=== PATIENT | male | born 1980 | race Caucasian/White ===

== ENCOUNTER 2020-09-18 21:33 | Inpatient (IN) | payer OTHER, SELFPAY ==
[2020-09-18 21:34] VITALS: BP 124/84; PULSE 117; RESP 22; TEMP 37.2; O2SAT 88; BMI 39.2
[2020-09-18 21:41] VITALS: BP 141/86; PULSE 112; RESP 18; O2SAT 86
[2020-09-18 21:44] VITALS: O2SAT 93; O2SAT 95
--- NOTE | 2020-09-18 22:40 | EKG12_ITS ---
Test Reason : DYSRHYTHMIA Blood Pressure : / mmHG Vent. Rate : 109 BPM Atrial Rate : 109 BPM P-R Int : 132 ms QRS Dur : 086 ms QT Int : 318 ms P-R-T Axes : 052 030 031 degrees QTc Int : 428 ms Sinus tachycardia Otherwise normal ECG Confirmed by DONELL SHANKAR, SEVEN ([id number]), index editor BRENDA HUIZAR ([id number]) on 09/22/2020 10:05:57 AM Referred By: Confirmed By:SEVEN MARLEY MD
--- NOTE | 2020-09-18 22:40 | CT_ITS ---
STUDY: CTA CHEST REASON FOR EXAM: Male, 40 years old. dyspnea covid + RADIATION DOSAGE (If Supplied By Facility): CTDIvol = ( 13.85 ) mGy, DLP = ( 568.35 ) mGycm TECHNIQUE: The examination was performed with the intravenous administration of IV 100mL Isovue-370. Post-processing of the angiographic images was performed, with multiplanar reformation and 3D reconstruction. Individualized dose optimization techniques were used for this CT. COMPARISON: None. FINDINGS: Normal enhancement of the main pulmonary artery and right and left pulmonary arteries. Normal enhancement of the bilateral peripheral pulmonary arteries. There is no demonstrated pulmonary embolism. Normal thoracic aorta and visualized great vessels. There is no demonstrated aortic dissection. Normal heart and pericardium. Normal mediastinum. Normal hilar regions. Normal visualized trachea and bronchi. The lungs are well expanded. Diffuse patchy groundglass airspace disease compatible with COVID. No consolidation or effusion. Normal pleura. Normal chest wall structures. Normal osseous structures. Normal visualized upper abdomen. CT/CTA Chest W/WO Contrast IMPRESSION: Normal CTA chest examination, without a demonstrated pulmonary embolism or arterial dissection. Diffuse patchy airspace disease bilaterally compatible with COVID. Electronically Signed: Rene Downs DO at 0:58 EDT Tel , Service support ,
--- NOTE | 2020-09-18 22:42 | EX.ED.DYSGE1 ---
HPI History of Present Illness Chief Complaint: Shortness of Breath Informant: patient Narrative Narrative: 40-year-old male presents the emergency department with a chief complaint of Covid and hypoxia. Patient states that about 3 weeks ago he was diagnosed with a sinus infection and started on Amoxil. He had a negative Covid test at that time. He states that he then started feeling that he was getting pneumonia and went back and they did a chest x-ray that showed pneumonia and he was started on prednisone and azithromycin. He states that he felt a little bit better but returned last week and tested positive for Covid. Today he checked his pulse ox at home and it was 82%. He is having increased dyspnea so he came to the emergency room. Patient is currently on a second round of prednisone taking 30 mg a day as well as albuterol. [facility] Medical History Asthma Diabetes Hypertension Non-smoker Sleep apnea Home Medications albuterol sulfate [ProAir HFA] 2 puff INHALATION Q6H PRN 09/18/20 [History Last Taken Unknown] benzonatate [Tessalon Perles] 100 mg PO TID 09/18/20 [History Last Taken Unknown] doxycycline hyclate [Vibra-Tabs] 100 mg PO BID 09/18/20 [History Last Taken Unknown] prednisone 30 mg PO DAILY 09/18/20 [History Last Taken Unknown] Allergy/AdvReac Type Severity Reaction Status Date / Time No Known Allergies Allergy Verified 09/18/20 21:34 Social History (Updated 09/18/20 @ 22:[address] Rajan Merrill DO) Smoking Status: Never smoker substance use type: does not use ROS ROS ED Constitutional Constitutional ED: Reports chills and fever(s); Denies weight loss Eyes Eyes: Denies change in vision or diplopia ENT ENT ED: Reports rhinorrhea and sore throat; Denies ear pain Cardiovascular Cardiovascular: Denies chest pain, orthopnea, palpitations or racing heartbeat Respiratory/Chest Respiratory/Chest: Reports cough, dyspnea and dyspnea on exertion; Denies orthopnea Gastrointestinal Gastrointestinal: Reports diarrhea; Denies abdominal pain, nausea or vomiting Genitourinary Genitourinary ED: Denies dysuria, hematuria or urinary frequency Musculoskeletal Musculoskeletal: Reports myalgias; Denies arthralgias Integumentary Denies abscess or rash Neurologic Neurologic: Reports headache(s); Denies weakness Psychiatric Psychiatric: Denies anxiety, depression, suicidal ideation or suicidal thoughts Endocrine Endocrinology: Denies polydipsia, polyphagia or polyuria Allergic/Immunologic Allergic/Immunologic ED: Denies mouth swelling, tongue swelling or urticaria EXAM Physical Exam Narrative Exam Narrative: Patient wearing 4 L nasal cannula with sats at 91%. Const Vital Signs: 09/18/20 21:34 09/18/20 21:41 09/18/20 21:44 Temperature 98.9 F Temperature Source Temporal Pulse Rate 117 H 112 H Respiratory Rate 22 H 18 Respiratory Effort Normal Respiratory Depth Normal Respiratory Pattern Normal Blood Pressure 124/84 H 141/86 H Blood Pressure Mean 97 104 Pulse Ox 88 86 93 Oxygen Delivery Method Room Air Room Air Nasal Cannula Oxygen Flow Rate (L/min) 4 09/19/20 00:59 Temperature Temperature Source Pulse Rate 107 H Respiratory Rate 38 H Respiratory Effort Respiratory Depth Respiratory Pattern Blood Pressure 143/70 H Blood Pressure Mean 94 Pulse Ox 91 Oxygen Delivery Method Nasal Cannula Oxygen Flow Rate (L/min) 4 Positive well nourished and well developed General Appearance ED: well developed HEENT Reports normocephalic, head/scalp atraumatic and moist mucous membranes Eyes PERRL and EOMs intact bilaterally Neck no lymphadenopathy, supple and no JVD Resp normal respiratory effort and clear to auscultation bilaterally Cardio regular rate, regular rhythm and no murmurs GI normal to inspection, nondistended, normoactive bowel sounds and non-tender Palpation: soft Back/Spine no CVA tenderness and normal ROM Extremity normal to inspection General Extremety ED: Negative for edema General Extremity: Negative for edema Neuro oriented x3 and CN's II-XII intact bilaterally Sensorium / Orientation: alert Motor Exam: strength 5/5 throughout Psych mental status grossly normal Mood & Affect: Negative for depressed or tearful Skin no rashes or lesions noted and no wounds MDM MDM MDM Narrative Medical decision making narrative: Patient's white count is 8.4. Lactic acid 1.7. Electrolytes are normal except sodium at 132. Glucose 173 most likely due to steroid use. Procalcitonin is elevated 0.45. CTA does not demonstrate a pulmonary embolism but does demonstrate diffuse patchy airspace disease consistent with his Covid. He is currently requiring 4 L nasal cannula to keep saturations at 91 and therefore does not qualify for home oxygen at this point. He received a dose of Decadron and some IV fluids prior to the CTA. Plan is admission Lab Data Attestation: I reviewed the patient's lab results. Labs: Laboratory Results - last 24 hr 09/18/20 09/18/20 09/18/20 23:02 23:02 23:02 WBC 8.4 RBC 5.72 Hgb 16.2 Hct 49.8 MCV 87.1 MCH 28.3 MCHC 32.5 RDW Std Deviation 44.7 H RDW Coeff of Cinthya 14.0 Plt Count 104 L MPV 12.2 H Immature Gran % (Auto) 0.500 Neut % (Auto) 87.9 H Lymph % (Auto) 8.4 L [place] % (Auto) 3.1 Eos % (Auto) 0.0 Baso % (Auto) 0.1 Absolute Neuts (auto) 7.4 Absolute Lymphs (auto) 0.70 L Nucleated RBC % 0 Sodium 132 L Potassium 4.1 Chloride 96 L Carbon Dioxide 27.0 Anion Gap 9 BUN 17 Creatinine 0.95 Estim Creat Clear Calc 122.58 Est GFR (MDRD) Af Amer 114 Est GFR (MDRD) Non-Af 94 BUN/Creatinine Ratio 17.8 Glucose 173 H Lactic Acid 1.7 Calcium 8.4 L Total Bilirubin 0.60 AST 53 H ALT 37 Alkaline Phosphatase 34 L Troponin I High Sens 17.5 Total Protein 8.2 Albumin 3.1 L Globulin 5.1 H Albumin/Globulin Ratio 0.6 L Procalcitonin 09/18/20 23:02 WBC RBC Hgb Hct MCV MCH MCHC RDW Std Deviation RDW Coeff of Cinthya Plt Count MPV Immature Gran % (Auto) Neut % (Auto) Lymph % (Auto) [place] % (Auto) Eos % (Auto) Baso % (Auto) Absolute Neuts (auto) Absolute Lymphs (auto) Nucleated RBC % Sodium Potassium Chloride Carbon Dioxide Anion Gap BUN Creatinine Estim Creat Clear Calc Est GFR (MDRD) Af Amer Est GFR (MDRD) Non-Af BUN/Creatinine Ratio Glucose Lactic Acid Calcium Total Bilirubin AST ALT Alkaline Phosphatase Troponin I High Sens Total Protein Albumin Globulin Albumin/Globulin Ratio Procalcitonin 0.45 H Radiography Diagnostic Testing: Radiology Impression Chest CTA 09/18/20 22:40 IMPRESSION: Normal CTA chest examination, without a demonstrated pulmonary embolism or arterial dissection. Diffuse patchy airspace disease bilaterally compatible with COVID. Electronically Signed: Rene Downs DO at 0:58 EDT Tel , Service support , EKG Initial EKG: Attestation: I personally reviewed and interpreted this EKG as follows: Comments: EKG demonstrates sinus tachycardia at a rate of 109. No concerning features of ACS or ectopy noted Discharge Plan Dx/Rx/DC Orders Clinical Impression: COVID-19, Hypoxia, Hyponatremia, Hyperglycemia, drug-induced Disposition Disposition: Acute Care Hospital [facility]
[2020-09-18] MEDS: 0.9% Normal Saline 1,000 ML 125 ML IV (22:58)
[2020-09-18] MEDS: dexAMETHasone 4 MG Tablet 6 MG PO (22:59)
[2020-09-18 23:23] LABS: Absolute Neutrophil Count 7.4 X10^3/uL (2.0-7.7); Basophil# 0.01 X10^3/uL; Basophil% 0.1 % (0-1); Hematocrit 49.8 % (40-54); Hemoglobin 16.2 g/dL (13.0-16.5); Lymphocyte % 8.4 % (19-41); Mean Corp Hgb Conc 32.5 g/dL (32-36); Mean Corpuscular Hgb 28.3 pg (27.0-32.0); Mean Corpuscular Volume 87.1 fL (80-94); Mean Platelet Vol. 12.2 fl (6.2-12.0); Monocyte# 0.26 X10^3/uL; Monocyte% 3.1 % (0-10); NRBC Flagged by Analyzer 0 % (0-5); Neutrophil # 7.36 X10^3/uL (2.7-7.7); Neutrophil % 87.9 % (47-70); Platelet Count 104 K/mm3 (150-450); RBC Distribution Width SD 44.7 fl (35.1-43.9); Red Blood Count 5.72 M/mm3 (4.6-6.2); White Blood Count 8.4 K/mm3 (4.4-11.0)
[2020-09-18 23:41] LABS: ALB/GLOB Ratio 0.6 RATIO (0.9-2.4); AST(SGOT) 53 U/L (15-37); Alanine Aminotransfer ALT/SGPT 37 U/L (16-61); Albumin, Serum 3.1 g/dL (3.2-5.0); Alkaline Phosphatase 34 U/L (45-117); Anion Gap 9 (5-15); BUN 17 mg/dL (7-18); BUN/Creat Ratio 17.8 RATIO (10-20); Calcium,Total 8.4 mg/dL (8.5-10.1); Chloride 96 mmol/L (98-107); Creatinine, Serum 0.95 mg/dL (0.70-1.30); EST Glomerular Filtration Rate 94 mL/min (>60); Est Glom Filt Rate - Afr Amer 114 mL/min (>60); Estimated Creatinine Clearance 122.58 ml/min; Globulin 5.1 g/dL (2.2-4.2); Glucose 173 mg/dL (74-106); Potassium 4.1 mmol/L (3.5-5.1); Protein, Total 8.2 g/dL (6.4-8.2); Sodium Level 132 mmol/L (136-145); Troponin-I HS 17.5 pg/mL (3.0-78.5)
[2020-09-18 23:45] LABS: Lactic Acid 1.7 mmol/L (0.4-1.9)
[2020-09-19] VITALS (13 sets, daily range): BP systolic 114–152; BP diastolic 68–79; PULSE 85–107; RESP 18–38; TEMP 37.1–38.3; O2SAT 91–103; BMI 39.2
[2020-09-19 00:01] LABS: Procalcitonin 0.45 ng/mL (0.00-0.09)
--- NOTE | 2020-09-19 01:24 | HP.PCM.HOS_ITS ---
HPI - General General Date of Admission: 09/19/20 Date of Service: 09/19/20 Chief Complaint: SOB, cough, fever - 3 weeks HPI Narrative ROSE OLMEDO, is a 40 M who presents persistent cough, shortness of breath and fever ongoing for 3 weeks. 3 weeks ago, he had a sore throat and cough and was seen at urgent care. His Covid test was negative. Patient is unvaccinated. About a week later, he came back to the urgent care and was diagnosed with pneumonia and started on azithromycin and prednisone. He felt improved for short while and returned on and was tested for Covid. His Covid came back positive a week ago. He has been monitoring himself. His pulse ox was 82% on the day of admission and he decided to come in. His vitals in the ED were fairly stable. He was febrile with temperature of 101F. CT of the chest showed no PE but patchy airspace disease bilaterally. [facility] Medical History Asthma Diabetes Hypertension Non-smoker Sleep apnea Home Medications albuterol sulfate [ProAir HFA] 2 puff INHALATION Q6H PRN 09/18/20 [History Last Taken Unknown] benzonatate [Tessalon Perles] 100 mg PO TID 09/18/20 [History Last Taken Unknown] doxycycline hyclate [Vibra-Tabs] 100 mg PO BID 09/18/20 [History Last Taken Unknown] prednisone 30 mg PO DAILY 09/18/20 [History Last Taken Unknown] Allergy/AdvReac Type Severity Reaction Status Date / Time No Known Allergies Allergy Verified 09/18/20 21:34 Social History Smoking Status: Never smoker substance use type: does not use ROS ROS Narrative Constitutional: Reports: Malaise, Weakness, Fatigue, Anorexia, Chills, Fever, Denies:Night Sweats, Weight Change Eyes: Denies: Blurred vision, Cataracts, Conjunctivae Inflammation, Pain, Redness, Vision Change HEENT: Denies: Difficulty Hearing, Difficulty Swallowing, Head Aches, Hearing Changes, Sinus Congestion, Sinus Drainage Cardiovascular: Denies: Chest Pain, Orthopnea, Palpitations Respiratory: Denies: Cough, Shortness of breath at rest, Sputum production Gastrointestinal: Denies: Abdominal Pain, Nausea, Vomiting Genitourinary: Denies: Dysuria Musculoskeletal: Denies: Joint Pain, Joint stiffness, Joint swelling, Joint Tenderness Skin: Denies: Rash, Wounds Neurological: Denies: Numbness, Tingling, Focal weakness Vital Signs Vital Signs Vital Signs: 09/18/20 21:34 09/18/20 21:41 09/18/20 21:44 Temperature 98.9 F Temperature Source Temporal Pulse Rate 117 H 112 H Respiratory Rate 22 H 18 Respiratory Effort Normal Respiratory Depth Normal Respiratory Pattern Normal Blood Pressure 124/84 H 141/86 H Blood Pressure Mean 97 104 Pulse Ox 88 86 93 Oxygen Delivery Method Room Air Room Air Nasal Cannula Oxygen Flow Rate (L/min) 4 09/19/20 00:59 Temperature Temperature Source Pulse Rate 107 H Respiratory Rate 38 H Respiratory Effort Respiratory Depth Respiratory Pattern Blood Pressure Blood Pressure Mean Pulse Ox 91 Oxygen Delivery Method Nasal Cannula Oxygen Flow Rate (L/min) 4 Weight Weight: 138.8 kg Body Mass Index (BMI) 39.2 Physical Exam Narrative Physical exam: General: Alert, Oriented x3, Cooperative, No apparent distress, Well developed, on 4 L of oxygen HEENT: Atraumatic Oral: Moist Mucosa Neck: Supple Lungs: Diminished Cardiovascular: HS I+II, regular, no murmurs Abdomen: Bowel Sounds Present, Soft, Non Tender Extremities: No edema Skin: No rashes, No breakdown Neurological: Grossly intact Psych/Mental Status: Appropriate Results Lab / Micro Data Result Diagrams: 09/19/20 06:01 09/18/20 23:02 Labs: Laboratory Results - last 24 hr 09/18/20 23:02: WBC 8.4, RBC 5.72, Hgb 16.2, Hct 49.8, MCV 87.1, MCH 28.3, MCHC 32.5, RDW Std Deviation 44.7 H, RDW Coeff of Cinthya 14.0, Plt Count 104 L, MPV 12.2 H, Immature Gran % (Auto) 0.500, Neut % (Auto) 87.9 H, Lymph % (Auto) 8.4 L, [place] % (Auto) 3.1, Eos % (Auto) 0.0, Baso % (Auto) 0.1, Absolute Neuts (auto) 7.4, Absolute Lymphs (auto) 0.70 L, Nucleated RBC % 0 08/05/21 23:02: Sodium 132 L, Potassium 4.1, Chloride 96 L, Carbon Dioxide 27.0, Anion Gap 9, BUN 17, Creatinine 0.95, Estim Creat Clear Calc 122.58, Est GFR (MDRD) Af Amer 114, Est GFR (MDRD) Non-Af 94, BUN/Creatinine Ratio 17.8, Glucose 173 H, Calcium 8.4 L, Total Bilirubin 0.60, AST 53 H, ALT 37, Alkaline Phosph atase 34 L, Troponin I High Sens 17.5, Total Protein 8.2, Albumin 3.1 L, Globulin 5.1 H, Albumin/Globulin Ratio 0.6 L 09/18/20 23:02: Lactic Acid 1.7 09/18/20 23:02: Procalcitonin 0.45 H Radiology Impression Chest CTA 09/18/20 22:40 IMPRESSION: Normal CTA chest examination, without a demonstrated pulmonary embolism or arterial dissection. Diffuse patchy airspace disease bilaterally compatible with COVID. Electronically Signed: Rene Downs DO at 0:58 EDT Tel , Service support , Assessment & Plan Assessment/Plan (1) COVID-19: (2) Hypoxia: (3) Hyponatremia: PLAN: 1. Acute COVID-19 pneumonia with hypoxemia CTA of the chest was negative for acute PE; confirms acute COVID-19 Patient is on 4 L of oxygen, continue with breathing treatments, po steroids, Encourage use of incentive spirometer. Wean off oxygen for SPO2 more than 94% 2. Hyponatremia, likely secondary to dehydration #1 We will repeat blood work in a.m. 3. Rest of his chronic medical conditions including type II DM, morbid obesity -increases his risk, complicates his care We will check HbA1c, cover for now with insulin sliding scale Charges/Coding Visit Charges Inpatient E&M: 31741 Init Hosp L3
--- NOTE | 2020-09-19 04:23 | NURSING ---
Pt's , Radha Tolentino ([phone]) called in to check on pt's progress. Direct line to pt's room also given for future reference.
[2020-09-19] MEDS: Acetaminophen 325 MG Tablet 650 MG PO ×2 (04:43→17:57)
[2020-09-19] MEDS: Benzonatate 100 MG Capsule PO ×3 (04:44→17:47)
[2020-09-19 06:11] LABS: Absolute Lymphocyte Count 0.66 X10^3/uL (0.83-4.51); Absolute Neutrophil Count 5.6 X10^3/uL (2.0-7.7); Basophil# 0.01 X10^3/uL; Basophil% 0.2 % (0-1); Lymphocyte # 0.66 X10^3/ul (0.83-4.51); Lymphocyte % 10.2 % (19-41); Mean Corp Hgb Conc 31.9 g/dL (32-36); Mean Corpuscular Hgb 27.6 pg (27.0-32.0); Mean Corpuscular Volume 86.6 fL (80-94); Monocyte% 3.1 % (0-10); NRBC Flagged by Analyzer 0 % (0-5); Neutrophil # 5.56 X10^3/uL (2.7-7.7); Platelet Count 105 K/mm3 (150-450); Red Blood Count 5.43 M/mm3 (4.6-6.2); White Blood Count 6.5 K/mm3 (4.4-11.0)
[2020-09-19 06:50] LABS: ALB/GLOB Ratio 0.6 RATIO (0.9-2.4); AST(SGOT) 53 U/L (15-37); Alanine Aminotransfer ALT/SGPT 34 U/L (16-61); Albumin, Serum 2.8 g/dL (3.2-5.0); Alkaline Phosphatase 33 U/L (45-117); Anion Gap 8 (5-15); BUN 14 mg/dL (7-18); BUN/Creat Ratio 18.8 RATIO (10-20); Calcium,Total 8.2 mg/dL (8.5-10.1); Chloride 99 mmol/L (98-107); Creatinine, Serum 0.75 mg/dL (0.70-1.30); EST Glomerular Filtration Rate 125 mL/min (>60); Est Glom Filt Rate - Afr Amer 151 mL/min (>60); Estimated Creatinine Clearance 155.27 ml/min; Globulin 4.9 g/dL (2.2-4.2); Glucose 184 mg/dL (74-106); Potassium 4.2 mmol/L (3.5-5.1); Protein, Total 7.7 g/dL (6.4-8.2); Sodium Level 132 mmol/L (136-145)
[2020-09-19] MEDS: Insulin Lispro 100 UNIT/ML INSULN.PEN SC ×4 (06:50→20:41)
[2020-09-19] MEDS: dexAMETHasone 2 MG TABLET 6 MG PO (06:51)
[2020-09-19 07:00] LABS: Bedside Glucose 185 mg/dL (70-110)
[2020-09-19 07:38] LABS: BNP,B-Type NATRIURETIC PEPTIDE 2.9 pg/mL (0-100)
[2020-09-19 08:06] LABS: Hemoglobin A1c 6.7 % (3.8-5.6)
[2020-09-19] MEDS: Enoxaparin 40 MG/0.4 ML Syringe SC ×2 (08:56→20:42)
--- NOTE | 2020-09-19 10:40 | CASEMGMT ---
HENRIK VALLE Assessment: Face to Face with pt for initial transition planning/care coordination assessment, isolation precautions maintained. RN LEONARD introduced self and role at [facility], pt voices understanding and consents to assessment. Pt sitting up in bed with O2 on and hospitalist at bedside. Pt is A/O x4 and answers all questions appropriately at this time. Care providers, pharmacy, and demographics verified/updated. Admitting Dx: COVID PCP:Pt denies having a PCP. Provided pt with pamphlet of local PCP's. Specialists: Pt denies having any specialists. Preferred Pharmacy: Insurance: MMO Prescription Benefit: yes LW/HPOA: Pt denies having a LW/DPOA LNOK: Mariana Tolentino, Living Arrangements: Pt lives with in a bilevel home with two steps to enter. Pt states he is I in ADL's and denies concerns at home. Transportation: Pt drives self and denies concerns with transportation. DME/HHC: Pt denies having any DME, previous HHC. Provided pt with list of local in network DME companies in case he needs O2 at dc. Pt preferred choice is [employer]. Green sheet on chart in case pt dc's over the weekend. Pt states no concerns with going home at time of dc. Pt is aware of quarantining guidelines. He is able to be quarantined from his with separate bedrooms and bathrooms. His does not have covid. He states he has family who can obtain groceries and supplies for him. Pt states he was tested initially at [facility] in [place] with a negative result. Then pt went to [facility] urgent care and had a positive result. Pt states no further concerns/needs. CM to follow. Advised pt to ask CM if any further question/concerns/needs arise, voices understanding. Pt Goal: Home Plan: Home
[2020-09-19 11:16] LABS: Bedside Glucose 286 mg/dL (70-110)
--- NOTE | 2020-09-19 13:57 | PN.HOSP_ITS ---
Subjective Subjective Still short of breath and having paroxysms of cough. Objective Data Objective Data Vital Signs: Vital Signs Temp Pulse Resp BP Pulse Ox 37.2 C 85 18 144/79 H 93 09/19/20 12:20 09/19/20 12:20 09/19/20 12:20 09/19/20 12:20 09/19/20 13:50 Oxygen Flow Rate (L/min) 4 Oxygen Delivery Method Nasal Cannula Weight: 138.8 kg Body Mass Index (BMI) 39.2 Intake & Output: Intake and Output for Last 24 Hours 09/17/20 09/18/20 09/19/20 23:59 23:59 23:59 Intake Total 1408.33 / 1408.33 Balance 1408.33 / 1408.33 Medical Nutrition Assessment Dietitian: Nutrition Therapy Diagnosis Start: 09/19/20 12:02 Freq: Status: Active Protocol: Document 09/19/20 12:18 [facility] (Rec: 09/19/20 12:18 [facility] [id number]) Nutrition Malnutrition Evidence of Malnutrition Exists Yes Malnutrition (severe): Acute Illness/Injury Evidenced By Suboptimal Energy Intake ( Severe),Weight Loss (Severe) Clinical Problem Acute Disease or Injury Related Malnutrition Etiology related to acute illness ( COVID) Signs/Symptoms as evidenced by <50% po intake >5 days and 6.1% wt loss x 1 wk. Status Active Problem Recommendation Dietitian Recommendations/Changes Will change diet to Consistent CHO diet d/t hx DM and steroid use Will give vanilla glucerna shake w/ meals for increased nutrition if confused Lab / Micro Data Attestation: I reviewed the patient's lab results. Result Diagrams: 09/19/20 06:01 09/19/20 06:01 Labs: Laboratory Results - last 24 hr 09/18/20 23:02: WBC 8.4, RBC 5.72, Hgb 16.2, Hct 49.8, MCV 87.1, MCH 28.3, MCHC 32.5, RDW Std Deviation 44.7 H, RDW Coeff of Cinthya 14.0, Plt Count 104 L, MPV 12.2 H, Immature Gran % (Auto) 0.500, Neut % (Auto) 87.9 H, Lymph % (Auto) 8.4 L, [place] % (Auto) 3.1, Eos % (Auto) 0.0, Baso % (Auto) 0.1, Absolute Neuts (auto) 7.4, Absolute Lymphs (auto) 0.70 L, Nucleated RBC % 0 09/18/20 23:02: Sodium 132 L, Potassium 4.1, Chloride 96 L, Carbon Dioxide 27.0, Anion Gap 9, BUN 17, Creatinine 0.95, Estim Creat Clear Calc 122.58, Est GFR (MDRD) Af Amer 114, Est GFR (MDRD) Non-Af 94, BUN/Creatinine Ratio 17.8, Glucose 173 H, Calcium 8.4 L, Total Bilirubin 0.60, AST 53 H, ALT 37, Alkaline Phosphatase 34 L, Troponin I High Sens 17.5, Total Protein 8.2, Albumin 3.1 L, Globulin 5.1 H, Albumin/Globulin Ratio 0.6 L 09/18/20 23:02: Lactic Acid 1.7 09/18/20 23:02: Procalcitonin 0.45 H 09/19/20 06:01: B-Natriuretic Peptide 2.9 09/19/20 06:01: WBC 6.5, RBC 5.43, Hgb 15.0, Hct 47.0, MCV 86.6, MCH 27.6, MCHC 31.9 L, RDW Std Deviation 45.0 H, RDW Coeff of Cinthya 14.0, Plt Count 105 L, MPV 12.0, Immature Gran % (Auto) 0.500, Neut % (Auto) 86.0 H, Lymph % (Auto) 10.2 L, [place] % (Auto) 3.1, Eos % (Auto) 0.0, Baso % (Auto) 0.2, Absolute Neuts (auto) 5.6, Absolute Lymphs (auto) 0.66 L, Nucleated RBC % 0 09/19/20 06:01: Sodium 132 L, Potassium 4.2, Chloride 99, Carbon Dioxide 25.0, Anion Gap 8, BUN 14, Creatinine 0.75, Estim Creat Clear Calc 155.27, Est GFR (MDRD) Af Amer 151, Est GFR (MDRD) Non-Af 125, BUN/Creatinine Ratio 18.8, Glucose 184 H, Calcium 8.2 L, Total Bilirubin 0.60, AST 53 H, ALT 34, Alkaline Phosphatase 33 L, Total Protein 7.7, Albumin 2.8 L, Globulin 4.9 H, Albumin/Globulin Ratio 0.6 L 09/19/20 06:01: Hemoglobin A1c 6.7 H 09/19/20 06:49: POC Glucose 185 H 09/19/20 10:58: POC Glucose 286 H Radiography Diagnostic Testing: Radiology Impression Chest CTA 09/18/20 22:40 IMPRESSION: Normal CTA chest examination, without a demonstrated pulmonary embolism or arterial dissection. Diffuse patchy airspace disease bilaterally compatible with COVID. Electronically Signed: Rene Downs DO at 0:58 EDT Tel , Service support , Physical Exam Const alert HEENT Head and Scalp: normocephalic Resp normal respiratory effort and clear to auscultation bilaterally Resp Narrative: Coarse breath sounds bilaterally Cardio regular rate, regular rhythm and S1 normal heart sound GI normal to inspection, nondistended, normoactive bowel sounds, soft to palpation, non-tender and non-distended Extremity normal to inspection and full ROM Skin no rashes or lesions noted Assessment & Plan Assessment/Plan (1) COVID-19: (2) Acute and chronic respiratory failure with hypoxia: PLAN: 1. COVID-19 pneumonia Date of onset was September 11. Patient said that prior to that he was feeling sick and was treated for pneumonia and actually got better until he started getting sick again. Patient's father, who is vaccinated, also has COVID-19 but is feeling well. The patient himself is unvaccinated. Patient stated concerned about the vaccination as it was not yet FDA approved at the time and was concerned about lack of records and legal litigation if he got the vaccine without the FDA approval. Patient on dexamethasone Add remdesivir 2. Acute hypoxic respiratory failure Reviewed images with the patient showing diffuse infiltrates on his CAT scan Currently on 4L wean oxygen as tolerated 3. Hyperglycemia Exacerbated by steroids Sliding scale insulin 4. VTE prophylaxis: High risk. Enoxaparin. Granted 5 minutes of which greater than 50% of time was discussed with patient about the COVID-19, reviewing his CAT scan images with him. Did advise him also to contact anyone that he may have been exposed potential exposure to COVID-19 but also encouraged him to speak to this or unvaccinated providing his story so that may they may reconsider their stance on not being vaccinated.
[2020-09-19 18:05] LABS: Bedside Glucose 221 mg/dL (70-110)
[2020-09-19] MEDS: 0.9% Saline Lock 10 ML Syringe IV (20:42)
[2020-09-19 20:45] LABS: Alkaline Phosphatase 32 U/L (45-117)
[2020-09-19 21:35] LABS: Bedside Glucose 165 mg/dL (70-110)
[2020-09-20] VITALS (23 sets, daily range): BP systolic 122–158; BP diastolic 67–99; PULSE 81–112; RESP 14–32; TEMP 36.2–38.2; O2SAT 88–97
[2020-09-20] MEDS: 0.9% Saline Lock 10 ML Syringe IV ×2 (00:29→22:54)
[2020-09-20] MEDS: INHALER, ASSIST DEVICES 1 EACH SPACER INHALATION (00:32)
--- NOTE | 2020-09-20 01:01 | NURSING ---
Pt's pulse ox was down in the mid 80's. I went into the room and he said he must have taken his nasal cannula out while he was sleeping. I gave the patient two puffs of his inhaler and educated him on the benefits on using the incentive spirometer. I also contacted respiratory therapy and talked to Demarcus. He suggested moving up the pt's O2 to 12 or 13 L high flow for a couple of hours to help the pt catch back up on his 02 level. He said to keep him posted on the pt's status
[2020-09-20] MEDS: Acetaminophen 325 MG Tablet 650 MG PO (05:19)
[2020-09-20] MEDS: Benzonatate 100 MG Capsule PO ×3 (06:13→18:02)
[2020-09-20] MEDS: dexAMETHasone 2 MG TABLET 6 MG PO (06:13)
[2020-09-20 06:51] LABS: Bedside Glucose 141 mg/dL (70-110)
[2020-09-20 07:32] LABS: Hematocrit 46.5 % (40-54); Hemoglobin 15.4 g/dL (13.0-16.5); Mean Corp Hgb Conc 33.1 g/dL (32-36); Mean Corpuscular Hgb 28.3 pg (27.0-32.0); Mean Corpuscular Volume 85.3 fL (80-94); Mean Platelet Vol. 11.8 fl (6.2-12.0); Platelet Count 118 K/mm3 (150-450); RBC Distribution Width CV 13.9 % (11.6-14.6); Red Blood Count 5.45 M/mm3 (4.6-6.2); White Blood Count 9.2 K/mm3 (4.4-11.0)
[2020-09-20 07:56] LABS: ALB/GLOB Ratio 0.6 RATIO (0.9-2.4); AST(SGOT) 48 U/L (15-37); Alanine Aminotransfer ALT/SGPT 37 U/L (16-61); Albumin, Serum 2.8 g/dL (3.2-5.0); Alkaline Phosphatase 32 U/L (45-117); Anion Gap 8 (5-15); BUN 12 mg/dL (7-18); BUN/Creat Ratio 17.2 RATIO (10-20); Calcium,Total 8.5 mg/dL (8.5-10.1); Chloride 100 mmol/L (98-107); EST Glomerular Filtration Rate 134 mL/min (>60); Est Glom Filt Rate - Afr Amer 163 mL/min (>60); Estimated Creatinine Clearance 166.36 ml/min; Globulin 4.7 g/dL (2.2-4.2); Glucose 150 mg/dL (74-106); Potassium 3.8 mmol/L (3.5-5.1); Protein, Total 7.5 g/dL (6.4-8.2); Sodium Level 134 mmol/L (136-145)
--- NOTE | 2020-09-20 10:12 | EX.PCM.CONCC ---
Assessment & Plan Assessment/Plan (1) Acute respiratory failure with hypoxia: (2) COVID-19: (3) Hyperglycemia, drug-induced: (4) Obesity due to excess calories: (5) Sleep apnea: PLAN: RECOMMENDATIONS: 1. Continue remdesivir and Decadron therapy 2. Schedule bronchodilators 3. Wean oxygen as tolerated. Consider BiPAP 19/15 centimeters of water with sleep 4. Continue DVT prophylaxis IMPRESSIONS: 1. Acute hypoxic respiratory failure secondary to COVID-19 pneumonia in the setting of mild intermittent asthma Patient is not immunized against COVID-19. Patient with classic findings on CT scan and positive testing. Patient has had significant progression over the last 24 hours. Cannot exclude progression. Patient is open to intubation if necessary. Warned the patient against taking his oxygen off to ambulate to the bathroom as this could exacerbate underlying right heart failure. Patient would be appropriate for remdesivir and Decadron per FDA criteria. 2. Untreated VIJAY Patient is to be on BiPAP at baseline. This will likely be pronounced given hypoxia while awake. If patient becomes hypoxic overnight, initiation of BiPAP therapy with sleep would be the first indication. Patient does not have signs or symptoms of respiratory muscle fatigue to require BiPAP during the day at this time. Patient has had some weight loss and may benefit from a repeat titration as an outpatient to see if pressures could be decreased. 3. Morbid obesity/potential diabetes mellitus Complicates care, management, recovery and prognosis. Patient did have some hyperglycemia on steroids, but hemoglobin A1c is suggestive the patient is diabetic. Patient would likely benefit from a carb controlled diet. Cannot exclude the need for basal insulin pending response to Decadron therapy. Patient would benefit from weight loss. HPI Consult Data Date of Consult: 09/20/20 HPI Narrative HPI Narrative: ROSE OLMEDO is a 40 M, with past medical history listed below, who presents to [facility] on 09/18/2020 secondary to hypoxia in the setting of positive Covid. Patient reportedly had a sinus infection 3 weeks ago and was treated with Amoxil. Patient had a negative Covid test at that time and started to improve. Patient stated that he subsequently had some shortness of breath and a chest x-ray was read as pneumonia so he was placed on prednisone and azithromycin. On of last week, patient started to have increased fevers and went to be retested. Covid test was positive at that time. Patient was sent home for monitoring, but stated that his pulse ox had dropped to 82% so he came to the ER for evaluation. Patient reportedly has been on prednisone for the majority of this course. In the ER, patient was afebrile, but tachycardic at 117 bpm. Patient was saturating 86% on room air and had to be placed on nasal cannula. Blood pressures were appropriate. Laboratory work-up was relatively unremarkable except for an elevated hemoglobin of 16.2 and a pro calcitonin of 0.45. CTA of the chest showed diffuse bilateral groundglass opacities. The patient was admitted to the floor for further optimization without a pulmonary consult. Overnight, patient has had significant worsening in his hypoxia. Patient has been elevated from 4 L nasal cannula to 75% Airvo to maintain saturations. Patient overall feels subjectively unchanged from his presentation. Patient continues to have a nonproductive cough. Patient is not reporting any diarrhea, nausea or vomiting. Patient does report that he uses albuterol as needed secondary to a diagnosis of asthma. Patient has not had a pulmonary function test previously, but states he tends to use his albuterol only when he is acutely ill. Patient has been on prednisone in the past with improvements. Patient also reports that he is to be on BiPAP 19/15 centimeters of water, but he was unable to tolerate the pressure so this was discontinued. Patient does report he has lost approximately 25 pounds since his diagnosis was made. Review of systems otherwise negative from a constitutional, HEENT, respiratory, cardiovascular, GI, genitourinary, musculoskeletal, skin, neurologic, psychiatric and hematologic system unless stated above. [facility] Medical History (Updated 09/20/20 @ 10:[address] Eric Mixon MD) Asthma Diabetes Hypertension Non-smoker Sleep apnea Home Medications albuterol sulfate [ProAir HFA] 2 puff INHALATION Q6H PRN 09/18/20 [History Last Taken Unknown] benzonatate [Tessalon Perles] 100 mg PO TID 09/18/20 [History Last Taken Unknown] doxycycline hyclate [Vibra-Tabs] 100 mg PO BID 09/18/20 [History Last Taken Unknown] prednisone 30 mg PO DAILY 09/18/20 [History Last Taken Unknown] Allergy/AdvReac Type Severity Reaction Status Date / Time No Known Allergies Allergy Verified 08/05/21 21:34 Social History Smoking Status: Never smoker substance use type: does not use ROS ROS Narrative See HPI Physical Exam Const alert and oriented x3 Constitutional Narrative: On Airvo General Appearance: cooperative, well developed and anxious Orientation / Consciousness: Negative for confused, disoriented or lethargic Nutritional Appearance: obese centrally obese HEENT normocephalic, head/scalp atraumatic and moist oral mucous membranes Eyes PERRL and EOMs intact bilaterally Neck full ROM and no lymphadenopathy Chest inspection of chest normal Resp no retractions, no use of accessory muscles and percussion normal Resp Narrative: Coarse breath sounds with wheezing following coughing Effort and Inspection: able to speak in complete sentences and actively coughing non-productive and hacking Auscultation: diminished lung sounds; Negative for rales, rhonchi or wheezes Percussion: Negative for dullness Cardio regular rhythm, S1 normal heart sound, S2 normal heart sound, no murmurs, no rub and no gallops Rate: tachycardic Peripheral Pulses: pulses 2+ throughout GI normal to inspection, nondistended, normoactive bowel sounds no CVA tenderness Extremity no clubbing, cyanosis or edema Skin no rashes or lesions noted Neuro oriented x3, CN's II-XII intact bilaterally, moves all extremities and no focal motor deficits Psych cooperative and affect normal Medical Records Data Medical Nutrition Assessment Dietitian: Nutrition Therapy Diagnosis Start: 09/19/20 12:02 Freq: Status: Active Protocol: Document 09/19/20 12:18 [facility] (Rec: 09/19/20 12:18 [facility] [id number]) Nutrition Malnutrition Evidence of Malnutrition Exists Yes Malnutrition (severe): Acute Illness/Injury Evidenced By Suboptimal Energy Intake ( Severe),Weight Loss (Severe) Clinical Problem Acute Disease or Injury Related Malnutrition Etiology related to acute illness ( COVID) Signs/Symptoms as evidenced by <50% po intake >5 days and 6.1% wt loss x 1 wk. Status Active Problem Recommendation Dietitian Recommendations/Changes Will change diet to Consistent CHO diet d/t hx DM and steroid use Will give vanilla glucerna shake w/ meals for increased nutrition if confused Lab / Micro Data Result Diagrams: 09/20/20 07:16 09/20/20 07:16 Labs: Laboratory Results - last 24 hr 09/19/20 10:58: POC Glucose 286 H 09/19/20 17:46: POC Glucose 221 H 09/19/20 19:25: Alkaline Phosphatase 32 L 09/19/20 20:35: POC Glucose 165 H 09/20/20 06:11: POC Glucose 141 H 09/20/20 07:16: WBC 9.2, RBC 5.45, Hgb 15.4, Hct 46.5, MCV 85.3, MCH 28.3, MCHC 33.1, RDW Std Deviation 43.0, RDW Coeff of Cinthya 13.9, Plt Count 118 L, MPV 11.8 09/20/20 07:16: Sodium 134 L, Potassium 3.8, Chloride 100, Carbon Dioxide 26.0, Anion Gap 8, BUN 12, Creatinine 0.70, Estim Creat Clear Calc 166.36, Est GFR (MDRD) Af Amer 163, Est GFR (MDRD) Non-Af 134, BUN/Creatinine Ratio 17.2, Glucose 150 H, Calcium 8.5, Total Bilirubin 0.60, AST 48 H, ALT 37, Alkaline Phosphatase 32 L, Total Protein 7.5, Albumin 2.8 L, Globulin 4.7 H, Albumin/Globulin Ratio 0.6 L Charges/Coding Visit Charges Inpatient E&M: 17094 Init Hosp L3
[2020-09-20] MEDS: Insulin Lispro 100 UNIT/ML INSULN.PEN SC ×3 (11:09→22:54)
[2020-09-20] MEDS: Enoxaparin 40 MG/0.4 ML Syringe SC ×2 (11:09→22:54)
[2020-09-20 11:21] LABS: Bedside Glucose 186 mg/dL (70-110)
--- NOTE | 2020-09-20 11:50 | PCM.PN.HOSP ---
Subjective Subjective Increased oxygen requirements. Patient has been placed on air Vo. Objective Data Objective Data Vital Signs: Vital Signs Temp Pulse Resp BP Pulse Ox 37.1 C 98 24 H 158/88 H 88 09/20/20 08:00 09/20/20 11:36 09/20/20 11:36 09/20/20 08:00 09/20/20 11:36 Oxygen Flow Rate (L/min) 13 Oxygen Delivery Method Nasal Cannula Weight: 138.8 kg Body Mass Index (BMI) 39.2 Intake & Output: Intake and Output for Last 24 Hours 09/18/20 09/19/20 09/20/20 23:59 23:59 23:59 Intake Total 2129 Balance 2129 Medical Nutrition Assessment Dietitian: Nutrition Therapy Diagnosis Start: 09/19/20 12:02 Freq: Status: Active Protocol: Document 09/19/20 12:18 [facility] (Rec: 09/19/20 12:18 [facility] [id number]) Nutrition Malnutrition Evidence of Malnutrition Exists Yes Malnutrition (severe): Acute Illness/Injury Evidenced By Suboptimal Energy Intake ( Severe),Weight Loss (Severe) Clinical Problem Acute Disease or Injury Related Malnutrition Etiology related to acute illness ( COVID) Signs/Symptoms as evidenced by <50% po intake >5 days and 6.1% wt loss x 1 wk. Status Active Problem Recommendation Dietitian Recommendations/Changes Will change diet to Consistent CHO diet d/t hx DM and steroid use Will give vanilla glucerna shake w/ meals for increased nutrition if confused Lab / Micro Data Result Diagrams: 09/20/20 07:16 09/20/20 07:16 Labs: Laboratory Results - last 24 hr 09/19/20 17:46: POC Glucose 221 H 09/19/20 19:25: Alkaline Phosphatase 32 L 09/19/20 20:35: POC Glucose 165 H 09/20/20 06:11: POC Glucose 141 H 09/20/20 07:16: WBC 9.2, RBC 5.45, Hgb 15.4, Hct 46.5, MCV 85.3, MCH 28.3, MCHC 33.1, RDW Std Deviation 43.0, RDW Coeff of Cinthya 13.9, Plt Count 118 L, MPV 11.8 09/20/20 07:16: Sodium 134 L, Potassium 3.8, Chloride 100, Carbon Dioxide 26.0, Anion Gap 8, BUN 12, Creatinine 0.70, Estim Creat Clear Calc 166.36, Est GFR (MDRD) Af Amer 163, Est GFR (MDRD) Non-Af 134, BUN/Creatinine Ratio 17.2, Glucose 150 H, Calcium 8.5, Total Bilirubin 0.60, AST 48 H, ALT 37, Alkaline Phosphatase 32 L, Total Protein 7.5, Albumin 2.8 L, Globulin 4.7 H, Albumin/Globulin Ratio 0.6 L 09/20/20 11:08: POC Glucose 186 H Physical Exam Narrative On Arava though. No respiratory distress. No conversational dyspnea. HEENT Head and Scalp: normocephalic Resp normal respiratory effort, no use of accessory muscles and clear to auscultation bilaterally Cardio regular rate, regular rhythm, S1 normal heart sound and S2 normal heart sound GI normal to inspection, nondistended, normoactive bowel sounds, soft to palpation, non-tender and non-distended Extremity normal to inspection Assessment & Plan Assessment/Plan (1) COVID-19: (2) Acute and chronic respiratory failure with hypoxia: PLAN: 1. COVID-19 pneumonia Date of onset was September 11. Patient said that prior to that he was feeling sick and was treated for pneumonia and actually got better until he started getting sick again. Patient's father, who is vaccinated, also has COVID-19 but is feeling well. The patient himself is unvaccinated. Patient stated concerned about the vaccination as it was not yet FDA approved at the time and was concerned about lack of records and legal litigation if he got the vaccine without the FDA approval. Patient on dexamethasone Add remdesivir 2. Acute hypoxic respiratory failure Reviewed images with the patient showing diffuse infiltrates on his CAT scan Worse Complicated by patient's underlying sleep apnea Pulmonary consult appreciated. Recommending BiPAP 19/15 centimeters at night 3. Hyperglycemia Exacerbated by steroids Sliding scale insulin 4. VTE prophylaxis: High risk. Enoxaparin. Charges/Coding Visit Charges Inpatient E&M: 49526 Subs Hosp L2
[2020-09-20] MEDS: Ipratropium/Albuterol Sulfate 3 ML AMPUL.NEB INHALATION ×2 (13:39→19:55)
[2020-09-20 15:31] LABS: Allen Test Positive; Base Excess 1 mmol/L (-2 to +2); Bicarbonate 25.6 mmol/L (22-26); Blood Gas Specimen Type ART; FI02 100; O2 Delivery Device BiPAP; PEEP 6; PO2 62 mmHG (75-100); SITE R Radial; SO2 92 % (95-99); Total Carbon Dioxide 27 mmol/L; pCO2 37.8 mmHg (35-45); pH 7.44 (7.35-7.45)
[2020-09-20] MEDS: MELATONIN 3 MG TABLET PO (22:54)
[2020-09-20 23:31] LABS: Bedside Glucose 198 mg/dL (70-110)
[2020-09-21] VITALS (34 sets, daily range): BP systolic 85–154; BP diastolic 57–87; PULSE 72–96; RESP 12–30; TEMP 36–36.7; O2SAT 86–98
[2020-09-21 04:26] LABS: Bedside Glucose 157 mg/dL (70-110)
[2020-09-21 04:53] LABS: Absolute Lymphocyte Count 0.83 X10^3/uL (0.83-4.51); Basophil# 0.01 X10^3/uL; Basophil% 0.2 % (0-1); Hematocrit 44.9 % (40-54); Hemoglobin 14.4 g/dL (13.0-16.5); Lymphocyte # 0.83 X10^3/ul (0.83-4.51); Lymphocyte % 16.2 % (19-41); Mean Corp Hgb Conc 32.1 g/dL (32-36); Mean Corpuscular Hgb 27.8 pg (27.0-32.0); Mean Corpuscular Volume 86.7 fL (80-94); Mean Platelet Vol. 12.4 fl (6.2-12.0); Monocyte# 0.29 X10^3/uL; Monocyte% 5.7 % (0-10); NRBC Flagged by Analyzer 0 % (0-5); Neutrophil # 3.95 X10^3/uL (2.7-7.7); Neutrophil % 77.1 % (47-70); Platelet Count 112 K/mm3 (150-450); RBC Distribution Width CV 13.8 % (11.6-14.6); RBC Distribution Width SD 43.7 fl (35.1-43.9); Red Blood Count 5.18 M/mm3 (4.6-6.2); White Blood Count 5.1 K/mm3 (4.4-11.0)
[2020-09-21 05:09] LABS: Anion Gap 7 (5-15); BUN 16 mg/dL (7-18); BUN/Creat Ratio 24.9 RATIO (10-20); Calcium,Total 8.3 mg/dL (8.5-10.1); Chloride 101 mmol/L (98-107); Creatinine, Serum 0.64 mg/dL (0.70-1.30); EST Glomerular Filtration Rate 148 mL/min (>60); Est Glom Filt Rate - Afr Amer 179 mL/min (>60); Estimated Creatinine Clearance 181.95 ml/min; Glucose 167 mg/dL (74-106); Potassium 3.8 mmol/L (3.5-5.1); Sodium Level 137 mmol/L (136-145)
[2020-09-21] MEDS: Insulin Lispro 100 UNIT/ML INSULN.PEN SC ×3 (06:46→21:36)
[2020-09-21] MEDS: Ipratropium/Albuterol Sulfate 3 ML AMPUL.NEB INHALATION ×3 (06:54→19:50)
[2020-09-21 07:00] LABS: Bedside Glucose 156 mg/dL (70-110)
[2020-09-21] MEDS: dexAMETHasone 2 MG TABLET 6 MG PO (08:05)
[2020-09-21] MEDS: Benzonatate 100 MG Capsule PO ×2 (08:06→15:15)
[2020-09-21] MEDS: Enoxaparin 40 MG/0.4 ML Syringe SC ×2 (08:06→21:35)
--- NOTE | 2020-09-21 08:45 | PN.CC_ITS ---
Assessment & Plan Assessment/Plan (1) Acute respiratory failure with hypoxia: (2) COVID-19: (3) Hyperglycemia, drug-induced: (4) Obesity due to excess calories: (5) Sleep apnea: PLAN: RECOMMENDATIONS: 1. Continue remdesivir and Decadron therapy 2. Increase BiPAP settings as tolerated and slow intervals with attempt to achieve 19/15 centimeters of water 3. Wean oxygen as tolerated. 4. Continue DVT prophylaxis 5. Attempt p.o. intake as tolerated with BiPAP breaks IMPRESSIONS: 1. Acute hypoxic respiratory failure secondary to COVID-19 pneumonia in the setting of mild intermittent asthma Patient is not immunized against COVID-19. Patient with classic findings on CT scan and positive testing. Patient has had significant progression over the last 24 hours. Cannot exclude progression. Patient is open to intubation if necessary. Patient is currently on remdesivir and Decadron therapy. Patient's respiratory rate is below twenty on BiPAP. Cannot exclude the need for intubation, but patient is tolerating BiPAP at this time. 2. Untreated VIJAY Patient is supposed to be on BiPAP with sleep at baseline. This will likely be pronounced given hypoxia while awake. Patient does not have signs or symptoms of respiratory muscle fatigue to require BiPAP during the day at this time. Patient has had some weight loss and may benefit from a repeat titration as an outpatient to see if pressures could be decreased. Patient appears to be tolerating BiPAP at this time at lower settings. Would attempt to increase regular intervals to see if patient could be placed on 19/15 centimeters of water as this would help if he falls asleep. 3. Morbid obesity/potential diabetes mellitus Complicates care, management, recovery and prognosis. Patient did have so me hyperglycemia on steroids, but hemoglobin A1c is suggestive the patient is diabetic. Patient would likely benefit from a carb controlled diet. Cannot exclude the need for basal insulin pending response to Decadron therapy. Patient would benefit from weight loss. TIME: 35 minutes critical care time spent addressing patient's acute hypoxic respiratory failure, COVID-19, VIJAY, diabetes mellitus, review of all data and collaboration with care team (6:30 AM to 8:30 AM) Subjective Subjective Patient with significant decompensation yesterday afternoon requiring transfer to the intensive care unit. Preparations were made for intubation, but patient ended up stabilizing on BiPAP therapy. Patient overall feels subjectively unchanged compared to yesterday. Patient is still requiring a significant amount of FiO2. Patient is having some dry mouth. Objective Data Objective Data Vital Signs: Vital Signs Temp Pulse Resp BP Pulse Ox 36.0 C L 89 25 H 146/82 H 94 09/21/20 08:10 09/21/20 08:10 09/21/20 08:10 09/21/20 08:10 09/21/20 08:10 Oxygen Flow Rate (L/min) 55 Oxygen Delivery Method Bi-pap Weight: 136.5 kg Body Mass Index (BMI) 39.2 Intake & Output: Intake and Output for Last 24 Hours 09/19/20 09/20/20 09/21/20 23:59 23:59 23:59 Intake Total 1608. 2380 / 2380 250 / 250 Output Total 150 / 150 300 / 300 Balance 160 2230 / 2230 -50 / -50 Medical Nutrition Assessment Dietitian: Nutrition Therapy Diagnosis Start: 09/19/20 12:02 Freq: Status: Active Protocol: Document 09/19/20 12:18 [facility] (Rec: 09/19/20 12:18 [facility] [id number]) Nutrition Malnutrition Evidence of Malnutrition Exists Yes Malnutrition (severe): Acute Illness/Injury Evidenced By Suboptimal Energy Intake ( Severe),Weight Loss (Severe) Clinical Problem Acute Disease or Injury Related Malnutrition Etiology related to acute illness ( COVID) Signs/Symptoms as evidenced by <50% po intake >5 days and 6.1% wt loss x 1 wk. Status Active Problem Recommendation Dietitian Recommendations/Changes Will change diet to Consistent CHO diet d/t hx DM and steroid use Will give vanilla glucerna shake w/ meals for increased nutrition if confused Lab / Micro Data Result Diagrams: 09/21/20 04:35 09/21/20 04:35 Labs: Laboratory Results - last 24 hr 09/20/20 11:08: POC Glucose 186 H 09/20/20 18:00: POC Glucose 198 H 09/20/20 22:53: POC Glucose 157 H 09/21/20 04:35: WBC 5.1, RBC 5.18, Hgb 14.4, Hct 44.9, MCV 86.7, MCH 27.8, MCHC 32.1, RDW Std Deviation 43.7, RDW Coeff of Cinthya 13.8, Plt Count 112 L, MPV 12.4 H , Immature Gran % (Auto) 0.800, Neut % (Auto) 77.1 H, Lymph % (Auto) 16.2 L, [place] % (Auto) 5.7, Eos % (Auto) 0.0, Baso % (Auto) 0.2, Absolute Neuts (auto) 4.0, Absolute Lymphs (auto) 0.83, Nucleated RBC % 0 09/21/20 04:35: Sodium 137, Potassium 3.8, Chloride 101, Carbon Dioxide 29.0, Anion Gap 7, BUN 16, Creatinine 0.64 L, Estim Creat Clear Calc 181.95, Est GFR (MDRD) Af Amer 179, Est GFR (MDRD) Non-Af 148, BUN/Creatinine Ratio 24.9 H, Glucose 167 H, Calcium 8.3 L 09/21/20 06:45: POC Glucose 156 H Micro: Microbiology 09/18/20 23:12 Blood Culture (Wb) - Left Forearm Blood Culture - Preliminary No growth in 48 hours. 09/18/20 23:02 Blood Culture (Wb) - Anticubital Left Blood Culture - Preliminary No growth in 48 hours. ABG Data ABG results: ABG 09/20/20 15:22 Specimen Type ART Sample Site R Radial pH 7.44 Bicarbonate Actual 25.6 Total CO2 27 Base Excess 1 O2 Saturation 92 L O2 % 100 ABG pCO2 37.8 ABG pO2 62 L Colt Test Positive O2 Delivery Device BiPAP POC PEEP 6 Physical Exam Const alert and oriented x3 General Appearance: cooperative, well developed, anxious and on BiPAP Orientation / Consciousness: Negative for confused, disoriented or lethargic Nutritional Appearance: obese centrally obese HEENT normocephalic, head/scalp atraumatic and moist oral mucous membranes Eyes PERRL and EOMs intact bilaterally Neck full ROM and no lymphadenopathy Chest inspection of chest normal Resp no retractions, no use of accessory muscles and percussion normal Resp Narrative: Coarse breath sounds with wheezing following coughing Effort and Inspection: able to speak in complete sentences and actively coughing non-productive and hacking Auscultation: diminished lung sounds; Negative for rales, rhonchi or wheezes Percussion: Negative for dullness Cardio regular rhythm, S1 normal heart sound, S2 normal heart sound, no murmurs, no rub and no gallops Rate: tachycardic Peripheral Pulses: pulses 2+ throughout GI normal to inspection, nondistended, normoactive bowel sounds no CVA tenderness Extremity no clubbing, cyanosis or edema Skin no rashes or lesions noted Neuro oriented x3, CN's II-XII intact bilaterally, moves all extremities and no focal motor deficits Psych cooperative and affect normal Charges/Coding Procedures Hospitalists Procedures: 88034 Critial Care 1st Hr
--- NOTE | 2020-09-21 12:45 | PCM.PN.HOSP ---
Subjective Subjective So far tolerating BiPAP. Objective Data Objective Data Vital Signs: Vital Signs Temp Pulse Resp BP Pulse Ox 36.0 C L 76 18 130/69 H 95 09/21/20 08:10 09/21/20 12:00 09/21/20 12:00 09/21/20 12:00 09/21/20 12:00 Oxygen Flow Rate (L/min) 55 Oxygen Delivery Method Bi-pap Weight: 136.5 kg Body Mass Index (BMI) 39.2 Intake & Output: Intake and Output for Last 24 Hours 09/19/20 09/20/20 09/21/20 23:59 23:59 23:59 Intake Total 2380 / 2380 250 / 250 Output Total 150 / 150 300 / 300 Balance 2230 / 223 -50 / -50 Medical Nutrition Assessment Dietitian: Nutrition Therapy Diagnosis Start: 09/19/20 12:02 Freq: Status: Active Protocol: Document 09/21/20 10:21 [facility] (Rec: 09/21/20 10:21 [facility] [id number]) Nutrition Malnutrition Evidence of Malnutrition Exists Yes Malnutrition (severe): Acute Illness/Injury Evidenced By Suboptimal Energy Intake ( Severe),Weight Loss (Severe) Intake Problem Inadequate Oral Intake Etiology related to increased O2 requirements and BIPAP Signs/Symptoms as evidenced by NPO status Status Active Problem Clinical Problem Acute Disease or Injury Related Malnutrition Etiology related to acute illness ( COVID) Signs/Symptoms as evidenced by <50% po intake >5 days and 6.1% wt loss x 1 wk 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 Status Active Problem Recommendation Dietitian Recommendations/Changes When medically able, rec diet as tolerated to Consistent CHO diet with 120 ml glucerna shake for increased nutrition if consumed d/t hx DM and steroid use Lab / Micro Data Result Diagrams: 09/21/20 04:35 09/21/20 04:35 Labs: Laboratory Results - last 24 hr 09/20/20 18:00: POC Glucose 198 H 09/20/20 22:53: POC Glucose 157 H 09/21/20 04:35: WBC 5.1, RBC 5.18, Hgb 14.4, Hct 44.9, MCV 86.7, MCH 27.8, MCHC 32.1, RDW Std Deviation 43.7, RDW Coeff of Cinthya 13.8, Plt Count 112 L, MPV 12.4 H, Immature Gran % (Auto) 0.800, Neut % (Auto) 77.1 H, Lymph % (Auto) 16.2 L, [place] % (Auto) 5.7, Eos % (Auto) 0.0, Baso % (Auto) 0.2, Absolute Neuts (auto) 4.0, Absolute Lymphs (auto) 0.83, Nucleated RBC % 0 09/21/20 04:35: Sodium 137, Potassium 3.8, Chloride 101, Carbon Dioxide 29.0, Anion Gap 7, BUN 16, Creatinine 0.64 L, Estim Creat Clear Calc 181.95, Est GFR (MDRD) Af Amer 179, Est GFR (MDRD) Non-Af 148, BUN/Creatinine Ratio 24.9 H, Glucose 167 H, Calcium 8.3 L 09/21/20 06:45: POC Glucose 156 H Micro: Microbiology 09/18/20 23:12 Blood Culture (Wb) - Left Forearm Blood Culture - Preliminary No growth in 48 hours. 09/18/20 23:02 Blood Culture (Wb) - Anticubital Left Blood Culture - Preliminary No growth in 48 hours. ABG Data ABG results: ABG 09/20/20 15:22 Specimen Type ART Sample Site R Radial pH 7.44 Bicarbonate Actual 25.6 Total CO2 27 Base Excess 1 O2 Saturation 92 L O2 % 100 ABG pCO2 37.8 ABG pO2 62 L Colt Test Positive O2 Delivery Device BiPAP POC PEEP 6 Physical Exam Const alert HEENT Head and Scalp: normocephalic Resp Resp Narrative: diminished coarse breath sounds bilaterally. Cardio regular rate, regular rhythm, S1 normal heart sound and S2 normal heart sound GI normal to inspection, nondistended, normoactive bowel sounds and non-tender Assessment & Plan Assessment/Plan (1) COVID-19: (2) Acute and chronic respiratory failure with hypoxia: PLAN: 1. COVID-19 pneumonia Date of onset was September 11. Patient said that prior to that he was feeling sick and was treated for pneumonia and actually got better until he started getting sick again. Patient's father, who is vaccinated, also has COVID-19 but is feeling well. The patient himself is unvaccinated. Patient stated concerned about the vaccination as it was not yet FDA approved at the time and was concerned about lack of records and legal litigation if he got the vaccine without the FDA approval. Patient on dexamethasone and remdesivir Pulm and ID consult 2. Acute hypoxic respiratory failure Reviewed images with the patient showing diffuse infiltrates on his CAT scan Complicated by patient's underlying sleep apnea Pulmonary consult appreciated. Recommending BiPAP 19/15 centimeters at night Continue BiPAP for now, he did not tolerate AVAPS FiO2 down to 85%. Still tenuous situation and could require intubation 3. Hyperglycemia Exacerbated by steroids Sliding scale insulin 4. VTE prophylaxis: High risk. Enoxaparin. Charges/Coding Visit Charges Inpatient E&M: 39778 Subs Hosp L2
[2020-09-21 18:41] LABS: Bedside Glucose 178 mg/dL (70-110)
[2020-09-21] MEDS: MELATONIN 3 MG TABLET PO (21:35)
[2020-09-21] MEDS: 0.9% Saline Lock 10 ML Syringe IV (21:36)
[2020-09-22] VITALS (35 sets, daily range): BP systolic 121–173; BP diastolic 63–109; PULSE 70–105; RESP 12–30; TEMP 36.2–36.8; O2SAT 85–100
[2020-09-22 00:26] LABS: Bedside Glucose 174 mg/dL (70-110)
--- NOTE | 2020-09-22 05:27 | PN.CC_ITS ---
Assessment & Plan Assessment/Plan (1) Acute respiratory failure with hypoxia: (2) COVID-19: PLAN: RECOMMENDATIONS: 1. Continue BiPAP and wean FiO2 to maintain oxygen saturations at or above 90%. 2. Continue remdesivir to complete treatment course. Continue to monitor liver and renal function. 3. Continue Decadron to complete 10-day treatment course. 4. Infectious diseases consultation is pending. 5. Continue Lovenox as ordered. 6. Continue scheduled bronchodilator therapy. IMPRESSIONS: 1. Acute hypoxemic respiratory failure secondary to COVID-19 pneumonia In addition to COVID-19, the patient does have a history of mild intermittent asthma. The patient is currently being maintained on remdesivir and Decadron. The patient will be continued on noninvasive positive pressure ventilatory support, with a plan to wean FiO2 to maintain oxygen saturations at or above 90%. Infectious diseases consultation is pending. The patient will also be continued on scheduled bronchodilator therapy along with prophylactic Lovenox. 2. Untreated obstructive sleep apnea Continue noninvasive positive pressure ventilatory support, at a minimum, with naps and nightly. 3. Morbid obesity/diabetes mellitus Complicates care, management, recovery and prognosis. Continue current sup portive measures as noted above. TIME: 35 minutes of critical care time, independent of procedures, was spent addressing the patient's acute hypoxemic respiratory failure, COVID-19 pneumonia, untreated obstructive sleep apnea, review of all data and collaboration with the care team. ([id number]) Subjective Subjective The patient was seen and examined at the bedside this morning. Events from the last 24 hours have been reviewed. The patient is currently afebrile, hemodynamically stable and maintaining appropriate oxygen saturations on BiPAP with an FiO2 requirement of 80%. The patient is a bit hypertensive this morning. The patient is currently documented to be overall net +3.8 L for the hospital admission. Objective Data Objective Data The patient's most recent lab work, culture data and imaging studies have all been personally reviewed. Vital Signs: Vital Signs Temp Pulse Resp BP Pulse Ox 97.2 F L 72 18 134/80 H 93 09/22/20 00:00 09/22/20 03:45 09/22/20 03:45 09/22/20 00:00 09/22/20 04:00 Oxygen Flow Rate (L/min) 60 Oxygen Delivery Method Bi-pap Weight: 136.5 kg Body Mass Index (BMI) 39.2 Intake & Output: Intake and Output for Last 24 Hours 09/20/20 09/21/20 09/22/20 23:59 23:59 23:59 Intake Total 2380 / 2380 980 / 980 Output Total 150 / 150 500 / 700 200 / 200 Balance 2230 / 2230 480 / 280 -200 / -200 Medical Nutrition Assessment Dietitian: Nutrition Therapy Diagnosis Start: 09/19/20 12:02 Freq: Status: Active Protocol: Document 09/21/20 10:21 [facility] (Rec: 09/21/20 10:21 [facility] [id number]) Nutrition Malnutrition Evidence of Malnutrition Exists Yes Malnutrition (severe): Acute Illness/Injury Evidenced By Suboptimal Energy Intake ( Severe),Weight Loss (Severe) Intake Problem Inadequate Oral Intake Etiology related to increased O2 requirements and BIPAP Signs/Symptoms as evidenced by NPO status Status Active Problem Clinical Problem Acute Disease or Injury Related Malnutrition Etiology related to acute illness ( COVID) Signs/Symptoms as evidenced by <50% po intake >5 days and 6.1% wt loss x 1 wk 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 Status Active Problem Recommendation Dietitian Recommendations/Changes When medically able, rec diet as tolerated to Consistent CHO diet with 120 ml glucerna shake for increased nutrition if consumed d/t hx DM and steroid use Lab / Micro Data Attestation: I reviewed the patient's lab results. Result Diagrams: 09/21/20 04:35 09/22/20 04:25 Labs: Laboratory Results - last 24 hr 09/21/20 06:45: POC Glucose 156 H 09/21/20 15:13: POC Glucose 178 H 09/21/20 21:33: POC Glucose 174 H Micro: Microbiology 09/18/20 23:12 Blood Culture (Wb) - Left Forearm Blood Culture - Preliminary No growth in 48 hours. 09/18/20 23:02 Blood Culture (Wb) - Anticubital Left Blood Culture - Preliminary No growth in 48 hours. Physical Exam Const alert and oriented x3 General Appearance: cooperative and on BiPAP Nutritional Appearance: obese HEENT normocephalic and head/scalp atraumatic Eyes PERRL, EOMs intact bilaterally and conjunctivae normal Neck supple General: trachea midline Resp Auscultation: diminished lung sounds; Negative for rales, rhonchi or wheezes Cardio regular rate and regular rhythm GI normal to inspection, nondistended, normoactive bowel sounds Extremity no clubbing, cyanosis or edema Skin no rashes or lesions noted Neuro CN's II-XII intact bilaterally and no focal motor deficits Psych cooperative and affect normal Charges/Coding Procedures Hospitalists Procedures: 77036 Critial Care 1st Hr
[2020-09-22] MEDS: Labetalol (Prefilled) 20 MG/4 ML IV (06:49)
[2020-09-22] MEDS: 0.9% Saline Lock 10 ML Syringe IV (06:49)
[2020-09-22 07:21] LABS: ALB/GLOB Ratio 0.6 RATIO (0.9-2.4); AST(SGOT) 31 U/L (15-37); Alanine Aminotransfer ALT/SGPT 35 U/L (16-61); Albumin, Serum 2.8 g/dL (3.2-5.0); Alkaline Phosphatase 36 U/L (45-117); Anion Gap 7 (5-15); BUN 18 mg/dL (7-18); BUN/Creat Ratio 25.4 RATIO (10-20); Calcium,Total 8.7 mg/dL (8.5-10.1); Chloride 100 mmol/L (98-107); Creatinine, Serum 0.71 mg/dL (0.70-1.30); EST Glomerular Filtration Rate 132 mL/min (>60); Est Glom Filt Rate - Afr Amer 160 mL/min (>60); Estimated Creatinine Clearance 164.01 ml/min; Glucose 163 mg/dL (74-106); Protein, Total 7.8 g/dL (6.4-8.2); Sodium Level 137 mmol/L (136-145)
--- NOTE | 2020-09-22 07:31 | PCM.PN.HOSP ---
Subjective Subjective Patient started fever, chills, cough shortness of breath diarrhea on 09/10, tested positive on 09/12.. Shortness of breath is better. On high flow oxygen and BiPAP alternating. Objective Data Objective Data General: Alert, Oriented x3, Cooperative HEENT: Atraumatic, PERRLA, EOMI, Normocephalic Oral: No Gingival or Mucosal Lesions/ Ulcerations Neck: Supple, No JVD, Negative Carotid Bruits Lungs: Air entry diminished in bilateral lung bases. Bilateral expiratory rhonchi. Hypoxia and dyspnea. Cardiovascular: Regular rate, Regular Rhythm, Normal S1, Normal S2, No murmurs Abdomen: Bowel Sounds Present, Soft, Non Tender, Non-Distended : No renal angle tenderness. No suprapubic tenderness. Extremities: No edema, Capillary Refill Less than 3 Seconds Skin: No rashes, No breakdown Musculoskeletal: No Tenderness to Palpation of Joints or Extremities Neurological: Cranial nerves II-XII grossly intact, DTR 2+/4 and Symmetrical, Neuro grossly intact Psych/Mental Status: Normal Affect, Appropriate. Vital Signs: Vital Signs Temp Pulse Resp BP Pulse Ox 97.2 F L 81 18 148/78 H 93 09/22/20 04:00 09/22/20 07:20 09/22/20 07:00 09/22/20 07:00 09/22/20 07:00 Oxygen Flow Rate (L/min) 60 Oxygen Delivery Method Bi-pap Weight: 300 lb 1.6 oz Body Mass Index (BMI) 39.2 Intake & Output: Intake and Output for Last 24 Hours 09/20/20 09/21/20 09/22/20 23:59 23:59 23:59 Intake Total 2380 / 2380 980 / 980 Output Total 150 / 150 500 / 700 550 / 550 Balance 2230 / 2230 480 / 280 -550 / -550 Medical Nutrition Assessment Dietitian: Nutrition Therapy Diagnosis Start: 09/19/20 12:02 Freq: Status: Active Protocol: Document 09/21/20 10:21 [facility] (Rec: 09/21/20 10:21 [facility] [id number]) Nutrition Malnutrition Evidence of Malnutrition Exists Yes Malnutrition (severe): Acute Illness/Injury Evidenced By Suboptimal Energy Intake ( Severe),Weight Loss (Severe) Intake Problem Inadequate Oral Intake Etiology related to increased O2 requirements and BIPAP Signs/Symptoms as evidenced by NPO status Status Active Problem Clinical Problem Acute Disease or Injury Related Malnutrition Etiology related to acute illness ( COVID) Signs/Symptoms as evidenced by <50% po intake >5 days and 6.1% wt loss x 1 wk 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 Status Active Problem Recommendation Dietitian Recommendations/Changes When medically able, rec diet as tolerated to Consistent CHO diet with 120 ml glucerna shake for increased nutrition if consumed d/t hx DM and steroid use Lab / Micro Data Result Diagrams: 09/21/20 04:35 09/22/20 04:25 Labs: Laboratory Results - last 24 hr 09/21/20 15:13: POC Glucose 178 H 09/21/20 21:33: POC Glucose 174 H 09/22/20 04:25: Sodium 137, Potassium 4.0, Chloride 100, Carbon Dioxide 30.0, Anion Gap 7, BUN 18, Creatinine 0.71, Estim Creat Clear Calc 164.01, Est GFR (MDRD) Af Amer 160, Est GFR (MDRD) Non-Af 132, BUN/Creatinine Ratio 25.4 H, Glucose 163 H, Calcium 8.7, Total Bilirubin 0.70, AST 31, ALT 35, Alkaline Phosphatase 36 L, Total Protein 7.8, Albumin 2.8 L, Globulin 5.0 H, Albumin/Globulin Ratio 0.6 L Micro: Microbiology 09/18/20 23:12 Blood Culture (Wb) - Left Forearm Blood Culture - Preliminary No growth in 48 hours. 09/18/20 23:02 Blood Culture (Wb) - Anticubital Left Blood Culture - Preliminary No growth in 48 hours. Assessment & Plan Assessment/Plan (1) Acute respiratory failure with hypoxia: (2) COVID-19: PLAN: Assessment & Plan 1. Acute hypoxic respiratory failure secondary to COVID-19 bilateral pneumonia with history of mild intermittent asthma: On remdesivir and Decadron. On NIPPV, BiPAP alternating with AIRVO. ID consult reviewed and appreciated. CTPA negative for PE. On prophylactic Lovenox and bronchodilator, incentive spirometry.Patient is not vaccine advised vaccination once he is out of isolation. Quarantine for 20 days from the start of the symptoms. 2. Acute hypoxic respiratory failure: CT chest shows diffuse infiltrates. Patient has underlying sleep apnea. Decrease/wean off FiO2 as per tolerated to keep pulse ox 90%. 3. Hyperglycemia: Due to steroid. On sliding scale insulin. 4. VTE prophylaxis: High risk. Enoxaparin. Charges/Coding Visit Charges Inpatient E&M: 51049 [facility] Hosp L3
[2020-09-22] MEDS: Ipratropium/Albuterol Sulfate 3 ML AMPUL.NEB INHALATION ×3 (07:34→20:05)
[2020-09-22] MEDS: Enoxaparin 40 MG/0.4 ML Syringe SC ×2 (08:00→22:13)
[2020-09-22] MEDS: Benzonatate 100 MG Capsule PO ×2 (08:00→16:17)
[2020-09-22] MEDS: dexAMETHasone 2 MG TABLET 6 MG PO (08:00)
[2020-09-22] MEDS: Insulin Lispro 100 UNIT/ML INSULN.PEN SC ×4 (08:01→22:13)
[2020-09-22 10:15] LABS: Bedside Glucose 165 mg/dL (70-110)
[2020-09-22] MEDS: CHLORHEXIDINE GLUC 2% CLOTH 1 EACH TOWELETTE TOPICAL (10:46)
--- NOTE | 2020-09-22 14:01 | PCM.CONS.GEN ---
Assessment & Plan Assessment/Plan (1) COVID-19: PLAN: covid sx started around 09/10, tested (+) 09/12. Admitted, plan on dex for 10 days, [address] neg for PE. Recommend quarantine for 20 days from start of symptoms, then get vaccine once out of iso. Will follow, thank you (2) Acute respiratory failure with hypoxia: HPI Consult Data Date of Consult: 09/22/20 HPI Narrative HPI Narrative: ROSE OLMEDO, is a 40 M who presented with fever, chills, cough, SOB, diarrhea. Dx with pneumonia about 3 weeks ago, given abx, symptoms improved. Father is vaccinated, dx with covid. Pt is unvaccinated, developed new symptoms around 09/10, tested (+) 09/12. No change in taste or smell. No muscle aches. Worsening cough/SOB, fever, came to ED, admitted on dex and remdesivir, feeling better, in icu on airvo. Full ROS performed and neg except as noted above. [facility] Medical History Asthma Diabetes Hypertension Non-smoker Sleep apnea Home Medications albuterol sulfate [ProAir HFA] 2 puff INHALATION Q6H PRN 09/18/20 [History Last Taken Unknown] benzonatate [Tessalon Perles] 100 mg PO TID 09/18/20 [History Last Taken Unknown] doxycycline hyclate [Vibra-Tabs] 100 mg PO BID 09/18/20 [History Last Taken Unknown] prednisone 30 mg PO DAILY 09/18/20 [History Last Taken Unknown] Allergy/AdvReac Type Severity Reaction Status Date / Time No Known Allergies Allergy Verified 09/18/20 21:34 Social History Smoking Status: Never smoker substance use type: does not use Physical Exam Const alert and oriented x3 General Appearance: cooperative Exam Limitations: no limitations HEENT normocephalic and head/scalp atraumatic Eyes PERRL and EOMs intact bilaterally Neck supple and No nodes Resp Auscultation: diminished lung sounds Cardio regular rate and regular rhythm GI normal to inspection, nondistended, normoactive bowel sounds Extremity no clubbing, cyanosis or edema Skin no rashes or lesions noted Neuro CN's II-XII intact bilaterally Medical Records Data Medical Nutrition Assessment Dietitian: Nutrition Therapy Diagnosis Start: 09/19/20 12:02 Freq: Status: Active Protocol: Document 09/21/20 10:21 [facility] (Rec: 09/21/20 10:21 [facility] [id number]) Nutrition Malnutrition Evidence of Malnutrition Exists Yes Malnutrition (severe): Acute Illness/Injury Evidenced By Suboptimal Energy Intake ( Severe),Weight Loss (Severe) Intake Problem Inadequate Oral Intake Etiology related to increased O2 requirements and BIPAP Signs/Symptoms as evidenced by NPO status Status Active Problem Clinical Problem Acute Disease or Injury Related Malnutrition Etiology related to acute illness ( COVID) Signs/Symptoms as evidenced by <50% po intake >5 days and 6.1% wt loss x 1 wk 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 Status Active Problem Recommendation Dietitian Recommendations/Changes When medically able, rec diet as tolerated to Consistent CHO diet with 120 ml glucerna shake for increased nutrition if consumed d/t hx DM and steroid use Lab / Micro Data Result Diagrams: 09/21/20 04:35 09/22/20 04:25 Labs: Laboratory Results - last 24 hr 09/21/20 15:13: POC Glucose 178 H 09/21/20 21:33: POC Glucose 174 H 09/22/20 04:25: Sodium 137, Potassium 4.0, Chloride 100, Carbon Dioxide 30.0, Anion Gap 7, BUN 18, Creatinine 0.71, Estim Creat Clear Calc 164.01, Est GFR (MDRD) Af Amer 160, Est GFR (MDRD) Non-Af 132, BUN/Creatinine Ratio 25.4 H, Glucose 163 H, Calcium 8.7, Total Bilirubin 0.70, AST 31, ALT 35, Alkaline Phosphatase 36 L, Total Protein 7.8, Albumin 2.8 L, Globulin 5.0 H, Albumin/Globulin Ratio 0.6 L 09/22/20 07:59: POC Glucose 165 H
[2020-09-22 18:58] LABS: Bedside Glucose 189 mg/dL (70-110)
[2020-09-22 18:58] LABS: Bedside Glucose 234 mg/dL (70-110)
[2020-09-22] MEDS: MELATONIN 3 MG TABLET PO (22:11)
[2020-09-23] VITALS (37 sets, daily range): BP systolic 89–177; BP diastolic 65–92; PULSE 76–101; RESP 12–26; TEMP 36.4–36.6; O2SAT 85–99
[2020-09-23 02:25] LABS: Bedside Glucose 171 mg/dL (70-110)
--- NOTE | 2020-09-23 05:28 | PCM.PN.INT ---
Assessment & Plan Assessment/Plan (1) Acute respiratory failure with hypoxia: (2) COVID-19: PLAN: RECOMMENDATIONS: 1. Continue patient on Airvo heated high flow and wean FiO2 to maintain saturations at or above 90%. 2. Continue BiPAP therapy, at a minimum, with naps and nightly. 3. Continue remdesivir to complete treatment course. Continue to monitor liver and renal function. 4. Continue Decadron to complete 10-day treatment course. 5. Continue Lovenox as ordered. 6. Continue scheduled bronchodilator therapy. IMPRESSIONS: 1. Acute hypoxemic respiratory failure secondary to COVID-19 pneumonia In addition to COVID-19, the patient does have a history of mild intermittent asthma. The patient is currently being maintained on remdesivir and Decadron. The patient will be continued on heated high flow oxygen throughout the day with a goal to wean FiO2 to maintain saturations at or above 90%. Recommend use of BiPAP therapy on a nightly basis, given history of sleep apnea. The patient will also be continued on scheduled bronchodilator therapy along with prophylactic Lovenox. 2. Untreated obstructive sleep apnea Continue noninvasive positive pressure ventilatory support, at a minimum, with naps and nightly. 3. Morbid obesity/diabetes mellitus Complicates care, management, recovery and prognosis. Continue current supportive measures as noted above. This note was generated with [employer] dictation software. It may contain incorrect words, spelling, and punctuation that were not noted in checking the note before signing. Subjective Subjective The patient was seen and examined at the bedside this morning. Events from the last 24 hours have been reviewed. The patient is currently afebrile, hemodynamically stable and maintaining appropriate oxygen saturations on BiPAP with an FiO2 requirement of 90%. The patient is currently documented to be overall net +3.2 L for the hospital admission. The patient did utilize Airvo heated high flow for approximately half the night prior to being transitioned to BiPAP, due to his history of sleep apnea. The patient does readily desaturate with any form of ambulation. Objective Data Objective Data The patient's most recent lab work, culture data and imaging studies have all been personally reviewed. Blood cultures have shown no growth to date. Vital Signs: Vital Signs Temp Pulse Resp BP Pulse Ox 97.5 F L 81 16 157/84 H 90 09/23/20 00:00 09/23/20 05:00 09/23/20 05:00 09/23/20 05:00 09/23/20 05:00 Oxygen Flow Rate (L/min) 60 Oxygen Delivery Method Bi-pap Weight: 136.9 kg Body Mass Index (BMI) 39.2 Intake & Output: Intake and Output for Last 24 Hours 09/21/20 09/22/20 09/23/20 23:59 23:59 23:59 Intake Total 980 / 980 250 / 250 Output Total 500 / 700 950 / 1350 400 / 400 Balance 480 / 280 -950 / -1350 -150 / -150 Medical Nutrition Assessment Dietitian: Nutrition Therapy Diagnosis Start: 09/19/20 12:02 Freq: Status: Active Protocol: Document 09/21/20 10:21 [facility] (Rec: 09/21/20 10:21 [facility] [id number]) Nutrition Malnutrition Evidence of Malnutrition Exists Yes Malnutrition (severe): Acute Illness/Injury Evidenced By Suboptimal Energy Intake ( Severe),Weight Loss (Severe) Intake Problem Inadequate Oral Intake Etiology related to increased O2 requirements and BIPAP Signs/Symptoms as evidenced by NPO status Status Active Problem Clinical Problem Acute Disease or Injury Related Malnutrition Etiology related to acute illness ( COVID) Signs/Symptoms as evidenced by <50% po intake >5 days and 6.1% wt loss x 1 wk 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 Status Active Problem Recommendation Dietitian Recommendations/Changes When medically able, rec diet as tolerated to Consistent CHO diet with 120 ml glucerna shake for increased nutrition if consumed d/t hx DM and steroid use Lab / Micro Data Attestation: I reviewed the patient's lab results. Result Diagrams: 09/21/20 04:35 09/22/20 04:25 Labs: Laboratory Results - last 24 hr 09/22/20 04:25: Sodium 137, Potassium 4.0, Chloride 100, Carbon Dioxide 30.0, Anion Gap 7, BUN 18, Creatinine 0.71, Estim Creat Clear Calc 164.01, Est GFR (MDRD) Af Amer 160, Est GFR (MDRD) Non-Af 132, BUN/Creatinine Ratio 25.4 H, Glucose 163 H, Calcium 8.7, Total Bilirubin 0.70, AST 31, ALT 35, Alkaline Phosphatase 36 L, Total Protein 7.8, Albumin 2.8 L, Globulin 5.0 H, Albumin/Globulin Ratio 0.6 L 09/22/20 07:59: POC Glucose 165 H 09/22/20 12:01: POC Glucose 189 H 09/22/20 16:16: POC Glucose 234 H 09/22/20 22:12: POC Glucose 171 H Micro: Microbiology 09/18/20 23:12 Blood Culture (Wb) - Left Forearm Blood Culture - Preliminary No growth in 48 hours. 09/18/20 23:02 Blood Culture (Wb) - Anticubital Left Blood Culture - Preliminary No growth in 48 hours. Physical Exam Const alert and oriented x3 General Appearance: cooperative and on BiPAP Nutritional Appearance: obese HEENT normocephalic and head/scalp atraumatic Eyes PERRL, EOMs intact bilaterally and conjunctivae normal Neck supple General: trachea midline Resp Auscultation: diminished lung sounds; Negative for rales, rhonchi or wheezes Cardio regular rate and regular rhythm GI normal to inspection, nondistended, normoactive bowel sounds Extremity no clubbing, cyanosis or edema Skin no rashes or lesions noted Neuro CN's II-XII intact bilaterally and no focal motor deficits Psych cooperative and affect normal Charges/Coding Visit Charges Inpatient E&M: 13783 Subs Hosp L3
[2020-09-23] MEDS: Ipratropium/Albuterol Sulfate 3 ML AMPUL.NEB INHALATION ×3 (07:10→18:50)
[2020-09-23] MEDS: dexAMETHasone 2 MG TABLET 6 MG PO (07:51)
[2020-09-23] MEDS: Benzonatate 100 MG Capsule PO ×2 (07:51→12:09)
[2020-09-23] MEDS: Enoxaparin 40 MG/0.4 ML Syringe SC ×2 (07:51→21:24)
[2020-09-23] MEDS: CHLORHEXIDINE GLUC 2% CLOTH 1 EACH TOWELETTE TOPICAL (07:51)
[2020-09-23] MEDS: 0.9% Saline Lock 10 ML Syringe IV (07:55)
--- NOTE | 2020-09-23 10:52 | PN.HOSP_ITS ---
Subjective Subjective Patient seen and examined. He still remains on air Vo. He feels like his breathing is getting better but he still short of breath and still coughing. Review of systems otherwise negative. He has remained hemodynamically stable respiratory rate is 20 with FiO2 of 90% on his air Vo. He is in cumulative positive balance by 3.4 L. Objective Data Objective Data Vital Signs: Vital Signs Temp Pulse Resp BP Pulse Ox 97.7 F L 94 20 H 138/76 H 91 09/23/20 08:00 09/23/20 10:00 09/23/20 10:00 09/23/20 10:00 09/23/20 10:00 Oxygen Flow Rate (L/min) 60 Oxygen Delivery Method Airvo Weight: 301 lb 13.005 oz Body Mass Index (BMI) 39.2 Intake & Output: Intake and Output for Last 24 Hours 09/21/20 09/22/20 09/23/20 23:59 23:59 23:59 Intake Total 980 / 980 440 / 440 Output Total 500 / 700 950 / 1350 400 / 400 Balance 480 / 280 -950 / -1350 40 / 40 Medical Nutrition Assessment Dietitian: Nutrition Therapy Diagnosis Start: 09/19/20 12:02 Freq: Status: Active Protocol: Document 09/23/20 09:44 [facility] (Rec: 09/23/20 09:44 [facility] [id number]) Nutrition Malnutrition Evidence of Malnutrition Exists Yes Malnutrition (severe): Acute Illness/Injury Evidenced By Suboptimal Energy Intake ( Severe),Weight Loss (Severe) Intake Problem Inadequate Oral Intake Etiology related to increased O2 requirements and BIPAP/Airvo Signs/Symptoms as evidenced by NPO status Status Resolved Problem Clinical Problem Acute Disease or Injury Related Malnutrition Etiology related to acute illness ( COVID) Signs/Symptoms as evidenced by <50% po intake >5 days and 6.1% wt loss x 1 wk 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 Status Active Problem Recommendation Dietitian Recommendations/Changes Continue Consistent CHO diet with 120 ml glucerna shake for increased nutrition as ordered. Consider d/c at time of follow up if continues with good po intake. Lab / Micro Data Result Diagrams: 09/21/20 04:35 09/22/20 04:25 Labs: Laboratory Results - last 24 hr 09/22/20 12:01: POC Glucose 189 H 09/22/20 16:16: POC Glucose 234 H 09/22/20 22:12: POC Glucose 171 H Micro: Microbiology 09/18/20 23:12 Blood Culture (Wb) - Left Forearm Blood Culture - Preliminary No growth in 48 hours. 09/18/20 23:02 Blood Culture (Wb) - Anticubital Left Blood Culture - Preliminary No growth in 48 hours. Physical Exam Const alert, oriented x3 and no apparent distress Exam Limitations: no limitations HEENT head/scalp atraumatic Head and Scalp: normocephalic Mouth: dry mucous membranes Eyes PERRL, EOMs intact bilaterally and conjunctivae normal Neck no lymphadenopathy and supple Resp Resp Narrative: diminished breath sounds bibasally, few bibasal crackles. on AirVo with 90% FiO2 Cardio regular rate, regular rhythm, S1 normal heart sound, S2 normal heart sound, no murmurs and no gallops GI normal to inspection, nondistended, normoactive bowel sounds, soft to palpation, non-tender and non-distended Extremity normal to inspection, full ROM and no clubbing, cyanosis or edema Peripheral Pulses: Yes pulses 2+ throughout Skin no rashes or lesions noted Neuro oriented x3 Sensorium / Orientation: awake and alert Psych affect normal Assessment & Plan Assessment/Plan (1) Acute respiratory failure with hypoxia: (2) Acute and chronic respiratory failure with hypoxia: (3) COVID-19: PLAN: #Acute hypoxic respiratory failure due to COVID 19 infection * patient on AIrVO * on remdesivir and decadrone; complete 10 day course of decadrone. * in cumulative positive balance by 3.4L * ID and pulmonology on board * continue BIPAP prn * on breathing treatment with bronchodilators * titrate oxygen to maintain sats >90% * recommended to quarantine for 20 days since start of symptoms; symptoms started 09/10/2020, and he tested positive for covid on 09/12/2020. * will give a dose of IV lasix 40mg x 1 due to fluid overload * #History of untreated VIJAY * on BIPAP qhs prn * #Type 2 diabetes mellitus * on ISS. Accuchecks ACHS * #DVT prophylaxis: on lovenox 40mg bid. GI prophylaxis: famotidine. Charges/Coding Visit Charges Inpatient E&M: 46625 Subs Hosp L3
[2020-09-23] MEDS: Famotidine 20 MG Tablet PO ×2 (12:09→21:24)
[2020-09-23] MEDS: Insulin Lispro 100 UNIT/ML INSULN.PEN SC ×2 (12:09→16:52)
[2020-09-23] MEDS: Furosemide 40 MG/4 ML Vial IV (12:09)
[2020-09-23 12:35] LABS: Bedside Glucose 149 mg/dL (70-110)
[2020-09-23 12:45] LABS: Bedside Glucose 233 mg/dL (70-110)
[2020-09-23 21:10] LABS: Bedside Glucose 215 mg/dL (70-110)
[2020-09-23] MEDS: MELATONIN 3 MG TABLET PO (21:24)
[2020-09-23] MEDS: LORazepam 2 MG/ML Syringe 0.5 MG IV (21:33)
[2020-09-24] VITALS (34 sets, daily range): BP systolic 125–161; BP diastolic 70–100; PULSE 82–118; RESP 12–27; TEMP 36.3–37.9; O2SAT 85–99
[2020-09-24 04:50] LABS: Bedside Glucose 147 mg/dL (70-110)
[2020-09-24 04:59] LABS: Absolute Lymphocyte Count 1.23 X10^3/uL (0.83-4.51); Absolute Neutrophil Count 7.5 X10^3/uL (2.0-7.7); Basophil# 0.03 X10^3/uL; Basophil% 0.3 % (0-1); Eosinophil# 0.06 X10^3/uL; Eosinophils% 0.7 % (0-5); Hemoglobin 15.6 g/dL (13.0-16.5); Lymphocyte # 1.23 X10^3/ul (0.83-4.51); Lymphocyte % 13.4 % (19-41); Mean Corp Hgb Conc 31.8 g/dL (32-36); Mean Corpuscular Volume 87.8 fL (80-94); Mean Platelet Vol. 11.6 fl (6.2-12.0); Monocyte# 0.26 X10^3/uL; Monocyte% 2.8 % (0-10); NRBC Flagged by Analyzer 0 % (0-5); Neutrophil # 7.47 X10^3/uL (2.7-7.7); Neutrophil % 81.1 % (47-70); Platelet Count 198 K/mm3 (150-450); RBC Distribution Width CV 13.6 % (11.6-14.6); RBC Distribution Width SD 43.6 fl (35.1-43.9); Red Blood Count 5.58 M/mm3 (4.6-6.2); White Blood Count 9.2 K/mm3 (4.4-11.0)
[2020-09-24 05:20] LABS: ALB/GLOB Ratio 0.6 RATIO (0.9-2.4); AST(SGOT) 26 U/L (15-37); Alanine Aminotransfer ALT/SGPT 39 U/L (16-61); Albumin, Serum 2.7 g/dL (3.2-5.0); Alkaline Phosphatase 38 U/L (45-117); Anion Gap 7 (5-15); BUN 15 mg/dL (7-18); BUN/Creat Ratio 20.9 RATIO (10-20); Calcium,Total 8.4 mg/dL (8.5-10.1); Chloride 100 mmol/L (98-107); Creatinine, Serum 0.72 mg/dL (0.70-1.30); EST Glomerular Filtration Rate 130 mL/min (>60); Est Glom Filt Rate - Afr Amer 158 mL/min (>60); Estimated Creatinine Clearance 161.74 ml/min; Globulin 4.9 g/dL (2.2-4.2); Glucose 141 mg/dL (74-106); Potassium 3.5 mmol/L (3.5-5.1); Protein, Total 7.6 g/dL (6.4-8.2); Sodium Level 137 mmol/L (136-145)
--- NOTE | 2020-09-24 05:35 | PCM.PN.INT ---
Assessment & Plan Assessment/Plan (1) Acute respiratory failure with hypoxia: (2) COVID-19: PLAN: RECOMMENDATIONS: 1. Continue patient on BiPAP and wean FiO2 to maintain saturations at or above 90%. 2. Continue Decadron and twice daily Lovenox. 3. Continue scheduled bronchodilator therapy. 4. Consider Tocilizumab. Will defer decision to infectious diseases. 5. Continue gentle diuresis as tolerated by hemodynamics and renal function. IMPRESSIONS: 1. Acute hypoxemic respiratory failure secondary to COVID-19 pneumonia In addition to COVID-19, the patient does have a history of mild intermittent asthma. The patient has completed a treatment course of remdesivir and remains on Decadron. In addition, he is being maintained on scheduled bronchodilator therapy. The patient's oxygenation status has decompensated somewhat over the last 12 hours. He is no longer able to maintain saturations on heated high flow is once again back on continuous BiPAP support. Plan to continue supportive measures. We will continue gentle diuresis as tolerated by hemodynamics and renal function along with twice daily Lovenox. Given his current oxygenation status, he may be a candidate for Tocilizumab. Will discuss with infectious diseases. 2. Untreated obstructive sleep apnea Continue noninvasive positive pressure ventilatory support, at a minimum, with naps and nightly. 3. Morbid obesity/diabetes mellitus Complicates care, management, recovery and prognosis. Continue current supportive measures as noted above. TIME: 38 minutes of critical care time, independent of procedures, was spent addressing the patient's acute hypoxemic respiratory failure, COVID-19 pneumonia, underlying asthma, untreated obstructive sleep apnea, review of all data and collaboration with care team. ([id number]) Subjective Subjective The patient was seen and examined at the bedside this morning. Events from the last 24 hours have been reviewed. The patient is currently afebrile and hemodynamically stable. Over the last 12 hours, the patient's oxygen requirement has increased. He is no longer able to be maintained on heated high flow and is once again back on continuous BiPAP support with an FiO2 requirement of 90%. The patient is currently documented to be overall net +2.9 L for the hospital admission. The patient remains on Decadron and twice daily Lovenox along with scheduled bronchodilator therapy. He did receive a one-time dose of IV Lasix yesterday. I did call and speak with infectious diseases this morning about the feasibility of Tocilizumab administration in this patient. Objective Data Objective Data The patient's most recent lab work, culture data and imaging studies have all been personally reviewed. Blood cultures have shown no growth to date. Vital Signs: Vital Signs Temp Pulse Resp BP Pulse Ox 97.3 F L 108 H 27 H 144/71 H 85 09/24/20 00:00 09/24/20 05:00 09/24/20 05:00 09/24/20 05:00 09/24/20 05:00 Oxygen Flow Rate (L/min) 60 Oxygen Delivery Method Airvo Weight: 136.9 kg Body Mass Index (BMI) 39.2 Intake & Output: Intake and Output for Last 24 Hours 09/22/20 09/23/20 09/24/20 23:59 23:59 23:59 Intake Total 560 / 560 250 / 250 Output Total 950 / 1350 975 / 975 300 / 300 Balance -950 / -1350 -415 / -415 -50 / -50 Medical Nutrition Assessment Dietitian: Nutrition Therapy Diagnosis Start: 09/19/20 12:02 Freq: Status: Active Protocol: Document 09/23/20 09:44 [facility] (Rec: 09/23/20 09:44 [facility] [id number]) Nutrition Malnutrition Evidence of Malnutrition Exists Yes Malnutrition (severe): Acute Illness/Injury Evidenced By Suboptimal Energy Intake ( Severe),Weight Loss (Severe) Intake Problem Inadequate Oral Intake Etiology related to increased O2 requirements and BIPAP/Airvo Signs/Symptoms as evidenced by NPO status Status Resolved Problem Clinical Problem Acute Disease or Injury Related Malnutrition Etiology related to acute illness ( COVID) Signs/Symptoms as evidenced by <50% po intake >5 days and 6.1% wt loss x 1 wk 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 Status Active Problem Recommendation Dietitian Recommendations/Changes Continue Consistent CHO diet with 120 ml glucerna shake for increased nutrition as ordered. Consider d/c at time of follow up if continues with good po intake. Lab / Micro Data Attestation: I reviewed the patient's lab results. Result Diagrams: 09/24/20 04:45 09/24/20 04:45 Labs: Laboratory Results - last 24 hr 09/23/20 07:50: POC Glucose 149 H 09/23/20 12:08: POC Glucose 233 H 09/23/20 16:51: POC Glucose 215 H 09/23/20 21:16: POC Glucose 147 H 09/24/20 04:45: WBC 9.2, RBC 5.58, Hgb 15.6, Hct 49.0, MCV 87.8, MCH 28.0, MCHC 31.8 L, RDW Std Deviation 43.6, RDW Coeff of Cinthya 13.6, Plt Count 198, MPV 11.6, Immature Gran % (Auto) 1.700 H, Neut % (Auto) 81.1 H, Lymph % (Auto) 13.4 L, Calvert % (Auto) 2.8, Eos % (Auto) 0.7, Baso % (Auto) 0.3, Absolute Neuts (auto) 7.5, Absolute Lymphs (auto) 1.23, Nucleated RBC % 0 09/24/20 04:45: Sodium 137, Potassium 3.5, Chloride 100, Carbon Dioxide 30.0, Anion Gap 7, BUN 15, Creatinine 0.72, Estim Creat Clear Calc 161.74, Est GFR (MDRD) Af Amer 158, Est GFR (MDRD) Non-Af 130, BUN/Creatinine Ratio 20.9 H, Glucose 141 H, Calcium 8.4 L, Total Bilirubin 1.10 H, AST 26, ALT 39, Alkaline Phosphatase 38 L, Total Protein 7.6, Albumin 2.7 L, Globulin 4.9 H, Albumin/Globulin Ratio 0.6 L Micro: Microbiology 09/18/20 23:12 Blood Culture (Wb) - Left Forearm Blood Culture - Preliminary No growth in 48 hours. 09/18/20 23:02 Blood Culture (Wb) - Anticubital Left Blood Culture - Preliminary No growth in 48 hours. Physical Exam Const alert and oriented x3 Constitutional Narrative: Sitting in bedside recliner. Nasal BiPAP mask in place. General Appearance: cooperative Nutritional Appearance: obese HEENT normocephalic and head/scalp atraumatic Eyes PERRL, EOMs intact bilaterally and conjunctivae normal Neck supple General: trachea midline Chest inspection of chest normal Resp Auscultation: diminished lung sounds; Negative for rales, rhonchi or wheezes Cardio S1 normal heart sound and S2 normal heart sound Rate: tachycardic Heart Sounds: Negative for murmur GI normal to inspection, nondistended, normoactive bowel sounds Extremity no clubbing, cyanosis or edema Skin no rashes or lesions noted Neuro CN's II-XII intact bilaterally and no focal motor deficits Psych cooperative and affect normal Charges/Coding Procedures Hospitalists Procedures: 26680 Critial Care 1st Hr
[2020-09-24] MEDS: Ipratropium/Albuterol Sulfate 3 ML AMPUL.NEB INHALATION ×3 (06:54→19:05)
--- NOTE | 2020-09-24 07:12 | PN.HOSP_ITS ---
Subjective Subjective Patient seen and examined. He was desaturating on airflow so was switched to BiPAP and is a 95% FiO2. He is still coughing and is mildly tachycardic and tachypneic this morning. He has no other complaints and review of systems is otherwise negative. Objective Data Objective Data Vital Signs: Vital Signs Temp Pulse Resp BP Pulse Ox 97.3 F L 104 H 21 H 155/84 H 99 09/24/20 00:00 09/24/20 06:55 09/24/20 06:55 09/24/20 06:00 09/24/20 06:55 Oxygen Flow Rate (L/min) 60 Oxygen Delivery Method Bi-pap Weight: 301 lb 13.005 oz Body Mass Index (BMI) 39.2 Intake & Output: Intake and Output for Last 24 Hours 09/22/20 09/23/20 09/24/20 23:59 23:59 23:59 Intake Total 560 / 560 250 / 250 Output Total 950 / 1350 975 / 975 400 / 400 Balance -950 / -1350 -415 / -415 -150 / -150 Medical Nutrition Assessment Dietitian: Nutrition Therapy Diagnosis Start: 09/19/20 12:02 Freq: Status: Active Protocol: Document 09/23/20 09:44 [facility] (Rec: 09/23/20 09:44 [facility] [id number]) Nutrition Malnutrition Evidence of Malnutrition Exists Yes Malnutrition (severe): Acute Illness/Injury Evidenced By Suboptimal Energy Intake ( Severe),Weight Loss (Severe) Intake Problem Inadequate Oral Intake Etiology related to increased O2 requirements and BIPAP/Airvo Signs/Symptoms as evidenced by NPO status Status Resolved Problem Clinical Problem Acute Disease or Injury Related Malnutrition Etiology related to acute illness ( COVID) Signs/Symptoms as evidenced by <50% po intake >5 days and 6.1% wt loss x 1 wk 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 Status Active Problem Recommendation Dietitian Recommendations/Changes Continue Consistent CHO diet with 120 ml glucerna shake for increased nutrition as ordered. Consider d/c at time of follow up if continues with good po intake. Lab / Micro Data Result Diagrams: 09/24/20 04:45 09/24/20 04:45 Labs: Laboratory Results - last 24 hr 09/23/20 07:50: POC Glucose 149 H 09/23/20 12:08: POC Glucose 233 H 09/23/20 16:51: POC Glucose 215 H 09/23/20 21:16: POC Glucose 147 H 09/24/20 04:45: WBC 9.2, RBC 5.58, Hgb 15.6, Hct 49.0, MCV 87.8, MCH 28.0, MCHC 31.8 L, RDW Std Deviation 43.6, RDW Coeff of Cinthya 13.6, Plt Count 198, MPV 11.6, Immature Gran % (Auto) 1.700 H, Neut % (Auto) 81.1 H, Lymph % (Auto) 13.4 L, Mayes % (Auto) 2.8, Eos % (Auto) 0.7, Baso % (Auto) 0.3, Absolute Neuts (auto) 7.5, Absolute Lymphs (auto) 1.23, Nucleated RBC % 0 09/24/20 04:45: Sodium 137, Potassium 3.5, Chloride 100, Carbon Dioxide 30.0, Anion Gap 7, BUN 15, Creatinine 0.72, Estim Creat Clear Calc 161.74, Est GFR (MDRD) Af Amer 158, Est GFR (MDRD) Non-Af 130, BUN/Creatinine Ratio 20.9 H, Glucose 141 H, Calcium 8.4 L, Total Bilirubin 1.10 H, AST 26, ALT 39, Alkaline Phosphatase 38 L, Total Protein 7.6, Albumin 2.7 L, Globulin 4.9 H, Albumin/Globulin Ratio 0.6 L Micro: Microbiology 09/18/20 23:12 Blood Culture (Wb) - Left Forearm Blood Culture - Preliminary No growth in 48 hours. 09/18/20 23:02 Blood Culture (Wb) - Anticubital Left Blood Culture - Preliminary No growth in 48 hours. Physical Exam Narrative On Arava though. No respiratory distress. No conversational dyspnea. Const alert, oriented x3 and no apparent distress Exam Limitations: no limitations Nutritional Appearance: obese HEENT head/scalp atraumatic and moist oral mucous membranes Head and Scalp: normocephalic Eyes PERRL, EOMs intact bilaterally and conjunctivae normal Neck no lymphadenopathy and supple Resp Resp Narrative: tachypneic, diminished breath sounds bibasally, few bibasal crackles. on BIPAP with 95% FiO2 Cardio regular rhythm, S1 normal heart sound, S2 normal heart sound, no murmurs and no gallops Cardio Narrative: tachycardic GI normal to inspection, nondistended, normoactive bowel sounds, soft to palpation, non-tender and non-distended Extremity normal to inspection, full ROM and no clubbing, cyanosis or edema Peripheral Pulses: Yes pulses 2+ throughout Skin no rashes or lesions noted Neuro oriented x3 Sensorium / Orientation: awake and alert Psych affect normal Assessment & Plan Assessment/Plan (1) Acute respiratory failure with hypoxia: (2) Acute and chronic respiratory failure with hypoxia: (3) COVID-19: PLAN: #Acute hypoxic respiratory failure due to COVID 19 infection * patient now on BIPAP at 95% FiO2 * on remdesivir and decadrone; complete 10 day course of decadrone. * in cumulative positive balance by 2.9L today, did receive a dose of lasix yesterday. now on scheduled lasix * ID and pulmonology on board * continue BIPAP prn * on breathing treatment with bronchodilators * titrate oxygen to maintain sats >90% * recommended to quarantine for 20 days since start of symptoms; symptoms started 09/10/2020, and he tested positive for covid on 09/12/2020. * patient counseled that he is at a low threshold for intubation due to his tenuous respiratory status * #History of untreated VIJAY * on BIPAP qhs prn * #Type 2 diabetes mellitus * on ISS. Accuchecks GEORGINA * #DVT prophylaxis: on lovenox 40mg bid. GI prophylaxis: famotidine. Charges/Coding Visit Charges Inpatient E&M: 87836 [facility] Hosp L3
--- NOTE | 2020-09-24 07:52 | NURSING ---
this RN educated patient on bipap, not tolerating airvo, elevated HR and BP, and possible need for intubation if bipap not worn. Patient stated Can we just try the airvo again, this morning was under different circumstances, I needed to drink and was coughing constantly. This RN agreed to try airvo, airvo placed and O2 sats dropped to mid 70's, HR up to the 130s, this RN showed patient monitor and O2 level, pt became SOB, labored breathing, placed back on bipap more in depth education on bipap and intubation provided. Patient in agreeance to bipap. O2 sats maintaining mid 80s on bipap FiO2 80%, increased FiO2 to 95%, Dr. Jones notified, pt notified he is NPO at this time, water taken off bedside table.
[2020-09-24] MEDS: CHLORHEXIDINE GLUC 2% CLOTH 1 EACH TOWELETTE TOPICAL (07:54)
[2020-09-24 09:17] LABS: Erythrocyte Sedimentation Rate 66 mm/hr (0-20)
[2020-09-24] MEDS: 0.9% Saline Lock 10 ML Syringe IV ×2 (10:51→22:25)
[2020-09-24] MEDS: Furosemide 40 MG/4 ML Vial IV (10:51)
[2020-09-24] MEDS: Enoxaparin 40 MG/0.4 ML Syringe SC ×2 (10:51→22:24)
[2020-09-24] MEDS: dexAMETHasone 10 MG/ML Vial 6 MG IV (10:51)
[2020-09-24 11:31] LABS: Bedside Glucose 147 mg/dL (70-110)
[2020-09-24] MEDS: Insulin Lispro 100 UNIT/ML INSULN.PEN SC ×3 (11:36→22:24)
--- NOTE | 2020-09-24 12:38 | NURSING ---
core temp lockett cath inserted at this time, patient tolerated well.
--- NOTE | 2020-09-24 15:50 | PCM.PN.ID ---
Physical Exam Narrative Feeling ok, on bipap, some cough, no fever Const alert General Appearance: cooperative Resp Auscultation: diminished lung sounds Cardio Rate: tachycardic GI normal to inspection, nondistended, normoactive bowel sounds Extremity no clubbing, cyanosis or edema Skin no rashes or lesions noted ID ID: Route of nutrition/ use of supplements: [] Nutritional Intake: [] IV Site: [] Pugh Catheter: [] Assessment & Plan Assessment/Plan (1) COVID-19: PLAN: covid sx started around 09/10, tested (+) 09/12. Admitted, started on dex, [address] neg for PE. Recommend quarantine for 20 days from start of symptoms, then get vaccine once out of iso. Dex extended. Now on 95% bipap, worsening hypoxia and high CRP, ordering tocilizumab. Will follow, d/w Dr. Jones (2) Acute respiratory failure with hypoxia:
[2020-09-24 16:01] LABS: Bedside Glucose 186 mg/dL (70-110)
[2020-09-24 17:01] LABS: Bedside Glucose 213 mg/dL (70-110)
[2020-09-25] VITALS (47 sets, daily range): BP systolic 70–229; BP diastolic 41–154; PULSE 88–156; RESP 10–28; TEMP 37.1–38.5; O2SAT 61–96
[2020-09-25 00:11] LABS: Bedside Glucose 155 mg/dL (70-110)
[2020-09-25 04:22] LABS: Absolute Lymphocyte Count 1.07 X10^3/uL (0.83-4.51); Absolute Neutrophil Count 8.7 X10^3/uL (2.0-7.7); Basophil# 0.05 X10^3/uL; Basophil% 0.5 % (0-1); Eosinophil# 0.14 X10^3/uL; Eosinophils% 1.3 % (0-5); Hematocrit 49.9 % (40-54); Hemoglobin 15.8 g/dL (13.0-16.5); Lymphocyte # 1.07 X10^3/ul (0.83-4.51); Lymphocyte % 10.2 % (19-41); Mean Corp Hgb Conc 31.7 g/dL (32-36); Mean Corpuscular Hgb 28.1 pg (27.0-32.0); Mean Corpuscular Volume 88.6 fL (80-94); Mean Platelet Vol. 11.8 fl (6.2-12.0); Monocyte# 0.32 X10^3/uL; Monocyte% 3.1 % (0-10); NRBC Flagged by Analyzer 0 % (0-5); Neutrophil # 8.73 X10^3/uL (2.7-7.7); Neutrophil % 83.2 % (47-70); Platelet Count 221 K/mm3 (150-450); RBC Distribution Width SD 45.5 fl (35.1-43.9); Red Blood Count 5.63 M/mm3 (4.6-6.2); White Blood Count 10.5 K/mm3 (4.4-11.0)
[2020-09-25 04:39] LABS: ALB/GLOB Ratio 0.6 RATIO (0.9-2.4); AST(SGOT) 19 U/L (15-37); Alanine Aminotransfer ALT/SGPT 45 U/L (16-61); Albumin, Serum 2.8 g/dL (3.2-5.0); Alkaline Phosphatase 40 U/L (45-117); Anion Gap 7 (5-15); BUN 16 mg/dL (7-18); BUN/Creat Ratio 24.8 RATIO (10-20); Calcium,Total 8.5 mg/dL (8.5-10.1); Chloride 99 mmol/L (98-107); Creatinine, Serum 0.64 mg/dL (0.70-1.30); EST Glomerular Filtration Rate 148 mL/min (>60); Est Glom Filt Rate - Afr Amer 179 mL/min (>60); Estimated Creatinine Clearance 181.95 ml/min; Glucose 131 mg/dL (74-106); Protein, Total 7.8 g/dL (6.4-8.2); Sodium Level 137 mmol/L (136-145)
--- NOTE | 2020-09-25 05:35 | PN.CC_ITS ---
Assessment & Plan Assessment/Plan (1) Acute respiratory failure with hypoxia: (2) COVID-19: PLAN: RECOMMENDATIONS: 1. Proceed with intubation, given overall clinical worsening respiratory s tatus. 2. Obtain sputum and send for culture. 3. Obtain arterial blood gas 1 hour post intubation. 4. Optimize sedation regimen to maintain a RASS of -1 to 1. 5. Continue Decadron and twice daily Lovenox. 6. Continue scheduled bronchodilator therapy. 7. Consider Tocilizumab administration. 8. Continue gentle diuresis as tolerated by hemodynamics and renal function. IMPRESSIONS: 1. Acute hypoxemic respiratory failure secondary to COVID-19 pneumonia In addition to COVID-19, the patient does have a history of mild intermittent asthma. The patient has completed a treatment course of remdesivir and remains on Decadron. In addition, he is being maintained on scheduled bronchodilator therapy. Unfortunately, over the last several days, the patient has continued to decompensate from a respiratory perspective. Ultimately, the patient did require intubation on the morning of September 25 after he failed to respond to maximum noninvasive positive pressure ventilatory support. The patient continued to have refractory hypoxemia on assist control mode of mechanical ventilation. Therefore, after optimizing his sedation regimen, the patient was transition to APRV. We will monitor blood gases closely. Wean FiO2 as tolerated to maintain saturations at or above 90%. Consider tocilizumab administration if feasible from an infectious diseases standpoint. 2. Untreated obstructive sleep apnea Continue noninvasive positive pressure ventilatory support, at a minimum, with naps and nightly. 3. Morbid obesity/diabetes mellitus Complicates care, management, recovery and prognosis. Continue current supportive measures as noted above. TIME: 90 minutes of critical care time, inclusive of procedures, was spent addressing the patient's acute hypoxemic respiratory failure, COVID-19 pneumonia, underlying asthma, untreated obstructive sleep apnea, review of all data and collaboration with care team. ([id number], [phone]) Subjective Subjective The patient was seen and examined at the bedside this morning. Events from the last 24 hours have been reviewed. The patient is currently running a low-grade fever but remains otherwise hemodynamically stable. His oxygenation status remains quite tenuous. He has remained essentially BiPAP dependent over the last 24 hours with an FiO2 requirement this morning of 100%. Attempts to wean the patient from noninvasive positive pressure ventilatory support has proven unsuccessful. The patient is currently documented to be overall net +900 mL for the hospital admission. Tocilizumab was ordered yesterday by infectious diseases. Following my evaluation of the patient this morning, and in light of his clinical worsening, the decision was made to proceed with intubation. Intubation Indication: Respiratory failure Consent was obtained from: Patient The patient was placed in the appropriate sniffing position. Preoxygenated sedation via BiPAP was provided for a minimum of 3 minutes. The patient had continuous cardiac as well as pulse oximetry monitoring during the procedure. Procedure sedation was provided by the administration of 4 mg of Versed, 20 mg of etomidate and 100 mg of succinylcholine. Direct laryngoscopy was then performed using a number 4 MAC blade, which revealed a grade 1 view. A 7.5 mm endotracheal tube was visualized advancing between the cords to the level of 23 cm at the lip. The stylette was then removed and discarded. Tube placement was confirmed by fogging in the tube along with equal and bilateral breath sounds. Colorimetric change was visualized on the CO2 meter. The cuff was then inflated and the tube secured using a commercially available device. A good pulse oximetry waveform was seen on the monitor throughout the procedure. A portable chest x-ray has been ordered to confirm appropriate placement. The patient tolerated the procedure well. UPDATE: Over the course of the morning hours, the patient has required multiple interventions in order to achieve an appropriate level of sedation on the ventilator. At one point, the patient was requiring propofol, fentanyl, Precedex and Versed in order to achieve adequate sedation and eliminate ventilator dyssynchrony. Although the patient was initially being maintained on assist control mode of mechanical ventilation, he continued to have refractory hypoxemia. Therefore, the decision was made to wean his sedation and allow the patient to overbreathing the set rate on the ventilator. He was then transition to APRV mode of mechanical ventilation. Central venous catheter was also placed due to relative hemodynamic instability and the need to administer multiple continuous infusion medications. Objective Data Objective Data The patient's most recent lab work, culture data and imaging studies have all been personally reviewed. Blood cultures have shown no growth to date. Vital Signs: Vital Signs Temp Pulse Resp BP Pulse Ox 100.4 F H 94 14 129/80 H 94 09/25/20 05:00 09/25/20 05:00 09/25/20 05:00 09/25/20 05:00 09/25/20 05:00 Oxygen Flow Rate (L/min) 60 Oxygen Delivery Method Bi-pap Weight: 136.9 kg Body Mass Index (BMI) 39.2 Intake & Output: Intake and Output for Last 24 Hours 09/23/20 09/24/20 09/25/20 23:59 23:59 23:59 Intake Total 560 / 560 270 / 270 Output Total 975 / 975 1900 / 2325 425 / 425 Balance -415 / -415 -1630 / -2055 -425 / -425 Medical Nutrition Assessment Dietitian: Nutrition Therapy Diagnosis Start: 09/19/20 12:02 Freq: Status: Active Protocol: Document 09/24/20 10:01 (Rec: 09/24/20 10:02 [id number]) Nutrition Malnutrition Evidence of Malnutrition Exists Yes Malnutrition (severe): Acute Illness/Injury Evidenced By Suboptimal Energy Intake ( Severe),Weight Loss (Severe) Intake Problem Inadequate Oral Intake Etiology related to decreased appetite, respiratory failure Signs/Symptoms as evidenced by estimated PO intake <50% of estimated nutritional needs x 10 days Status Active Problem Clinical Problem Acute Disease or Injury Related Malnutrition Etiology severe, acute malnutrition related to decreased energy intake w/ acute illness (COVID ) Signs/Symptoms as evidenced by PO intake meeting <50% estimated needs > 5 days [employer] and 6.1% wt 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 Status Active Problem Recommendation Dietitian Recommendations/Changes Recommend advance diet as tolerated to regular when medically indicated. Glucerna w/meals if PO intake at meals is poor when PO intake allowed . Lab / Micro Data Attestation: I reviewed the patient's lab results. Result Diagrams: 09/25/20 04:05 09/25/20 04:05 Labs: Laboratory Results - last 24 hr 09/24/20 04:45: ESR 66 H 09/24/20 04:45: C-React Prot High Sens 71.10 H 09/24/20 07:53: POC Glucose 147 H 09/24/20 08:45: Procalcitonin 0.10 H 09/24/20 11:34: POC Glucose 186 H 09/24/20 16:23: POC Glucose 213 H 09/24/20 22:23: POC Glucose 155 H 09/25/20 04:05: WBC 10.5, RBC 5.63, Hgb 15.8, Hct 49.9, MCV 88.6, MCH 28.1, MCHC 31.7 L, RDW Std Deviation 45.5 H, RDW Coeff of Cinthya 14.0, Plt Count 221, MPV 11.8, Immature Gran % (Auto) 1.700 H, Neut % (Auto) 83.2 H, Lymph % (Auto) 10.2 L, [place] % (Auto) 3.1, Eos % (Auto) 1.3, Baso % (Auto) 0.5, Absolute Neuts (auto) 8.7 H, Absolute Lymphs (auto) 1.07, Nucleated RBC % 0 09/25/20 04:05: Sodium 137, Potassium 4.0, Chloride 99, Carbon Dioxide 31.0, Anion Gap 7, BUN 16, Creatinine 0.64 L, Estim Creat Clear Calc 181.95, Est GFR (MDRD) Af Amer 179, Est GFR (MDRD) Non-Af 148, BUN/Creatinine Ratio 24.8 H, Glucose 131 H, Calcium 8.5, Total Bilirubin 0.90, AST 19, ALT 45, Alkaline Phosphatase 40 L, Total Protein 7.8, Albumin 2.8 L, Globulin 5.0 H, Albumin/Globulin Ratio 0.6 L Micro: Microbiology 09/18/20 23:02 Blood Culture (Wb) - Anticubital Left Blood Culture - Final No growth in 5 days. 09/18/20 23:12 Blood Culture (Wb) - Left Forearm Blood Culture - Final No growth in 5 days. Physical Exam Const alert General Appearance: in distress, ill appearing and on BiPAP Nutritional Appearance: obese HEENT normocephalic and head/scalp atraumatic Eyes PERRL, EOMs intact bilaterally and conjunctivae normal Neck supple General: trachea midline Chest inspection of chest normal Resp Effort and Inspection: tachypneic, labored and actively coughing Auscultation: diminished lung sounds; Negative for rales, rhonchi or wheezes Cardio S1 normal heart sound and S2 normal heart sound Rate: tachycardic GI normal to inspection, nondistended, normoactive bowel sounds Extremity no clubbing, cyanosis or edema Skin no rashes or lesions noted Neuro moves all extremities and no focal motor deficits Psych Mood & Affect: anxious Charges/Coding Procedures Hospitalists Procedures: 24667 Critial Care 1st Hr Multi Select Codes Hospitalists' Procedures Procedures: [id number] Critial Care Addl 30 Min
--- NOTE | 2020-09-25 05:57 | RAD_ITS ---
STUDY: X-RAY CHEST REASON FOR EXAM: Male, 40 years old. Covid pneumonia. TECHNIQUE: AP portable upright COMPARISON: 09/19/2020 CXR FINDINGS: Bilateral alveolar opacities have worsened slightly. No apparent pneumothorax or pleural effusion. Heart size normal. No concerning mediastinal or hilar lesions. No acute osseous abnormality. No evidence of free air under the diaphragm. RAD/Chest 1 View (Portable) IMPRESSION: Slight interval worsening of Covid pneumonia. Electronically Signed: Rodrigo Bingham MD at 7:28 EDT Tel , Service support ,
[2020-09-25] MEDS: Ipratropium/Albuterol Sulfate 3 ML AMPUL.NEB INHALATION ×2 (06:54→19:28)
--- NOTE | 2020-09-25 07:20 | PN.HOSP_ITS ---
Subjective Subjective Patient seen and examined. He was emergently intubated this morning after he deteriorated from a respiratory standpoint. He was restless and agitated at time of review despite being intubated and on sedation. He was on 100% FiO2 and PEEP of 18 Objective Data Objective Data Vital Signs: Vital Signs Temp Pulse Resp BP Pulse Ox 100.4 F H 112 H 20 H 129/80 H 88 09/25/20 05:00 09/25/20 06:54 09/25/20 06:54 09/25/20 05:00 09/25/20 06:54 Oxygen Flow Rate (L/min) 60 Oxygen Delivery Method Bi-pap Weight: 292 lb 6.4 oz Body Mass Index (BMI) 39.2 Intake & Output: Intake and Output for Last 24 Hours 09/23/20 09/24/20 09/25/20 23:59 23:59 23:59 Intake Total 560 / 560 270 / 270 Output Total 975 / 975 1900 / 2325 700 / 700 Balance -415 / -415 -1630 / -2055 -700 / -700 Medical Nutrition Assessment Dietitian: Nutrition Therapy Diagnosis Start: 09/19/20 12:02 Freq: Status: Active Protocol: Document 09/24/20 10:01 (Rec: 09/24/20 10:02 [id number]) Nutrition Malnutrition Evidence of Malnutrition Exists Yes Malnutrition (severe): Acute Illness/Injury Evidenced By Suboptimal Energy Intake ( Severe),Weight Loss (Severe) Intake Problem Inadequate Oral Intake Etiology related to decreased appetite, respiratory failure Signs/Symptoms as evidenced by estimated PO intake <50% of estimated nutritional needs x 10 days Status Active Problem Clinical Problem Acute Disease or Injury Related Malnutrition Etiology severe, acute malnutrition related to decreased energy intake w/ acute illness (COVID ) Signs/Symptoms as evidenced by PO intake meeting <50% estimated needs > 5 days [employer] and 6.1% wt 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 Status Active Problem Recommendation Dietitian Recommendations/Changes Recommend advance diet as tolerated to regular when medically indicated. Glucerna w/meals if PO intake at meals is poor when PO intake allowed . Lab / Micro Data Result Diagrams: 09/25/20 04:05 09/25/20 04:05 Labs: Laboratory Results - last 24 hr 09/24/20 04:45: ESR 66 H 09/24/20 04:45: C-React Prot High Sens 71.10 H 09/24/20 07:53: POC Glucose 147 H 09/24/20 08:45: Procalcitonin 0.10 H 09/24/20 11:34: POC Glucose 186 H 09/24/20 16:23: POC Glucose 213 H 09/24/20 22:23: POC Glucose 155 H 09/25/20 04:05: WBC 10.5, RBC 5.63, Hgb 15.8, Hct 49.9, MCV 88.6, MCH 28.1, MCHC 31.7 L, RDW Std Deviation 45.5 H, RDW Coeff of Cinthya 14.0, Plt Count 221, MPV 11.8, Immature Gran % (Auto) 1.700 H, Neut % (Auto) 83.2 H, Lymph % (Auto) 10.2 L, Buchanan % (Auto) 3.1, Eos % (Auto) 1.3, Baso % (Auto) 0.5, Absolute Neuts (auto) 8.7 H, Absolute Lymphs (auto) 1.07, Nucleated RBC % 0 09/25/20 04:05: Sodium 137, Potassium 4.0, Chloride 99, Carbon Dioxide 31.0, Anion Gap 7, BUN 16, Creatinine 0.64 L, Estim Creat Clear Calc 181.95, Est GFR (MDRD) Af Amer 179, Est GFR (MDRD) Non-Af 148, BUN/Creatinine Ratio 24.8 H, Glucose 131 H, Calcium 8.5, Total Bilirubin 0.90, AST 19, ALT 45, Alkaline Phosphatase 40 L, Total Protein 7.8, Albumin 2.8 L, Globulin 5.0 H, Albumin/Globulin Ratio 0.6 L 09/25/20 06:46: D-Dimer Quant (PE/DVT) Cancelled Micro: Microbiology 09/18/20 23:02 Blood Culture (Wb) - Anticubital Left Blood Culture - Final No growth in 5 days. 09/18/20 23:12 Blood Culture (Wb) - Left Forearm Blood Culture - Final No growth in 5 days. Physical Exam Const Constitutional Narrative: intubated, sedated, RASS score is +4 Exam Limitations: no limitations Nutritional Appearance: obese HEENT head/scalp atraumatic and moist oral mucous membranes Head and Scalp: normocephalic Eyes PERRL, EOMs intact bilaterally and conjunctivae normal Neck no lymphadenopathy and supple Resp Resp Narrative: tachypneic, diminished breath sounds bibasally, few bibasal crackles. on BIPAP with 95% FiO2 Cardio regular rhythm, S1 normal heart sound, S2 normal heart sound, no murmurs and no gallops Cardio Narrative: tachycardic GI normal to inspection, nondistended, normoactive bowel sounds, soft to palpation, non-tender and non-distended Extremity normal to inspection, full ROM and no clubbing, cyanosis or edema Peripheral Pulses: Yes pulses 2+ throughout Skin no rashes or lesions noted Neuro Neuro Narrative: intubated, sedated, RASS score is +4 Assessment & Plan Assessment/Plan (1) Acute respiratory failure with hypoxia: (2) Acute and chronic respiratory failure with hypoxia: (3) COVID-19: PLAN: #Acute hypoxic respiratory failure due to COVID 19 infection * patient emergently intubated this morning; intubated and sedated. RASS score is +4 as patient was very restless even on sedation. * on remdesivir and decadrone; complete 10 day course of decadrone. * now on scheduled lasix; in cumulative positive balance by 623mils * ID and pulmonology on board * continue BIPAP prn * on breathing treatment with bronchodilators * titrate oxygen to maintain sats >90% * recommended to quarantine for 20 days since start of symptoms; symptoms started 09/10/2020, and he tested positive for covid on 09/12/2020. * patient counseled that he remains at a low threshold for intubation due to his tenuous respiratory status * given tocilizumab per ID yesterday * #History of untreated VIJAY * on BIPAP qhs prn * #Type 2 diabetes mellitus * on ISS. Accuchecks ACHS * #DVT prophylaxis: on lovenox 40mg bid. GI prophylaxis: famotidine. Charges/Coding Visit Charges Inpatient E&M: 70603 [facility] Hosp L3
[2020-09-25] MEDS: Succinylcholine Chloride 200 MG/10 ML Vial IV ×3 (08:08→08:38)
[2020-09-25] MEDS: Propofol 10MG/Ml 1,000 MG/100 ML Bottle 8 MG CONT INF (08:15)
--- NOTE | 2020-09-25 08:22 | RAD_ITS ---
HISTORY: intubation. TECHNIQUE: XR Chest 1 View. EXAM TIME: 2020-09-25 08:21. # of images incl. paperwork: 2. COMPARISON:05:58. FINDINGS: LINES/DEVICES: Endotracheal tube tip approximately 5 cm above the aric. CARDIOMEDIASTINAL BORDERS: Stable. LUNGS: Mildly increased bilateral alveolar opacities. PLEURA: No pleural effusion or pneumothorax. RAD/Chest 1 View (Portable) IMPRESSION: Satisfactory endotracheal tube placement with mildly increased pneumonia. at 0909 Reported and signed by: Taylor Doherty MD Electronically Signed: Taylor Doherty MD at 9:08 EDT Tel , Service support ,
[2020-09-25] MEDS: Midazolam 50 MG in 0.9% NS 100 mL CONT INF (09:20)
[2020-09-25] MEDS: Midazolam 2 MG/2 ML Syringe IV (09:30)
--- NOTE | 2020-09-25 10:10 | RAD_ITS ---
HISTORY: og placement. TECHNIQUE: XR Chest 1 View. EXAM TIME: 2020-09-25 10:50. # of images incl. paperwork: 1. COMPARISON:08:35. FINDINGS: LINES/DEVICES: Endotracheal tube tip approximately 5 cm above the aric. Nasogastric tube tip terminates in the upper midabdomen in the region of the distal stomach. CARDIOMEDIASTINAL BORDERS: Stable. LUNGS: Lung apices excluded from the [id number]. Moderate bilateral alveolar opacities again seen. PLEURA: No pleural effusion identified. RAD/Chest 1 View (Portable) IMPRESSION: Satisfactory appearance of endotracheal and orogastric tubes. at 1124 Reported and signed by: Taylor Doherty MD Electronically Signed: Taylor Doherty MD at 11:23 EDT Tel , Service support ,
[2020-09-25 10:13] LABS: D-Dimer Quantitative (DVT/PE) 3.53 FEU/ug/m (0.27-0.49)
[2020-09-25 10:19] LABS: CPK Total, Creatine Kinase 56 U/L (39-308); Triglycerides 139 mg/dL
[2020-09-25] MEDS: dexAMETHasone 10 MG/ML Vial 6 MG IV (10:22)
[2020-09-25] MEDS: Furosemide 40 MG/4 ML Vial IV (10:22)
[2020-09-25] MEDS: Enoxaparin 40 MG/0.4 ML Syringe SC ×2 (10:22→22:56)
[2020-09-25] MEDS: CHLORHEXIDINE GLUC 2% CLOTH 1 EACH TOWELETTE TOPICAL (10:53)
[2020-09-25 11:05] LABS: Blood Gas Specimen Type VEN; O2 Delivery Device AeroMask; PEEP 20; RR 16; SITE R Brach; VBG BASE EXCESS 3 mmol/L (-1.0-3.5); VBG Bicarbonate 30 mmol/L (22-26); VBG PO2 59 mmHg (25-40); VBG SO2 85 % (50-70); VBG TCO2 32 mmol/L (23-33); VBG pCO2 64.1 mmHg (41-51); VBG pH 7.28 (7.32-7.42)
[2020-09-25 11:36] LABS: M R Staph aureus DNA By PCR Negative (Negative); Probe Check PASS; Specimen Processing Control PASS
[2020-09-25 12:10] LABS: Bedside Glucose 193 mg/dL (70-110)
[2020-09-25] MEDS: Insulin Lispro 100 UNIT/ML INSULN.PEN SC ×2 (12:25→17:06)
[2020-09-25] MEDS: Acetaminophen 325 MG Tablet 650 MG PO (13:00)
[2020-09-25] MEDS: Propofol 10MG/Ml 1,000 MG/100 ML Bottle 23.9 MG CONT INF ×4 (13:00→23:10)
--- NOTE | 2020-09-25 13:10 | RAD_ITS ---
STUDY: X-RAY CHEST REASON FOR EXAM: Male, 40 years old. Central line RIJ TECHNIQUE: AP COMPARISON: Earlier today FINDINGS: Right jugular central venous catheter present with tip projecting over the mid SVC. Endotracheal and esophagogastric tubes are stable. Significant bilateral pulmonary infiltrates have not significantly changed. There is no demonstrated pleural abnormality. Normal size heart. Normal mediastinum and grayson. Normal visualized pulmonary arteries. Normal visualized aortic arch and descending thoracic aorta. No acute bony process. There is no demonstrated abnormality of the visualized soft tissue structures of the upper abdomen. RAD/CXR for Line Placement IMPRESSION: Satisfactory position of right jugular central venous catheter. No pneumothorax. Electronically Signed: Miguel Barahona MD (Bro[facility]) at 13:37 EDT , Service support ,
--- NOTE | 2020-09-25 13:24 | PCM.OP.BLANK ---
Operative Report Date of Procedure: 09/25/20 Central line placement procedure note Indication: IV access/hemodynamic instability/vasoactive medications Procedure: A time-out was completed to verify correct patient, indication, medication allergies, procedure, coagulation studies, informed consent signed, and equipment needed. The patient was placed in the supine position for a central line placement to the rt IJ vein. The patients rt neck was prepped using chlorhexidine and a full body sterile drape was applied. 1% lidocaine was used to anesthetize the surrounding skin. A 7fr 16 cm blue guard triple lumen catheter introduced into the internal jugular vein using the modified Seldinger technique with the assistance of ultrasound. The catheter was threaded smoothly over the guidewire, the guidewire was removed easily, nonpulsatile blood returned. All ports were aspirated of air and flushed with sterile saline. The catheter was sutured in place and covered with an occlusive dressing impregnated with chlorhexidine. Post-procedure: The patient tolerated the procedure well. Vital signs remained stable. EBL 3cc. No complications. Chest X Ray ordered to confirm tip placement and the absence of pneumothorax. Procedures Hospitalists Procedures: 10993 Insert Non-tunnel CV Cath
[2020-09-25 14:26] LABS: Allen Test Positive; Base Excess 3 mmol/L (-2 to +2); Bicarbonate 29.4 mmol/L (22-26); Blood Gas Specimen Type ART; FI02 100; Mode BiLevel; O2 Delivery Device Adult Vent; PO2 68 mmHG (75-100); PS 5; RR 12; SITE R Radial; SO2 90 % (95-99); Total Carbon Dioxide 31 mmol/L; pCO2 62.3 mmHg (35-45); pH 7.28 (7.35-7.45)
--- NOTE | 2020-09-25 15:31 | PN.ID_ITS ---
Physical Exam Narrative Now intubated and paralyzed. Const Constitutional Narrative: ill appearing Resp clear to auscultation bilaterally Auscultation: diminished lung sounds Cardio regular rate and regular rhythm GI normal to inspection, nondistended, normoactive bowel sounds Skin no rashes or lesions noted ID ID: Route of nutrition/ use of supplements: [] Nutritional Intake: [] IV Site: [] Pugh Catheter: [] Assessment & Plan Assessment/Plan (1) COVID-19: PLAN: covid sx started around 09/10, tested (+) 09/12. Admitted, started on dex, [address] neg for PE. Recommend quarantine for 20 days from start of symptoms, then get vaccine once out of iso. Dex extended. Now on alejandro t, paralytics, 100% fiO2, still hypoxic to low 80s. Ordered tocilizumab but not clear when it will be available. Question re: transfer for ecmo, but very unstable at this point. Will follow, d/w Dr. Jones (2) Acute respiratory failure with hypoxia:
[2020-09-25 17:11] LABS: Bedside Glucose 201 mg/dL (70-110)
[2020-09-25] MEDS: Chlorhexidine 15 ML PO (20:45)
[2020-09-25] MEDS: 0.9% Saline Lock 10 ML Syringe IV (22:57)
[2020-09-26] VITALS (53 sets, daily range): BP systolic 68–160; BP diastolic 46–122; PULSE 91–131; RESP 12–29; TEMP 36.8–39.2; O2SAT 92–99
[2020-09-26] MEDS: Insulin Lispro 100 UNIT/ML INSULN.PEN SC ×5 (00:33→22:30)
[2020-09-26] MEDS: CHLORHEXIDINE GLUC 2% CLOTH 1 EACH TOWELETTE TOPICAL (00:33)
[2020-09-26] MEDS: Acetaminophen 650 MG/20 ML UDC GT ×2 (00:33→08:11)
[2020-09-26 00:56] LABS: Bedside Glucose 162 mg/dL (70-110)
[2020-09-26] MEDS: Propofol 10MG/Ml 1,000 MG/100 ML Bottle 23.9 MG CONT INF (02:03)
[2020-09-26 04:39] LABS: Absolute Lymphocyte Count 0.97 X10^3/uL (0.83-4.51); Absolute Neutrophil Count 18.8 X10^3/uL (2.0-7.7); Basophil# 0.06 X10^3/uL; Basophil% 0.3 % (0-1); Eosinophil# 0.06 X10^3/uL; Eosinophils% 0.3 % (0-5); Hematocrit 48.4 % (40-54); Hemoglobin 14.9 g/dL (13.0-16.5); Lymphocyte # 0.97 X10^3/ul (0.83-4.51); Lymphocyte % 4.6 % (19-41); Mean Corp Hgb Conc 30.8 g/dL (32-36); Mean Corpuscular Hgb 28.2 pg (27.0-32.0); Mean Corpuscular Volume 91.5 fL (80-94); Mean Platelet Vol. 12.1 fl (6.2-12.0); Monocyte# 0.83 X10^3/uL; Monocyte% 3.9 % (0-10); NRBC Flagged by Analyzer 0 % (0-5); Neutrophil # 18.81 X10^3/uL (2.7-7.7); Neutrophil % 89.5 % (47-70); Platelet Count 318 K/mm3 (150-450); RBC Distribution Width CV 14.3 % (11.6-14.6); RBC Distribution Width SD 48.1 fl (35.1-43.9); Red Blood Count 5.29 M/mm3 (4.6-6.2)
[2020-09-26 04:52] LABS: ALB/GLOB Ratio 0.5 RATIO (0.9-2.4); AST(SGOT) 38 U/L (15-37); Alanine Aminotransfer ALT/SGPT 56 U/L (16-61); Albumin, Serum 2.7 g/dL (3.2-5.0); Alkaline Phosphatase 42 U/L (45-117); Anion Gap 10 (5-15); BUN 41 mg/dL (7-18); BUN/Creat Ratio 19.9 RATIO (10-20); Calcium,Total 8.6 mg/dL (8.5-10.1); Chloride 98 mmol/L (98-107); Creatinine, Serum 2.06 mg/dL (0.70-1.30); EST Glomerular Filtration Rate 39 mL/min (>60); Est Glom Filt Rate - Afr Amer 47 mL/min (>60); Estimated Creatinine Clearance 56.53 ml/min; Glucose 170 mg/dL (74-106); Potassium 4.9 mmol/L (3.5-5.1); Protein, Total 7.7 g/dL (6.4-8.2); Sodium Level 136 mmol/L (136-145)
[2020-09-26] MEDS: Propofol 10MG/Ml 1,000 MG/100 ML Bottle 31.8 MG CONT INF ×3 (05:30→10:45)
--- NOTE | 2020-09-26 05:39 | PCM.PN.INT ---
Assessment & Plan Assessment/Plan (1) Acute respiratory failure with hypoxia: (2) COVID-19: PLAN: RECOMMENDATIONS: 1. Continue APRV mode of mechanical ventilation. Wean FiO2 as tolerated. Monitor ABG daily. 2. Continue propofol and fentanyl for sedation. Monitor triglyceride level routinely. 3. Start scheduled Seroquel today. 4. Continue Decadron and twice daily Lovenox. 5. Administer Tocilizumab if feasible. 6. Continue scheduled bronchodilator therapy. 7. Okay to start tube feeds today from my perspective. IMPRESSIONS: 1. Acute hypoxemic respiratory failure secondary to COVID-19 pneumonia In addition to COVID-19, the patient does have a history of mild intermittent asthma. The patient has completed a treatment course of remdesivir and remains on Decadron. In addition, he is being maintained on scheduled bronchodilator therapy. Unfortunately, over the last several days, the patient has continued to decompensate from a respiratory perspective. Ultimately, the patient did require intubation on the morning of September 25 after he failed to respond to maximum noninvasive positive pressure ventilatory support. The patient continued to have refractory hypoxemia on assist control mode of mechanical ventilation. Therefore, after optimizing his sedation regimen, the patient was transitioned to APRV. We will continue to wean FiO2 as tolerated. Consider tocilizumab administration if feasible from an infectious diseases standpoint. Monitor triglycerides daily, given propofol utilization. 2. Acute kidney injury Likely prerenal in etiology and related to a component of ischemic ATN in the setting of hypotension noted over the last 12 hours due to sedative medication use. The patient's hemodynamics have stabilized at this time. Anticipate improvement in creatinine in light of stabilization of hemodynamics. Urine output is improving. No indication at the current time for renal replacement therapy. 3. Untreated obstructive sleep apnea Resume nocturnal Pap therapy upon successful extubation. 4. Morbid obesity/diabetes mellitus Complicates care, management, recovery and prognosis. Continue current supportive measures as noted above. TIME: 40 minutes of critical care time, independent of procedures, was spent addressing the patient's acute hypoxemic respiratory failure, COVID-19 pneumonia, acute kidney injury, underlying asthma, untreated obstructive sleep apnea, review of all data and collaboration with care team. ([id number]) Subjective Subjective The patient was seen and examined at the bedside this morning. Events from the last 24 hours have been reviewed. The patient has been running low-grade fevers overnight. The patient remains on APRV mode of mechanical ventilation with a P high of 30, T high 4.5 and T low of 0.5. FiO2 is 90%. He is currently documented to be overall net +1.1 L for the hospital admission. White count has increased to 21,000. Chemistry profile revealed an increase in creatinine to 2.06. The patient remains sedated on propofol and fentanyl. He was able to be weaned off of Levophed this morning. Urine output is increasing. Objective Data Objective Data The patient's most recent lab work, culture data and imaging studies have all been personally reviewed. Blood cultures have shown no growth to date. Sputum culture is pending. Vital Signs: Vital Signs Temp Pulse Resp BP Pulse Ox 100.8 F H 117 H 25 H 100/74 96 09/26/20 00:00 09/26/20 05:10 09/26/20 05:10 09/26/20 00:00 09/26/20 05:10 Oxygen Flow Rate (L/min) 60 Oxygen Delivery Method Mechanical Ventilator Weight: 134.2 kg Body Mass Index (BMI) 39.2 Intake & Output: Intake and Output for Last 24 Hours 09/24/20 09/25/20 09/26/20 23:59 23:59 23:59 Intake Total 270 / 270 818.49 / 848.49 98.91 / 98.91 Output Total 1900 / 2325 1000 / 1145 145 / 145 Balance -1630 / -2055 -181.51 / -296.51 -46.09 / -46.09 Medical Nutrition Assessment Dietitian: Nutrition Therapy Diagnosis Start: 09/19/20 12:02 Freq: Status: Active Protocol: Document 09/25/20 11:00 (Rec: 09/25/20 11:00 [id number]) Nutrition Malnutrition Evidence of Malnutrition Exists Yes Malnutrition (severe): Acute Illness/Injury Evidenced By Suboptimal Energy Intake ( Severe),Weight Loss (Severe) Intake Problem Inadequate Oral Intake Etiology related to respiratory failure Signs/Symptoms as evidenced by estimated PO intake <50% of estimated nutritional needs x 11 days Status Active Problem Clinical Problem Acute Disease or Injury Related Malnutrition Etiology severe, acute malnutrition related to decreased energy intake w/ acute illness (COVID ) Signs/Symptoms as evidenced by PO intake meeting <50% estimated needs > 5 days [employer] and 6.1% wt 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 Status Active Problem Recommendation Dietitian Recommendations/Changes If pt to remain intubated, recommend Vital HP at goal rate of 80mL/hour w/ 50mL H2O flush every 4 hours to provide 1920 calories, 167 g protein, and 1905mL total fluid/day. Would start at rate of 20mL/ hour and increase by 15mL/hour every 12 hours as tolerated until goal rate is achieved. Lab / Micro Data Attestation: I reviewed the patient's lab results. Result Diagrams: 09/26/20 03:50 09/26/20 03:50 Labs: Laboratory Results - last 24 hr 09/25/20 04:05: Total Creatine Kinase 56, Triglycerides 139 09/25/20 06:46: D-Dimer Quant (PE/DVT) Cancelled 09/25/20 06:46: MRSA (PCR) Negative 09/25/20 09:55: D-Dimer Quant (PE/DVT) 3.53 H* 09/25/20 12:03: POC Glucose 193 H 09/25/20 17:05: POC Glucose 201 H 09/26/20 00:20: POC Glucose 162 H 09/26/20 03:50: WBC 21.0 H, RBC 5.29, Hgb 14.9, Hct 48.4, MCV 91.5, MCH 28.2, MCHC 30.8 L, RDW Std Deviation 48.1 H, RDW Coeff of Cinthya 14.3, Plt Count 318, MPV 12.1 H, Immature Gran % (Auto) 1.400 H, Neut % (Auto) 89.5 H, Lymph % (Auto) 4.6 L, Wilkinson % (Auto) 3.9, Eos % (Auto) 0.3, Baso % (Auto) 0.3, Absolute Neuts (auto) 18.8 H, Absolute Lymphs (auto) 0.97, Nucleated RBC % 0 09/26/20 03:50: Sodium 136, Potassium 4.9, Chloride 98, Carbon Dioxide 28.0, Anion Gap 10, BUN 41 H, Creatinine 2.06 H, Estim Creat Clear Calc 56.53, Est GFR (MDRD) Af Amer 47 L, Est GFR (MDRD) Non-Af 39 L, BUN/Creatinine Ratio 19.9, Glucose 170 H, Calcium 8.6, Total Bilirubin 1.30 H, AST 38 H, ALT 56, Alkaline Phosphatase 42 L, Total Protein 7.7, Albumin 2.7 L, Globulin 5.0 H, Albumin/Globulin Ratio 0.5 L Micro: Microbiology 09/25/20 09:05 Sputum, Induced/Lukens Gram Stain - Final 09/18/20 23:02 Blood Culture (Wb) - Anticubital Left Blood Culture - Final No growth in 5 days. 09/18/20 23:12 Blood Culture (Wb) - Left Forearm Blood Culture - Final No growth in 5 days. ABG Data ABG results: ABG 09/25/20 09/25/20 11:01 14:17 Specimen Type NNEKA ART Sample Site R Brach R Radial pH 7.28 L Bicarbonate Actual 29.4 H Total CO2 31 Base Excess 3 H O2 Saturation 90 L O2 % 100 ABG pCO2 62.3 H ABG pO2 68 L Colt Test Positive VBG pH 7.28 L VBG pO2 59 H VBG HCO3 30 H VBG Total CO2 32 VBG O2 Sat (Calc) 85 H VBG Base Excess 3 POC Mix VBG pCO2 Pt Tmp 64.1 H Respiration Rate 16 12 O2 Delivery Device AeroMask Adult Vent Vent Mode BiLevel POC PEEP 20 POC Pressure Suppt 5 Clinical Comments Radiography Diagnostic Testing: Radiology Impression Chest X-Ray 09/25/20 05:57 IMPRESSION: Slight interval worsening of Covid pneumonia. Electronically Signed: Rodrigo Bingham MD at 7:28 EDT Tel , Service support , Chest X-Ray 09/25/20 08:22 IMPRESSION: Satisfactory endotracheal tube placement with mildly increased pneumonia. at 0909 Reported and signed by: Taylor Doherty MD Electronically Signed: Taylor Doherty MD at 9:08 EDT Tel , Service support , Chest X-Ray 09/25/20 10:10 IMPRESSION: Satisfactory appearance of endotracheal and orogastric tubes. at 1124 Reported and signed by: Taylor Doherty MD Electronically Signed: Taylor Doherty MD at 11:23 EDT Tel , Service support , Chest X-Ray 09/25/20 13:10 IMPRESSION: Satisfactory position of right jugular central venous catheter. No pneumothorax. Electronically Signed: Miguel Barahona MD ([place]) at 13:37 EDT , Service support , Physical Exam Const no apparent distress Constitutional Narrative: No ventilator dyssynchrony at the current time. General Appearance: intubated and patient mechanically ventilated Nutritional Appearance: obese HEENT normocephalic and head/scalp atraumatic Mouth: endotracheal tube in place and OG tube in place Eyes PERRL, EOMs intact bilaterally and conjunctivae normal Neck supple General: trachea midline and CVC in place Resp Effort and Inspection: tachypneic Auscultation: diminished lung sounds; Negative for rales, rhonchi or wheezes Cardio S1 normal heart sound and S2 normal heart sound Rate: tachycardic Heart Sounds: Negative for murmur GI normal to inspection, nondistended, normoactive bowel sounds Extremity no clubbing, cyanosis or edema Skin no rashes or lesions noted Neuro Sensorium / Orientation: sedated on vent Charges/Coding Procedures Hospitalists Procedures: 32347 Critial Care 1st Hr
[2020-09-26 06:16] LABS: Allen Test Positive; Base Excess 1 mmol/L (-2 to +2); Bicarbonate 26.9 mmol/L (22-26); Blood Gas Specimen Type ART; FI02 95; Mode BiLevel; O2 Delivery Device Adult Vent; PO2 81 mmHG (75-100); RR 12; SITE L Radial; SO2 95 % (95-99); Total Carbon Dioxide 29 mmol/L; pCO2 52.7 mmHg (35-45); pH 7.32 (7.35-7.45)
[2020-09-26] MEDS: Ipratropium/Albuterol Sulfate 3 ML AMPUL.NEB INHALATION ×3 (06:42→18:55)
[2020-09-26 06:47] LABS: Triglycerides 370 mg/dL
[2020-09-26 06:56] LABS: Bedside Glucose 174 mg/dL (70-110)
--- NOTE | 2020-09-26 07:10 | PN.HOSP_ITS ---
Subjective Subjective Patient seen and examined. He remains intubated and sedated. he remains tachycardic and is in positive balance by 1.1L. He now has leucocytosis, with wbc of 21k. He required levophed overnight but has now been weaned off of it. He remains sedated on propofol and fentanyl. Unable to do review of systems as he is intubated and sedated. Cr has trended up to 2.06 from 0.64 yesterday. Objective Data Objective Data Vital Signs: Vital Signs Temp Pulse Resp BP Pulse Ox 100.6 F H 115 H 26 H 125/94 H 96 09/26/20 02:00 09/26/20 06:45 09/26/20 06:43 09/26/20 06:45 09/26/20 05:10 Oxygen Flow Rate (L/min) 60 Oxygen Delivery Method Mechanical Ventilator Weight: 295 lb 13.765 oz Body Mass Index (BMI) 39.2 Intake & Output: Intake and Output for Last 24 Hours 09/24/20 09/25/20 09/26/20 23:59 23:59 23:59 Intake Total 270 / 270 837.29 / 896.61 394.64 / 394.64 Output Total 1900 / 2325 1000 / 1145 350 / 350 Balance -1630 / -2055 -162.71 / -248.39 44.64 / 44.64 Medical Nutrition Assessment Dietitian: Nutrition Therapy Diagnosis Start: 09/19/20 12:02 Freq: Status: Active Protocol: Document 09/25/20 11:00 (Rec: 09/25/20 11:00 [id number]) Nutrition Malnutrition Evidence of Malnutrition Exists Yes Malnutrition (severe): Acute Illness/Injury Evidenced By Suboptimal Energy Intake ( Severe),Weight Loss (Severe) Intake Problem Inadequate Oral Intake Etiology related to respiratory failure Signs/Symptoms as evidenced by estimated PO intake <50% of estimated nutritional needs x 11 days Status Active Problem Clinical Problem Acute Disease or Injury Related Malnutrition Etiology severe, acute malnutrition related to decreased energy intake w/ acute illness (COVID ) Signs/Symptoms as evidenced by PO intake meeting <50% estimated needs > 5 days FE[employer] and 6.1% wt 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 Status Active Problem Recommendation Dietitian Recommendations/Changes If pt to remain intubated, recommend Vital HP at goal rate of 80mL/hour w/ 50mL H2O flush every 4 hours to provide 1920 calories, 167 g protein, and 1905mL total fluid/day. Would start at rate of 20mL/ hour and increase by 15mL/hour every 12 hours as tolerated until goal rate is achieved. Lab / Micro Data Result Diagrams: 09/26/20 03:50 09/26/20 03:50 Labs: Laboratory Results - last 24 hr 09/25/20 04:05: Total Creatine Kinase 56, Triglycerides 139 09/25/20 06:46: D-Dimer Quant (PE/DVT) Cancelled 09/25/20 06:46: MRSA (PCR) Negative 09/25/20 09:55: D-Dimer Quant (PE/DVT) 3.53 H* 09/25/20 12:03: POC Glucose 193 H 09/25/20 17:05: POC Glucose 201 H 09/26/20 00:20: POC Glucose 162 H 09/26/20 03:50: WBC 21.0 H, RBC 5.29, Hgb 14.9, Hct 48.4, MCV 91.5, MCH 28.2, MCHC 30.8 L, RDW Std Deviation 48.1 H, RDW Coeff of Cinthya 14.3, Plt Count 318, MPV 12.1 H, Immature Gran % (Auto) 1.400 H, Neut % (Auto) 89.5 H, Lymph % (Auto) 4.6 L, Leon % (Auto) 3.9, Eos % (Auto) 0.3, Baso % (Auto) 0.3, Absolute Neuts (auto) 18.8 H, Absolute Lymphs (auto) 0.97, Nucleated RBC % 0 09/26/20 03:50: Sodium 136, Potassium 4.9, Chloride 98, Carbon Dioxide 28.0, Anion Gap 10, BUN 41 H, Creatinine 2.06 H, Estim Creat Clear Calc 56.53, Est GFR (MDRD) Af Amer 47 L, Est GFR (MDRD) Non-Af 39 L, BUN/Creatinine Ratio 19.9, Glucose 170 H, Calcium 8.6, Total Bilirubin 1.30 H, AST 38 H, ALT 56, Alkaline Phosphatase 42 L, Total Protein 7.7, Albumin 2.7 L, Globulin 5.0 H, Albumin/Globulin Ratio 0.5 L 09/26/20 03:50: Triglycerides 370 H 09/26/20 06:43: POC Glucose 174 H Micro: Microbiology 09/25/20 09:05 Sputum, Induced/Lukens Gram Stain - Final 09/18/20 23:02 Blood Culture (Wb) - Anticubital Left Blood Culture - Final No growth in 5 days. 09/18/20 23:12 Blood Culture (Wb) - Left Forearm Blood Culture - Final No growth in 5 days. ABG Data ABG results: ABG 09/25/20 09/25/20 09/26/20 11:01 14:17 06:09 Specimen Type NNEKA ART ART Sample Site R Brach R Radial L Radial pH 7.28 L 7.32 L Bicarbonate Actual 29.4 H 26.9 H Total CO2 31 29 Base Excess 3 H 1 O2 Saturation 90 L 95 O2 % 100 95 ABG pCO2 62.3 H 52.7 H ABG pO2 68 L 81 Colt Test Positive Positive VBG pH 7.28 L VBG pO2 59 H VBG HCO3 30 H VBG Total CO2 32 VBG O2 Sat (Calc) 85 H VBG Base Excess 3 POC Mix VBG pCO2 Pt Tmp 64.1 H Respiration Rate 16 12 12 O2 Delivery Device AeroMask Adult Vent Adult Vent Vent Mode BiLevel BiLevel POC PEEP 20 POC Pressure Suppt 5 Clinical Comments Radiography Diagnostic Testing: Radiology Impression Chest X-Ray 09/25/20 05:57 IMPRESSION: Slight interval worsening of Covid pneumonia. Electronically Signed: Rodrigo Bingham MD at 7:28 EDT Tel , Service support , Chest X-Ray 09/25/20 08:22 IMPRESSION: Satisfactory endotracheal tube placement with mildly increased pneumonia. at 0909 Reported and signed by: Taylor Doherty MD Electronically Signed: Taylor Doherty MD at 9:08 EDT Tel , Service support , Chest X-Ray 09/25/20 10:10 IMPRESSION: Satisfactory appearance of endotracheal and orogastric tubes. at 1124 Reported and signed by: Taylor Doherty MD Electronically Signed: Taylor Doherty MD at 11:23 EDT Tel , Service support , Chest X-Ray 09/25/20 13:10 IMPRESSION: Satisfactory position of right jugular central venous catheter. No pneumothorax. Electronically Signed: Miguel Barahona MD ([facility]) at 13:37 EDT , Service support , Physical Exam Const alert, oriented x3 and no apparent distress Constitutional Narrative: intubated, sedated, RASS score is-4 Exam Limitations: no limitations Nutritional Appearance: obese HEENT head/scalp atraumatic and moist oral mucous membranes Head and Scalp: normocephalic Eyes PERRL, EOMs intact bilaterally and conjunctivae normal Neck no lymphadenopathy and supple Resp Resp Narrative: tachypneic, diminished breath sounds bibasally, few bibasal crackles. intubated, sedated. Cardio regular rhythm, S1 normal heart sound, S2 normal heart sound, no murmurs and no gallops Cardio Narrative: tachycardic GI normal to inspection, nondistended, normoactive bowel sounds, soft to palpation, non-tender and non-distended Extremity normal to inspection, full ROM and no clubbing, cyanosis or edema Skin no rashes or lesions noted Neuro Neuro Narrative: intubated, sedated, RASS score is +4 Assessment & Plan Assessment/Plan (1) Acute respiratory failure with hypoxia: (2) Acute and chronic respiratory failure with hypoxia: (3) COVID-19: PLAN: #Acute hypoxic respiratory failure due to COVID 19 infection * patient remains intubated and sedated with propofol and fentanyl * on remdesivir and decadrone; complete 10 day course of decadrone. * now on scheduled lasix; in cumulative positive balance by 1.2L * ID and pulmonology on board * on breathing treatment with bronchodilators * titrate oxygen to maintain sats >90% * recommended to quarantine for 20 days since start of symptoms; symptoms started 09/10/2020, and he tested positive for covid on 09/12/2020. #Septic shock due to COVID 19 infection * required levophed overnight, but has now been weaned off it * #KEYONA * CR is up to 2 today, from 0.6 yesterday. * likely due to hypotension * being hydrated gently with iVF. WIll trend CR; if it trends further upwards, will consider nephrology consult * #History of untreated VIJAY * on BIPAP qhs prn * #Type 2 diabetes mellitus * on ISS. Accuchecks q6hrly since he is now intubated. * #DVT prophylaxis: on lovenox 40mg bid. GI prophylaxis: famotidine. Charges/Coding Visit Charges Inpatient E&M: 72085 Subs Hosp L3
[2020-09-26] MEDS: Senna/Docusate Sodium 1 Tablet 2 TABLET GT (08:11)
[2020-09-26] MEDS: QUEtiapine 100 MG Tablet GT ×2 (08:12→22:29)
[2020-09-26] MEDS: Chlorhexidine 15 ML PO (08:12)
[2020-09-26] MEDS: Enoxaparin 40 MG/0.4 ML Syringe SC ×2 (08:12→22:25)
[2020-09-26] MEDS: dexAMETHasone 10 MG/ML Vial 6 MG IV (08:12)
[2020-09-26] MEDS: 0.9% Saline Lock 10 ML Syringe IV ×2 (08:24→10:15)
[2020-09-26] MEDS: Vital High Protein 1,000 ML 80 ML GT (11:41)
[2020-09-26] MEDS: Dexmedetomidine 1,000 mcg in 0.9% NS 240 mL 16.8 MCG CONT INF (11:43)
[2020-09-26 12:05] LABS: Bedside Glucose 253 mg/dL (70-110)
--- NOTE | 2020-09-26 12:05 | NURSING ---
Temp up to 102.4 after tylenol, cooling blanket placed under pt, will cont to monitor
[2020-09-26] MEDS: Propofol 10MG/Ml 1,000 MG/100 ML Bottle 19.9 MG CONT INF (13:00)
--- NOTE | 2020-09-26 14:38 | PCM.PN.ID ---
Physical Exam Narrative On vent, zosyn started, new fever Const Constitutional Narrative: sedated Resp Effort and Inspection: mechanically ventilated Auscultation: diminished lung sounds Cardio Rate: tachycardic GI normal to inspection, nondistended, normoactive bowel sounds Extremity no clubbing, cyanosis or edema Skin no rashes or lesions noted ID ID: Route of nutrition/ use of supplements: [] Nutritional Intake: [] IV Site: [] Pugh Catheter: [] Assessment & Plan Assessment/Plan (1) COVID-19: PLAN: covid sx started around 09/10, tested (+) 09/12. Unvaccinated. Admitted, started on dex, [address] neg for PE. Recommend quarantine for 20 days from start of symptoms, then get vaccine once out of iso. Dex extended. Now on vent, remains hypoxic. Ordered tocilizumab but not clear when it will be available. On zosyn with new fever. Will follow (2) Acute respiratory failure with hypoxia:
--- NOTE | 2020-09-26 17:39 | NURSING ---
Cell phone given to , Mariana to take home
[2020-09-26 17:46] LABS: Bedside Glucose 250 mg/dL (70-110)
[2020-09-26 23:05] LABS: Bedside Glucose 230 mg/dL (70-110)
[2020-09-27] VITALS (42 sets, daily range): BP systolic 89–128; BP diastolic 53–88; PULSE 81–105; RESP 11–24; TEMP 36.9–38.6; O2SAT 90–97
[2020-09-27] MEDS: Dexmedetomidine 1,000 mcg in 0.9% NS 240 mL 16.8 MCG CONT INF ×2 (00:12→14:21)
[2020-09-27] MEDS: Chlorhexidine 15 ML PO ×3 (00:48→22:24)
[2020-09-27 04:08] LABS: Absolute Lymphocyte Count 0.68 X10^3/uL (0.83-4.51); Basophil# 0.03 X10^3/uL; Basophil% 0.2 % (0-1); Eosinophil# 0.04 X10^3/uL; Eosinophils% 0.2 % (0-5); Hematocrit 45.8 % (40-54); Hemoglobin 14.2 g/dL (13.0-16.5); Lymphocyte # 0.68 X10^3/ul (0.83-4.51); Lymphocyte % 3.5 % (19-41); Mean Corpuscular Hgb 28.2 pg (27.0-32.0); Mean Corpuscular Volume 90.9 fL (80-94); Monocyte% 3.1 % (0-10); NRBC Flagged by Analyzer 0 % (0-5); Neutrophil # 18.03 X10^3/uL (2.7-7.7); Neutrophil % 91.9 % (47-70); Platelet Count 240 K/mm3 (150-450); RBC Distribution Width CV 14.3 % (11.6-14.6); RBC Distribution Width SD 47.6 fl (35.1-43.9); Red Blood Count 5.04 M/mm3 (4.6-6.2); White Blood Count 19.6 K/mm3 (4.4-11.0)
[2020-09-27 04:49] LABS: ALB/GLOB Ratio 0.4 RATIO (0.9-2.4); AST(SGOT) 806 U/L (15-37); Alanine Aminotransfer ALT/SGPT 1096 U/L (16-61); Albumin, Serum 2.3 g/dL (3.2-5.0); Alkaline Phosphatase 38 U/L (45-117); Anion Gap 7 (5-15); BUN 60 mg/dL (7-18); BUN/Creat Ratio 23.7 RATIO (10-20); Calcium,Total 8.6 mg/dL (8.5-10.1); Chloride 100 mmol/L (98-107); Creatinine, Serum 2.53 mg/dL (0.70-1.30); EST Glomerular Filtration Rate 30 mL/min (>60); Est Glom Filt Rate - Afr Amer 37 mL/min (>60); Estimated Creatinine Clearance 46.03 ml/min; Globulin 5.4 g/dL (2.2-4.2); Glucose 202 mg/dL (74-106); Protein, Total 7.7 g/dL (6.4-8.2); Sodium Level 137 mmol/L (136-145)
[2020-09-27 05:30] LABS: Base Excess 1 mmol/L (-2 to +2); Bicarbonate 26.5 mmol/L (22-26); Blood Gas Specimen Type ART; FI02 45; Mode BiLevel; O2 Delivery Device Adult Vent; PEEP 0; PO2 77 mmHG (75-100); PS 5; RR 12; SITE L Radial; SO2 95 % (95-99); Total Carbon Dioxide 28 mmol/L; pCO2 46.5 mmHg (35-45); pH 7.36 (7.35-7.45)
--- NOTE | 2020-09-27 05:45 | PN.CC_ITS ---
Assessment & Plan Assessment/Plan (1) Acute respiratory failure with hypoxia: (2) COVID-19: PLAN: RECOMMENDATIONS: 1. Continue APRV mode of mechanical ventilation. Wean FiO2 as tolerated. Monitor ABG daily. 2. Continue Precedex and fentanyl for sedation, along with scheduled Seroquel. 3. Continue tube feeds as tolerated. 4. Continue Levophed to maintain a mean arterial pressure at or above 65 mmHg. 5. Continue Decadron and twice daily Lovenox. 6. Administer Tocilizumab if feasible. 7. Continue scheduled bronchodilator therapy. 8. Continue antimicrobials as ordered. 9. Check triglyceride and lipase levels. IMPRESSIONS: 1. Acute hypoxemic respiratory failure secondary to COVID-19 pneumonia In addition to COVID-19, the patient does have a history of mild intermittent asthma. The patient has completed a treatment course of remdesivir and remains on Decadron. In addition, he is being maintained on scheduled bronchodilator therapy. Unfortunately, despite intervention, the patient decompensated from a respiratory perspective. Ultimately, the patient did require intubation on the morning of September 25 after he failed to respond to maximum noninvasive positive pressure ventilatory support. The patient is responding well to invasive mechanical ventilatory support with APRV mode of mechanical ventilation, which will be continued. Plan to continue to wean FiO2 and drop P high as tolerated. Consider tocilizumab administration if feasible from an infectious diseases standpoint. Continue current sedation regimen. 2. Distributive shock The patient's hypotension appears to have developed as a consequence of sedative medication use being utilized to keep the patient comfortable while on the ventilator. Therefore, his sedation regimen has been optimized and he will be continued on vasopressor support to maintain a mean arterial pressure at or above 65 mmHg. 3. Acute kidney injury Likely prerenal in etiology and related to a component of ischemic ATN in the setting of hypotension due to sedative medication use. Anticipate improvement in creatinine in light of stabilization of hemodynamics. Urine output is stable. No indication at the current time for renal replacement therapy. 4. Acute liver injury Potentially related to hemodynamic instability in the setting of #2. In light of the patient's elevated triglyceride levels, we will also plan to check a lipase level today. Propofol has already been discontinued. Continue to monitor liver function on a daily basis. 5. Untreated obstructive sleep apnea Resume nocturnal Pap therapy upon successful extubation. 6. Morbid obesity/diabetes mellitus Complicates care, management, recovery and prognosis. Continue current supportive measures as noted above. TIME: 42 minutes of critical care time, independent of procedures, was spent addressing the patient's acute hypoxemic respiratory failure, COVID-19 pneumonia, acute kidney injury, distributive shock, acute liver injury, unde rlying asthma, untreated obstructive sleep apnea, review of all data and collaboration with care team. ([id number]) Subjective Subjective The patient was seen and examined at the bedside this morning. Events from the last 24 hours have been reviewed. The patient has made significant clinical and respiratory improvement over the last 24 hours. His fever curve has significantly improved. The patient remains on APRV mode of mechanical ventilation. His pressure high has been weaned to 28 and his FiO2 has been weaned to 45%. The patient is currently documented to be overall net +2.5 L for the hospital admission. Creatinine is elevated at 2.5. Total bili is increased to 1.9 with an AST of 806 and ALT of 1096. The patient was weaned off of propofol yesterday due to elevated triglycerides. The patient is currently being sedated on Precedex and fentanyl. Urine output was noted to have increased overnight after nursing staff irrigated his Pugh catheter. The patient is currently tolerating tube feeds. He remains on Levophed at 5 mcg/min to maintain hemodynamic stability. Objective Data Objective Data The patient's most recent lab work, culture data and imaging studies have all been personally reviewed. Blood cultures have shown no growth to date. Sputum culture appears to be normal respiratory shirley. Vital Signs: Vital Signs Temp Pulse Resp BP Pulse Ox 100.4 F H 97 16 90/53 L 95 09/27/20 05:00 09/27/20 05:04 09/27/20 05:04 09/27/20 05:30 09/27/20 05:04 Oxygen Flow Rate (L/min) 60 Oxygen Delivery Method Mechanical Ventilator Weight: 135 kg Body Mass Index (BMI) 39.2 Intake & Output: Intake and Output for Last 24 Hours 09/25/20 09/26/20 09/27/20 23:59 23:59 23:59 Intake Total 837.29 / 905.86 1838.53 / 1989.13 571.54 / 571.54 Output Total 1000 / 1145 585 / 585 480 / 480 Balance -162.71 / -239.14 1253.53 / 1404.13 91.54 / 91.54 Medical Nutrition Assessment Dietitian: Nutrition Therapy Diagnosis Start: 09/19/20 12:02 Freq: Status: Active Protocol: Document 09/26/20 09:30 AG (Rec: 09/26/20 09:30 AG [id number]) Nutrition Malnutrition Evidence of Malnutrition Exists Yes Malnutrition (severe): Acute Illness/Injury Evidenced By Suboptimal Energy Intake ( Severe),Weight Loss (Severe) Intake Problem Inadequate Oral Intake Etiology related to respiratory failure Signs/Symptoms as evidenced by estimated PO intake <50% of estimated nutritional needs x 12 days Status Active Problem Clinical Problem Acute Disease or Injury Related Malnutrition Etiology severe, acute malnutrition related to decreased energy intake w/ acute illness (COVID ) Signs/Symptoms as evidenced by PO intake meeting <50% estimated needs > 5 days [employer] and 6.1% wt 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 Status Active Problem Recommendation Dietitian Recommendations/Changes Vital HP at goal rate of 80mL/ hour w/ 50mL H2O flush every 4 hours to provide 1920 calories, 167 g protein, and 1905mL total fluid/day. Would start at rate of 20mL/hour and increase by 15mL/hour every 12 hours as tolerated until goal rate is achieved. Lab / Micro Data Attestation: I reviewed the patient's lab results. Result Diagrams: 09/27/20 03:55 09/27/20 03:55 Labs: Laboratory Results - last 24 hr 09/26/20 03:50: Triglycerides 370 H 09/26/20 06:43: POC Glucose 174 H 09/26/20 11:36: POC Glucose 253 H 09/26/20 17:18: POC Glucose 250 H 09/26/20 21:39: POC Glucose 230 H 09/27/20 03:55: WBC 19.6 H, RBC 5.04, Hgb 14.2, Hct 45.8, MCV 90.9, MCH 28.2, MCHC 31.0 L, RDW Std Deviation 47.6 H, RDW Coeff of Cinthya 14.3, Plt Count 240, MPV 12.0, Immature Gran % (Auto) 1.100 H, Neut % (Auto) 91.9 H, Lymph % (Auto) 3.5 L , [place] % (Auto) 3.1, Eos % (Auto) 0.2, Baso % (Auto) 0.2, Absolute Neuts (auto) 18.0 H, Absolute Lymphs (auto) 0.68 L, Nucleated RBC % 0 09/27/20 03:55: Sodium 137, Potassium 5.0, Chloride 100, Carbon Dioxide 30.0, Anion Gap 7, BUN 60 H, Creatinine 2.53 H, Estim Creat Clear Calc 46.03, Est GFR (MDRD) Af Amer 37 L, Est GFR (MDRD) Non-Af 30 L, BUN/Creatinine Ratio 23.7 H, Glucose 202 H, Calcium 8.6, Total Bilirubin 1.90 H, AST 806 H, ALT 1096 H, Alkaline Phosphatase 38 L, Total Protein 7.7, Albumin 2.3 L, Globulin 5.4 H, Albumin/Globulin Ratio 0.4 L Micro: Microbiology 09/25/20 09:05 Sputum, Induced/Lukens Gram Stain - Final 09/25/20 09:05 Sputum, Induced/Lukens Respiratory Culture - Preliminary Appears to be normal respiratory shirley. Further studies to follow. 09/18/20 23:02 Blood Culture (Wb) - Anticubital Left Blood Culture - Final No growth in 5 days. 09/18/20 23:12 Blood Culture (Wb) - Left Forearm Blood Culture - Final No growth in 5 days. ABG Data ABG results: ABG 09/26/20 09/27/20 06:09 05:26 Specimen Type ART ART Sample Site L Radial L Radial pH 7.32 L 7.36 Bicarbonate Actual 26.9 H 26.5 H Total CO2 29 28 Base Excess 1 1 O2 Saturation 95 95 O2 % 95 45 ABG pCO2 52.7 H 46.5 H ABG pO2 81 77 Colt Test Positive N/A Respiration Rate 12 12 O2 Delivery Device Adult Vent Adult Vent Vent Mode BiLevel BiLevel POC PEEP 0 POC Pressure Suppt 5 Physical Exam Const no apparent distress Constitutional Narrative: No ventilator dyssynchrony at the current time. General Appearance: intubated and patient mechanically ventilated Nutritional Appearance: obese HEENT normocephalic and head/scalp atraumatic Mouth: endotracheal tube in place and OG tube in place Eyes PERRL, EOMs intact bilaterally and conjunctivae normal Neck supple General: trachea midline and CVC in place Resp Effort and Inspection: tachypneic Auscultation: diminished lung sounds; Negative for rales, rhonchi or wheezes Cardio regular rate, regular rhythm, S1 normal heart sound and S2 normal heart sound Heart Sounds: Negative for murmur GI normal to inspection, nondistended, normoactive bowel sounds Extremity no clubbing, cyanosis or edema Skin no rashes or lesions noted Neuro Sensorium / Orientation: sedated on vent Charges/Coding Procedures Hospitalists Procedures: 15205 Critial Care 1st Hr
[2020-09-27] MEDS: Insulin Lispro 100 UNIT/ML INSULN.PEN SC ×3 (06:15→17:59)
[2020-09-27] MEDS: Ipratropium/Albuterol Sulfate 3 ML AMPUL.NEB INHALATION ×3 (06:57→19:13)
[2020-09-27 07:26] LABS: Bedside Glucose 201 mg/dL (70-110)
[2020-09-27] MEDS: CHLORHEXIDINE GLUC 2% CLOTH 1 EACH TOWELETTE TOPICAL (08:17)
[2020-09-27] MEDS: QUEtiapine 100 MG Tablet GT ×2 (08:18→22:26)
[2020-09-27] MEDS: Enoxaparin 40 MG/0.4 ML Syringe SC ×2 (08:18→22:25)
[2020-09-27] MEDS: dexAMETHasone 10 MG/ML Vial 6 MG IV (08:18)
[2020-09-27 09:08] LABS: Lipase 166 U/L (73-393); Triglycerides 267 mg/dL
[2020-09-27] MEDS: Acetaminophen 650 MG/20 ML UDC GT (10:46)
[2020-09-27] MEDS: Senna/Docusate Sodium 1 Tablet 2 TABLET GT (10:46)
--- NOTE | 2020-09-27 11:56 | PN.HOSP_ITS ---
Subjective Subjective Patient seen and examined. He remains intubated and sedated. He does remain mildly febrile although this is improved. His FiO2 has been weaned down to 45%. His bilirubin and creatinine trended up yesterday. He was also placed on Levophed to maintain hemodynamic stability and was initiated on tube feeds. Objective Data Objective Data Vital Signs: Vital Signs Temp Pulse Resp BP Pulse Ox 101.4 F H 93 14 99/61 93 09/27/20 10:00 09/27/20 11:53 09/27/20 11:53 09/27/20 10:00 09/27/20 11:28 Oxygen Flow Rate (L/min) 60 Oxygen Delivery Method Mechanical Ventilator Weight: 297 lb 9.985 oz Body Mass Index (BMI) 39.2 Intake & Output: Intake and Output for Last 24 Hours 09/25/20 09/26/20 09/27/20 23:59 23:59 23:59 Intake Total 837.29 / 905.86 1838.53 / 1989.13 969.83 / 969.83 Output Total 1000 / 1145 585 / 585 730 / 730 Balance -162.71 / -239.14 1253.53 / 1404.13 239.83 / 239.83 Medical Nutrition Assessment Dietitian: Nutrition Therapy Diagnosis Start: 09/19/20 12:02 Freq: Status: Active Protocol: Document 09/27/20 09:36 (Rec: 09/27/20 09:36 AG [id number]) Nutrition Malnutrition Evidence of Malnutrition Exists Yes Malnutrition (severe): Acute Illness/Injury Evidenced By Suboptimal Energy Intake ( Severe),Weight Loss (Severe) Intake Problem Inadequate Oral Intake Etiology related to respiratory failure Signs/Symptoms as evidenced by estimated PO intake <50% of estimated nutritional needs x 12 days Status Active Problem Clinical Problem Acute Disease or Injury Related Malnutrition Etiology severe, acute malnutrition related to decreased energy intake w/ acute illness (COVID ) Signs/Symptoms as evidenced by PO intake meeting <50% estimated needs > 5 days [employer] and 6.1% wt 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 Status Active Problem Recommendation Dietitian Recommendations/Changes Vital HP at goal rate of 80mL/ hour w/ 50mL H2O flush every 4 hours to provide 1920 calories, 167 g protein, and 1905mL total fluid/day. Would start at rate of 20mL/hour and increase by 15mL/hour every 12 hours as tolerated until goal rate is achieved. Lab / Micro Data Result Diagrams: 09/27/20 03:55 09/27/20 03:55 Labs: Laboratory Results - last 24 hr 09/26/20 11:36: POC Glucose 253 H 09/26/20 17:18: POC Glucose 250 H 09/26/20 21:39: POC Glucose 230 H 09/27/20 03:55: WBC 19.6 H, RBC 5.04, Hgb 14.2, Hct 45.8, MCV 90.9, MCH 28.2, MCHC 31.0 L, RDW Std Deviation 47.6 H, RDW Coeff of Cinthya 14.3, Plt Count 240, MPV 12.0, Immature Gran % (Auto) 1.100 H, Neut % (Auto) 91.9 H, Lymph % (Auto) 3.5 L , [place] % (Auto) 3.1, Eos % (Auto) 0.2, Baso % (Auto) 0.2, Absolute Neuts (auto) 18.0 H, Absolute Lymphs (auto) 0.68 L, Nucleated RBC % 0 09/27/20 03:55: Sodium 137, Potassium 5.0, Chloride 100, Carbon Dioxide 30.0, Anion Gap 7, BUN 60 H, Creatinine 2.53 H, Estim Creat Clear Calc 46.03, Est GFR (MDRD) Af Amer 37 L, Est GFR (MDRD) Non-Af 30 L, BUN/Creatinine Ratio 23.7 H, Glucose 202 H, Calcium 8.6, Total Bilirubin 1.90 H, AST 806 H, ALT 1096 H, Alkaline Phosphatase 38 L, Total Protein 7.7, Albumin 2.3 L, Globulin 5.4 H, Albumin/Globulin Ratio 0.4 L 09/27/20 03:55: Triglycerides 267 H, Lipase 166 09/27/20 06:14: POC Glucose 201 H Micro: Microbiology 09/25/20 09:05 Sputum, Induced/Lukens Gram Stain - Final 09/25/20 09:05 Sputum, Induced/Lukens Respiratory Culture - Final Streptococcus group C 09/18/20 23:02 Blood Culture (Wb) - Anticubital Left Blood Culture - Final No growth in 5 days. 09/18/20 23:12 Blood Culture (Wb) - Left Forearm Blood Culture - Final No growth in 5 days. ABG Data ABG results: ABG 09/27/20 05:26 Specimen Type ART Sample Site L Radial pH 7.36 Bicarbonate Actual 26.5 H Total CO2 28 Base Excess 1 O2 Saturation 95 O2 % 45 ABG pCO2 46.5 H ABG pO2 77 Colt Test N/A Respiration Rate 12 O2 Delivery Device Adult Vent Vent Mode BiLevel POC PEEP 0 POC Pressure Suppt 5 Physical Exam Narrative On Arava though. No respiratory distress. No conversational dyspnea. Const Constitutional Narrative: intubated, sedated, RASS score is-4 Nutritional Appearance: obese HEENT head/scalp atraumatic and moist oral mucous membranes Head and Scalp: normocephalic Eyes PERRL, EOMs intact bilaterally and conjunctivae normal Neck no lymphadenopathy and supple Resp Resp Narrative: tachypneic, diminished breath sounds bibasally, few bibasal crackles. intubated, sedated. on AirVo with FiO2 down to 45% Cardio regular rhythm, S1 normal heart sound, S2 normal heart sound, no murmurs and no gallops Cardio Narrative: tachycardic GI normal to inspection, nondistended, normoactive bowel sounds, soft to palpation, non-tender and non-distended Extremity normal to inspection, full ROM and no clubbing, cyanosis or edema Peripheral Pulses: Yes pulses 2+ throughout Skin no rashes or lesions noted Neuro Neuro Narrative: intubated, sedated, RASS score is -4 Assessment & Plan Assessment/Plan (1) Acute respiratory failure with hypoxia: (2) Acute and chronic respiratory failure with hypoxia: (3) COVID-19: PLAN: #Acute hypoxic respiratory failure due to COVID 19 infection * patient remains intubated and sedated with propofol and fentanyl * FiO2 now down to 45%. on AirVo * on remdesivir and decadrone; complete 10 day course of decadrone. * now on scheduled lasix; in cumulative positive balance by 2.5L * ID and pulmonology on board * on breathing treatment with bronchodilators * titrate oxygen to maintain sats >90% * recommended to quarantine for 20 days since start of symptoms; symptoms started 09/10/2020, and he tested positive for covid on 09/12/2020. * on seroquel also to help with sedation #Septic shock due to COVID 19 infection * remains on low dose levophed. * titrate levophed to maintain MAP>65 * shock also likely due to his sedative meds. * #KEYONA * CR is up to 2 today, from 0.6 yesterday. * likely due to hypotension * being hydrated gently with iVF. WIll trend CR; if it trends further upwards, will consider nephrology consult * #Acute liver injury * Likely due to shock. Will trend liver enzymes. Propofol has been discontinued. * Continue monitoring liver function. #Elevated triglycerides: Likely due to propofol. Propofol discontinued. Trend triglycerides. * #History of untreated VIJAY * on BIPAP qhs prn * #Type 2 diabetes mellitus * on ISS. Accuchecks q6hrly * * #Nutritioin: started on tube feeding. #DVT prophylaxis: on lovenox 40mg bid. GI prophylaxis: famotidine. Charges/Coding Visit Charges Inpatient E&M: 80830 Subs Hosp L3
[2020-09-27 13:10] LABS: Bedside Glucose 230 mg/dL (70-110)
[2020-09-27 23:56] LABS: Bedside Glucose 284 mg/dL (70-110)
[2020-09-28] VITALS (39 sets, daily range): BP systolic 94–162; BP diastolic 48–97; PULSE 74–142; RESP 12–28; TEMP 36.4–37.3; O2SAT 91–100
[2020-09-28] MEDS: Insulin Lispro 100 UNIT/ML INSULN.PEN SC ×4 (00:14→18:49)
[2020-09-28] MEDS: Vital High Protein 1,000 ML 80 ML GT ×2 (00:19→22:04)
[2020-09-28 00:25] LABS: Bedside Glucose 240 mg/dL (70-110)
[2020-09-28] MEDS: Dexmedetomidine 1,000 mcg in 0.9% NS 240 mL 16.8 MCG CONT INF (05:15)
[2020-09-28 05:21] LABS: Base Excess 2 mmol/L (-2 to +2); Bicarbonate 26.7 mmol/L (22-26); Blood Gas Specimen Type ART; FI02 45; Mode BiLevel; O2 Delivery Device Adult Vent; PO2 62 mmHG (75-100); PS 5; RR 12; SITE L Radial; SO2 91 % (95-99); Total Carbon Dioxide 28 mmol/L; pCO2 42.6 mmHg (35-45); pH 7.41 (7.35-7.45)
[2020-09-28 05:29] LABS: Absolute Lymphocyte Count 0.66 X10^3/uL (0.83-4.51); Absolute Neutrophil Count 12.8 X10^3/uL (2.0-7.7); Basophil# 0.03 X10^3/uL; Basophil% 0.2 % (0-1); Eosinophil# 0.04 X10^3/uL; Eosinophils% 0.3 % (0-5); Hematocrit 43.1 % (40-54); Hemoglobin 13.2 g/dL (13.0-16.5); Lymphocyte # 0.66 X10^3/ul (0.83-4.51); Lymphocyte % 4.6 % (19-41); Mean Corp Hgb Conc 30.6 g/dL (32-36); Mean Corpuscular Volume 91.5 fL (80-94); Mean Platelet Vol. 12.8 fl (6.2-12.0); Monocyte# 0.53 X10^3/uL; Monocyte% 3.7 % (0-10); NRBC Flagged by Analyzer 0 % (0-5); Neutrophil # 12.76 X10^3/uL (2.7-7.7); Neutrophil % 89.9 % (47-70); Platelet Count 201 K/mm3 (150-450); RBC Distribution Width CV 14.5 % (11.6-14.6); RBC Distribution Width SD 48.8 fl (35.1-43.9); Red Blood Count 4.71 M/mm3 (4.6-6.2); White Blood Count 14.2 K/mm3 (4.4-11.0)
--- NOTE | 2020-09-28 06:15 | PN.CC_ITS ---
Assessment & Plan Assessment/Plan (1) Acute respiratory failure with hypoxia: (2) COVID-19: PLAN: RECOMMENDATIONS: 1. Continue APRV mode of mechanical ventilation. Wean FiO2 as tolerated. Monitor ABG daily. 2. Continue Precedex and fentanyl for sedation, along with scheduled Seroquel. 3. Continue tube feeds as tolerated. 4. Continue Decadron and twice daily Lovenox. 5. Continue scheduled bronchodilator therapy. 6. Continue antimicrobials as ordered. IMPRESSIONS: 1. Acute hypoxemic respiratory failure secondary to COVID-19 pneumonia In addition to COVID-19, the patient does have a history of mild intermittent asthma. The patient has completed a treatment course of remdesivir and remains on Decadron. In addition, he is being maintained on scheduled bronchodilator therapy. Unfortunately, despite intervention, the patient decompensated from a respiratory perspective. Ultimately, the patient did require intubation on the morning of September 25 after he failed to respond to maximum noninvasive positive pressure ventilatory support. The patient is responding well to invasive mechanical ventilatory support with APRV mode of mechanical ventilation, which will be continued. Plan to continue to wean FiO2 and drop P high as tolerated. Continue current sedation regimen and tube feeds as tolerated. Continue antimicrobials to address the Streptococcus noted on sputum culture. 2. Acute kidney injury Likely prerenal in etiology and related to a component of ischemic ATN in the setting of hypotension due to sedative medication use. Anticipate improvement in creatinine in light of stabilization of hemodynamics. Urine output is stable. No indication at the current time for renal replacement therapy. 3. Acute liver injury Potentially related to hemodynamic instability in the setting of #2. Lipase was within normal limits. Propofol has been discontinued. Liver function is improving without intervention. Continue to monitor. 4. Untreated obstructive sleep apnea Resume nocturnal Pap therapy upon successful extubation. 5. Morbid obesity/diabetes mellitus Complicates care, management, recovery and prognosis. Continue current supportive measures as noted above. TIME: 38 minutes of critical care time, independent of procedures, was spent addressing the patient's acute hypoxemic respiratory failure, COVID-19 pneumonia, acute kidney injury, acute liver injury, underlying asthma, untreated obstructive sleep apnea, review of all data and collaboration with care team. ([id number]) Subjective Subjective The patient was seen and examined at the bedside this morning. Events from the last 24 hours have been reviewed. The patient is currently afebrile, hemodynamically stable and maintaining appropriate oxygen saturations on MAYV mode of mechanical ventilation with an FiO2 requirement of 65%. P high remains at 28. The patient is currently documented to be overall net +3.5 L for the h ospital admission. He remains sedated on Precedex and fentanyl. Despite this, the patient is alert and able to follow simple commands. He is currently tolerating tube feeds. White count trend is improving. Arterial blood gas obtained this morning revealed a pH of 7.4 with a PCO2 of 42 and PO2 of 62. Creatinine is improved this morning to 1.84. Transaminase levels have also improved. The patient has been tolerant of tube feeds. Objective Data Objective Data The patient's most recent lab work, culture data and imaging studies have all been personally reviewed. Blood cultures have shown no growth to date. Sputum culture demonstrated 2+ growth of group C streptococcus. Vital Signs: Vital Signs Temp Pulse Resp BP Pulse Ox 98 F 85 12 137/78 H 94 09/28/20 05:00 09/28/20 05:00 09/28/20 05:00 09/28/20 05:00 09/28/20 05:00 Oxygen Flow Rate (L/min) 60 Oxygen Delivery Method Mechanical Ventilator Weight: 134.9 kg Body Mass Index (BMI) 39.2 Intake & Output: Intake and Output for Last 24 Hours 09/26/20 09/27/20 09/28/20 23:59 23:59 23:59 Intake Total 1838.53 / 1989.13 1672.98 / 1672.98 791.88 / 791.88 Output Total 585 / 585 1305 / 1305 Balance 1253.53 / 1404.13 367.98 / 367.98 791.88 / 791.88 Medical Nutrition Assessment Dietitian: Nutrition Therapy Diagnosis Start: 09/19/20 12:02 Freq: Status: Active Protocol: Document 09/27/20 09:36 (Rec: 09/27/20 09:36 [id number]) Nutrition Malnutrition Evidence of Malnutrition Exists Yes Malnutrition (severe): Acute Illness/Injury Evidenced By Suboptimal Energy Intake ( Severe),Weight Loss (Severe) Intake Problem Inadequate Oral Intake Etiology related to respiratory failure Signs/Symptoms as evidenced by estimated PO intake <50% of estimated nutritional needs x 12 days Status Active Problem Clinical Problem Acute Disease or Injury Related Malnutrition Etiology severe, acute malnutrition related to decreased energy intake w/ acute illness (COVID ) Signs/Symptoms as evidenced by 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 Status Active Problem Recommendation Dietitian Recommendations/Changes Vital HP at goal rate of 80mL/ hour w/ 50mL H2O flush every 4 hours to provide 1920 calories, 167 g protein, and 1905mL total fluid/day. Would start at rate of 20mL/hour and increase by 15mL/hour every 12 hours as tolerated until goal rate is achieved. Lab / Micro Data Attestation: I reviewed the patient's lab results. Result Diagrams: 09/28/20 05:20 09/28/20 05:20 Labs: Laboratory Results - last 24 hr 09/27/20 03:55: Triglycerides 267 H, Lipase 166 09/27/20 06:14: POC Glucose 201 H 09/27/20 12:05: POC Glucose 230 H 09/27/20 17:52: POC Glucose 284 H 09/28/20 00:10: POC Glucose 240 H 09/28/20 05:20: WBC 14.2 H, RBC 4.71, Hgb 13.2, Hct 43.1, MCV 91.5, MCH 28.0, MCHC 30.6 L, RDW Std Deviation 48.8 H, RDW Coeff of Cinthya 14.5, Plt Count 201, MPV 12.8 H, Immature Gran % (Auto) 1.300 H, Neut % (Auto) 89.9 H, Lymph % (Auto) 4.6 L, [place] % (Auto) 3.7, Eos % (Auto) 0.3, Baso % (Auto) 0.2, Absolute Neuts (auto) 12.8 H, Absolute Lymphs (auto) 0.66 L, Nucleated RBC % 0 Micro: Microbiology 09/25/20 09:05 Sputum, Induced/Lukens Gram Stain - Final 09/25/20 09:05 Sputum, Induced/Lukens Respiratory Culture - Final Streptococcus group C 09/18/20 23:02 Blood Culture (Wb) - Anticubital Left Blood Culture - Final No growth in 5 days. 09/18/20 23:12 Blood Culture (Wb) - Left Forearm Blood Culture - Final No growth in 5 days. ABG Data ABG results: ABG 09/28/20 05:14 Specimen Type ART Sample Site L Radial pH 7.41 Bicarbonate Actual 26.7 H Total CO2 28 Base Excess 2 O2 Saturation 91 L O2 % 45 ABG pCO2 42.6 ABG pO2 62 L Colt Test N/A Respiration Rate 12 O2 Delivery Device Adult Vent Vent Mode BiLevel POC Pressure Suppt 5 Physical Exam Const no apparent distress Constitutional Narrative: No ventilator dyssynchrony at the current time. General Appearance: intubated and patient mechanically ventilated Nutritional Appearance: obese HEENT normocephalic and head/scalp atraumatic Mouth: endotracheal tube in place and OG tube in place Eyes PERRL, EOMs intact bilaterally and conjunctivae normal Neck supple General: trachea midline and CVC in place Resp Effort and Inspection: tachypneic Auscultation: diminished lung sounds; Negative for rales, rhonchi or wheezes Cardio regular rate, regular rhythm, S1 normal heart sound and S2 normal heart sound Heart Sounds: Negative for murmur GI normal to inspection, nondistended, normoactive bowel sounds Extremity no clubbing, cyanosis or edema Skin no rashes or lesions noted Neuro Sensorium / Orientation: sedated on vent Charges/Coding Procedures Hospitalists Procedures: 16926 Critial Care 1st Hr
[2020-09-28 06:42] LABS: ALB/GLOB Ratio 0.4 RATIO (0.9-2.4); AST(SGOT) 138 U/L (15-37); Alanine Aminotransfer ALT/SGPT 685 U/L (16-61); Albumin, Serum 2.2 g/dL (3.2-5.0); Alkaline Phosphatase 41 U/L (45-117); Anion Gap 8 (5-15); BUN 73 mg/dL (7-18); BUN/Creat Ratio 39.7 RATIO (10-20); Calcium,Total 8.6 mg/dL (8.5-10.1); Chloride 101 mmol/L (98-107); Creatinine, Serum 1.84 mg/dL (0.70-1.30); EST Glomerular Filtration Rate 44 mL/min (>60); Est Glom Filt Rate - Afr Amer 53 mL/min (>60); Estimated Creatinine Clearance 63.29 ml/min; Globulin 5.6 g/dL (2.2-4.2); Glucose 289 mg/dL (74-106); Potassium 4.4 mmol/L (3.5-5.1); Protein, Total 7.8 g/dL (6.4-8.2); Sodium Level 137 mmol/L (136-145)
[2020-09-28] MEDS: Ipratropium/Albuterol Sulfate 3 ML AMPUL.NEB INHALATION ×3 (06:55→19:10)
[2020-09-28 07:16] LABS: Triglycerides 342 mg/dL
[2020-09-28] MEDS: Chlorhexidine 15 ML PO ×2 (08:27→22:04)
[2020-09-28] MEDS: CHLORHEXIDINE GLUC 2% CLOTH 1 EACH TOWELETTE TOPICAL (08:27)
[2020-09-28] MEDS: Dexmedetomidine 1,000 mcg in 0.9% NS 240 mL 33.6 MCG CONT INF (11:05)
[2020-09-28] MEDS: QUEtiapine 100 MG Tablet GT ×2 (11:42→22:09)
[2020-09-28] MEDS: Enoxaparin 40 MG/0.4 ML Syringe SC ×2 (11:42→22:04)
[2020-09-28 11:50] LABS: Bedside Glucose 265 mg/dL (70-110)
--- NOTE | 2020-09-28 14:10 | NURSING ---
This RN attempted to irrigate lockett catheter after several hours of low urine output. Unable to irrigate catheter effectively, met with significant resistance. Lockett catheter exchanged and 1200 ml of tea colored urine returned, patient tolerated without complication.
--- NOTE | 2020-09-28 15:41 | PN.HOSP_ITS ---
Subjective Subjective Patient seen and examined. He remains intubated and sedated. However he was alert whilst intubated. His respiratory state has improved, and he is now on FiO2 of 65%. He is now on precedex and is in cumulative positive balance by 3.5L. Cr is improving and liver enzymes have also started trending down. He is on tube feeding and tolerating it. Objective Data Objective Data Vital Signs: Vital Signs Temp Pulse Resp BP Pulse Ox 97.6 F L 82 18 116/75 97 09/28/20 12:00 09/28/20 15:27 09/28/20 15:00 09/28/20 15:00 09/28/20 15:00 Oxygen Flow Rate (L/min) 60 Oxygen Delivery Method Mechanical Ventilator Weight: 297 lb 6.457 oz Body Mass Index (BMI) 39.2 Intake & Output: Intake and Output for Last 24 Hours 09/26/20 09/27/20 09/28/20 23:59 23:59 23:59 Intake Total 1838.53 / 1989.13 1769.68 / 1801.48 1425.99 / 1425.99 Output Total 585 / 585 1305 / 1305 75 / 75 Balance 1253.53 / 1404.13 464.68 / 496.48 1350.99 / 1350.99 Medical Nutrition Assessment Dietitian: Nutrition Therapy Diagnosis Start: 09/19/20 12:02 Freq: Status: Active Protocol: Document 09/28/20 09:30 AG (Rec: 09/28/20 09:30 AG [id number]) Nutrition Malnutrition Evidence of Malnutrition Exists Yes Malnutrition (severe): Acute Illness/Injury Evidenced By Suboptimal Energy Intake ( Severe),Weight Loss (Severe) Intake Problem Inadequate Oral Intake Etiology related to respiratory failure Signs/Symptoms as evidenced by estimated PO intake <50% of estimated nutritional needs x 12 days Status Active Problem Clinical Problem Acute Disease or Injury Related Malnutrition Etiology severe, acute malnutrition related to decreased energy intake w/ acute illness (COVID ) Signs/Symptoms as evidenced by 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 Status Active Problem Recommendation Dietitian Recommendations/Changes Vital HP at goal rate of 80mL/ hour w/ 50mL H2O flush every 4 hours to provide 1920 calories, 167 g protein, and 1905mL total fluid/day. Would start at rate of 20mL/hour and increase by 15mL/hour every 12 hours as tolerated until goal rate is achieved. Lab / Micro Data Result Diagrams: 09/28/20 05:20 09/28/20 05:20 Labs: Laboratory Results - last 24 hr 09/27/20 17:52: POC Glucose 284 H 09/28/20 00:10: POC Glucose 240 H 09/28/20 05:20: WBC 14.2 H, RBC 4.71, Hgb 13.2, Hct 43.1, MCV 91.5, MCH 28.0, MCHC 30.6 L, RDW Std Deviation 48.8 H, RDW Coeff of Cinthya 14.5, Plt Count 201, MPV 12.8 H, Immature Gran % (Auto) 1.300 H, Neut % (Auto) 89.9 H, Lymph % (Auto) 4.6 L, [place] % (Auto) 3.7, Eos % (Auto) 0.3, Baso % (Auto) 0.2, Absolute Neuts (auto) 12.8 H, Absolute Lymphs (auto) 0.66 L, Nucleated RBC % 0 09/28/20 05:20: Sodium 137, Potassium 4.4, Chloride 101, Carbon Dioxide 28.0, Anion Gap 8, BUN 73 H, Creatinine 1.84 H, Estim Creat Clear Calc 63.29, Est GFR (MDRD) Af Amer 53 L, Est GFR (MDRD) Non-Af 44 L, BUN/Creatinine Ratio 39.7 H, Glucose 289 H, Calcium 8.6, Total Bilirubin 1.20 H, AST 138 H, ALT 685 H, Alkaline Phosphatase 41 L, Total Protein 7.8, Albumin 2.2 L, Globulin 5.6 H, Albumin/Globulin Ratio 0.4 L 09/28/20 05:20: Triglycerides 342 H 09/28/20 11:38: POC Glucose 265 H Micro: Microbiology 09/25/20 09:05 Sputum, Induced/Lukens Gram Stain - Final 09/25/20 09:05 Sputum, Induced/Lukens Respiratory Culture - Final Streptococcus group C 09/18/20 23:02 Blood Culture (Wb) - Anticubital Left Blood Culture - Final No growth in 5 days. 09/18/20 23:12 Blood Culture (Wb) - Left Forearm Blood Culture - Final No growth in 5 days. ABG Data ABG results: ABG 09/28/20 05:14 Specimen Type ART Sample Site L Radial pH 7.41 Bicarbonate Actual 26.7 H Total CO2 28 Base Excess 2 O2 Saturation 91 L O2 % 45 ABG pCO2 42.6 ABG pO2 62 L Colt Test N/A Respiration Rate 12 O2 Delivery Device Adult Vent Vent Mode BiLevel POC Pressure Suppt 5 Physical Exam Const Constitutional Narrative: intubated, sedated, RASS score is 0 Exam Limitations: no limitations Nutritional Appearance: obese HEENT head/scalp atraumatic and moist oral mucous membranes Head and Scalp: normocephalic Eyes PERRL, EOMs intact bilaterally and conjunctivae normal Neck no lymphadenopathy and supple Resp normal respiratory effort, no use of accessory muscles and clear to auscultation bilaterally Resp Narrative: tachypneic, diminished breath sounds bibasally, few bibasal crackles. intubated, sedated. on AirVo with FiO2 down to 65% Cardio regular rhythm, S1 normal heart sound, S2 normal heart sound, no murmurs and no gallops Cardio Narrative: tachycardic GI normal to inspection, nondistended, normoactive bowel sounds, soft to palpation, non-tender and non-distended Extremity normal to inspection, full ROM and no clubbing, cyanosis or edema Peripheral Pulses: Yes pulses 2+ throughout Skin no rashes or lesions noted Neuro Neuro Narrative: intubated, sedated, RASS score is 0, moving all limbs spontaneously Assessment & Plan Assessment/Plan (1) Acute respiratory failure with hypoxia: (2) Acute and chronic respiratory failure with hypoxia: (3) COVID-19: PLAN: #Acute hypoxic respiratory failure due to COVID 19 infection * patient remains intubated and sedated with fentanyl and precedex * FiO2 now 65% * on remdesivir and decadrone * in cumulative positive balance by 3.5L * ID and pulmonology on board * sputum culture growing strep grp C; started on IV zosyn * continue lasix, * #Septic shock due to COVID 19 infection and strep grp C pneumonia * on levophed. On IV zosyn * titrate levophed to maintain MAP>65 * shock also likely due to his sedative meds. * #KEYONA * improving. Cr is down to 1.84. * likely due to hypotension * will monitor and trend * #Acute liver injury * Likely due to shock. * AST and ALT have trended down significantly. * will continue monitoring. #Elevated triglycerides: Likely due to propofol. Propofol discontinued. Trend triglycerides. * #History of untreated VIJAY * on BIPAP qhs prn * #Type 2 diabetes mellitus * on ISS. Accuchecks q6hrly * * #Nutrition: on tube feeding. #DVT prophylaxis: on lovenox 40mg bid. GI prophylaxis: famotidine. Charges/Coding Visit Charges Inpatient E&M: 88675 Subs Hosp L3
[2020-09-28 18:51] LABS: Bedside Glucose 210 mg/dL (70-110)
[2020-09-28] MEDS: Dexmedetomidine 1,000 mcg in 0.9% NS 240 mL 23.5 MCG CONT INF (20:30)
[2020-09-29] VITALS (36 sets, daily range): BP systolic 100–184; BP diastolic 58–112; PULSE 24–138; RESP 12–106; TEMP 37–39.1; O2SAT 84–97
[2020-09-29] MEDS: Insulin Lispro 100 UNIT/ML INSULN.PEN SC ×4 (00:59→17:13)
[2020-09-29 01:16] LABS: Bedside Glucose 188 mg/dL (70-110)
[2020-09-29] MEDS: CHLORHEXIDINE GLUC 2% CLOTH 1 EACH TOWELETTE TOPICAL (02:22)
[2020-09-29 05:41] LABS: Allen Test Positive; Base Excess 4 mmol/L (-2 to +2); Bicarbonate 28.2 mmol/L (22-26); Blood Gas Specimen Type ART; FI02 60; Mode BiLevel; O2 Delivery Device Adult Vent; PO2 56 mmHG (75-100); PS 5; RR 12; SITE R Radial; SO2 89 % (95-99); Total Carbon Dioxide 30 mmol/L; pCO2 42.5 mmHg (35-45); pH 7.43 (7.35-7.45)
[2020-09-29 05:42] LABS: Absolute Lymphocyte Count 0.79 X10^3/uL (0.83-4.51); Absolute Neutrophil Count 10.3 X10^3/uL (2.0-7.7); Basophil# 0.03 X10^3/uL; Basophil% 0.2 % (0-1); Eosinophil# 0.19 X10^3/uL; Eosinophils% 1.6 % (0-5); Hematocrit 43.9 % (40-54); Hemoglobin 13.4 g/dL (13.0-16.5); Lymphocyte # 0.79 X10^3/ul (0.83-4.51); Lymphocyte % 6.6 % (19-41); Mean Corp Hgb Conc 30.5 g/dL (32-36); Mean Corpuscular Hgb 27.7 pg (27.0-32.0); Mean Corpuscular Volume 90.9 fL (80-94); Mean Platelet Vol. 12.5 fl (6.2-12.0); Monocyte# 0.61 X10^3/uL; Monocyte% 5.1 % (0-10); NRBC Flagged by Analyzer 0 % (0-5); Neutrophil # 10.31 X10^3/uL (2.7-7.7); Neutrophil % 85.4 % (47-70); Platelet Count 198 K/mm3 (150-450); RBC Distribution Width CV 14.6 % (11.6-14.6); RBC Distribution Width SD 48.4 fl (35.1-43.9); Red Blood Count 4.83 M/mm3 (4.6-6.2); White Blood Count 12.1 K/mm3 (4.4-11.0)
[2020-09-29] MEDS: Dexmedetomidine 1,000 mcg in 0.9% NS 240 mL 36.9 MCG CONT INF ×2 (05:43→12:00)
[2020-09-29 05:59] LABS: Triglycerides 376 mg/dL
[2020-09-29 06:19] LABS: ALB/GLOB Ratio 0.4 RATIO (0.9-2.4); AST(SGOT) 74 U/L (15-37); Alanine Aminotransfer ALT/SGPT 430 U/L (16-61); Albumin, Serum 2.2 g/dL (3.2-5.0); Alkaline Phosphatase 52 U/L (45-117); Anion Gap 7 (5-15); BUN 53 mg/dL (7-18); Calcium,Total 8.7 mg/dL (8.5-10.1); Chloride 104 mmol/L (98-107); Creatinine, Serum 1.02 mg/dL (0.70-1.30); EST Glomerular Filtration Rate 87 mL/min (>60); Est Glom Filt Rate - Afr Amer 105 mL/min (>60); Estimated Creatinine Clearance 114.17 ml/min; Globulin 5.2 g/dL (2.2-4.2); Glucose 253 mg/dL (74-106); Magnesium 2.8 mg/dL (1.6-2.6); Phosphorus 2.3 mg/dL (2.5-4.9); Potassium 4.4 mmol/L (3.5-5.1); Protein, Total 7.4 g/dL (6.4-8.2); Sodium Level 141 mmol/L (136-145)
[2020-09-29] MEDS: Ipratropium/Albuterol Sulfate 3 ML AMPUL.NEB INHALATION ×3 (06:53→19:04)
--- NOTE | 2020-09-29 09:43 | PN.CC_ITS ---
Assessment & Plan Assessment/Plan (1) Acute respiratory failure with hypoxia: (2) COVID-19: PLAN: RECOMMENDATIONS: 1. Continue APRV mode of mechanical ventilation. Wean FiO2 as tolerated. Monitor ABG daily. 2. Continue Precedex and fentanyl for sedation, along with scheduled Seroque l. 3. Continue tube feeds as tolerated. 4. Continue Decadron and twice daily Lovenox. 5. Continue scheduled bronchodilator therapy. Continue aggressive pulmonary toileting 6. Continue antimicrobials as ordered. IMPRESSIONS: 1. Acute hypoxemic respiratory failure secondary to COVID-19 pneumonia In addition to COVID-19, the patient does have a history of mild intermittent asthma. The patient has completed a treatment course of remdesivir and remains on Decadron. In addition, he is being maintained on scheduled bronchodilator therapy. Unfortunately, despite intervention, the patient decompensated from a respiratory perspective. Ultimately, the patient did require intubation on the morning of September 25 after he failed to respond to maximum noninvasive positive pressure ventilatory support. Patient appears to be tolerating APRV. We will continue with aggressive pulmonary toileting to avoid mucous plugging. Spontaneous breathing and awakening trials per protocol. 2. Acute kidney injury Improving. Likely prerenal in etiology and related to a component of ischemic ATN in the setting of hypotension due to sedative medication use. Urine output is stable. No indication at the current time for renal replacement therapy. 3. Acute liver injury Potentially related to hemodynamic instability in the setting of #2. Lipase was within normal limits. Propofol has been discontinued secondary to increased triglycerides. No indication to continue to track triglycerides or CPK. Liver function is improving without intervention. Continue to monitor. 4. Untreated obstructive sleep apnea Resume nocturnal Pap therapy upon successful extubation. 5. Morbid obesity/diabetes mellitus Complicates care, management, recovery and prognosis. Continue current supportive measures as noted above. TIME: 34 minutes of critical care time, independent of procedures, was spent addressing the patient's acute hypoxemic respiratory failure, COVID-19 pneumonia, acute kidney injury, acute liver injury, underlying asthma, untreated obstructive sleep apnea, review of all data and collaboration with care team. (6 AM to 7 AM) Subjective Subjective Patient did okay overnight. Nursing has reported significant oral and endotracheal secretions. Patient continues to have intermittent episodes of agitation. No spontaneous breathing trial this morning secondary to increased FiO2. Patient has tolerated tube feeds. Objective Data Objective Data Vital Signs: Vital Signs Temp Pulse Resp BP Pulse Ox 38.1 C H 117 H 22 H 149/78 H 93 09/29/20 09:00 09/29/20 09:00 09/29/20 09:00 09/29/20 09:00 09/29/20 09:00 Oxygen Flow Rate (L/min) 60 Oxygen Delivery Method Mechanical Ventilator Weight: 136.4 kg Body Mass Index (BMI) 39.2 Intake & Output: Intake and Output for Last 24 Hours 09/27/20 09/28/20 09/29/20 23:59 23:59 23:59 Intake Total 1769.68 / 1801.48 2409.78 / 2478.29 1351.53 / 1351.53 Output Total 1305 / 1305 2075 / 2075 1250 / 1250 Balance 464.68 / 496.48 334.78 / 403.29 101.53 / 101.53 Medical Nutrition Assessment Dietitian: Nutrition Therapy Diagnosis Start: 09/19/20 12:02 Freq: Status: Active Protocol: Document 09/28/20 09:30 (Rec: 09/28/20 09:30 [id number]) Nutrition Malnutrition Evidence of Malnutrition Exists Yes Malnutrition (severe): Acute Illness/Injury Evidenced By Suboptimal Energy Intake ( Severe),Weight Loss (Severe) Intake Problem Inadequate Oral Intake Etiology related to respiratory failure Signs/Symptoms as evidenced by estimated PO intake <50% of estimated nutritional needs x 12 days Status Active Problem Clinical Problem Acute Disease or Injury Related Malnutrition Etiology severe, acute malnutrition related to decreased energy intake w/ acute illness (COVID ) Signs/Symptoms as evidenced by 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 Status Active Problem Recommendation Dietitian Recommendations/Changes Vital HP at goal rate of 80mL/ hour w/ 50mL H2O flush every 4 hours to provide 1920 calories, 167 g protein, and 1905mL total fluid/day. Would start at rate of 20mL/hour and increase by 15mL/hour every 12 hours as tolerated until goal rate is achieved. Lab / Micro Data Result Diagrams: 09/29/20 04:40 09/29/20 04:40 Labs: Laboratory Results - last 24 hr 09/28/20 11:38: POC Glucose 265 H 09/28/20 18:47: POC Glucose 210 H 09/29/20 00:58: POC Glucose 188 H 09/29/20 04:40: Triglycerides 376 H 09/29/20 04:40: WBC 12.1 H, RBC 4.83, Hgb 13.4, Hct 43.9, MCV 90.9, MCH 27.7, MCHC 30.5 L, RDW Std Deviation 48.4 H, RDW Coeff of Cinthya 14.6, Plt Count 198, MPV 12.5 H, Immature Gran % (Auto) 1.100 H, Neut % (Auto) 85.4 H, Lymph % (Auto) 6.6 L, [place] % (Auto) 5.1, Eos % (Auto) 1.6, Baso % (Auto) 0.2, Absolute Neuts (auto) 10.3 H, Absolute Lymphs (auto) 0.79 L, Nucleated RBC % 0 09/29/20 04:40: Sodium 141, Potassium 4.4, Chloride 104, Carbon Dioxide 30.0, Anion Gap 7, BUN 53 H, Creatinine 1.02, Estim Creat Clear Calc 114.17, Est GFR (MDRD) Af Amer 105, Est GFR (MDRD) Non-Af 87, BUN/Creatinine Ratio 52.0 H, Glucose 253 H, Calcium 8.7, Phosphorus 2.3 L, Magnesium 2.8 H, Total Bilirubin 1.40 H, AST 74 H, ALT 430 H, Alkaline Phosphatase 52, Total Protein 7.4, Albumin 2.2 L, Globulin 5.2 H, Albumin/Globulin Ratio 0.4 L Micro: Microbiology 09/25/20 09:05 Sputum, Induced/Lukens Gram Stain - Final 09/25/20 09:05 Sputum, Induced/Lukens Respiratory Culture - Final Streptococcus group C 09/18/20 23:02 Blood Culture (Wb) - Anticubital Left Blood Culture - Final No growth in 5 days. 09/18/20 23:12 Blood Culture (Wb) - Left Forearm Blood Culture - Final No growth in 5 days. ABG Data ABG results: ABG 09/29/20 05:34 Specimen Type ART Sample Site R Radial pH 7.43 Bicarbonate Actual 28.2 H Total CO2 30 Base Excess 4 H O2 Saturation 89 L O2 % 60 ABG pCO2 42.5 ABG pO2 56 L Colt Test Positive Respiration Rate 12 O2 Delivery Device Adult Vent Vent Mode BiLevel POC Pressure Suppt 5 Physical Exam Const alert Constitutional Narrative: No ventilator dyssynchrony at the current time. Does make eye contact General Appearance: cooperative, well developed, anxious, ill appearing, intubated and patient mechanically ventilated Orientation / Consciousness: Negative for confused, disoriented or lethargic Nutritional Appearance: obese HEENT moist oral mucous membranes Neck full ROM and no lymphadenopathy Chest inspection of chest normal Resp no retractions, no use of accessory muscles and percussion normal Resp Narrative: Improved air exchange after suctioning Effort and Inspection: Negative for uses accessory muscles Auscultation: rhonchi throughout and diminished lung sounds; Negative for wheezes Percussion: Negative for dullness Cardio regular rhythm, no murmurs, no rub and no gallops Rate: tachycardic Peripheral Pulses: pulses 2+ throughout no CVA tenderness Extremity normal to inspection Peripheral Pulses: Yes pulses 2+ throughout Neuro oriented x3, moves all extremities and no focal motor deficits Psych Mood & Affect: anxious Charges/Coding Procedures Hospitalists Procedures: [id number] Critial Care 1st Hr
[2020-09-29] MEDS: Polyethylene Glycol 3350 17 GM PACKET PO (09:52)
[2020-09-29] MEDS: 0.9% Saline Lock 10 ML Syringe IV ×2 (09:52→22:08)
[2020-09-29] MEDS: Chlorhexidine 15 ML PO ×2 (09:53→22:14)
[2020-09-29] MEDS: Enoxaparin 40 MG/0.4 ML Syringe SC ×2 (09:53→22:14)
[2020-09-29] MEDS: QUEtiapine 100 MG Tablet GT ×2 (09:53→22:08)
[2020-09-29] MEDS: Senna/Docusate Sodium 1 Tablet 2 TABLET GT (09:53)
[2020-09-29] MEDS: Acetaminophen 650 MG/20 ML UDC GT ×2 (10:26→18:20)
--- NOTE | 2020-09-29 10:43 | PN.HOSP_ITS ---
Subjective Subjective Patient seen and examined. He remains intubated and sedated. His FiO2 is up to 75% and he remains tachycardic and tachypneic. He has increased oral and endotracheal secretions. On tube feeds. He was noted to have episodes of agitation. Objective Data Objective Data Vital Signs: Vital Signs Temp Pulse Resp BP Pulse Ox 100.5 F H 117 H 22 H 149/78 H 93 09/29/20 09:00 09/29/20 09:00 09/29/20 09:00 09/29/20 09:00 09/29/20 09:00 Oxygen Flow Rate (L/min) 60 Oxygen Delivery Method Mechanical Ventilator Weight: 300 lb 11.368 oz Body Mass Index (BMI) 39.2 Intake & Output: Intake and Output for Last 24 Hours 09/27/20 09/28/20 09/29/20 23:59 23:59 23:59 Intake Total 1769.68 / 1801.48 2409.78 / 2478.29 1351.53 / 1351.53 Output Total 1305 / 1305 2075 / 2075 1250 / 1250 Balance 464.68 / 496.48 334.78 / 403.29 101.53 / 101.53 Medical Nutrition Assessment Dietitian: Malnutrition Criteria Met Start: 09/19/20 12:02 Freq: Status: Active Protocol: Document 09/29/20 10:03 MONSERRAT (Rec: 09/29/20 10:03 MONSERRAT [id number]) Nutrition Malnutrition Evidence of Malnutrition Exists Yes Malnutrition (severe): Acute Illness/Injury Evidenced By Suboptimal Energy Intake ( Severe),Weight Loss (Severe) Intake Problem Inadequate Oral Intake Etiology related to respiratory failure Signs/Symptoms as evidenced by estimated PO intake <50% of estimated nutritional needs x >14 days Status Active Problem Clinical Problem Acute Disease or Injury Related Malnutrition Etiology severe, acute malnutrition related to decreased energy intake w/ acute illness (COVID ) Signs/Symptoms as evidenced by PO intake 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 Status Active Problem Recommendation Dietitian Recommendations/Changes Vital HP at goal rate of 80mL/ hour w/ 50mL H2O flush every 4 hours to provide 1920 calories, 167 g protein, and 1905mL total fluid/day. Lab / Micro Data Result Diagrams: 09/29/20 04:40 09/29/20 04:40 Labs: Laboratory Results - last 24 hr 09/28/20 11:38: POC Glucose 265 H 09/28/20 18:47: POC Glucose 210 H 09/29/20 00:58: POC Glucose 188 H 09/29/20 04:40: Triglycerides 376 H 09/29/20 04:40: WBC 12.1 H, RBC 4.83, Hgb 13.4, Hct 43.9, MCV 90.9, MCH 27.7, MCHC 30.5 L, RDW Std Deviation 48.4 H, RDW Coeff of Cinthya 14.6, Plt Count 198, MPV 12.5 H, Immature Gran % (Auto) 1.100 H, Neut % (Auto) 85.4 H, Lymph % (Auto) 6.6 L, [place] % (Auto) 5.1, Eos % (Auto) 1.6, Baso % (Auto) 0.2, Absolute Neuts (auto) 10.3 H, Absolute Lymphs (auto) 0.79 L, Nucleated RBC % 0 09/29/20 04:40: Sodium 141, Potassium 4.4, Chloride 104, Carbon Dioxide 30.0, Anion Gap 7, BUN 53 H, Creatinine 1.02, Estim Creat Clear Calc 114.17, Est GFR (MDRD) Af Amer 105, Est GFR (MDRD) Non-Af 87, BUN/Creatinine Ratio 52.0 H, Glucose 253 H, Calcium 8.7, Phosphorus 2.3 L, Magnesium 2.8 H, Total Bilirubin 1.40 H, AST 74 H, ALT 430 H, Alkaline Phosphatase 52, Total Protein 7.4, Albumin 2.2 L, Globulin 5.2 H, Albumin/Globulin Ratio 0.4 L Micro: Microbiology 09/25/20 09:05 Sputum, Induced/Lukens Gram Stain - Final 09/25/20 09:05 Sputum, Induced/Lukens Respiratory Culture - Final Streptococcus group C 09/18/20 23:02 Blood Culture (Wb) - Anticubital Left Blood Culture - Final No growth in 5 days. 09/18/20 23:12 Blood Culture (Wb) - Left Forearm Blood Culture - Final No growth in 5 days. ABG Data ABG results: ABG 09/29/20 05:34 Specimen Type ART Sample Site R Radial pH 7.43 Bicarbonate Actual 28.2 H Total CO2 30 Base Excess 4 H O2 Saturation 89 L O2 % 60 ABG pCO2 42.5 ABG pO2 56 L Colt Test Positive Respiration Rate 12 O2 Delivery Device Adult Vent Vent Mode BiLevel POC Pressure Suppt 5 Physical Exam Const alert, oriented x3 and no apparent distress Constitutional Narrative: intubated, sedated, RASS score is +2 today Nutritional Appearance: obese HEENT head/scalp atraumatic and moist oral mucous membranes Head and Scalp: normocephalic Eyes PERRL, EOMs intact bilaterally and conjunctivae normal Neck no lymphadenopathy and supple Resp normal respiratory effort, no use of accessory muscles and clear to auscultation bilaterally Resp Narrative: tachypneic, diminished breath sounds bibasally, few bibasal crackles. intubated, sedated. on AirVo with FiO2 down to 75% Cardio regular rhythm, S1 normal heart sound, S2 normal heart sound, no murmurs and no gallops Cardio Narrative: tachycardic GI normal to inspection, nondistended, normoactive bowel sounds, soft to palpation, non-tender and non-distended Extremity normal to inspection, full ROM and no clubbing, cyanosis or edema Skin no rashes or lesions noted Neuro oriented x3 Neuro Narrative: intubated, sedated, RASS score is +2 Sensorium / Orientation: awake and alert Psych Psych Narrative: intubated, sedated Assessment & Plan Assessment/Plan (1) Acute respiratory failure with hypoxia: (2) Acute and chronic respiratory failure with hypoxia: (3) COVID-19: PLAN: #Acute hypoxic respiratory failure due to COVID 19 infection * patient remains intubated and sedated with fentanyl and precedex * FiO2 now 75% * on remdesivir and decadrone * in cumulative positive balance by 3.3L * ID and pulmonology on board * sputum culture growing strep grp C; on IV zosyn * continue lasix, * #Septic shock due to COVID 19 infection and strep grp C pneumonia * remains on levophed. On IV zosyn * titrate levophed to maintain MAP>65 * #KEYONA * improving. Cr is down to 1.02 * likely due to hypotension * will monitor and trend * #Acute liver injury * Likely due to shock. * AST and ALT have continued to trend down. * will continue monitoring. #Elevated triglycerides: Likely due to propofol. Propofol discontinued. Triglycerides are 376 today, up from 342 yesterday. * #History of untreated VIJAY * on BIPAP qhs prn * #Type 2 diabetes mellitus * on ISS. Accuchecks q6hrly * #Nutrition: on tube feeding. #DVT prophylaxis: on lovenox 40mg bid. GI prophylaxis: famotidine. Charges/Coding Visit Charges Inpatient E&M: 77800 Subs Hosp L3
[2020-09-29 11:10] LABS: Bedside Glucose 236 mg/dL (70-110)
[2020-09-29] MEDS: Vital High Protein 1,000 ML 80 ML GT (12:12)
[2020-09-29] MEDS: TITRATION PARAMETER CHANGE 1 EACH IV (14:40)
--- NOTE | 2020-09-29 14:48 | PCM.PN.ID ---
Physical Exam Narrative On vent, O2 improved. Still occasional fever. Const no apparent distress Resp Auscultation: diminished lung sounds Cardio Rate: tachycardic GI normal to inspection, nondistended, normoactive bowel sounds Extremity no clubbing, cyanosis or edema Skin no rashes or lesions noted ID ID: Route of nutrition/ use of supplements: [] Nutritional Intake: [] IV Site: [] Pugh Catheter: [] Assessment & Plan Assessment/Plan (1) COVID-19: PLAN: covid sx started around 09/10, tested (+) 09/12. Unvaccinated. Admitted, started on dex, [address] neg for PE. Recommend quarantine for 20 days from start of symptoms, then get vaccine once out of iso. Dex extended. Now on vent, remains hypoxic. Ordered tocilizumab but not clear when it will be available. On zosyn with fever, cxs neg. Will follow (2) Acute respiratory failure with hypoxia:
[2020-09-29 17:05] LABS: Bedside Glucose 224 mg/dL (70-110)
[2020-09-29] MEDS: Dexmedetomidine 1,000 mcg in 0.9% NS 240 mL 44.3 MCG CONT INF (18:45)
[2020-09-29 21:01] LABS: Bedside Glucose 253 mg/dL (70-110)
[2020-09-29] MEDS: Ibuprofen 100 MG/5 ML UDC 600 MG PO (22:07)
--- NOTE | 2020-09-29 23:20 | CPS ---
o2 increased to 60% due to low sat-per nurse
[2020-09-30] VITALS (37 sets, daily range): BP systolic 80–150; BP diastolic 53–97; PULSE 93–134; RESP 12–35; TEMP 37.6–39.5; O2SAT 87–98
[2020-09-30] MEDS: Dexmedetomidine 1,000 mcg in 0.9% NS 240 mL 51.2 MCG CONT INF (00:12)
[2020-09-30] MEDS: Insulin Lispro 100 UNIT/ML INSULN.PEN SC ×4 (00:52→17:25)
[2020-09-30] MEDS: Vital High Protein 1,000 ML 80 ML GT ×2 (01:27→16:20)
[2020-09-30] MEDS: CHLORHEXIDINE GLUC 2% CLOTH 1 EACH TOWELETTE TOPICAL (01:35)
[2020-09-30 02:01] LABS: Bedside Glucose 216 mg/dL (70-110)
--- NOTE | 2020-09-30 03:30 | NURSING ---
Patient has been alert and orientated all shift, answering all yes/ no questions appropriately. Patient is very anxious and adamant that he wants to withdrawal care. Patient nods head in understanding that the ventilator is breathing for him and that without it he could potential not live. Dr. Mixon will be updated with information during morning rounds. Will continue to monitor.
[2020-09-30] MEDS: Dexmedetomidine 1,000 mcg in 0.9% NS 240 mL 51.5 MCG CONT INF ×2 (05:05→10:20)
[2020-09-30 05:06] LABS: Absolute Lymphocyte Count 1.01 X10^3/uL (0.83-4.51); Absolute Neutrophil Count 7.3 X10^3/uL (2.0-7.7); Basophil# 0.03 X10^3/uL; Basophil% 0.3 % (0-1); Eosinophil# 0.13 X10^3/uL; Eosinophils% 1.4 % (0-5); Hematocrit 42.2 % (40-54); Hemoglobin 12.3 g/dL (13.0-16.5); Lymphocyte # 1.01 X10^3/ul (0.83-4.51); Lymphocyte % 10.8 % (19-41); Mean Corp Hgb Conc 29.1 g/dL (32-36); Mean Corpuscular Hgb 27.9 pg (27.0-32.0); Mean Corpuscular Volume 95.7 fL (80-94); Mean Platelet Vol. 12.6 fl (6.2-12.0); Monocyte# 0.67 X10^3/uL; Monocyte% 7.2 % (0-10); NRBC Flagged by Analyzer 0 % (0-5); Neutrophil # 7.28 X10^3/uL (2.7-7.7); Neutrophil % 78.2 % (47-70); Platelet Count 184 K/mm3 (150-450); RBC Distribution Width CV 14.9 % (11.6-14.6); RBC Distribution Width SD 53.1 fl (35.1-43.9); Red Blood Count 4.41 M/mm3 (4.6-6.2); White Blood Count 9.3 K/mm3 (4.4-11.0)
--- NOTE | 2020-09-30 05:07 | NURSING ---
Cooling blanket set at 10 degrees C and is placed under patient to help with fever control.
[2020-09-30 05:12] LABS: Allen Test Positive; Base Excess 4 mmol/L (-2 to +2); Bicarbonate 28.9 mmol/L (22-26); Blood Gas Specimen Type ART; FI02 60; Mode BIVENT; O2 Delivery Device Adult Vent; PO2 114 mmHG (75-100); SITE L Radial; SO2 98 % (95-99); Total Carbon Dioxide 30 mmol/L; pCO2 48.1 mmHg (35-45); pH 7.39 (7.35-7.45)
[2020-09-30 05:26] LABS: Anion Gap 2 (5-15); BUN 57 mg/dL (7-18); BUN/Creat Ratio 44.9 RATIO (10-20); Calcium,Total 8.3 mg/dL (8.5-10.1); Chloride 109 mmol/L (98-107); Creatinine, Serum 1.27 mg/dL (0.70-1.30); EST Glomerular Filtration Rate 67 mL/min (>60); Est Glom Filt Rate - Afr Amer 82 mL/min (>60); Estimated Creatinine Clearance 91.69 ml/min; Glucose 265 mg/dL (74-106); Phosphorus 4.6 mg/dL (2.5-4.9); Potassium 5.2 mmol/L (3.5-5.1); Sodium Level 142 mmol/L (136-145)
[2020-09-30] MEDS: Ibuprofen 100 MG/5 ML UDC 600 MG PO (05:38)
[2020-09-30] MEDS: TITRATION PARAMETER CHANGE 1 EACH IV (05:59)
[2020-09-30 06:01] LABS: Bedside Glucose 234 mg/dL (70-110)
--- NOTE | 2020-09-30 06:43 | NURSING ---
Patient laying in bed with both eyes open, answers questions appropriately and is alert and oriented. patient making gestures that he wants the ET tube removed. When question on removing ET tube i verbalize to the patient that without the ET tube he will likely have a poor outcome. He nods his head yes. Patient agrees at this time to await the arrival of his family today to make decisions.
[2020-09-30] MEDS: Ipratropium/Albuterol Sulfate 3 ML AMPUL.NEB INHALATION ×2 (06:54→19:15)
[2020-09-30] MEDS: LORazepam 2 MG/ML Syringe IV (07:11)
--- NOTE | 2020-09-30 07:11 | PN.CC_ITS ---
Assessment & Plan Assessment/Plan (1) Acute respiratory failure with hypoxia: (2) COVID-19: PLAN: RECOMMENDATIONS: 1. Continue APRV mode of mechanical ventilation. Wean FiO2 as tolerated. Monitor ABG daily. 2. Continue Precedex and fentanyl for sedation. Increase Seroquel. 3. Continue tube feeds as tolerated. 4. Completed remdesivir and Decadron courses. Continue twice daily Lovenox. 5. Continue scheduled bronchodilator therapy. Continue aggressive pulmonary toileting 6. Give one-time dose of Ativan IMPRESSIONS: 1. Acute hypoxemic respiratory failure secondary to COVID-19 pneumonia In addition to COVID-19, the patient does have a history of mild intermittent asthma. The patient has completed a treatment course of remdesivir and remains on Decadron. In addition, he is being maintained on scheduled bron chodilator therapy. Unfortunately, despite intervention, the patient decompensated from a respiratory perspective. Ultimately, the patient did require intubation on the morning of September 25 after he failed to respond to maximum noninvasive positive pressure ventilatory support. Patient appears to be tolerating APRV. We will continue with aggressive pulmonary toileting to avoid mucous plugging. Spontaneous breathing and awakening trials per protocol. Patient has not tolerated propofol in the past and Precedex is at max dosing. Will give a single dose of Ativan to buy time for increased Seroquel to take effect. ABG shows adequate oxygenation and ventilation on the current settings. 2. Acute kidney injury Improving. Likely prerenal in etiology and related to a component of ischemic ATN in the setting of hypotension due to sedative medication use. Uri ne output is stable. No indication at the current time for renal replacement therapy. 3. Acute liver injury Potentially related to hemodynamic instability in the setting of #2. Lipase was within normal limits. Propofol has been discontinued secondary to increased triglycerides. No indication to continue to track triglycerides or CPK. Liver function is improving without intervention. Continue to monitor. 4. Untreated obstructive sleep apnea Resume nocturnal Pap therapy upon successful extubation. 5. Morbid obesity/diabetes mellitus Complicates care, management, recovery and prognosis. Continue current supportive measures as noted above. TIME: 36 minutes of critical care time, independent of procedures, was spent addressing the patient's acute hypoxemic respiratory failure, COVID-19 pneumonia, acute kidney injury, acute liver injury, underlying asthma, untreated obstructive sleep apnea, review of all data and collaboration with care team. (5:20 AM to 6:20 AM) Subjective Subjective Patient has been okay overnight from a hemodynamic standpoint. Nursing reports patient has been very agitated overnight and is asking to stop everything. Patient does not want his family called and wants us to remove the endotracheal tube immediately. Patient does remain on Seroquel and Precedex/fentanyl at max dosing. Patient's oxygen status does worsen with agitation. Patient has had fevers overnight despite Tylenol and Motrin. Objective Data Objective Data Vital Signs: Vital Signs Temp Pulse Resp BP Pulse Ox 38.3 C H 133 H 35 H 111/74 96 09/30/20 03:00 09/30/20 06:54 09/30/20 06:54 09/30/20 03:00 09/30/20 06:54 Oxygen Flow Rate (L/min) 60 Oxygen Delivery Method Mechanical Ventilator Weight: 137.2 kg Body Mass Index (BMI) 39.2 Intake & Output: Intake and Output for Last 24 Hours 09/28/20 09/29/20 09/30/20 23:59 23:59 23:59 Intake Total 2409.78 / 2478.29 3841.02 / 4293.82 1775.42 / 1775.42 Output Total 2075 / 2075 2525 / 2625 300 / 300 Balance 334.78 / 403.29 1316.02 / 1668.82 1475.42 / 1475.42 Medical Nutrition Assessment Dietitian: Malnutrition Criteria Met Start: 09/19/20 12:02 Freq: Status: Active Protocol: Document 09/29/20 10:03 MONSERRAT (Rec: 09/29/20 10:03 MONSERRAT [id number]) Nutrition Malnutrition Evidence of Malnutrition Exists Yes Malnutrition (severe): Acute Illness/Injury Evidenced By Suboptimal Energy Intake ( Severe),Weight Loss (Severe) Intake Problem Inadequate Oral Intake Etiology related to respiratory failure Signs/Symptoms as evidenced by estimated PO intake <50% of estimated nutritional needs x >14 days Status Active Problem Clinical Problem Acute Disease or Injury Related Malnutrition Etiology severe, acute malnutrition related to decreased energy intake w/ acute illness (COVID ) Signs/Symptoms as evidenced by 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 Status Active Problem Recommendation Dietitian Recommendations/Changes Vital HP at goal rate of 80mL/ hour w/ 50mL H2O flush every 4 hours to provide 1920 calories, 167 g protein, and 1905mL total fluid/day. Lab / Micro Data Result Diagrams: 09/30/20 04:50 09/30/20 04:50 Labs: Laboratory Results - last 24 hr 09/29/20 06:45: POC Glucose 236 H 09/29/20 12:11: POC Glucose 224 H 09/29/20 17:11: POC Glucose 253 H 09/30/20 00:50: POC Glucose 216 H 09/30/20 04:50: WBC 9.3, RBC 4.41 L, Hgb 12.3 L, Hct 42.2, MCV 95.7 H D, MCH 27.9, MCHC 29.1 L, RDW Std Deviation 53.1 H, RDW Coeff of Cinthya 14.9 H, Plt Count 184, MPV 12.6 H, Immature Gran % (Auto) 2.100 H, Neut % (Auto) 78.2 H, Lymph % (Auto) 10.8 L, [place] % (Auto) 7.2, Eos % (Auto) 1.4, Baso % (Auto) 0.3, Absolute Neuts (auto) 7.3, Absolute Lymphs (auto) 1.01, Nucleated RBC % 0 09/30/20 04:50: Sodium 142, Potassium 5.2 H, Chloride 109 H, Carbon Dioxide 31.0, Anion Gap 2 L, BUN 57 H, Creatinine 1.27, Estim Creat Clear Calc 91.69, Est GFR (MDRD) Af Amer 82, Est GFR (MDRD) Non-Af 67, BUN/Creatinine Ratio 44.9 H , Glucose 265 H, Calcium 8.3 L, Phosphorus 4.6 09/30/20 04:53: POC Glucose 234 H Micro: Microbiology 09/25/20 09:05 Sputum, Induced/Lukens Gram Stain - Final 09/25/20 09:05 Sputum, Induced/Lukens Respiratory Culture - Final Streptococcus group C 09/18/20 23:02 Blood Culture (Wb) - Anticubital Left Blood Culture - Final No growth in 5 days. 09/18/20 23:12 Blood Culture (Wb) - Left Forearm Blood Culture - Final No growth in 5 days. ABG Data ABG results: ABG 09/30/20 05:04 Specimen Type ART Sample Site L Radial pH 7.39 Bicarbonate Actual 28.9 H Total CO2 30 Base Excess 4 H O2 Saturation 98 O2 % 60 ABG pCO2 48.1 H ABG pO2 114 H Colt Test Positive O2 Delivery Device Adult Vent Vent Mode BIVENT Physical Exam Const alert Constitutional Narrative: No ventilator dyssynchrony at the current time. Does make eye contact General Appearance: cooperative, well developed, anxious, ill appearing, intubated and patient mechanically ventilated Orientation / Consciousness: Negative for confused, disoriented or lethargic Nutritional Appearance: obese centrally obese HEENT moist oral mucous membranes Neck full ROM and no lymphadenopathy Chest inspection of chest normal Resp no retractions, no use of accessory muscles and percussion normal Resp Narrative: Improved air exchange after suctioning Effort and Inspection: Negative for uses accessory muscles Auscultation: rhonchi throughout and diminished lung sounds; Negative for wheezes Percussion: Negative for dullness Cardio regular rhythm, no murmurs, no rub and no gallops Rate: tachycardic Peripheral Pulses: pulses 2+ throughout no CVA tenderness Extremity normal to inspection Skin no rashes or lesions noted Neuro oriented x3, moves all extremities and no focal motor deficits Psych Appearance: intubated Attitude: agitated Mood & Affect: anxious Insight: poor Charges/Coding Procedures Hospitalists Procedures: 79017 Critial Care 1st Hr
--- NOTE | 2020-09-30 07:56 | NURSING ---
0645- RT put light on for help with patient. Patient is very agitated at this time because he wants off the ventilator. Dr. Mixon aware and will notify patients family. Ativan 2mg x1 given at this time. Will continue to monitor. HENRIK Vidal
[2020-09-30] MEDS: Enoxaparin 40 MG/0.4 ML Syringe SC ×2 (08:00→20:18)
[2020-09-30] MEDS: QUEtiapine 100 MG Tablet 200 MG GT ×2 (08:30→20:17)
--- NOTE | 2020-09-30 10:07 | PN.HOSP_ITS ---
Subjective Subjective Patient seen and examined. He was very agitated overnight, and per nurses, wanted his ET tube removed. He is still on precedex and fentanyl at max doses. He is also on seroquel. He is on FiO2 of 70%. He still remains febrile despite being on tylenol and motrin. Objective Data Objective Data Vital Signs: Vital Signs Temp Pulse Resp BP Pulse Ox 101.6 F H 133 H 20 H 150/97 H 96 09/30/20 07:00 09/30/20 07:00 09/30/20 07:00 09/30/20 07:00 09/30/20 07:00 Oxygen Flow Rate (L/min) 60 Oxygen Delivery Method Mechanical Ventilator Weight: 302 lb 7.587 oz Body Mass Index (BMI) 39.2 Intake & Output: Intake and Output for Last 24 Hours 09/28/20 09/29/20 09/30/20 23:59 23:59 23:59 Intake Total 2409.78 / 2478.29 3841.02 / 4293.82 1846.92 / 1846.92 Output Total 2075 / 2075 2525 / 2625 300 / 300 Balance 334.78 / 403.29 1316.02 / 1668.82 1546.92 / 1546.92 Medical Nutrition Assessment Dietitian: Malnutrition Criteria Met Start: 09/19/20 12:02 Freq: Status: Active Protocol: Document 09/30/20 09:45 AG (Rec: 09/30/20 09:45 AG [id number]) Nutrition Malnutrition Evidence of Malnutrition Exists Yes Malnutrition (severe): Acute Illness/Injury Evidenced By Suboptimal Energy Intake ( Severe),Weight Loss (Severe) Intake Problem Inadequate Oral Intake Etiology related to respiratory failure Signs/Symptoms as evidenced by estimated PO intake <50% of estimated nutritional needs x >14 days Status Resolved Problem Clinical Problem Acute Disease or Injury Related Malnutrition Etiology severe, acute malnutrition related to decreased energy intake w/ acute illness (COVID ) Signs/Symptoms as evidenced by 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 Status Active Problem Recommendation Dietitian Recommendations/Changes Vital HP at goal rate of 80mL/ hour w/ 50mL H2O flush every 4 hours to provide 1920 calories, 167 g protein, and 1905mL total fluid/day. Lab / Micro Data Result Diagrams: 09/30/20 04:50 09/30/20 04:50 Labs: Laboratory Results - last 24 hr 09/29/20 06:45: POC Glucose 236 H 09/29/20 12:11: POC Glucose 224 H 09/29/20 17:11: POC Glucose 253 H 09/30/20 00:50: POC Glucose 216 H 09/30/20 04:50: WBC 9.3, RBC 4.41 L, Hgb 12.3 L, Hct 42.2, MCV 95.7 H D, MCH 27.9, MCHC 29.1 L, RDW Std Deviation 53.1 H, RDW Coeff of Cinthya 14.9 H, Plt Count 184, MPV 12.6 H, Immature Gran % (Auto) 2.100 H, Neut % (Auto) 78.2 H, Lymph % (Auto) 10.8 L, [place] % (Auto) 7.2, Eos % (Auto) 1.4, Baso % (Auto) 0.3, Absolute Neuts (auto) 7.3, Absolute Lymphs (auto) 1.01, Nucleated RBC % 0 09/30/20 04:50: Sodium 142, Potassium 5.2 H, Chloride 109 H, Carbon Dioxide 31.0, Anion Gap 2 L, BUN 57 H, Creatinine 1.27, Estim Creat Clear Calc 91.69, Est GFR (MDRD) Af Amer 82, Est GFR (MDRD) Non-Af 67, BUN/Creatinine Ratio 44.9 H , Glucose 265 H, Calcium 8.3 L, Phosphorus 4.6 09/30/20 04:53: POC Glucose 234 H Micro: Microbiology 09/25/20 09:05 Sputum, Induced/Lukens Gram Stain - Final 09/25/20 09:05 Sputum, Induced/Lukens Respiratory Culture - Final Streptococcus group C 09/18/20 23:02 Blood Culture (Wb) - Anticubital Left Blood Culture - Final No growth in 5 days. 09/18/20 23:12 Blood Culture (Wb) - Left Forearm Blood Culture - Final No growth in 5 days. ABG Data ABG results: ABG 09/30/20 05:04 Specimen Type ART Sample Site L Radial pH 7.39 Bicarbonate Actual 28.9 H Total CO2 30 Base Excess 4 H O2 Saturation 98 O2 % 60 ABG pCO2 48.1 H ABG pO2 114 H Colt Test Positive O2 Delivery Device Adult Vent Vent Mode BIVENT Physical Exam Narrative On Arava though. No respiratory distress. No conversational dyspnea. Const alert, oriented x3 and no apparent distress Constitutional Narrative: intubated, sedated, RASS score is -1 at time of review. Exam Limitations: no limitations Nutritional Appearance: obese HEENT head/scalp atraumatic and moist oral mucous membranes Head and Scalp: normocephalic Eyes PERRL, EOMs intact bilaterally and conjunctivae normal Neck no lymphadenopathy and supple Resp normal respiratory effort, no use of accessory muscles and clear to auscultation bilaterally Resp Narrative: tachypneic, diminished breath sounds bibasally, few bibasal crackles. intubated, sedated. on AirVo with FiO2 down to 70% Cardio regular rhythm, S1 normal heart sound, S2 normal heart sound, no murmurs and no gallops Cardio Narrative: tachycardic GI normal to inspection, nondistended, normoactive bowel sounds, soft to palpation, non-tender and non-distended Extremity normal to inspection, full ROM and no clubbing, cyanosis or edema Peripheral Pulses: Yes pulses 2+ throughout Skin no rashes or lesions noted Neuro oriented x3 Neuro Narrative: intubated, sedated, RASS score is -1 Sensorium / Orientation: awake and alert Psych affect normal Psych Narrative: intubated, sedated Assessment & Plan Assessment/Plan (1) Acute respiratory failure with hypoxia: (2) Acute and chronic respiratory failure with hypoxia: (3) COVID-19: PLAN: #Acute hypoxic respiratory failure due to COVID 19 infection * patient remains intubated and sedated with fentanyl and precedex * FiO2 now 70% * on remdesivir and decadrone * in cumulative positive balance by 6L * ID and pulmonology on board * sputum culture growing strep grp C; on IV zosyn * continue IV lasix, * #Septic shock due to COVID 19 infection and strep grp C pneumonia * remains on levophed. On IV zosyn * titrate levophed to maintain MAP>65 * blood cultures show no growth after 5 ays; sputum cultures growing Strep group C * #KEYONA * resolved. Cr is down to 1.27 * likely due to hypotension * will monitor and trend * #Acute liver injury * Likely due to shock. * AST and ALT have trended down * will continue monitoring. #Elevated triglycerides: Likely due to propofol. Propofol discontinued. . * #History of untreated VIJAY * on BIPAP qhs prn * #Type 2 diabetes mellitus * on ISS. Accuchecks q6hrly * #Nutrition: on tube feeding. #DVT prophylaxis: on lovenox 40mg bid. GI prophylaxis: famotidine. Charges/Coding Visit Charges Inpatient E&M: 75083 [facility] [place] [facility] L3
--- NOTE | 2020-09-30 10:32 | CASEMGMT ---
Social Work SW participated in ICU rounds, spoke w/ and mother after. Pt's mother asked for a letter to provide to her employer. signed release and letter provided. SW remains available for any additional social service needs. ROSE Rain
[2020-09-30] MEDS: Chlorhexidine 15 ML PO ×2 (10:59→20:17)
[2020-09-30 11:20] LABS: AST(SGOT) 38 U/L (15-37); Alanine Aminotransfer ALT/SGPT 229 U/L (16-61); Alkaline Phosphatase 37 U/L (45-117); Globulin 5.2 g/dL (2.2-4.2); Protein, Total 7.2 g/dL (6.4-8.2); Triglycerides 205 mg/dL
[2020-09-30 11:45] LABS: Bedside Glucose 203 mg/dL (70-110)
[2020-09-30] MEDS: Polyethylene Glycol 3350 17 GM PACKET GT (12:20)
[2020-09-30] MEDS: Dexmedetomidine 1,000 mcg in 0.9% NS 240 mL 48 MCG CONT INF ×2 (17:00→22:36)
[2020-09-30 17:06] LABS: Bedside Glucose 205 mg/dL (70-110)
[2020-09-30] MEDS: Acetaminophen 650 MG/20 ML UDC GT (20:17)
[2020-09-30] MEDS: 0.9% Saline Lock 10 ML Syringe IV (20:18)
[2020-10-01] VITALS (56 sets, daily range): BP systolic 78–156; BP diastolic 54–127; PULSE 90–207; RESP 12–149; TEMP 36.4–39.5; O2SAT 85–100
[2020-10-01] MEDS: Insulin Lispro 100 UNIT/ML INSULN.PEN SC ×5 (00:02→23:28)
[2020-10-01 00:11] LABS: Bedside Glucose 261 mg/dL (70-110)
[2020-10-01] MEDS: Ibuprofen 100 MG/5 ML UDC 600 MG PO (01:56)
[2020-10-01] MEDS: Dexmedetomidine 1,000 mcg in 0.9% NS 240 mL 44.6 MCG CONT INF (04:00)
[2020-10-01] MEDS: CHLORHEXIDINE GLUC 2% CLOTH 1 EACH TOWELETTE TOPICAL ×2 (04:09→09:47)
[2020-10-01 05:16] LABS: Base Excess 1 mmol/L (-2 to +2); Bicarbonate 27.8 mmol/L (22-26); Blood Gas Specimen Type ART; FI02 60; Mode BiLevel; O2 Delivery Device Adult Vent; PO2 74 mmHG (75-100); SITE R Brach; SO2 92 % (95-99); Total Carbon Dioxide 30 mmol/L; pCO2 60.1 mmHg (35-45); pH 7.27 (7.35-7.45)
[2020-10-01] MEDS: TITRATION PARAMETER CHANGE 1 EACH IV (05:37)
[2020-10-01 05:44] LABS: Absolute Lymphocyte Count 1.19 X10^3/uL (0.83-4.51); Absolute Neutrophil Count 8.2 X10^3/uL (2.0-7.7); Basophil# 0.06 X10^3/uL; Basophil% 0.6 % (0-1); Eosinophil# 0.13 X10^3/uL; Eosinophils% 1.2 % (0-5); Hemoglobin 12.2 g/dL (13.0-16.5); Lymphocyte # 1.19 X10^3/ul (0.83-4.51); Lymphocyte % 11.4 % (19-41); Mean Corp Hgb Conc 28.4 g/dL (32-36); Mean Corpuscular Hgb 27.9 pg (27.0-32.0); Mean Corpuscular Volume 98.2 fL (80-94); Mean Platelet Vol. 13.2 fl (6.2-12.0); Monocyte# 0.63 X10^3/uL; NRBC Flagged by Analyzer 0 % (0-5); Neutrophil % 78.2 % (47-70); Platelet Count 151 K/mm3 (150-450); RBC Distribution Width CV 15.1 % (11.6-14.6); RBC Distribution Width SD 54.2 fl (35.1-43.9); Red Blood Count 4.38 M/mm3 (4.6-6.2); White Blood Count 10.5 K/mm3 (4.4-11.0)
[2020-10-01 05:54] LABS: ALB/GLOB Ratio 0.4 RATIO (0.9-2.4); AST(SGOT) 62 U/L (15-37); Alanine Aminotransfer ALT/SGPT 212 U/L (16-61); Alkaline Phosphatase 35 U/L (45-117); Anion Gap 3 (5-15); BUN 85 mg/dL (7-18); BUN/Creat Ratio 50.6 RATIO (10-20); Calcium,Total 8.3 mg/dL (8.5-10.1); Chloride 108 mmol/L (98-107); Creatinine, Serum 1.68 mg/dL (0.70-1.30); EST Glomerular Filtration Rate 49 mL/min (>60); Est Glom Filt Rate - Afr Amer 59 mL/min (>60); Estimated Creatinine Clearance 69.32 ml/min; Globulin 5.4 g/dL (2.2-4.2); Glucose 361 mg/dL (74-106); Potassium 5.8 mmol/L (3.5-5.1); Protein, Total 7.4 g/dL (6.4-8.2); Sodium Level 141 mmol/L (136-145)
[2020-10-01] MEDS: Vital High Protein 1,000 ML 80 ML GT ×2 (06:58→22:02)
[2020-10-01 07:05] LABS: Bedside Glucose 280 mg/dL (70-110)
[2020-10-01] MEDS: Ipratropium/Albuterol Sulfate 3 ML AMPUL.NEB INHALATION ×2 (07:06→12:31)
--- NOTE | 2020-10-01 07:17 | PN.CC_ITS ---
Assessment & Plan Assessment/Plan (1) Acute respiratory failure with hypoxia: (2) COVID-19: PLAN: RECOMMENDATIONS: 1. Continue APRV mode of mechanical ventilation. Wean FiO2 as tolerated. Monitor ABG daily. 2. Continue Precedex and fentanyl for sedation. Decreased fentanyl to incre ase spontaneous respirations 3. Continue tube feeds as tolerated. Add Lantus therapy 4. Completed remdesivir and Decadron courses. Continue twice daily Lovenox. 5. Continue scheduled bronchodilator therapy. Continue aggressive pulmonary toileting 6. Discontinue ibuprofen IMPRESSIONS: 1. Acute hypoxemic respiratory failure secondary to COVID-19 pneumonia In addition to COVID-19, the patient does have a history of mild intermittent asthma. The patient has completed a treatment course of remdesivir and remains on Decadron. In addition, he is being maintained on scheduled bronchodilator therapy. Unfortunately, despite intervention, the patient decompensated from a respiratory perspective. Ultimately, the patient did requi re intubation on the morning of September 25 after he failed to respond to maximum noninvasive positive pressure ventilatory support. Patient appears to be tolerating APRV. We will continue with aggressive pulmonary toileting to avoid mucous plugging. Spontaneous breathing and awakening trials per protocol. Unclear if increased sedation yesterday secondary to CO2 retention or Ativan therapy. Continue to wean Precedex as tolerated, but fentanyl will be decreased to help with ventilation. 2. Acute kidney injury Worsening. Likely prerenal in etiology and related to a component of ischemic ATN in the setting of hypotension due to sedative medication use. Urine output is stable. No indication at the current time for renal replacement therapy. Patient has had elevated glucose and likely has an element of osmotic diuresis. Patient also is on NSAID, so this will be discontinued despite fevers. 3. Acute liver injury Potentially related to hemodynamic instability in the setting of #2. Lipase was within normal limits. Propofol has been discontinued secondary to increased triglycerides. No indication to continue to track triglycerides or CPK. Liver function is improving without intervention. Continue to monitor. 4. Untreated obstructive sleep apnea Resume nocturnal Pap therapy upon successful extubation. 5. Morbid obesity/diabetes mellitus Complicates care, management, recovery and prognosis. Continue current supportive measures as noted above. Will add Lantus therapy. 6. Fever Clinical suspicion this is secondary to Precedex therapy. Patient has been on empiric Zosyn therapy per infectious disease throughout. Patient has been on increased doses of Precedex recently secondary to agitation. Addendum 2:49 PM: Called to the patient's room approximately 30 minutes ago. Patient had been up working with therapy as requested by myself. Patient had reportedly stood up and walked a couple steps and was getting bit into bed when he started to develop a rapid ventricular rate over 200. Patient remained hemodynamically stable, but did report feeling palpitations. Patient was given 6 mg and subsequently 12 mg of etomidate showing an atrial flutter versus A. fib. Given the patient has remained hemodynamically stable throughout the process, we will not proceed with cardioversion at this time. Patient will be initiated on amiodarone drip with bolus. We will also increase patient to therapeutic Lovenox dosing and run cardiac enzymes. An echocardiogram will be ordered. May proceed with cardioversion if patient becomes hemodynamically unstable. Add magnesium and phosphorus to morning labs. Patient did have hyperkalemia this morning, but does not have peaked T waves. Attempting to clear NSAIDs out of his system prior to initiation of Lasix therapy. Lasix could be given overnight if necessary. TIME: 80 minutes of critical care time, independent of procedures, was spent addressing the patient's acute hypoxemic respiratory failure, COVID-19 pneumonia, acute kidney injury, acute liver injury, underlying asthma, untreated obstructive sleep apnea, review of all data and collaboration with care team. (5:45 AM to 7 AM, 2:15 PM to 3 PM) Subjective Subjective Patient did okay overnight. Patient was sedated most of the day yesterday. Overnight, patient became more interactive. Patient continues to tolerate tube feeds. Attempts at weaning FiO2 have been marginally successful. Objective Data Objective Data ABG showing respiratory acidosis with increased AA gradient Vital Signs: Vital Signs Temp Pulse Resp BP Pulse Ox 37.2 C 93 18 110/79 93 10/01/20 07:00 10/01/20 07:07 10/01/20 07:07 10/01/20 07:00 10/01/20 07:07 Oxygen Flow Rate (L/min) 60 Oxygen Delivery Method Mechanical Ventilator Weight: 140.1 kg Body Mass Index (BMI) 39.2 Intake & Output: Intake and Output for Last 24 Hours 09/29/20 09/30/20 10/01/20 23:59 23:59 23:59 Intake Total 3841.02 / 4293.82 4411.74 / 4529.74 526.73 / 526.73 Output Total 2525 / 2625 1305 / 1655 550 / 550 Balance 1316.02 / 1668.82 3106.74 / 2874.74 -23.27 / -23.27 Medical Nutrition Assessment Dietitian: Malnutrition Criteria Met Start: 09/19/20 12:02 Freq: Status: Active Protocol: Document 09/30/20 09:45 AG (Rec: 09/30/20 09:45 AG [id number]) Nutrition Malnutrition Evidence of Malnutrition Exists Yes Malnutrition (severe): Acute Illness/Injury Evidenced By Suboptimal Energy Intake ( Severe),Weight Loss (Severe) Intake Problem Inadequate Oral Intake Etiology related to respiratory failure Signs/Symptoms as evidenced by estimated PO intake <50% of estimated nutritional needs x >14 days Status Resolved Problem Clinical Problem Acute Disease or Injury Related Malnutrition Etiology severe, acute malnutrition related to decreased energy intake w/ acute illness (COVID ) Signs/Symptoms as evidenced by 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 Status Active Problem Recommendation Dietitian Recommendations/Changes Vital HP at goal rate of 80mL/ hour w/ 50mL H2O flush every 4 hours to provide 1920 calories, 167 g protein, and 1905mL total fluid/day. Lab / Micro Data Result Diagrams: 10/01/20 04:26 10/01/20 04:26 Labs: Laboratory Results - last 24 hr 09/30/20 10:30: Total Bilirubin 1.40 H, Direct Bilirubin 1.10 H, AST 38 H, ALT 229 H, Alkaline Phosphatase 37 L, Total Protein 7.2, Albumin 2.0 L, Globulin 5.2 H, Triglycerides 205 H 09/30/20 11:40: POC Glucose 203 H 09/30/20 16:48: POC Glucose 205 H 10/01/20 00:01: POC Glucose 261 H 10/01/20 04:26: WBC 10.5, RBC 4.38 L, Hgb 12.2 L, Hct 43.0, MCV 98.2 H, MCH 27.9, MCHC 28.4 L, RDW Std Deviation 54.2 H, RDW Coeff of Cinthya 15.1 H, Plt Count 151, MPV 13.2 H, Immature Gran % (Auto) 2.600 H, Neut % (Auto) 78.2 H, Lymph % (Auto) 11.4 L, Granite % (Auto) 6.0, Eos % (Auto) 1.2, Baso % (Auto) 0.6, Absolute Neuts (auto) 8.2 H, Absolute Lymphs (auto) 1.19, Nucleated RBC % 0 10/01/20 04:26: Sodium 141, Potassium 5.8 H, Chloride 108 H, Carbon Dioxide 30.0, Anion Gap 3 L, BUN 85 H, Creatinine 1.68 H, Estim Creat Clear Calc 69.32, Est GFR (MDRD) Af Amer 59 L, Est GFR (MDRD) Non-Af 49 L, BUN/Creatinine Ratio 50.6 H, Glucose 361 H, Calcium 8.3 L, Total Bilirubin 1.40 H, AST 62 H, ALT 212 H, Alkaline Phosphatase 35 L, Total Protein 7.4, Albumin 2.0 L, Globulin 5.4 H, Albumin/Globulin Ratio 0.4 L 10/01/20 06:57: POC Glucose 280 H Micro: Microbiology 09/30/20 13:20 Sputum, Induced/Lukens Gram Stain - Final 09/25/20 09:05 Sputum, Induced/Lukens Gram Stain - Final 09/25/20 09:05 Sputum, Induced/Lukens Respiratory Culture - Final Streptococcus group C 09/18/20 23:02 Blood Culture (Wb) - Anticubital Left Blood Culture - Final No growth in 5 days. 09/18/20 23:12 Blood Culture (Wb) - Left Forearm Blood Culture - Final No growth in 5 days. ABG Data ABG results: ABG 10/01/20 05:07 Specimen Type ART Sample Site R Brach pH 7.27 L Bicarbonate Actual 27.8 H Total CO2 30 Base Excess 1 O2 Saturation 92 L O2 % 60 ABG pCO2 60.1 H ABG pO2 74 L Colt Test N/A O2 Delivery Device Adult Vent Vent Mode BiLevel Physical Exam Const alert Constitutional Narrative: No ventilator dyssynchrony at the current time. Resting comfortably General Appearance: cooperative, well developed, intubated and patient mechanically ventilated Orientation / Consciousness: Negative for confused, disoriented or lethargic Nutritional Appearance: obese centrally obese HEENT moist oral mucous membranes Neck full ROM and no lymphadenopathy Chest inspection of chest normal Resp no retractions, no use of accessory muscles and percussion normal Effort and Inspection: Negative for uses accessory muscles Auscultation: diminished lung sounds; Negative for rales, rhonchi or wheezes Percussion: Negative for dullness Cardio regular rhythm, no murmurs, no rub and no gallops Rate: tachycardic Peripheral Pulses: pulses 2+ throughout no CVA tenderness Extremity normal to inspection Skin no rashes or lesions noted Neuro oriented x3, moves all extremities and no focal motor deficits Psych Appearance: intubated Attitude: agitated Mood & Affect: anxious Insight: poor Charges/Coding Procedures Hospitalists Procedures: 66521 Critial Care 1st Hr Multi Select Codes Hospitalists' Procedures Procedures: 28310 Critial Care Addl 30 Min
--- NOTE | 2020-10-01 09:11 | NURSING ---
Unable to change administration time for fentanyl. New bag of fentanyl hung at 0815, verified with Liza Pena RN
--- NOTE | 2020-10-01 09:33 | PN.HOSP_ITS ---
Subjective Subjective Patient seen and examined. Still remains intubated and sedated. Per his nurse, his PCO2 was going up so his sedation was weaned down. Patient was alert and RASS score is 0. He still remains tachycardic though his temperature seems to be settling. He is in cumulative positive balance by 7.6 L. Objective Data Objective Data Vital Signs: Vital Signs Temp Pulse Resp BP Pulse Ox 99 F 107 H 15 120/82 H 93 10/01/20 09:00 10/01/20 09:00 10/01/20 09:00 10/01/20 09:00 10/01/20 09:00 Oxygen Flow Rate (L/min) 60 Oxygen Delivery Method Mechanical Ventilator Weight: 308 lb 13.882 oz Body Mass Index (BMI) 39.2 Intake & Output: Intake and Output for Last 24 Hours 09/29/20 09/30/20 10/01/20 23:59 23:59 23:59 Intake Total 3841.02 / 4293.82 4411.74 / 4529.74 874.80 / 874.80 Output Total 2525 / 2625 1305 / 1655 900 / 900 Balance 1316.02 / 1668.82 3106.74 / 2874.74 -25.20 / -25.20 Medical Nutrition Assessment Dietitian: Malnutrition Criteria Met Start: 09/19/20 12:02 Freq: Status: Active Protocol: Document 09/30/20 09:45 AG (Rec: 09/30/20 09:45 AG [id number]) Nutrition Malnutrition Evidence of Malnutrition Exists Yes Malnutrition (severe): Acute Illness/Injury Evidenced By Suboptimal Energy Intake ( Severe),Weight Loss (Severe) Intake Problem Inadequate Oral Intake Etiology related to respiratory failure Signs/Symptoms as evidenced by estimated PO intake <50% of estimated nutritional needs x >14 days Status Resolved Problem Clinical Problem Acute Disease or Injury Related Malnutrition Etiology severe, acute malnutrition related to decreased energy intake w/ acute illness (COVID ) Signs/Symptoms as evidenced by 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 Status Active Problem Recommendation Dietitian Recommendations/Changes Vital HP at goal rate of 80mL/ hour w/ 50mL H2O flush every 4 hours to provide 1920 calories, 167 g protein, and 1905mL total fluid/day. Lab / Micro Data Result Diagrams: 10/01/20 04:26 10/01/20 04:26 Labs: Laboratory Results - last 24 hr 09/30/20 10:30: Total Bilirubin 1.40 H, Direct Bilirubin 1.10 H, AST 38 H, ALT 229 H, Alkaline Phosphatase 37 L, Total Protein 7.2, Albumin 2.0 L, Globulin 5.2 H, Triglycerides 205 H 09/30/20 11:40: POC Glucose 203 H 09/30/20 16:48: POC Glucose 205 H 10/01/20 00:01: POC Glucose 261 H 10/01/20 04:26: WBC 10.5, RBC 4.38 L, Hgb 12.2 L, Hct 43.0, MCV 98.2 H, MCH 27.9, MCHC 28.4 L, RDW Std Deviation 54.2 H, RDW Coeff of Cinthya 15.1 H, Plt Count 151, MPV 13.2 H, Immature Gran % (Auto) 2.600 H, Neut % (Auto) 78.2 H, Lymph % (Auto) 11.4 L, Butler % (Auto) 6.0, Eos % (Auto) 1.2, Baso % (Auto) 0.6, Absolute Neuts (auto) 8.2 H, Absolute Lymphs (auto) 1.19, Nucleated RBC % 0 10/01/20 04:26: Sodium 141, Potassium 5.8 H, Chloride 108 H, Carbon Dioxide 30.0, Anion Gap 3 L, BUN 85 H, Creatinine 1.68 H, Estim Creat Clear Calc 69.32, Est GFR (MDRD) Af Amer 59 L, Est GFR (MDRD) Non-Af 49 L, BUN/Creatinine Ratio 50.6 H, Glucose 361 H, Calcium 8.3 L, Total Bilirubin 1.40 H, AST 62 H, ALT 212 H, Alkaline Phosphatase 35 L, Total Protein 7.4, Albumin 2.0 L, Globulin 5.4 H, Albumin/Globulin Ratio 0.4 L 10/01/20 06:57: POC Glucose 280 H Micro: Microbiology 09/30/20 13:20 Sputum, Induced/Lukens Gram Stain - Final 09/25/20 09:05 Sputum, Induced/Lukens Gram Stain - Final 09/25/20 09:05 Sputum, Induced/Lukens Respiratory Culture - Final Streptococcus group C 09/18/20 23:02 Blood Culture (Wb) - Anticubital Left Blood Culture - Final No growth in 5 days. 09/18/20 23:12 Blood Culture (Wb) - Left Forearm Blood Culture - Final No growth in 5 days. ABG Data ABG results: ABG 10/01/20 05:07 Specimen Type ART Sample Site R Brach pH 7.27 L Bicarbonate Actual 27.8 H Total CO2 30 Base Excess 1 O2 Saturation 92 L O2 % 60 ABG pCO2 60.1 H ABG pO2 74 L Colt Test N/A O2 Delivery Device Adult Vent Vent Mode BiLevel Physical Exam Const Constitutional Narrative: intubated, sedated, RASS score is 0 at time of review. Nutritional Appearance: obese HEENT head/scalp atraumatic and moist oral mucous membranes Head and Scalp: normocephalic Eyes PERRL, EOMs intact bilaterally and conjunctivae normal Neck no lymphadenopathy and supple Resp Resp Narrative: tachypneic, diminished breath sounds bibasally, few bibasal crackles. intubated, sedated. Cardio regular rhythm, S1 normal heart sound, S2 normal heart sound, no murmurs and no gallops Cardio Narrative: tachycardic GI normal to inspection, nondistended, normoactive bowel sounds, soft to palpation, non-tender and non-distended Extremity normal to inspection, full ROM and no clubbing, cyanosis or edema Skin no rashes or lesions noted Neuro Neuro Narrative: intubated, sedated, RASS score is 0 Psych Psych Narrative: intubated, sedated Assessment & Plan Assessment/Plan (1) Acute respiratory failure with hypoxia: (2) Acute and chronic respiratory failure with hypoxia: (3) COVID-19: PLAN: #Acute hypoxic respiratory failure due to COVID 19 infection * patient remains intubated and sedated with fentanyl and precedex * on remdesivir and decadrone * in cumulative positive balance by 7.6L * ID and pulmonology on board * sputum culture growing strep grp C; on IV zosyn * will need lasix to diurese due to fluid overload * on seroquel also #Septic shock due to COVID 19 infection and strep grp C pneumonia * remains on levophed. On IV zosyn * titrate levophed to maintain MAP>65 * blood cultures show no growth after 5 days; sputum cultures growing Strep group C * #KEYONA * CR is up to 1.68 today * will trend Cr. * likely due to hypotension * will monitor and trend * #Hyperkalemia * K is 5.8 today * likely related to KEYONA also * will benefit from kayexalate. * #Acute liver injury * Likely due to shock. total bilirubin remains at 1.4 * AST and ALT have trended down * will continue monitoring. #Elevated triglycerides: Likely due to propofol. Propofol discontinued. . * #History of untreated VIJAY * on BIPAP qhs prn * #Type 2 diabetes mellitus * on ISS. Accuchecks q6hrly * #Nutrition: on tube feeding. #DVT prophylaxis: on lovenox 40mg bid. GI prophylaxis: famotidine. Charges/Coding Visit Charges Inpatient E&M: 97976 [facility] Hosp L3
[2020-10-01] MEDS: QUEtiapine 100 MG Tablet 200 MG GT ×2 (09:45→21:47)
[2020-10-01] MEDS: Dexmedetomidine 1,000 mcg in 0.9% NS 240 mL 49.1 MCG CONT INF (09:45)
[2020-10-01] MEDS: Polyethylene Glycol 3350 17 GM PACKET GT (09:46)
[2020-10-01] MEDS: Enoxaparin 40 MG/0.4 ML Syringe SC (09:46)
[2020-10-01] MEDS: Chlorhexidine 15 ML PO ×2 (10:24→23:28)
--- NOTE | 2020-10-01 10:59 | PCS.PANDOC ---
PANDEMIC DOCUMENTATION INITIATED: Date: 09/29/2020 Time: 190
[2020-10-01] MEDS: Senna/Docusate Sodium 1 Tablet 2 TABLET GT (11:34)
[2020-10-01 11:51] LABS: Bedside Glucose 265 mg/dL (70-110)
[2020-10-01 11:51] LABS: Bedside Glucose 231 mg/dL (70-110)
[2020-10-01] MEDS: Adenosine 6 MG/2 ML Syringe IV (14:35)
[2020-10-01] MEDS: Adenosine 6 MG/2 ML Syringe 12 MG IV (14:41)
--- NOTE | 2020-10-01 14:52 | ECHOD_ITS ---
Reason For Study: AFIB/FLUTTER Procedure This was a 2D Doppler, Color Flow transthoracic echocardiogram. The exam was of poor technical quality due to Body habitus/covid/ ON VENT. The study was technically limited. Exam performed portable in ICU/CCU. The exam was abbreviated due to the COVID 19 protocol. Left Ventricle Normal LV size. Cannot exclude left ventricular apical thrombus. The estimated ejection fraction is 40 %. There is mild to moderate global hypokinesis of the left ventricle. Right Ventricle Moderately dilated right ventricle. Moderate global right ventricular systolic dysfunction. Atria Normal left atrium. Normal right atrium. Mitral Valve Mitral valve not well visualized. Tricuspid Valve The tricuspid valve is not well visualized. Aortic Valve Trisinus/trileaflet aortic valve. Pulmonic Valve Normal pulmonic valve. Great Vessels Normal aortic root. The pulmonary artery is normal size. The inferior vena cava is dilated. Pericardium/Pleural No pericardial effusion. MMode/2D Measurements & Calculations LVIDd: 4.0 cm IVSd: 1.2 cm LVIDs: 2.9 cm LVPWd: 1.5 cm RVDd: 5.3 cm FS: 28.0 % ECHO/Echo Complete Interpretation Summary The estimated ejection fraction is 40 %. Normal LV size. Cannot exclude left ventricular apical thrombus. There is mild to moderate global hypokinesis of the left ventricle. Contrast injection was performed. The study was technically difficult. Ordering Physician: Eric Mixon Performed By: Yulia Nielsen, CAROLYNE, RVT
[2020-10-01 15:15] LABS: Troponin-I HS 44 pg/mL (3.0-78.0)
[2020-10-01] MEDS: Amiodarone 360 MG in Dextrose 5% Viaflo Bag 192.8 ML 33.3 MG CONT INF (15:28)
--- NOTE | 2020-10-01 15:33 | NURSING ---
therapy working with patient, walked patient 5 feet, patient's heart rate up to the 200's, pt back to bed, Dr. Mixon aware, this RN into room, ETT suctioned by therapy, HR remain elevated, Dr. Mixon ordered adenosine, first dose given at 1435, with no effect, second dose given at 1441 with no effect, order for amiodarone from Dr. Mixon placed, troponins ordered and drawn, BP stable at this time. Will cont to monitor.
--- NOTE | 2020-10-01 15:37 | NURSING ---
precedex on APR shows bag infused, however still running.
[2020-10-01] MEDS: Dexmedetomidine 1,000 mcg in 0.9% NS 240 mL 52.6 MCG CONT INF ×2 (16:00→21:00)
[2020-10-01] MEDS: Acetaminophen 650 MG/20 ML UDC GT ×2 (16:43→21:47)
[2020-10-01 17:20] LABS: Troponin-I HS 45 pg/mL (3.0-78.0)
[2020-10-01] MEDS: Metoprolol Tartrate 5 MG/5 ML Vial 2.5 MG IV (17:27)
--- NOTE | 2020-10-01 18:15 | NURSING ---
Temp up to 102.1, cooling blanket turned on
--- NOTE | 2020-10-01 19:03 | EKG12_ITS ---
Test Reason : Blood Pressure : / mmHG Vent. Rate : 160 BPM Atrial Rate : 320 BPM P-R Int : 000 ms QRS Dur : 088 ms QT Int : 270 ms P-R-T Axes : 000 063 -12 degrees QTc Int : 440 ms Atrial flutter with variable A-V block Nonspecific ST and T wave abnormality Abnormal ECG When compared with ECG of 18-SEP-2020 22:47, Atrial flutter has replaced Sinus rhythm ST now depressed in Inferior leads T wave inversion now evident in Anterior leads Confirmed by DAGMAR SHANKAR, JORDYN ([id number]), make up editor BRENDA HUIZAR ([id number]) on 10/06/2020 1:16:49 PM Referred By: Confirmed By:JORDYN LEAVITT MD
--- NOTE | 2020-10-01 19:49 | CON.PCM.CA_ITS ---
Assessment & Plan Assessment/Plan (1) Paroxysmal atrial flutter: PLAN: Patient appears to have developed paroxysmal atrial flutter. The above appears to be quite resistant to therapy. He did receive some beta- missael and apparently dropped his blood pressure with that. I would recommend that he get another bolus of intravenous amiodarone as well as intravenous digoxin x1. He should be anticoagulated per protocol for now. We will await further testing. At this time I do not think that it is appropriate or worthwhile to DC cardiovert him unless he is hemodynamically unstable. * He also appears to be rather dehydrated based on his BUN/creatinine ratio. I may suggest that we consider gently hydrating him as it makes it more recalcitrant for his atrial flutter to be Thank you for allowing me to participate in the care of your patient. Please don't hesitate to call if any issues arise. HPI Consult Data Date of Consult: 10/01/20 HPI Narrative HPI Narrative: ROSE OLMEDO, is a 40 M who presents approximately a week ago on September 18 with hypoxia with positive Covid. The patient apparently had a sinus infection 3 weeks ago and was treated with antibiotics. He subsequently developed fevers and then presented to the emergency room and tested positive for Covid. He was treated with prednisone and then admitted to the intensive care unit. CT of the chest demonstrated diffuse bilateral groundglass opacities. He was treated with oxygen which elevated from 4 L to 75% interval and then he was subsequently intubated. He apparently has been intubated for almost a week now. He apparently has been stable on the ventilator and today they got him up to the bedside and his heart rate went up to approximately 200 bpm. He was given intravenous adenosine with no change other than bringing out his atrial flutter. Cardiology was called for further evaluation and management. FORMERLY [facility] Medical History Asthma Diabetes Hypertension Non-smoker Sleep apnea Home Medications albuterol sulfate [ProAir HFA] 2 puff INHALATION Q6H PRN 09/18/20 [History Last Taken Unknown] benzonatate [Tessalon Perles] 100 mg PO TID 09/18/20 [History Last Taken Unknown] doxycycline hyclate [Vibra-Tabs] 100 mg PO BID 09/18/20 [History Last Taken Unknown] prednisone 30 mg PO DAILY 09/18/20 [History Last Taken Unknown] Allergy/AdvReac Type Severity Reaction Status Date / Time No Known Allergies Allergy Verified 09/18/20 21:34 Social History Smoking Status: Never smoker substance use type: does not use ROS Constitutional Constitutional: Reports systems reviewed and no addt'l complaints, except as documented Eyes Eyes: Reports systems reviewed and no addt'l complaints, except as documented ENT HEENT: Reports systems reviewed and no addt'l complaints, except as documented Cardiovascular Cardiovascular: Reports systems reviewed and no addt'l complaints, except as documented Gastrointestinal Gastrointestinal: Reports systems reviewed and no addt'l complaints, except as documented Objective Data Vital Signs: Vital Signs Temp Pulse Resp BP Pulse Ox 102.9 F H 160 H 24 H 103/90 H 94 10/01/20 19:00 10/01/20 19:05 10/01/20 19:05 10/01/20 19:00 10/01/20 19:05 Oxygen Flow Rate (L/min) 60 Oxygen Delivery Method Mechanical Ventilator Weight: 308 lb 13.882 oz Body Mass Index (BMI) 39.2 Intake & Output: Intake and Output for Last 24 Hours 09/29/20 09/30/20 10/01/20 23:59 23:59 23:59 Intake Total 3841.02 / 4293.82 4281.74 / 4399.74 2570.67 / 2570.67 Output Total 2525 / 2625 1375 / 1725 2175 / 2175 Balance 1316.02 / 1668.82 2906.74 / 2674.74 395.67 / 395.67 Lab / Micro Data Result Diagrams: 10/01/20 04:26 10/01/20 04:26 Labs: Laboratory Results - last 24 hr 10/01/20 00:01: POC Glucose 261 H 10/01/20 04:26: WBC 10.5, RBC 4.38 L, Hgb 12.2 L, Hct 43.0, MCV 98.2 H, MCH 27.9, MCHC 28.4 L, RDW Std Deviation 54.2 H, RDW Coeff of Cinthya 15.1 H, Plt Count 151, MPV 13.2 H, Immature Gran % (Auto) 2.600 H, Neut % (Auto) 78.2 H, Lymph % (Auto) 11.4 L, [place] % (Auto) 6.0, Eos % (Auto) 1.2, Baso % (Auto) 0.6, Absolute Neuts (auto) 8.2 H, Absolute Lymphs (auto) 1.19, Nucleated RBC % 0 10/01/20 04:26: Sodium 141, Potassium 5.8 H, Chloride 108 H, Carbon Dioxide 30.0, Anion Gap 3 L, BUN 85 H, Creatinine 1.68 H, Estim Creat Clear Calc 69.32, Est GFR (MDRD) Af Amer 59 L, Est GFR (MDRD) Non-Af 49 L, BUN/Creatinine Ratio 50.6 H, Glucose 361 H, Calcium 8.3 L, Total Bilirubin 1.40 H, AST 62 H, ALT 212 H, Alkaline Phosphatase 35 L, Total Protein 7.4, Albumin 2.0 L, Globulin 5.4 H, Albumin/Globulin Ratio 0.4 L 10/01/20 06:57: POC Glucose 280 H 10/01/20 09:43: POC Glucose 265 H 10/01/20 11:33: POC Glucose 231 H 10/01/20 14:50: Troponin I High Sens 44 10/01/20 16:47: Troponin I High Sens 45 Micro: Microbiology 09/30/20 13:20 Sputum, Induced/Lukens Gram Stain - Final 09/30/20 13:20 Sputum, Induced/Lukens Respiratory Culture - Preliminary Culture exhibits no growth. ABG Data ABG results: ABG 10/01/20 05:07 Specimen Type ART Sample Site R Brach pH 7.27 L Bicarbonate Actual 27.8 H Total CO2 30 Base Excess 1 O2 Saturation 92 L O2 % 60 ABG pCO2 60.1 H ABG pO2 74 L Colt Test N/A O2 Delivery Device Adult Vent Vent Mode BiLevel Cardiology Labs/Tests 10/01/20 04:26: WBC 10.5, RBC 4.38 L, Hgb 12.2 L, Hct 43.0, MCV 98.2 H, MCH 27.9, MCHC 28.4 L, Plt Count 151, MPV 13.2 H, Immature Gran % (Auto) 2.600 H, Neut % (Auto) 78.2 H, Lymph % (Auto) 11.4 L, [facility] % (Auto) 6.0, Eos % (Auto) 1.2, Baso % (Auto) 0.6, Absolute Neuts (auto) 8.2 H, Nucleated RBC % 0 10/01/20 04:26: Sodium 141, Potassium 5.8 H, Chloride 108 H, Carbon Dioxide 30.0, Anion Gap 3 L, BUN 85 H, Creatinine 1.68 H, Est GFR (MDRD) Af Amer 59 L, Est GFR (MDRD) Non-Af 49 L, BUN/Creatinine Ratio 50.6 H, Glucose 361 H, Calcium 8.3 L, Total Bilirubin 1.40 H 10/01/20 05:07: pH 7.27 L, Bicarbonate Actual 27.8 H, Base Excess 1, O2 Saturat ion 92 L, ABG pCO2 60.1 H, ABG pO2 74 L, Colt Test N/A Rhythm: EKG: ECHO: Stress Test: Cardiac Cath: PCI: CT Surgery: Holter monitor: EPS: PPM: CXR: Chest CT Scan:
[2020-10-01] MEDS: Digoxin 250 MCG/ML Ampul 500 MCG IV (19:52)
[2020-10-01 20:05] LABS: Bedside Glucose 277 mg/dL (70-110)
[2020-10-01 20:34] LABS: Lactic Acid 1.9 mmol/L (0.4-1.9)
[2020-10-01] MEDS: Enoxaparin 150 MG/ML Syringe 140 MG SC (21:47)
[2020-10-01] MEDS: Amiodarone 360 MG in Dextrose 5% Viaflo Bag 192.8 ML 16.7 MG CONT INF (22:03)
[2020-10-01 23:50] LABS: Bedside Glucose 310 mg/dL (70-110)
[2020-10-02] VITALS (47 sets, daily range): BP systolic 79–165; BP diastolic 52–116; PULSE 69–159; RESP 12–32; TEMP 32.2–39.6; O2SAT 27–97
[2020-10-02] MEDS: Acetaminophen 650 MG/20 ML UDC GT ×3 (02:23→16:37)
[2020-10-02] MEDS: Dexmedetomidine 1,000 mcg in 0.9% NS 240 mL 42.1 MCG CONT INF (02:32)
[2020-10-02] MEDS: CHLORHEXIDINE GLUC 2% CLOTH 1 EACH TOWELETTE TOPICAL (05:16)
[2020-10-02 05:20] LABS: Allen Test Positive; Base Excess 3 mmol/L (-2 to +2); Blood Gas Specimen Type ART; FI02 60; Mode BiLevel; O2 Delivery Device Adult Vent; PO2 70 mmHG (75-100); RR 12; SITE L Radial; SO2 92 % (95-99); Total Carbon Dioxide 31 mmol/L; pCO2 56.6 mmHg (35-45); pH 7.32 (7.35-7.45)
[2020-10-02 05:28] LABS: Absolute Lymphocyte Count 0.77 X10^3/uL (0.83-4.51); Absolute Neutrophil Count 11.3 X10^3/uL (2.0-7.7); Basophil# 0.03 X10^3/uL; Basophil% 0.2 % (0-1); Eosinophils% 0.7 % (0-5); Hematocrit 41.7 % (40-54); Lymphocyte # 0.77 X10^3/ul (0.83-4.51); Lymphocyte % 5.7 % (19-41); Mean Corp Hgb Conc 28.8 g/dL (32-36); Mean Corpuscular Hgb 28.1 pg (27.0-32.0); Mean Corpuscular Volume 97.7 fL (80-94); Mean Platelet Vol. 13.3 fl (6.2-12.0); Monocyte# 0.98 X10^3/uL; Monocyte% 7.3 % (0-10); NRBC Flagged by Analyzer 0 % (0-5); Neutrophil # 11.27 X10^3/uL (2.7-7.7); Neutrophil % 83.8 % (47-70); Platelet Count 166 K/mm3 (150-450); RBC Distribution Width CV 15.2 % (11.6-14.6); RBC Distribution Width SD 54.5 fl (35.1-43.9); Red Blood Count 4.27 M/mm3 (4.6-6.2); White Blood Count 13.5 K/mm3 (4.4-11.0)
[2020-10-02 05:43] LABS: Anion Gap 2 (5-15); BUN 83 mg/dL (7-18); BUN/Creat Ratio 49.4 RATIO (10-20); Calcium,Total 8.1 mg/dL (8.5-10.1); Chloride 109 mmol/L (98-107); Creatinine, Serum 1.68 mg/dL (0.70-1.30); EST Glomerular Filtration Rate 49 mL/min (>60); Est Glom Filt Rate - Afr Amer 59 mL/min (>60); Estimated Creatinine Clearance 69.32 ml/min; Glucose 329 mg/dL (74-106); Magnesium 2.7 mg/dL (1.6-2.6); Phosphorus 3.9 mg/dL (2.5-4.9); Potassium 6.6 mmol/L (3.5-5.1); Sodium Level 142 mmol/L (136-145)
--- NOTE | 2020-10-02 06:15 | CPS ---
pt self extubated and was reintubated by Dr. Mixon
--- NOTE | 2020-10-02 06:27 | EKG12_ITS ---
Test Reason : CARDIAC ARREST Blood Pressure : / mmHG Vent. Rate : 163 BPM Atrial Rate : 163 BPM P-R Int : 126 ms QRS Dur : 094 ms QT Int : 302 ms P-R-T Axes : 050 074 012 degrees QTc Int : 497 ms Poor data quality, interpretation may be adversely affected Atrial flutter with [address] & T wave abnormality, consider inferior ischemia Abnormal ECG Confirmed by DAGMAR SHANKAR, JORDYN ([id number]), sports editor BRENDA HUIZAR ([id number]) on 10/07/2020 8:12:53 AM Referred By: MURPHY Confirmed By:JORDYN LEAVITT MD
--- NOTE | 2020-10-02 06:36 | NURSING ---
Precedex restarted at 1.5mcg per 's order.
--- NOTE | 2020-10-02 06:50 | NURSING ---
Mariana notified of self extubation, compressions and that patient has stabilized. She asked that I contact patients mother. update called to Francoise as well.
[2020-10-02] MEDS: Insulin Lispro 100 UNIT/ML INSULN.PEN SC ×3 (06:51→23:00)
--- NOTE | 2020-10-02 06:52 | NURSING ---
Propofol used to settle pt for quicker resp recruitment, infusing at 10mcg/kg/min via PIV from 629 until 651.
--- NOTE | 2020-10-02 06:52 | NURSING ---
Addendum entered by Doris Hazel 10/02/20 07:01: og to cont. wall suction Original Note: approximately 0615 pt self extubated, rn came into room and started to bag the pt. pt bessie arrested- cpr started --code called, intubated @[address] back, og tube inserted
--- NOTE | 2020-10-02 06:54 | PCM.PN.INT ---
Assessment & Plan Assessment/Plan (1) Acute respiratory failure with hypoxia: (2) COVID-19: PLAN: RECOMMENDATIONS: 1. Continue APRV mode of mechanical ventilation. Wean FiO2 as tolerated. Monitor ABG daily. 2. Continue Precedex and fentanyl for sedation. Discontinue propofol once patient is hemodynamically stable 3. Continue tube feeds as tolerated. Continue Lantus therapy 4. Completed remdesivir and Decadron courses. Continue therapeutic Lovenox while in A. fib 5. Continue scheduled bronchodilator therapy. Continue aggressive pulmonary toileting 6. Challenge with diuretics 7. Dulcolax suppository IMPRESSIONS: 1. Acute hypoxemic respiratory failure secondary to COVID-19 pneumonia In addition to COVID-19, the patient does have a history of mild intermittent asthma. The patient has completed a treatment course of remdesivir and remains on Decadron. In addition, he is being maintained on scheduled bronchodilator therapy. Unfortunately, despite intervention, the patient decompensated from a respiratory perspective. Ultimately, the patient did require intubation on the morning of September 25 after he failed to respond to maximum noninvasive positive pressure ventilatory support. Patient did have a self extubation episode on October 02 with a brief respiratory arrest. Patient appears to be tolerating APRV. We will continue with aggressive pulmonary toileting to avoid mucous plugging. Spontaneous breathing and awakening trials per protocol. ABG prior to arrest showed adequate oxygenation and ventilation 2. Acute kidney injury Stable. Likely prerenal in etiology and related to a component of ischemic ATN in the setting of hypotension due to sedative medication use. Urine output is stable. No indication at the current time for renal replacement therapy. Patient has had elevated glucose and likely has an element of osmotic diuresis. Anticipate high insensible losses. Patient will receive a dose of Lasix. 3. Acute liver injury Potentially related to hemodynamic instability in the setting of #2. Lipase was within normal limits. Propofol has been discontinued secondary to increased triglycerides. No indication to continue to track triglycerides or CPK. Liver function is improving without intervention. Continue to monitor. 4. Untreated obstructive sleep apnea Resume nocturnal Pap therapy upon successful extubation. 5. Morbid obesity/diabetes mellitus Complicates care, management, recovery and prognosis. Continue current supportive measures as noted above. Will add Lantus therapy. 6. Fever Clinical suspicion this is secondary to Precedex therapy. Patient has been on empiric Zosyn therapy per infectious disease throughout. Patient has been on increased doses of Precedex recently secondary to agitation. 7. A. fib with RVR Cardiology has been consulted. Patient appears to be in sinus tachycardia at this time, but did receive epinephrine as part of his arrest. Patient remains on amiodarone. TIME: 45 minutes of critical care time, independent of procedures, was spent addressing the patient's acute hypoxemic respiratory failure, COVID-19 pneumonia, acute kidney injury, acute liver injury, underlying asthma, untreated obstructive sleep apnea, review of all data and collaboration with care team. (6 AM to 7 AM) Subjective Subjective Patient did okay overnight. Saturations were stable on the current vent settings, but patient did persistent fever and A. fib with RVR throughout the evening. Blood pressures are holding. At approximately 6:20 AM, patient was noted to be desaturating and found to have self extubated. Patient rapidly went into a respiratory arrest with bradycardia into minutes. Patient did receive brief CPR until reintubation could be performed. Patient was intubated on the first attempt using a glide scope by myself with a 7.5 endotracheal tube. Patient did receive 1 dose of epinephrine, 2 A of bicarb, 1 amp of calcium chloride and propofol. Patient did have some twitching of his face, so was given 2 mg of Ativan. Family was updated by nursing while stabilization continues. Objective Data Objective Data Vital Signs: Vital Signs Temp Pulse Resp BP Pulse Ox 39.4 C H 126 H 12 96/80 87 10/02/20 04:00 10/02/20 06:47 10/02/20 06:47 10/02/20 04:00 10/02/20 06:47 Oxygen Flow Rate (L/min) 60 Oxygen Delivery Method Mechanical Ventilator Weight: 140.1 kg Body Mass Index (BMI) 39.2 Intake & Output: Intake and Output for Last 24 Hours 09/30/20 10/01/20 10/02/20 23:59 23:59 23:59 Intake Total 4281.74 / 4399.74 3688.03 / 3757.53 469.86 / 469.86 Output Total 1375 / 1725 2365 / 2365 255 / 255 Balance 2906.74 / 2674.74 1323.03 / 1392.53 214.86 / 214.86 Medical Nutrition Assessment Dietitian: Malnutrition Criteria Met Start: 09/19/20 12:02 Freq: Status: Active Protocol: Document 09/30/20 09:45 AG (Rec: 09/30/20 09:45 AG [id number]) Nutrition Malnutrition Evidence of Malnutrition Exists Yes Malnutrition (severe): Acute Illness/Injury Evidenced By Suboptimal Energy Intake ( Severe),Weight Loss (Severe) Intake Problem Inadequate Oral Intake Etiology related to respiratory failure Signs/Symptoms as evidenced by estimated PO intake <50% of estimated nutritional needs x >14 days Status Resolved Problem Clinical Problem Acute Disease or Injury Related Malnutrition Etiology severe, acute malnutrition related to decreased energy intake w/ acute illness (COVID ) Signs/Symptoms as evidenced by PO intake meeting <50% estimated needs > 5 days [employer] and 6.1% wt 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 Status Active Problem Recommendation Dietitian Recommendations/Changes Vital HP at goal rate of 80mL/ hour w/ 50mL H2O flush every 4 hours to provide 1920 calories, 167 g protein, and 1905mL total fluid/day. Lab / Micro Data Result Diagrams: 10/02/20 05:15 10/02/20 05:15 Labs: Laboratory Results - last 24 hr 10/01/20 06:57: POC Glucose 280 H 10/01/20 09:43: POC Glucose 265 H 10/01/20 11:33: POC Glucose 231 H 10/01/20 14:50: Troponin I High Sens 44 10/01/20 16:47: Troponin I High Sens 45 10/01/20 17:22: POC Glucose 277 H 10/01/20 20:00: Lactic Acid 1.9 10/01/20 23:27: POC Glucose 310 H 10/02/20 05:15: WBC 13.5 H, RBC 4.27 L, Hgb 12.0 L, Hct 41.7, MCV 97.7 H, MCH 28.1, MCHC 28.8 L, RDW Std Deviation 54.5 H, RDW Coeff of Cinthya 15.2 H, Plt Count 166, MPV 13.3 H, Immature Gran % (Auto) 2.300 H, Neut % (Auto) 83.8 H, Lymph % (Auto) 5.7 L, [place] % (Auto) 7.3, Eos % (Auto) 0.7, Baso % (Auto) 0.2, Absolute Neuts (auto) 11.3 H, Absolute Lymphs (auto) 0.77 L, Nucleated RBC % 0 10/02/20 05:15: Sodium 142, Potassium 6.6 H*, Chloride 109 H, Carbon Dioxide 31.0, Anion Gap 2 L, BUN 83 H, Creatinine 1.68 H, Estim Creat Clear Calc 69.32, Est GFR (MDRD) Af Amer 59 L, Est GFR (MDRD) Non-Af 49 L, BUN/Creatinine Ratio 49.4 H, Glucose 329 H, Calcium 8.1 L, Phosphorus 3.9, Magnesium 2.7 H Micro: Microbiology 09/30/20 13:20 Sputum, Induced/Lukens Gram Stain - Final 09/30/20 13:20 Sputum, Induced/Lukens Respiratory Culture - Preliminary Culture exhibits no growth. 09/25/20 09:05 Sputum, Induced/Lukens Gram Stain - Final 09/25/20 09:05 Sputum, Induced/Lukens Respiratory Culture - Final Streptococcus group C 09/18/20 23:02 Blood Culture (Wb) - Anticubital Left Blood Culture - Final No growth in 5 days. 09/18/20 23:12 Blood Culture (Wb) - Left Forearm Blood Culture - Final No growth in 5 days. ABG Data ABG results: ABG 10/02/20 05:14 Specimen Type ART Sample Site L Radial pH 7.32 L Bicarbonate Actual 29.0 H Total CO2 31 Base Excess 3 H O2 Saturation 92 L O2 % 60 ABG pCO2 56.6 H ABG pO2 70 L Colt Test Positive Respiration Rate 12 O2 Delivery Device Adult Vent Vent Mode BiLevel Clinical Comments P high 28 T high 4.5 Physical Exam Const alert Constitutional Narrative: Diaphoretic. Not following commands. General Appearance: cooperative, well developed, intubated and patient mechanically ventilated Orientation / Consciousness: Negative for confused, disoriented or lethargic Nutritional Appearance: obese centrally obese HEENT moist oral mucous membranes Neck full ROM and no lymphadenopathy Neck Narrative: Thick secretions noted around vocal cords, but no obstruction. Chest inspection of chest normal Resp no retractions, no use of accessory muscles and percussion normal Effort and Inspection: Negative for uses accessory muscles Auscultation: diminished lung sounds; Negative for rales, rhonchi or wheezes Percussion: Negative for dullness Cardio regular rhythm, no murmurs, no rub and no gallops Rate: tachycardic Peripheral Pulses: pulses 2+ throughout no CVA tenderness Extremity normal to inspection Skin no rashes or lesions noted Neuro oriented x3, moves all extremities and no focal motor deficits Psych Appearance: intubated Attitude: agitated Mood & Affect: anxious Insight: poor Charges/Coding Procedures Hospitalists Procedures: 15118 Critial Care 1st Hr
--- NOTE | 2020-10-02 07:09 | RAD_ITS ---
STUDY: X-RAY CHEST REASON FOR EXAM: Male, 40 years old. ETT placement TECHNIQUE: Portable, supine, AP chest radiograph COMPARISON: 09/25/2020 FINDINGS: Enteric tube courses below the field of view is slightly below the diaphragm. Similar right greater than left perihilar/infrahilar infiltrative consolidative opacities. There is no demonstrated pleural abnormality. Normal size heart. Normal mediastinum and grayson. Normal visualized pulmonary arteries. Normal visualized aortic arch and descending thoracic aorta. Normal visualized thoracic spine. Normal visualized ribs, clavicles, and shoulders. There is no demonstrated abnormality of the visualized soft tissue structures of the upper abdomen. RAD/Chest 1 View (Portable) IMPRESSION: Endotracheal tube terminates 5.5 cm above aric. Similar appearance of bilateral pulmonary infiltrates. Electronically Signed: Jake Lambert MD at 7:40 EDT Tel , Service support ,
[2020-10-02] MEDS: 0.9% Saline Lock 10 ML Syringe IV ×2 (08:15→08:47)
[2020-10-02] MEDS: Furosemide 40 MG/4 ML Vial IV (08:43)
[2020-10-02] MEDS: Bisacodyl 10 MG Suppository RC (08:47)
[2020-10-02] MEDS: Chlorhexidine 15 ML PO ×2 (08:48→21:00)
[2020-10-02] MEDS: Enoxaparin 150 MG/ML Syringe 140 MG SC ×2 (08:50→20:55)
[2020-10-02] MEDS: Polyethylene Glycol 3350 17 GM PACKET GT (08:52)
[2020-10-02] MEDS: QUEtiapine 100 MG Tablet 200 MG GT ×2 (08:53→20:55)
--- NOTE | 2020-10-02 09:10 | PN.HOSP_ITS ---
Subjective Subjective Patient seen and examined. He is intubated and heavily sedated. He self extubated in the early hours of this morning and went into bradycardia and cardiorespiratory arrest. He received CPR briefly and was emergently reintubated by the medical office manager. He was given a dose of dose of epinephrine and 2 A of bicarb as well as on amp of calcium chloride and propofol. Patient remains intubated at time of review RASS score is 0. Potassium is up to he is still febrile, tachypneic and tachycardic. Potassium is up to 6.6 today. Cardiology was consulted yesterday as patient developed A. fib and remained in A. fib overnight. He was started on amiodarone. Objective Data Objective Data Vital Signs: Vital Signs Temp Pulse Resp BP Pulse Ox 90 F L 156 H 12 141/88 H 87 10/02/20 07:01 10/02/20 07:01 10/02/20 06:47 10/02/20 07:01 10/02/20 06:47 Oxygen Flow Rate (L/min) 60 Oxygen Delivery Method Mechanical Ventilator Weight: 308 lb 13.882 oz Body Mass Index (BMI) 39.2 Intake & Output: Intake and Output for Last 24 Hours 09/30/20 10/01/20 10/02/20 23:59 23:59 23:59 Intake Total 4281.74 / 4399.74 3688.03 / 3757.53 544.16 / 544.16 Output Total 1375 / 1725 2365 / 2365 255 / 255 Balance 2906.74 / 2674.74 1323.03 / 1392.53 289.16 / 289.16 Medical Nutrition Assessment Dietitian: Malnutrition Criteria Met Start: 09/19/20 12:02 Freq: Status: Active Protocol: Document 09/30/20 09:45 AG (Rec: 09/30/20 09:45 AG [id number]) Nutrition Malnutrition Evidence of Malnutrition Exists Yes Malnutrition (severe): Acute Illness/Injury Evidenced By Suboptimal Energy Intake ( Severe),Weight Loss (Severe) Intake Problem Inadequate Oral Intake Etiology related to respiratory failure Signs/Symptoms as evidenced by estimated PO intake <50% of estimated nutritional needs x >14 days Status Resolved Problem Clinical Problem Acute Disease or Injury Related Malnutrition Etiology severe, acute malnutrition related to decreased energy intake w/ acute illness (COVID ) Signs/Symptoms as evidenced by PO intake meeting <50% estimated needs > 5 days [employer]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 Status Active Problem Recommendation Dietitian Recommendations/Changes Vital HP at goal rate of 80mL/ hour w/ 50mL H2O flush every 4 hours to provide 1920 calories, 167 g protein, and 1905mL total fluid/day. Lab / Micro Data Result Diagrams: 10/02/20 05:15 10/02/20 05:15 Labs: Laboratory Results - last 24 hr 10/01/20 09:43: POC Glucose 265 H 10/01/20 11:33: POC Glucose 231 H 10/01/20 14:50: Troponin I High Sens 44 10/01/20 16:47: Troponin I High Sens 45 10/01/20 17:22: POC Glucose 277 H 10/01/20 20:00: Lactic Acid 1.9 10/01/20 23:27: POC Glucose 310 H 10/02/20 05:15: WBC 13.5 H, RBC 4.27 L, Hgb 12.0 L, Hct 41.7, MCV 97.7 H, MCH 28.1, MCHC 28.8 L, RDW Std Deviation 54.5 H, RDW Coeff of Cinthya 15.2 H, Plt Count 166, MPV 13.3 H, Immature Gran % (Auto) 2.300 H, Neut % (Auto) 83.8 H, Lymph % (Auto) 5.7 L, [place] % (Auto) 7.3, Eos % (Auto) 0.7, Baso % (Auto) 0.2, Absolute Neuts (auto) 11.3 H, Absolute Lymphs (auto) 0.77 L, Nucleated RBC % 0 10/02/20 05:15: Sodium 142, Potassium 6.6 H*, Chloride 109 H, Carbon Dioxide 31.0, Anion Gap 2 L, BUN 83 H, Creatinine 1.68 H, Estim Creat Clear Calc 69.32, Est GFR (MDRD) Af Amer 59 L, Est GFR (MDRD) Non-Af 49 L, BUN/Creatinine Ratio 49.4 H, Glucose 329 H, Calcium 8.1 L, Phosphorus 3.9, Magnesium 2.7 H Micro: Microbiology 09/30/20 13:20 Sputum, Induced/Lukens Gram Stain - Final 09/30/20 13:20 Sputum, Induced/Lukens Respiratory Culture - Preliminary Appears to be normal respiratory shirley. Further studies to follow. 09/30/20 10:30 Blood Culture (Wb) - Right Hand Blood Culture - Preliminary No growth in 48 hours. 09/30/20 10:15 Blood Culture (Wb) - Left Wrist Blood Culture - Preliminary No growth in 48 hours. 09/25/20 09:05 Sputum, Induced/Lukens Gram Stain - Final 09/25/20 09:05 Sputum, Induced/Lukens Respiratory Culture - Final Streptococcus group C 09/18/20 23:02 Blood Culture (Wb) - Anticubital Left Blood Culture - Final No growth in 5 days. 09/18/20 23:12 Blood Culture (Wb) - Left Forearm Blood Culture - Final No growth in 5 days. ABG Data ABG results: ABG 10/02/20 05:14 Specimen Type ART Sample Site L Radial pH 7.32 L Bicarbonate Actual 29.0 H Total CO2 31 Base Excess 3 H O2 Saturation 92 L O2 % 60 ABG pCO2 56.6 H ABG pO2 70 L Colt Test Positive Respiration Rate 12 O2 Delivery Device Adult Vent Vent Mode BiLevel Clinical Comments P high 28 T high 4.5 Radiography Diagnostic Testing: Radiology Impression Chest X-Ray 10/02/20 07:09 IMPRESSION: Endotracheal tube terminates 5.5 cm above aric. Similar appearance of bilateral pulmonary infiltrates. Electronically Signed: Jake Lambert MD at 7:40 EDT Tel , Service support , Physical Exam Const alert, oriented x3 and no apparent distress Constitutional Narrative: intubated, sedated, RASS score is 0 at time of review. Exam Limitations: no limitations Nutritional Appearance: obese HEENT head/scalp atraumatic and moist oral mucous membranes Head and Scalp: normocephalic Eyes PERRL, EOMs intact bilaterally and conjunctivae normal Neck no lymphadenopathy and supple Resp Resp Narrative: tachypneic, diminished breath sounds bibasally, few bibasal crackles. intubated, sedated. Cardio S1 normal heart sound, S2 normal heart sound, no murmurs and no gallops Cardio Narrative: tachycardic, afib with RVR GI normal to inspection, nondistended, normoactive bowel sounds, soft to palpation, non-tender and non-distended Extremity normal to inspection, full ROM and no clubbing, cyanosis or edema Peripheral Pulses: Yes pulses 2+ throughout Skin no rashes or lesions noted Neuro Neuro Narrative: intubated, sedated, RASS score is +4 Psych Psych Narrative: intubated, sedated Assessment & Plan Assessment/Plan (1) Acute respiratory failure with hypoxia: (2) Acute and chronic respiratory failure with hypoxia: (3) COVID-19: PLAN: #Acute hypoxic respiratory failure due to COVID 19 infection * patient self extubated in the early hours of this morning and went into cardiopulmonary arrest briefly. He was resuscitated via ACLS and emergently re-intubated * completed a course of IV remdesivir and decadron. * now deeply sedated with RASS score of -4 * on IV zosyn as sputum culture grew strep grp C * ID and pulmonology on board * on seroquel. * on iV lasix * #Septic shock due to COVID 19 infection and strep grp C pneumonia * now off levophed * blood cultures show no growth after 5 days; sputum cultures growing Strep group C * #Afib with RVR * patient developed afib with RVR yesterday * cardiology consulted and he received amiodarone. * on therapeutic lovenox * currently on amiodarone drip * #hyperkalemia: K is 6.6 today. Will give kayexalate and trend. #KEYONA * CR remains at 1.68 today * will trend Cr. * likely due to hypotension * will monitor and trend #Acute liver injury * resolving. * AST and ALT have trended down * will continue monitoring. #Elevated triglycerides: Likely due to propofol. Propofol discontinued. . * #History of untreated VIJAY * on BIPAP qhs prn * #Type 2 diabetes mellitus * on ISS. Accuchecks q6hrly * #Nutrition: on tube feeding. #DVT prophylaxis: now on therapeutic lovenox o/a of afib with RVR GI prophylaxis: famotidine. Charges/Coding Visit Charges Inpatient E&M: 17789 [facility] L3
[2020-10-02] MEDS: Dexmedetomidine 1,000 mcg in 0.9% NS 240 mL 52.6 MCG CONT INF ×2 (09:15→14:52)
--- NOTE | 2020-10-02 10:24 | CASEMGMT ---
Addendum entered by Lluvia Wise 10/02/20 10:41: SW gave the disability paperwork for [employer]. She asked about any money from the CARES Act that may be available, SW advised to call [employer], gave her the number. Pt's mother also states she may need another letter for work, SW explained can provide that for her tomorrow. ROSE Rain Original Note: SW participated in ICU rounds, spoke w/family after to offer support. Pt's asked for assist with disability papers, SW able to assist and will return forms to when she leaves pt's room. ROSE Rain
[2020-10-02] MEDS: Amiodarone 360 MG in Dextrose 5% Viaflo Bag 192.8 ML 16.7 MG CONT INF ×2 (10:30→22:37)
[2020-10-02 11:33] LABS: Blood Gas Specimen Type ART
[2020-10-02 11:34] LABS: Allen Test POS; Mode BILEVEL; O2 Delivery Device ADULT VENTILATOR; SITE R BRACHIAL
[2020-10-02 11:35] LABS: FI02 100; RR 12
[2020-10-02 11:38] LABS: Base Excess 6 mmol/L (-2 to +2); Bicarbonate 33.2 mmol/L (22-26); PO2 118 mmHG (75-100); SO2 98 % (95-99); Total Carbon Dioxide 36 mmol/L; pH 7.24 (7.35-7.45)
[2020-10-02 12:31] LABS: Bedside Glucose 203 mg/dL (70-110)
[2020-10-02] MEDS: Ipratropium/Albuterol Sulfate 3 ML AMPUL.NEB INHALATION (13:44)
--- NOTE | 2020-10-02 15:44 | PCM.PN.CARD ---
Subjective Subjective Seen and evaluated. Appears to be stable. Objective Data Vital Signs: Vital Signs Temp Pulse Resp BP Pulse Ox 102.0 F H 104 H 26 H 101/57 L 94 10/02/20 14:00 10/02/20 15:00 10/02/20 14:00 10/02/20 14:00 10/02/20 14:00 Oxygen Flow Rate (L/min) 60 Oxygen Delivery Method Mechanical Ventilator Weight: 308 lb 13.882 oz Body Mass Index (BMI) 39.2 Intake & Output: Intake and Output for Last 24 Hours 09/30/20 10/01/20 10/02/20 23:59 23:59 23:59 Intake Total 4281.74 / 4399.74 3688.03 / 3757.53 1481.23 / 1481.23 Output Total 1375 / 1725 2365 / 2365 900 / 900 Balance 2906.74 / 2674.74 1323.03 / 1392.53 581.23 / 581.23 Lab / Micro Data Result Diagrams: 10/02/20 05:15 10/02/20 05:15 Labs: Laboratory Results - last 24 hr 10/01/20 16:47: Troponin I High Sens 45 10/01/20 17:22: POC Glucose 277 H 10/01/20 20:00: Lactic Acid 1.9 10/01/20 23:27: POC Glucose 310 H 10/02/20 05:15: WBC 13.5 H, RBC 4.27 L, Hgb 12.0 L, Hct 41.7, MCV 97.7 H, MCH 28.1, MCHC 28.8 L, RDW Std Deviation 54.5 H, RDW Coeff of Cinthya 15.2 H, Plt Count 166, MPV 13.3 H, Immature Gran % (Auto) 2.300 H, Neut % (Auto) 83.8 H, Lymph % (Auto) 5.7 L, [place] % (Auto) 7.3, Eos % (Auto) 0.7, Baso % (Auto) 0.2, Absolute Neuts (auto) 11.3 H, Absolute Lymphs (auto) 0.77 L, Nucleated RBC % 0 10/02/20 05:15: Sodium 142, Potassium 6.6 H*, Chloride 109 H, Carbon Dioxide 31.0, Anion Gap 2 L, BUN 83 H, Creatinine 1.68 H, Estim Creat Clear Calc 69.32, Est GFR (MDRD) Af Amer 59 L, Est GFR (MDRD) Non-Af 49 L, BUN/Creatinine Ratio 49.4 H, Glucose 329 H, Calcium 8.1 L, Phosphorus 3.9, Magnesium 2.7 H 10/02/20 12:24: POC Glucose 203 H Micro: Microbiology 09/30/20 13:20 Sputum, Induced/Lukens Gram Stain - Final 09/30/20 13:20 Sputum, Induced/Lukens Respiratory Culture - Preliminary Appears to be normal respiratory shirley. Further studies to follow. 09/30/20 10:30 Blood Culture (Wb) - Right Hand Blood Culture - Preliminary No growth in 48 hours. 09/30/20 10:15 Blood Culture (Wb) - Left Wrist Blood Culture - Preliminary No growth in 48 hours. ABG Data ABG results: ABG 10/02/20 10/02/20 05:14 07:36 Specimen Type ART ART Sample Site L Radial R BRACHIAL pH 7.32 L 7.24 L Bicarbonate Actual 29.0 H 33.2 H Total CO2 31 36 Base Excess 3 H 6 H O2 Saturation 92 L 98 O2 % 60 100 ABG pCO2 56.6 H 77.0 H* ABG pO2 70 L 118 H Colt Test Positive POS Respiration Rate 12 12 O2 Delivery Device Adult Vent ADULT VENTILATOR Vent Mode BiLevel BILEVEL Blood Gas Notified Whom ICU MD Blood Gas Notified Time 0742 Clinical Comments P high 28 T high 4.5 P HIGH28, T HIGH4.5 Cardiology Labs/Tests 10/01/20 20:00: Lactic Acid 1.9 10/02/20 05:14: pH 7.32 L, Bicarbonate Actual 29.0 H, Base Excess 3 H, O2 Saturation 92 L, ABG pCO2 56.6 H, ABG pO2 70 L, Colt Test Positive 10/02/20 05:15: WBC 13.5 H, RBC 4.27 L, Hgb 12.0 L, Hct 41.7, MCV 97.7 H, MCH 28.1, MCHC 28.8 L, Plt Count 166, MPV 13.3 H, Immature Gran % (Auto) 2.300 H, Neut % (Auto) 83.8 H, Lymph % (Auto) 5.7 L, [place] % (Auto) 7.3, Eos % (Auto) 0.7, Baso % (Auto) 0.2, Absolute Neuts (auto) 11.3 H, Nucleated RBC % 0 10/02/20 05:15: Sodium 142, Potassium 6.6 H*, Chloride 109 H, Carbon Dioxide 31.0, Anion Gap 2 L, BUN 83 H, Creatinine 1.68 H, Est GFR (MDRD) Af Amer 59 L, Est GFR (MDRD) Non-Af 49 L, BUN/Creatinine Ratio 49.4 H, Glucose 329 H, Calcium 8.1 L, Phosphorus 3.9, Magnesium 2.7 H 10/02/20 07:36: pH 7.24 L, Bicarbonate Actual 33.2 H, Base Excess 6 H, O2 Saturation 98, ABG pCO2 77.0 H*, ABG pO2 118 H, Colt Test POS Rhythm: EKG: ECHO: Stress Test: Cardiac Cath: PCI: CT Surgery: Holter monitor: EPS: PPM: CXR: Chest CT Scan: Radiography Diagnostic Testing: Radiology Impression Echocardiogram 10/01/20 14:52 Interpretation Summary The estimated ejection fraction is 40 %. Normal LV size. Cannot exclude left ventricular apical thrombus. There is mild to moderate global hypokinesis of the left ventricle. Contrast injection was performed. The study was technically difficult. Ordering Physician: Eric Mixon Performed By: Yulia Nielsen, RDCS, RVT Chest X-Ray 10/02/20 07:09 IMPRESSION: Endotracheal tube terminates 5.5 cm above aric. Similar appearance of bilateral pulmonary infiltrates. Electronically Signed: Jake Lambert MD at 7:40 EDT Tel , Service support , Assessment & Plan Assessment/Plan (1) Paroxysmal atrial flutter: PLAN: Patient appears to have developed paroxysmal atrial flutter. He appears to have converted back to sinus rhythm. His echocardiogram demonstrates a probable thrombus in his left ventricular apex. He will remain on anticoagulation for now. Would also recommend continuing current medical therapy. Thank you for allowing me to participate in the care of your patient. Please don't hesitate to call if any issues arise.
[2020-10-02] MEDS: Vital High Protein 1,000 ML 80 ML GT (16:31)
[2020-10-02 17:05] LABS: Bedside Glucose 137 mg/dL (70-110)
[2020-10-02] MEDS: Dexmedetomidine 1,000 mcg in 0.9% NS 240 mL 49.1 MCG CONT INF (19:57)
[2020-10-02 23:06] LABS: Bedside Glucose 214 mg/dL (70-110)
[2020-10-03] VITALS (42 sets, daily range): BP systolic 84–131; BP diastolic 50–78; PULSE 81–120; RESP 12–29; TEMP 37.9–38.7; O2SAT 87–97
[2020-10-03] MEDS: Dexmedetomidine 1,000 mcg in 0.9% NS 240 mL 49.1 MCG CONT INF (01:07)
[2020-10-03] MEDS: CHLORHEXIDINE GLUC 2% CLOTH 1 EACH TOWELETTE TOPICAL (03:51)
[2020-10-03 04:19] LABS: Absolute Lymphocyte Count 1.06 X10^3/uL (0.83-4.51); Absolute Neutrophil Count 6.7 X10^3/uL (2.0-7.7); Basophil# 0.06 X10^3/uL; Basophil% 0.7 % (0-1); Eosinophil# 0.12 X10^3/uL; Eosinophils% 1.4 % (0-5); Hemoglobin 10.9 g/dL (13.0-16.5); Lymphocyte # 1.06 X10^3/ul (0.83-4.51); Lymphocyte % 12.2 % (19-41); Mean Corp Hgb Conc 27.9 g/dL (32-36); Mean Corpuscular Hgb 28.2 pg (27.0-32.0); Mean Platelet Vol. 14.3 fl (6.2-12.0); Monocyte# 0.63 X10^3/uL; Monocyte% 7.2 % (0-10); NRBC Flagged by Analyzer 0.2 % (0-5); Neutrophil # 6.66 X10^3/uL (2.7-7.7); Neutrophil % 76.4 % (47-70); Platelet Count 118 K/mm3 (150-450); RBC Distribution Width CV 15.6 % (11.6-14.6); RBC Distribution Width SD 57.9 fl (35.1-43.9); Red Blood Count 3.86 M/mm3 (4.6-6.2); White Blood Count 8.7 K/mm3 (4.4-11.0)
[2020-10-03 04:36] LABS: ALB/GLOB Ratio 0.4 RATIO (0.9-2.4); AST(SGOT) 48 U/L (15-37); Alanine Aminotransfer ALT/SGPT 141 U/L (16-61); Albumin, Serum 2.1 g/dL (3.2-5.0); Alkaline Phosphatase 27 U/L (45-117); Anion Gap 0 (5-15); BUN 87 mg/dL (7-18); BUN/Creat Ratio 47.5 RATIO (10-20); Calcium,Total 8.4 mg/dL (8.5-10.1); Chloride 113 mmol/L (98-107); Creatinine, Serum 1.83 mg/dL (0.70-1.30); EST Glomerular Filtration Rate 44 mL/min (>60); Est Glom Filt Rate - Afr Amer 54 mL/min (>60); Estimated Creatinine Clearance 63.63 ml/min; Glucose 238 mg/dL (74-106); Potassium 6.1 mmol/L (3.5-5.1); Protein, Total 7.1 g/dL (6.4-8.2); Sodium Level 146 mmol/L (136-145)
[2020-10-03 05:26] LABS: Allen Test Positive; Base Excess 7 mmol/L (-2 to +2); Bicarbonate 33.6 mmol/L (22-26); Blood Gas Specimen Type ART; FI02 60; Mode BiLevel; O2 Delivery Device Adult Vent; PEEP 28; PO2 66 mmHG (75-100); RR 12; SITE L Radial; SO2 90 % (95-99); Total Carbon Dioxide 36 mmol/L; pCO2 66.6 mmHg (35-45); pH 7.31 (7.35-7.45)
[2020-10-03] MEDS: Dexmedetomidine 1,000 mcg in 0.9% NS 240 mL 52.6 MCG CONT INF ×4 (05:59→21:36)
[2020-10-03] MEDS: Insulin Lispro 100 UNIT/ML INSULN.PEN SC ×4 (06:36→23:05)
[2020-10-03 06:40] LABS: Bedside Glucose 195 mg/dL (70-110)
[2020-10-03] MEDS: Ipratropium/Albuterol Sulfate 3 ML AMPUL.NEB INHALATION ×3 (06:40→19:02)
[2020-10-03] MEDS: Furosemide 40 MG/4 ML Vial IV (07:30)
--- NOTE | 2020-10-03 07:50 | PCM.PN.INT ---
Assessment & Plan Assessment/Plan (1) Acute respiratory failure with hypoxia: (2) COVID-19: PLAN: RECOMMENDATIONS: 1. Continue APRV mode of mechanical ventilation. Wean FiO2 as tolerated. Monitor ABG daily. 2. Continue Precedex and fentanyl for sedation. 3. Continue tube feeds as tolerated. Increase Lantus therapy. Increase free water 4. Completed remdesivir and Decadron courses. 5. Continue scheduled bronchodilator therapy. Continue aggressive pulmonary toileting 6. Challenge with diuretics 7. Consider transition to Eliquis for anticoagulation IMPRESSIONS: 1. Acute hypoxemic respiratory failure secondary to COVID-19 pneumonia In addition to COVID-19, the patient does have a history of mild intermittent asthma. The patient has completed a treatment course of remdesivir and remains on Decadron. In addition, he is being maintained on scheduled bronchodilator therapy. Unfortunately, despite intervention, the patient decompensated from a respiratory perspective. Ultimately, the patient did require intubation on the morning of September 25 after he failed to respond to maximum noninvasive positive pressure ventilatory support. Patient did have a self extubation episode on October 02 with a brief respiratory arrest. Patient appears to be tolerating APRV. Patient was given diuretics yesterday, but was still a liter positive. Patient has developed hypernatremia and hyperchloremia, so increased free water will be required with tube feeds. We will challenge with diuretics today and attempt to decrease volume otherwise. 2. Acute kidney injury Stable. Likely prerenal in etiology and related to a component of ischemic ATN in the setting of hypotension due to sedative medication use. Urine output is stable. No indication at the current time for renal replacement therapy. Patient has had elevated glucose and likely has an element of osmotic diuresis. Anticipate high insensible losses. Patient will receive a dose of Lasix. 3. Acute liver injury Resolved. Potentially related to hemodynamic instability in the setting of #2. Lipase was within normal limits. Propofol has been discontinued secondary to increased triglycerides. No indication to continue to track triglycerides or CPK. Liver function is improving without intervention. Continue to monitor. 4. Untreated obstructive sleep apnea Resume nocturnal Pap therapy upon successful extubation. 5. Morbid obesity/diabetes mellitus Complicates care, management, recovery and prognosis. Continue current supportive measures as noted above. Will increase Lantus therapy. 6. Fever Clinical suspicion this is secondary to Precedex therapy. Patient has been on empiric Zosyn therapy per infectious disease throughout. Patient has been on increased doses of Precedex recently secondary to agitation. Patient did have a stool described as mucousy, but has received multiple laxatives. Reasonable to send for C. difficile if patient starts to develop increased diarrhea. 7. A. fib with RVR/systolic congestive heart failure Resolved. Cardiology has been consulted. Patient appears to be in sinus rhythm at this time. Defer to cardiology, but potentially transition to p.o. amiodarone versus cessation. This could help on fluids. Patient noted to have an EF of 40% with possible mural thrombus. Patient is on full anticoagulation. However, given significant doses of Lovenox, may be safer to use a 10 a inhibitor. Patient could potentially have an element of viral myocarditis. TIME: 40 minutes of critical care time, independent of procedures, was spent addressing the patient's acute hypoxemic respiratory failure, COVID-19 pneumonia, acute kidney injury, acute liver injury, underlying asthma, untreated obstructive sleep apnea, review of all data and collaboration with care team. (6:30 AM to 7:30 AM) Subjective Subjective Patient did okay overnight. Patient is interacting and following commands. Patient has tolerated tube feeds and has remained in sinus rhythm. Patient did have a bowel movement overnight that was described as mucousy. Patient has been on a cooling blanket anteriorly, but it has been effective. Objective Data Objective Data Vital Signs: Vital Signs Temp Pulse Resp BP Pulse Ox 38.3 C H 97 29 H 115/77 94 10/03/20 06:00 10/03/20 06:41 10/03/20 06:41 10/03/20 06:00 10/03/20 06:41 Oxygen Flow Rate (L/min) 60 Oxygen Delivery Method Mechanical Ventilator Weight: 140.1 kg Body Mass Index (BMI) 39.2 Intake & Output: Intake and Output for Last 24 Hours 10/01/20 10/02/20 10/03/20 23:59 23:59 23:59 Intake Total 3688.03 / 3757.53 2287.51 / 2346.61 1398.95 / 1398.95 Output Total 2365 / 2365 1999 / 1999 400 / 400 Balance 1323.03 / 1392.53 287.51 / 346.61 998.95 / 998.95 Medical Nutrition Assessment Dietitian: Malnutrition Criteria Met Start: 09/19/20 12:02 Freq: Status: Active Protocol: Document 09/30/20 09:45 AG (Rec: 09/30/20 09:45 AG [id number]) Nutrition Malnutrition Evidence of Malnutrition Exists Yes Malnutrition (severe): Acute Illness/Injury Evidenced By Suboptimal Energy Intake ( Severe),Weight Loss (Severe) Intake Problem Inadequate Oral Intake Etiology related to respiratory failure Signs/Symptoms as evidenced by estimated PO intake <50% of estimated nutritional needs x >14 days Status Resolved Problem Clinical Problem Acute Disease or Injury Related Malnutrition Etiology severe, acute malnutrition related to decreased energy intake w/ acute illness (COVID ) Signs/Symptoms as evidenced by PO intake meeting <50% 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 Status Active Problem Recommendation Dietitian Recommendations/Changes Vital HP at goal rate of 80mL/ hour w/ 50mL H2O flush every 4 hours to provide 1920 calories, 167 g protein, and 1905mL total fluid/day. Lab / Micro Data Result Diagrams: 10/03/20 03:45 10/03/20 03:45 Labs: Laboratory Results - last 24 hr 10/02/20 12:24: POC Glucose 203 H 10/02/20 17:01: POC Glucose 137 H 10/02/20 22:59: POC Glucose 214 H 10/03/20 03:45: WBC 8.7, RBC 3.86 L, Hgb 10.9 L, Hct 39.0 L, MCV 101.0 H, MCH 28.2, MCHC 27.9 L, RDW Std Deviation 57.9 H, RDW Coeff of Cinthya 15.6 H, Plt Count 118 L, MPV 14.3 H, Immature Gran % (Auto) 2.100 H, Neut % (Auto) 76.4 H, Lymph % (Auto) 12.2 L, [place] % (Auto) 7.2, Eos % (Auto) 1.4, Baso % (Auto) 0.7, Absolute Neuts (auto) 6.7, Absolute Lymphs (auto) 1.06, Nucleated RBC % 0.2 10/03/20 03:45: Sodium 146 H, Potassium 6.1 H*, Chloride 113 H, Carbon Dioxide 33.0 H, Anion Gap 0 L, BUN 87 H, Creatinine 1.83 H, Estim Creat Clear Calc 63.63, Est GFR (MDRD) Af Amer 54 L, Est GFR (MDRD) Non-Af 44 L, BUN/Creatinine Ratio 47.5 H, Glucose 238 H, Calcium 8.4 L, Total Bilirubin 1.30 H, AST 48 H, ALT 141 H, Alkaline Phosphatase 27 L, Total Protein 7.1, Albumin 2.1 L, Globulin 5.0 H, Albumin/Globulin Ratio 0.4 L 10/03/20 06:35: POC Glucose 195 H Micro: Microbiology 09/30/20 13:20 Sputum, Induced/Lukens Gram Stain - Final 09/30/20 13:20 Sputum, Induced/Lukens Respiratory Culture - Preliminary Appears to be normal respiratory shirley. Further studies to follow. 09/30/20 10:30 Blood Culture (Wb) - Right Hand Blood Culture - Preliminary No growth in 48 hours. 09/30/20 10:15 Blood Culture (Wb) - Left Wrist Blood Culture - Preliminary No growth in 48 hours. 09/25/20 09:05 Sputum, Induced/Lukens Gram Stain - Final 09/25/20 09:05 Sputum, Induced/Lukens Respiratory Culture - Final Streptococcus group C 09/18/20 23:02 Blood Culture (Wb) - Anticubital Left Blood Culture - Final No growth in 5 days. 09/18/20 23:12 Blood Culture (Wb) - Left Forearm Blood Culture - Final No growth in 5 days. ABG Data ABG results: ABG 10/02/20 10/03/20 07:36 05:21 Specimen Type ART ART Sample Site R BRACHIAL L Radial pH 7.24 L 7.31 L Bicarbonate Actual 33.2 H 33.6 H Total CO2 36 36 Base Excess 6 H 7 H O2 Saturation 98 90 L O2 % 100 60 ABG pCO2 77.0 H* 66.6 H ABG pO2 118 H 66 L Colt Test POS Positive Respiration Rate 12 12 O2 Delivery Device ADULT VENTILATOR Adult Vent Vent Mode BILEVEL BiLevel POC PEEP 28 Blood Gas Notified Whom ICU Blood Gas Notified Time 0742 Clinical Comments P HIGH28, T HIGH4.5 Radiography Diagnostic Testing: Radiology Impression Echocardiogram 10/01/20 14:52 Interpretation Summary The estimated ejection fraction is 40 %. Normal LV size. Cannot exclude left ventricular apical thrombus. There is mild to moderate global hypokinesis of the left ventricle. Contrast injection was performed. The study was technically difficult. Ordering Physician: Eric Mixon Performed By: Yulia Nielsen, [place], RVT Physical Exam Const alert and no apparent distress Constitutional Narrative: RASS -1 General Appearance: intubated and patient mechanically ventilated Exam Limitations: no limitations Nutritional Appearance: obese HEENT head/scalp atraumatic and moist oral mucous membranes Head and Scalp: normocephalic Eyes PERRL, EOMs intact bilaterally and conjunctivae normal Neck no lymphadenopathy and supple Resp Effort and Inspection: mechanically ventilated Auscultation: diminished lung sounds; Negative for rales, rhonchi or wheezes Cardio regular rate, regular rhythm, S1 normal heart sound, S2 normal heart sound, no murmurs, no rub and no gallops GI normal to inspection, nondistended, normoactive bowel sounds, soft to palpation, non-tender and non-distended Extremity normal to inspection and full ROM General Extremity: edema bilateral (1+ lower extremity); Negative for clubbing or cyanosis Peripheral Pulses: Yes pulses 2+ throughout Skin no rashes or lesions noted Neuro CN's II-XII intact bilaterally, moves all extremities and no focal motor deficits Psych Psych Narrative: intubated, sedated Charges/Coding Procedures Hospitalists Procedures: 80236 Critial Care 1st Hr
[2020-10-03] MEDS: Lidocaine Jelly 2% 20 ML Syringe (URO-JET) 20 APPLIC TOPICAL (08:15)
--- NOTE | 2020-10-03 08:41 | PN.CARD_ITS ---
Subjective Subjective Patient seen and evaluated. Appears to be doing well. Objective Data Vital Signs: Vital Signs Temp Pulse Resp BP Pulse Ox 100.9 F H 97 29 H 115/77 94 10/03/20 06:00 10/03/20 06:41 10/03/20 06:41 10/03/20 06:00 10/03/20 06:41 Oxygen Flow Rate (L/min) 60 Oxygen Delivery Method Mechanical Ventilator Weight: 308 lb 13.882 oz Body Mass Index (BMI) 39.2 Intake & Output: Intake and Output for Last 24 Hours 10/01/20 10/02/20 10/03/20 23:59 23:59 23:59 Intake Total 3688.03 / 3757.53 2287.51 / 2346.61 1398.95 / 1398.95 Output Total 2365 / 2365 1999 / 1999 400 / 400 Balance 1323.03 / 1392.53 287.51 / 346.61 998.95 / 998.95 Lab / Micro Data Result Diagrams: 10/03/20 03:45 10/03/20 03:45 Labs: Laboratory Results - last 24 hr 10/02/20 12:24: POC Glucose 203 H 10/02/20 17:01: POC Glucose 137 H 10/02/20 22:59: POC Glucose 214 H 10/03/20 03:45: WBC 8.7, RBC 3.86 L, Hgb 10.9 L, Hct 39.0 L, MCV 101.0 H, MCH 28 .2, MCHC 27.9 L, RDW Std Deviation 57.9 H, RDW Coeff of Cinthya 15.6 H, Plt Count 118 L, MPV 14.3 H, Immature Gran % (Auto) 2.100 H, Neut % (Auto) 76.4 H, Lymph % (Auto) 12.2 L, Eaton % (Auto) 7.2, Eos % (Auto) 1.4, Baso % (Auto) 0.7, Absolute Neuts (auto) 6.7, Absolute Lymphs (auto) 1.06, Nucleated RBC % 0.2 10/03/20 03:45: Sodium 146 H, Potassium 6.1 H*, Chloride 113 H, Carbon Dioxide 33.0 H, Anion Gap 0 L, BUN 87 H, Creatinine 1.83 H, Estim Creat Clear Calc 63.63, Est GFR (MDRD) Af Amer 54 L, Est GFR (MDRD) Non-Af 44 L, BUN/Creatinine Ratio 47.5 H, Glucose 238 H, Calcium 8.4 L, Total Bilirubin 1.30 H, AST 48 H, ALT 141 H, Alkaline Phosphatase 27 L, Total Protein 7.1, Albumin 2.1 L, Globulin 5.0 H, Albumin/Globulin Ratio 0.4 L 10/03/20 06:35: POC Glucose 195 H Micro: Microbiology 09/30/20 13:20 Sputum, Induced/Lukens Gram Stain - Final 09/30/20 13:20 Sputum, Induced/Lukens Respiratory Culture - Preliminary Appears to be normal respiratory shirley. Further studies to follow. 09/30/20 10:30 Blood Culture (Wb) - Right Hand Blood Culture - Preliminary No growth in 48 hours. 09/30/20 10:15 Blood Culture (Wb) - Left Wrist Blood Culture - Preliminary No growth in 48 hours. ABG Data ABG results: ABG 10/02/20 10/03/20 07:36 05:21 Specimen Type ART ART Sample Site R BRACHIAL L Radial pH 7.24 L 7.31 L Bicarbonate Actual 33.2 H 33.6 H Total CO2 36 36 Base Excess 6 H 7 H O2 Saturation 98 90 L O2 % 100 60 ABG pCO2 77.0 H* 66.6 H ABG pO2 118 H 66 L Colt Test POS Positive Respiration Rate 12 12 O2 Delivery Device ADULT VENTILATOR Adult Vent Vent Mode BILEVEL BiLevel POC PEEP 28 Blood Gas Notified Whom ICU Blood Gas Notified Time 0742 Clinical Comments P HIGH28, T HIGH4.5 Cardiology Labs/Tests 10/02/20 07:36: pH 7.24 L, Bicarbonate Actual 33.2 H, Base Excess 6 H, O2 Saturation 98, ABG pCO2 77.0 H*, ABG pO2 118 H, Colt Test POS 10/03/20 03:45: WBC 8.7, RBC 3.86 L, Hgb 10.9 L, Hct 39.0 L, MCV 101.0 H, MCH 28.2, MCHC 27.9 L, Plt Count 118 L, MPV 14.3 H, Immature Gran % (Auto) 2.100 H, Neut % (Auto) 76.4 H, Lymph % (Auto) 12.2 L, Eaton % (Auto) 7.2, Eos % (Auto) 1.4, Baso % (Auto) 0.7, Absolute Neuts (auto) 6.7, Nucleated RBC % 0.2 10/03/20 03:45: Sodium 146 H, Potassium 6.1 H*, Chloride 113 H, Carbon Dioxide 33.0 H, Anion Gap 0 L, BUN 87 H, Creatinine 1.83 H, Est GFR (MDRD) Af Amer 54 L, Est GFR (MDRD) Non-Af 44 L, BUN/Creatinine Ratio 47.5 H, Glucose 238 H, Calcium 8.4 L, Total Bilirubin 1.30 H 10/03/20 05:21: pH 7.31 L, Bicarbonate Actual 33.6 H, Base Excess 7 H, O2 Saturation 90 L, ABG pCO2 66.6 H, ABG pO2 66 L, Colt Test Positive Rhythm: EKG: ECHO: Stress Test: Cardiac Cath: PCI: CT Surgery: Holter monitor: EPS: PPM: CXR: Chest CT Scan: Radiography Diagnostic Testing: Radiology Impression Echocardiogram 10/01/20 14:52 Interpretation Summary The estimated ejection fraction is 40 %. Normal LV size. Cannot exclude left ventricular apical thrombus. There is mild to moderate global hypokinesis of the left ventricle. Contrast injection was performed. The study was technically difficult. Ordering Physician: Eric Mixon Performed By: Yulia Nielsen, ERINCS, RVT Physical Exam Const alert and no apparent distress Constitutional Narrative: RASS -1 General Appearance: intubated and patient mechanically ventilated Exam Limitations: no limitations Nutritional Appearance: obese HEENT head/scalp atraumatic and moist oral mucous membranes Head and Scalp: normocephalic Eyes PERRL, EOMs intact bilaterally and conjunctivae normal Neck no lymphadenopathy and supple Resp Effort and Inspection: mechanically ventilated Auscultation: diminished lung sounds; Negative for rales, rhonchi or wheezes Cardio regular rate, regular rhythm, S1 normal heart sound, S2 normal heart sound, no murmurs, no rub and no gallops GI normal to inspection, nondistended, normoactive bowel sounds, soft to palpation, non-tender and non-distended Extremity normal to inspection and full ROM General Extremity: edema bilateral (1+ lower extremity); Negative for clubbing or cyanosis Peripheral Pulses: Yes pulses 2+ throughout Skin no rashes or lesions noted Neuro CN's II-XII intact bilaterally, moves all extremities and no focal motor deficit s Psych Psych Narrative: intubated, sedated Assessment & Plan Assessment/Plan (1) Paroxysmal atrial flutter: PLAN: Patient appears to have developed paroxysmal atrial flutter. He appears to have converted back to sinus rhythm. His echocardiogram demonstrates a probable thrombus in his left ventricular apex. He will remain on anticoagulation for now. * Would also recommend continuing current medical therapy. * Would switch to oral anticoagulation with p.o. Eliquis * Will switch to oral amiodarone * Above discussed with the nurse Thank you for allowing me to participate in the care of your patient. Please don't hesitate to call if any issues arise.
--- NOTE | 2020-10-03 09:32 | PN.HOSP_ITS ---
Subjective Subjective Patient seen and examined. He remains intubated and sedated. Patient is tachypneic this morning with respiratory rate of 29. Potassium is 6.1 today. Na is 146, Cr is 1.83. Patient is in cumulative positive balance by 10L. Objective Data Objective Data Vital Signs: Vital Signs Temp Pulse Resp BP Pulse Ox 100.9 F H 97 29 H 115/77 94 10/03/20 06:00 10/03/20 06:41 10/03/20 06:41 10/03/20 06:00 10/03/20 06:41 Oxygen Flow Rate (L/min) 60 Oxygen Delivery Method Mechanical Ventilator Weight: 308 lb 13.882 oz Body Mass Index (BMI) 39.2 Intake & Output: Intake and Output for Last 24 Hours 10/01/20 10/02/20 10/03/20 23:59 23:59 23:59 Intake Total 3688.03 / 3757.53 2287.51 / 2346.61 1398.95 / 1398.95 Output Total 2365 / 2365 1999 / 1999 400 / 400 Balance 1323.03 / 1392.53 287.51 / 346.61 998.95 / 998.95 Medical Nutrition Assessment Dietitian: Malnutrition Criteria Met Start: 09/19/20 12:02 Freq: Status: Active Protocol: Document 09/30/20 09:45 AG (Rec: 09/30/20 09:45 AG [id number]) Nutrition Malnutrition Evidence of Malnutrition Exists Yes Malnutrition (severe): Acute Illness/Injury Evidenced By Suboptimal Energy Intake ( Severe),Weight Loss (Severe) Intake Problem Inadequate Oral Intake Etiology related to respiratory failure Signs/Symptoms as evidenced by estimated PO intake <50% of estimated nutritional needs x >14 days Status Resolved Problem Clinical Problem Acute Disease or Injury Related Malnutrition Etiology severe, acute malnutrition related to decreased energy intake w/ acute illness (COVID ) Signs/Symptoms as evidenced by 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 Status Active Problem Recommendation Dietitian Recommendations/Changes Vital HP at goal rate of 80mL/ hour w/ 50mL H2O flush every 4 hours to provide 1920 calories, 167 g protein, and 1905mL total fluid/day. Lab / Micro Data Result Diagrams: 10/03/20 03:45 10/03/20 03:45 Labs: Laboratory Results - last 24 hr 10/02/20 12:24: POC Glucose 203 H 10/02/20 17:01: POC Glucose 137 H 10/02/20 22:59: POC Glucose 214 H 10/03/20 03:45: WBC 8.7, RBC 3.86 L, Hgb 10.9 L, Hct 39.0 L, MCV 101.0 H, MCH 28.2, MCHC 27.9 L, RDW Std Deviation 57.9 H, RDW Coeff of Cinthya 15.6 H, Plt Count 118 L, MPV 14.3 H, Immature Gran % (Auto) 2.100 H, Neut % (Auto) 76.4 H, Lymph % (Auto) 12.2 L, Dixie % (Auto) 7.2, Eos % (Auto) 1.4, Baso % (Auto) 0.7, Absolute Neuts (auto) 6.7, Absolute Lymphs (auto) 1.06, Nucleated RBC % 0.2 10/03/20 03:45: Sodium 146 H, Potassium 6.1 H*, Chloride 113 H, Carbon Dioxide 33.0 H, Anion Gap 0 L, BUN 87 H, Creatinine 1.83 H, Estim Creat Clear Calc 63.63, Est GFR (MDRD) Af Amer 54 L, Est GFR (MDRD) Non-Af 44 L, BUN/Creatinine Ratio 47.5 H, Glucose 238 H, Calcium 8.4 L, Total Bilirubin 1.30 H, AST 48 H, ALT 141 H, Alkaline Phosphatase 27 L, Total Protein 7.1, Albumin 2.1 L, Globulin 5.0 H, Albumin/Globulin Ratio 0.4 L 10/03/20 06:35: POC Glucose 195 H Micro: Microbiology 09/30/20 13:20 Sputum, Induced/Lukens Gram Stain - Final 09/30/20 13:20 Sputum, Induced/Lukens Respiratory Culture - Preliminary Appears to be normal respiratory shirley. Further studies to follow. 09/30/20 10:30 Blood Culture (Wb) - Right Hand Blood Culture - Preliminary No growth in 48 hours. 09/30/20 10:15 Blood Culture (Wb) - Left Wrist Blood Culture - Preliminary No growth in 48 hours. 09/25/20 09:05 Sputum, Induced/Lukens Gram Stain - Final 09/25/20 09:05 Sputum, Induced/Lukens Respiratory Culture - Final Streptococcus group C 09/18/20 23:02 Blood Culture (Wb) - Anticubital Left Blood Culture - Final No growth in 5 days. 09/18/20 23:12 Blood Culture (Wb) - Left Forearm Blood Culture - Final No growth in 5 days. ABG Data ABG results: ABG 10/02/20 10/03/20 07:36 05:21 Specimen Type ART ART Sample Site R BRACHIAL L Radial pH 7.24 L 7.31 L Bicarbonate Actual 33.2 H 33.6 H Total CO2 36 36 Base Excess 6 H 7 H O2 Saturation 98 90 L O2 % 100 60 ABG pCO2 77.0 H* 66.6 H ABG pO2 118 H 66 L Cotl Test POS Positive Respiration Rate 12 12 O2 Delivery Device ADULT VENTILATOR Adult Vent Vent Mode BILEVEL BiLevel POC PEEP 28 Blood Gas Notified Whom ICU MD Blood Gas Notified Time 0742 Clinical Comments P HIGH28, T HIGH4.5 Radiography Diagnostic Testing: Radiology Impression Echocardiogram 10/01/20 14:52 Interpretation Summary The estimated ejection fraction is 40 %. Normal LV size. Cannot exclude left ventricular apical thrombus. There is mild to moderate global hypokinesis of the left ventricle. Contrast injection was performed. The study was technically difficult. Ordering Physician: Eric Mixon Performed By: Yulia Nielsen, RDCS, RVT Physical Exam Narrative On Arava though. No respiratory distress. No conversational dyspnea. Const Constitutional Narrative: intubated, sedated, RASS score is 0 at time of review. Exam Limitations: no limitations Nutritional Appearance: obese HEENT head/scalp atraumatic and moist oral mucous membranes Head and Scalp: normocephalic Eyes PERRL, EOMs intact bilaterally and conjunctivae normal Neck no lymphadenopathy and supple Resp Resp Narrative: tachypneic, diminished breath sounds bibasally, few bibasal crackles. intubated, sedated.RASS score is -3. Cardio S1 normal heart sound, S2 normal heart sound, no murmurs and no gallops Cardio Narrative: tachycardic, afib GI normal to inspection, nondistended, normoactive bowel sounds, soft to palpation, non-tender and non-distended Extremity normal to inspection, full ROM and no clubbing, cyanosis or edema Peripheral Pulses: Yes pulses 2+ throughout Skin no rashes or lesions noted Neuro Neuro Narrative: intubated, sedated, RASS score is +4 Psych Psych Narrative: intubated, sedated Assessment & Plan Assessment/Plan (1) Acute respiratory failure with hypoxia: (2) Acute and chronic respiratory failure with hypoxia: (3) COVID-19: PLAN: #Acute hypoxic respiratory failure due to COVID 19 infection * patient self extubated yesterday and had cardiopulmonary arrest briefly. He was reintubated and is on APRV mode. * he was intubated on September 25. * has completed a course of remdesivir and decadron. * on IV zosyn * ID and pulmonology. * on seroquel and IV lasix. * in cumulative positive balance by 10L * #Septic shock due to COVID 19 infection and strep grp C pneumonia * now off levophed * blood cultures show no growth after 5 days; sputum cultures growing Strep group C * #Afib with RVR * patient developed afib with RVR * on amiodarone drip and oral eliquis * 2D echo is 40%, with normal LV size and cannot exclude left ventricular apical thrombus, as well as mild to moderate global hypokinesis of the left ventricle. * #hyperkalemia: K is 6.1 today. Will give kayexalate and trend. #KEYONA * CR remains at 1.83 today * will trend Cr. * likely due to hypotension * will monitor and trend #Acute liver injury * resolving. * AST and ALT have trended down significantly * will continue monitoring. #Elevated triglycerides: Likely due to propofol. Propofol discontinued. . * #History of untreated VIJAY * on BIPAP qhs prn * #Type 2 diabetes mellitus * on ISS. Accuchecks q6hrly * #Nutrition: on tube feeding. #DVT prophylaxis: on eliquis GI prophylaxis: famotidine. Charges/Coding Visit Charges Inpatient E&M: 45810 Subs Hosp L3
[2020-10-03] MEDS: 0.9% Saline Lock 10 ML Syringe IV ×3 (11:12→22:33)
[2020-10-03] MEDS: QUEtiapine 100 MG Tablet 200 MG GT ×2 (11:17→22:30)
[2020-10-03] MEDS: APIXABAN 5 MG TABLET GT ×2 (11:17→22:31)
[2020-10-03] MEDS: Amiodarone 200 MG Tablet GT ×2 (11:18→22:31)
[2020-10-03] MEDS: Acetaminophen 650 MG/20 ML UDC GT ×2 (11:19→18:40)
[2020-10-03] MEDS: Vital High Protein 1,000 ML 80 ML GT (11:23)
[2020-10-03] MEDS: Chlorhexidine 15 ML PO ×2 (11:26→22:30)
--- NOTE | 2020-10-03 14:17 | PCM.PN.ID ---
Physical Exam Narrative On vent, still fever Const no apparent distress Resp Auscultation: diminished lung sounds Cardio Rate: tachycardic GI normal to inspection, nondistended, normoactive bowel sounds Extremity no clubbing, cyanosis or edema Skin no rashes or lesions noted ID ID: Route of nutrition/ use of supplements: [] Nutritional Intake: [] IV Site: [] Pugh Catheter: [] Assessment & Plan Assessment/Plan (1) COVID-19: PLAN: covid sx started around 09/10, tested (+) 09/12. Unvaccinated. Admitted, started on dex, [address] neg for PE. Recommend quarantine for 20 days from start of symptoms, then get vaccine once out of iso. Dex extended. On vent, remains hypoxic, O2 slowly being weaned. Sputum with strep, will stop zosyn today. Will follow (2) Acute respiratory failure with hypoxia:
[2020-10-03 16:35] LABS: Bedside Glucose 155 mg/dL (70-110)
[2020-10-03 23:21] LABS: Bedside Glucose 209 mg/dL (70-110)
[2020-10-03 23:30] LABS: Bedside Glucose 225 mg/dL (70-110)
[2020-10-04] VITALS (39 sets, daily range): BP systolic 100–144; BP diastolic 54–91; PULSE 82–118; RESP 12–92; TEMP 37.6–38.3; O2SAT 78–96
[2020-10-04] MEDS: Vital High Protein 1,000 ML 80 ML GT ×2 (02:00→16:00)
[2020-10-04] MEDS: Dexmedetomidine 1,000 mcg in 0.9% NS 240 mL 52.6 MCG CONT INF (02:22)
[2020-10-04 04:05] LABS: Absolute Neutrophil Count 4.8 X10^3/uL (2.0-7.7); Basophil# 0.03 X10^3/uL; Basophil% 0.4 % (0-1); Eosinophils% 2.9 % (0-5); Hemoglobin 10.5 g/dL (13.0-16.5); Lymphocyte % 18.7 % (19-41); Mean Corp Hgb Conc 26.9 g/dL (32-36); Mean Corpuscular Hgb 27.9 pg (27.0-32.0); Mean Corpuscular Volume 103.7 fL (80-94); Mean Platelet Vol. 14.3 fl (6.2-12.0); Monocyte# 0.53 X10^3/uL; Monocyte% 7.6 % (0-10); NRBC Flagged by Analyzer 0.4 % (0-5); Neutrophil # 4.77 X10^3/uL (2.7-7.7); Neutrophil % 68.8 % (47-70); Platelet Count 105 K/mm3 (150-450); RBC Distribution Width CV 15.6 % (11.6-14.6); RBC Distribution Width SD 60.1 fl (35.1-43.9); Red Blood Count 3.76 M/mm3 (4.6-6.2); White Blood Count 6.9 K/mm3 (4.4-11.0)
[2020-10-04 04:23] LABS: ALB/GLOB Ratio 0.4 RATIO (0.9-2.4); AST(SGOT) 37 U/L (15-37); Alanine Aminotransfer ALT/SGPT 110 U/L (16-61); Albumin, Serum 2.1 g/dL (3.2-5.0); Alkaline Phosphatase 23 U/L (45-117); Anion Gap -1 (5-15); BUN 88 mg/dL (7-18); BUN/Creat Ratio 59.1 RATIO (10-20); Calcium,Total 8.3 mg/dL (8.5-10.1); Chloride 114 mmol/L (98-107); Creatinine, Serum 1.49 mg/dL (0.70-1.30); EST Glomerular Filtration Rate 56 mL/min (>60); Est Glom Filt Rate - Afr Amer 68 mL/min (>60); Estimated Creatinine Clearance 78.15 ml/min; Globulin 5.1 g/dL (2.2-4.2); Glucose 165 mg/dL (74-106); Protein, Total 7.2 g/dL (6.4-8.2); Sodium Level 148 mmol/L (136-145)
[2020-10-04 05:16] LABS: Allen Test Positive; Base Excess 7 mmol/L (-2 to +2); Bicarbonate 33.3 mmol/L (22-26); Blood Gas Specimen Type ART; FI02 55; Mode BiLevel; O2 Delivery Device Adult Vent; PO2 62 mmHG (75-100); RR 12; SITE L Radial; SO2 87 % (95-99); Total Carbon Dioxide 36 mmol/L; pCO2 71.3 mmHg (35-45); pH 7.28 (7.35-7.45)
[2020-10-04] MEDS: Acetaminophen 650 MG/20 ML UDC GT ×2 (06:15→21:53)
[2020-10-04] MEDS: Insulin Lispro 100 UNIT/ML INSULN.PEN SC ×4 (06:16→23:03)
[2020-10-04 06:46] LABS: Bedside Glucose 177 mg/dL (70-110)
[2020-10-04] MEDS: Ipratropium/Albuterol Sulfate 3 ML AMPUL.NEB INHALATION ×3 (07:26→19:53)
--- NOTE | 2020-10-04 07:47 | PN.CC_ITS ---
Assessment & Plan Assessment/Plan (1) Acute respiratory failure with hypoxia: (2) COVID-19: PLAN: RECOMMENDATIONS: 1. Continue APRV mode of mechanical ventilation. Wean FiO2 as tolerated. Monitor ABG daily. 2. Continue Precedex and fentanyl for sedation. Monitor closely to avoid davalos ppression of spontaneous respirations 3. Continue tube feeds as tolerated. Increase Lantus therapy. Continue free water 4. Completed remdesivir and Decadron courses. 5. Continue scheduled bronchodilator therapy. Continue aggressive pulmonary toileting 6. Challenge with diuretics as renal function permits 7. Continue Eliquis for anticoagulation IMPRESSIONS: 1. Acute hypoxemic respiratory failure secondary to COVID-19 pneumonia In addition to COVID-19, the patient does have a history of mild intermittent asthma. The patient has completed a treatment course of remdesivir and remains on Decadron. In addition, he is being maintained on scheduled bronchodilator therapy. Unfortunately, despite intervention, the patient dec ompensated from a respiratory perspective. Ultimately, the patient did require intubation on the morning of September 25 after he failed to respond to maximum noninvasive positive pressure ventilatory support. Patient did have a self extubation episode on October 02 with a brief respiratory arrest. Patient appears to be tolerating APRV. Patient with slight increase in creatinine. We will hold off on diuretics for today. Continue to wean FiO2 as tolerated. May attempt to decrease P high 2. Acute kidney injury Slightly worse. Likely prerenal in etiology and related to a component of ischemic ATN in the setting of hypotension due to sedative medication use. Uri ne output is stable. No indication at the current time for renal replacement therapy. Patient has had elevated glucose and likely has an element of osmotic diuresis. Anticipate high insensible losses. Patient will receive a dose of Lasix as labs allow. 3. Acute liver injury Resolved. Potentially related to hemodynamic instability in the setting of #2. Lipase was within normal limits. Propofol has been discontinued secondary to increased triglycerides. No indication to continue to track triglycerides or CPK. Liver function is improving without intervention. Continue to monitor. 4. Untreated obstructive sleep apnea Resume nocturnal Pap therapy upon successful extubation. 5. Morbid obesity/diabetes mellitus Complicates care, management, recovery and prognosis. Continue current supportive measures as noted above. Will increase Lantus therapy. 6. Fever Clinical suspicion this is secondary to Precedex therapy. Patient has been on empiric Zosyn therapy per infectious disease throughout. Patient has been on increased doses of Precedex recently secondary to agitation. Patient did have a stool described as mucousy, but has received multiple laxatives. R easonable to send for C. difficile if patient starts to develop increased diarrhea. 7. A. fib with RVR/systolic congestive heart failure Resolved. Cardiology has been consulted. Patient appears to be in sinus rhythm at this time. Defer to cardiology, but potentially transition to p.o. amiodarone versus cessation. This could help on fluids. Patient noted to have an EF of 40% with possible mural thrombus. Continue Eliquis for full anticoagulation. TIME: 36 minutes of critical care time, independent of procedures, was spent addressing the patient's acute hypoxemic respiratory failure, COVID-19 pneumonia, acute kidney injury, acute liver injury, underlying asthma, untreated obstructive sleep apnea, review of all data and collaboration with care team. (6:15 AM to 7:15 AM) Subjective Subjective Patient did okay overnight. Patient did have an episode of desaturation this morning and was found to have a mucous plug. Blood sugars have remained elevated. Patient is denying any pain at this time. Patient has been tolerating tube feeds and had a bowel movement yesterday. Objective Data Objective Data Vital Signs: Vital Signs Temp Pulse Resp BP Pulse Ox 38.2 C H 111 H 20 H 119/70 95 10/04/20 07:00 10/04/20 07:29 10/04/20 07:29 10/04/20 07:00 10/04/20 07:29 Oxygen Flow Rate (L/min) 60 Oxygen Delivery Method Mechanical Ventilator Weight: 140.1 kg Body Mass Index (BMI) 39.2 Intake & Output: Intake and Output for Last 24 Hours 10/02/20 10/03/20 10/04/20 23:59 23:59 23:59 Intake Total 2287.51 / 2346.61 4453.51 / 5241.11 / Output Total 1999 2420 / 2420 425 / 425 Balance 287.51 / 346.61 2033.51 / 2821.11 1574.61 / 1574.61 Medical Nutrition Assessment Dietitian: Malnutrition Criteria Met Start: 09/19/20 12:02 Freq: Status: Active Protocol: Document 10/03/20 10:25 SLA (Rec: 10/03/20 10:26 [facility] [id number]) Nutrition Malnutrition Evidence of Malnutrition Exists Yes Malnutrition (severe): Acute Illness/Injury Evidenced By Suboptimal Energy Intake ( Severe),Weight Loss (Severe) Intake Problem Inadequate Enteral Nutrition Infusion Etiology . Signs/Symptoms . 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 Status Active Problem Recommendation Dietitian Recommendations/Changes Would continue Vital HP at 80mL/hour and and flush with 200mL H2O flush every 4 hours to provide 1920 calories, 167 g protein, and 1905mL total fluid/day. Once Na and Cl improved, then rec decrease flush to 50 ml every 4 hours. Lab / Micro Data Result Diagrams: 10/04/20 03:45 10/04/20 03:45 Labs: Laboratory Results - last 24 hr 10/03/20 11:10: POC Glucose 155 H 10/03/20 16:59: POC Glucose 209 H 10/03/20 23:02: POC Glucose 225 H 10/04/20 03:45: WBC 6.9, RBC 3.76 L, Hgb 10.5 L, Hct 39.0 L, MCV 103.7 H, MCH 27.9, MCHC 26.9 L, RDW Std Deviation 60.1 H, RDW Coeff of Cinthya 15.6 H, Plt Count 105 L, MPV 14.3 H, Immature Gran % (Auto) 1.600 H, Neut % (Auto) 68.8, Lymph % (Auto) 18.7 L, Meade % (Auto) 7.6, Eos % (Auto) 2.9, Baso % (Auto) 0.4, Absolute Neuts (auto) 4.8, Absolute Lymphs (auto) 1.30, Nucleated RBC % 0.4 10/04/20 03:45: Sodium 148 H, Potassium 6.0 H*, Chloride 114 H, Carbon Dioxide 35.0 H, Anion Gap -1 L, BUN 88 H, Creatinine 1.49 H, Estim Creat Clear Calc 78.15, Est GFR (MDRD) Af Amer 68, Est GFR (MDRD) Non-Af 56 L, BUN/Creatinine Ratio 59.1 H, Glucose 165 H, Calcium 8.3 L, Total Bilirubin 1.10 H, AST 37, ALT 110 H, Alkaline Phosphatase 23 L, Total Protein 7.2, Albumin 2.1 L, Globulin 5.1 H, Albumin/Globulin Ratio 0.4 L 10/04/20 06:14: POC Glucose 177 H Micro: Microbiology 09/30/20 13:20 Sputum, Induced/Lukens Gram Stain - Final 09/30/20 13:20 Sputum, Induced/Lukens Respiratory Culture - Preliminary Appears to be normal respiratory shirley. Further studies to follow. 09/30/20 10:30 Blood Culture (Wb) - Right Hand Blood Culture - Preliminary No growth in 48 hours. 09/30/20 10:15 Blood Culture (Wb) - Left Wrist Blood Culture - Preliminary No growth in 48 hours. 09/25/20 09:05 Sputum, Induced/Lukens Gram Stain - Final 09/25/20 09:05 Sputum, Induced/Lukens Respiratory Culture - Final Streptococcus group C 09/18/20 23:02 Blood Culture (Wb) - Anticubital Left Blood Culture - Final No growth in 5 days. 09/18/20 23:12 Blood Culture (Wb) - Left Forearm Blood Culture - Final No growth in 5 days. ABG Data ABG results: ABG 10/04/20 05:10 Specimen Type ART Sample Site L Radial pH 7.28 L Bicarbonate Actual 33.3 H Total CO2 36 Base Excess 7 H O2 Saturation 87 L O2 % 55 ABG pCO2 71.3 H* ABG pO2 62 L Colt Test Positive Respiration Rate 12 O2 Delivery Device Adult Vent Vent Mode BiLevel Crit Call To/Read Back Yes Blood Gas Notified Whom wong Clinical Comments phigh 28 thigh 4.5 Physical Exam Const alert and no apparent distress Constitutional Narrative: RASS -1 General Appearance: intubated and patient mechanically ventilated Neck Neck Narrative: IJ is clean, dry and intact Chest Chest: symmetrical chest wall rise Resp Effort and Inspection: mechanically ventilated Auscultation: diminished lung sounds; Negative for rales, rhonchi or wheezes Cardio regular rate, regular rhythm, S1 normal heart sound, S2 normal heart sound, no murmurs, no rub and no gallops Extremity normal to inspection and full ROM General Extremity: edema bilateral (1+ lower extremity); Negative for clubbing or cyanosis Neuro CN's II-XII intact bilaterally, moves all extremities and no focal motor deficits Psych Psych Narrative: intubated, sedated Charges/Coding Procedures Hospitalists Procedures: 05243 Critial Care 1st Hr
--- NOTE | 2020-10-04 08:41 | NURSING ---
MAR shows precedex complete, however is running at 1.4 mcg/kg/hr
[2020-10-04] MEDS: Dexmedetomidine 1,000 mcg in 0.9% NS 240 mL 49.1 MCG CONT INF (08:45)
[2020-10-04] MEDS: APIXABAN 5 MG TABLET GT ×2 (09:58→21:53)
[2020-10-04] MEDS: QUEtiapine 100 MG Tablet 200 MG GT ×2 (09:58→21:54)
[2020-10-04] MEDS: CHLORHEXIDINE GLUC 2% CLOTH 1 EACH TOWELETTE TOPICAL (09:59)
[2020-10-04] MEDS: Senna/Docusate Sodium 1 Tablet 2 TABLET GT (09:59)
[2020-10-04] MEDS: Polyethylene Glycol 3350 17 GM PACKET GT (10:00)
[2020-10-04] MEDS: Chlorhexidine 15 ML PO ×2 (10:01→21:54)
[2020-10-04] MEDS: Amiodarone 200 MG Tablet GT ×2 (10:01→21:53)
[2020-10-04 10:16] LABS: Bedside Glucose 205 mg/dL (70-110)
[2020-10-04 12:25] LABS: Bedside Glucose 185 mg/dL (70-110)
--- NOTE | 2020-10-04 13:12 | PCM.PN.HOSP ---
Subjective Subjective Patient remains intubated and sedated. He is currently on bilevel ventilation. His sedation has been weaned some to allow for increased respiratory rate as he has a persistently elevated PCO2. Objective Data Objective Data Vital Signs: Vital Signs Temp Pulse Resp BP Pulse Ox 100 F H 97 17 107/58 L 91 10/04/20 13:00 10/04/20 13:00 10/04/20 13:00 10/04/20 13:00 10/04/20 13:00 Oxygen Flow Rate (L/min) 60 Oxygen Delivery Method Mechanical Ventilator Weight: 140.1 kg Body Mass Index (BMI) 39.2 Intake & Output: Intake and Output for Last 24 Hours 10/02/20 10/03/20 10/04/20 23:59 23:59 23:59 Intake Total 2287.51 / 2346.61 4453.51 / 5241.11 3726.12 / 3726.12 Output Total 1999 2420 / 2420 1025 / 1025 Balance 287.51 / 346.61 2033.51 / 2821.11 2701.12 / 2701.12 Medical Nutrition Assessment Dietitian: Malnutrition Criteria Met Start: 09/19/20 12:02 Freq: Status: Active Protocol: Document 10/03/20 10:25 SLA (Rec: 10/03/20 10:26 SLA [id number]) Nutrition Malnutrition Evidence of Malnutrition Exists Yes Malnutrition (severe): Acute Illness/Injury Evidenced By Suboptimal Energy Intake ( Severe),Weight Loss (Severe) Intake Problem Inadequate Enteral Nutrition Infusion Etiology . Signs/Symptoms . 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 Status Active Problem Recommendation Dietitian Recommendations/Changes Would continue Vital HP at 80mL/hour and and flush with 200mL H2O flush every 4 hours to provide 1920 calories, 167 g protein, and 1905mL total fluid/day. Once Na and Cl improved, then rec decrease flush to 50 ml every 4 hours. Lab / Micro Data Result Diagrams: 10/04/20 03:45 10/04/20 03:45 Labs: Laboratory Results - last 24 hr 10/03/20 11:10: POC Glucose 155 H 10/03/20 16:59: POC Glucose 209 H 10/03/20 23:02: POC Glucose 225 H 10/04/20 03:45: WBC 6.9, RBC 3.76 L, Hgb 10.5 L, Hct 39.0 L, MCV 103.7 H, MCH 27.9, MCHC 26.9 L, RDW Std Deviation 60.1 H, RDW Coeff of Cinthya 15.6 H, Plt Count 105 L, MPV 14.3 H, Immature Gran % (Auto) 1.600 H, Neut % (Auto) 68.8, Lymph % (Auto) 18.7 L, [place] % (Auto) 7.6, Eos % (Auto) 2.9, Baso % (Auto) 0.4, Absolute Neuts (auto) 4.8, Absolute Lymphs (auto) 1.30, Nucleated RBC % 0.4 10/04/20 03:45: Sodium 148 H, Potassium 6.0 H*, Chloride 114 H, Carbon Dioxide 35.0 H, Anion Gap -1 L, BUN 88 H, Creatinine 1.49 H, Estim Creat Clear Calc 78.15, Est GFR (MDRD) Af Amer 68, Est GFR (MDRD) Non-Af 56 L, BUN/Creatinine Ratio 59.1 H, Glucose 165 H, Calcium 8.3 L, Total Bilirubin 1.10 H, AST 37, ALT 110 H, Alkaline Phosphatase 23 L, Total Protein 7.2, Albumin 2.1 L, Globulin 5.1 H, Albumin/Globulin Ratio 0.4 L 10/04/20 06:14: POC Glucose 177 H 10/04/20 09:47: POC Glucose 205 H 10/04/20 11:35: POC Glucose 185 H Micro: Microbiology 09/30/20 13:20 Sputum, Induced/Lukens Gram Stain - Final 09/30/20 13:20 Sputum, Induced/Lukens Respiratory Culture - Final Coag Negative Staph 09/30/20 10:30 Blood Culture (Wb) - Right Hand Blood Culture - Preliminary No growth in 48 hours. 09/30/20 10:15 Blood Culture (Wb) - Left Wrist Blood Culture - Preliminary No growth in 48 hours. 09/25/20 09:05 Sputum, Induced/Lukens Gram Stain - Final 09/25/20 09:05 Sputum, Induced/Lukens Respiratory Culture - Final Streptococcus group C 09/18/20 23:02 Blood Culture (Wb) - Anticubital Left Blood Culture - Final No growth in 5 days. 09/18/20 23:12 Blood Culture (Wb) - Left Forearm Blood Culture - Final No growth in 5 days. ABG Data ABG results: ABG 10/04/20 05:10 Specimen Type ART Sample Site L Radial pH 7.28 L Bicarbonate Actual 33.3 H Total CO2 36 Base Excess 7 H O2 Saturation 87 L O2 % 55 ABG pCO2 71.3 H* ABG pO2 62 L Colt Test Positive Respiration Rate 12 O2 Delivery Device Adult Vent Vent Mode BiLevel Crit Call To/Read Back Yes Blood Gas Notified Whom wong Clinical Comments phigh 28 thigh 4.5 Physical Exam Const no apparent distress Constitutional Narrative: Intubated and sedated, on sedation, appears comfortable, respiratory rate as above set vent rate at 18-20 with a vent rate of 12 Exam Limitations: altered mental status HEENT head/scalp atraumatic, moist oral mucous membranes and oropharynx normal Head and Scalp: normocephalic Mouth: oral and palatal mucosa normal Eyes PERRL, EOMs intact bilaterally and conjunctivae normal Neck no lymphadenopathy and supple Resp normal respiratory effort, no retractions, no use of accessory muscles and No clear to auscultation bilaterally Resp Narrative: Diffusely diminished but clear Auscultation: Negative for crackles, rales, rhonchi or wheezes Cardio regular rate, regular rhythm, S1 normal heart sound, S2 normal heart sound, no murmurs, no rub, no gallops, no clicks and no JVD GI normal to inspection, nondistended, normoactive bowel sounds, soft to palpation, non-tender and non-distended Extremity no clubbing, cyanosis or edema Peripheral Pulses: Yes pulses 2+ throughout Skin no rashes or lesions noted, skin turgor normal, no jaundice, no petechiae and no mottling Neuro Neuro Narrative: Some response to noxious stimuli with withdrawal Psych affect normal Assessment & Plan Assessment/Plan (1) COVID-19: (2) Acute respiratory failure with hypoxia: (3) Sleep apnea: (4) Obesity due to excess calories: (5) Thrombocytopenia: (6) Anemia: (7) Hyperkalemia: (8) Hypernatremia: (9) KEYONA (acute kidney injury): (10) HFrEF (heart failure with reduced ejection fraction): (11) Ventricular mural thrombus: PLAN: Acute hypoxic and hypercapnic respiratory failure secondary to COVID-19 pneumonia -Intubated 09/25/2020 -Self extubated 10/02/2020 but reintubated immediately -Patient remains on bilevel ventilation -High PEEP decreased today -Sedation decreased given hypercapnia to allow for increased respiratory rate -Repeat ABG now -Patient has completed Decadron and remdesivir -Continue supportive care -Patient remains fully anticoagulated KEYONA -Suspect prerenal secondary to ischemic ATN secondary to hypotension -Serum creatinine is improving -Continue to monitor Left ventricular thrombus -Patient currently anticoagulated with Eliquis -Consider repeat echo prior to discharge once patient stabilizes HFrEF -? Related to Covid cardiomyopathy -Consider repeat echo prior to discharge -Cardiology is following Fevers -Patient has been on empiric antibiotic therapy throughout his course -Suspect related to Precedex -Continue to monitor closely -Monitor white count Anemia/thrombocytopenia -Suspect related to chronic Covid -Continue to monitor counts closely Transaminitis -Resolved DM-2 -continue Accu-Cheks -Continue SSI -Lantus increased by critical care medicine this morning A. fib with RVR -Patient is now in normal sinus rhythm -Continue amiodarone therapy 200 mg twice daily per cardiology documentation Untreated VIJAY -Patient is currently intubated -Would recommend polysomnography as outpatient Morbid obesity -Complicates overall treatment, prognosis, and outcomes -Recommend weight loss -BMI 39.6 DVT prophylaxis -Eliquis full dose CODE STATUS -Full code Charges/Coding Visit Charges Inpatient E&M: 34377 Subs Hosp L2
[2020-10-04] MEDS: Dexmedetomidine 1,000 mcg in 0.9% NS 240 mL 45.6 MCG CONT INF ×2 (14:22→19:35)
[2020-10-04 14:41] LABS: Base Excess 8 mmol/L (-2 to +2); Bicarbonate 34.4 mmol/L (22-26); Blood Gas Specimen Type ART; FI02 80; Mode BiLevel; O2 Delivery Device Adult Vent; PO2 55 mmHG (75-100); SITE L Radial; SO2 83 % (95-99); Total Carbon Dioxide 37 mmol/L; pCO2 69.8 mmHg (35-45)
--- NOTE | 2020-10-04 15:51 | NURSING ---
Since 1330 patient O2 sats have been dropping, over the course of approx 1.5 hours even with ETT suctioning/lavage, increased FiO2 to 100%, ABG done, MD aware of the results.
--- NOTE | 2020-10-04 18:02 | NURSING ---
O2 sats maintaining 80% on p high 28 and FiO2 100%, no crepitus noted, ETT suctioned and lavaged, mucoid plug noted- yellow/pink tinged, O2 sats improving to 90% after approx 5 minutes.
--- NOTE | 2020-10-04 18:05 | RAD_ITS ---
STUDY: X-RAY CHEST REASON FOR EXAM: Male, 40 years old. poor oxygenation on vent 100% FiO2 TECHNIQUE: Frontal portable view of the chest COMPARISON: 02 October 2020 FINDINGS: Appearance is stable since prior. Support lines are stable with endotracheal tube tip for sinus and the aric, right internal jugular central venous catheter tip in the lower SVC and gastric tube in the stomach. There is severe bilateral pneumonia. There is no pneumothorax on the frontal view. There are no moderate or large pleural effusions. Cardiac size is normal. RAD/Chest 1 View (Portable) IMPRESSION: Stable severe bilateral pneumonia. Expected support lines. Electronically Signed: Violet Green MD at 20:03 EDT Tel , Service support ,
[2020-10-04 18:26] LABS: Allen Test Positive; Base Excess 9 mmol/L (-2 to +2); Bicarbonate 35.2 mmol/L (22-26); Blood Gas Specimen Type ART; FI02 100; Mode BiLevel; O2 Delivery Device Adult Vent; PO2 62 mmHG (75-100); RR 12; SITE R Radial; SO2 88 % (95-99); Total Carbon Dioxide 37 mmol/L; pCO2 70.7 mmHg (35-45); pH 7.31 (7.35-7.45)
[2020-10-04 20:41] LABS: Bedside Glucose 150 mg/dL (70-110)
[2020-10-04] MEDS: 0.9% Saline Lock 10 ML Syringe IV (21:51)
[2020-10-04 23:15] LABS: Bedside Glucose 178 mg/dL (70-110)
[2020-10-05] VITALS (37 sets, daily range): BP systolic 112–151; BP diastolic 57–94; PULSE 94–122; RESP 16–40; TEMP 37.4–38; O2SAT 86–97
[2020-10-05] MEDS: Dexmedetomidine 1,000 mcg in 0.9% NS 240 mL 45.6 MCG CONT INF ×2 (01:04→06:50)
--- NOTE | 2020-10-05 01:28 | NURSING ---
10/04/20- Cooling blanket set at 32.5 degrees C to help with fevers.
--- NOTE | 2020-10-05 01:31 | NURSING ---
09/29/20- SBT not attempted per Dr. Mixon due to FIO2 greater than 60% and vent setting APRV.
[2020-10-05 04:03] LABS: Absolute Lymphocyte Count 0.83 X10^3/uL (0.83-4.51); Absolute Neutrophil Count 6.3 X10^3/uL (2.0-7.7); Basophil# 0.03 X10^3/uL; Basophil% 0.4 % (0-1); Eosinophil# 0.12 X10^3/uL; Eosinophils% 1.5 % (0-5); Hematocrit 39.1 % (40-54); Hemoglobin 10.6 g/dL (13.0-16.5); Lymphocyte # 0.83 X10^3/ul (0.83-4.51); Lymphocyte % 10.7 % (19-41); Mean Corp Hgb Conc 27.1 g/dL (32-36); Mean Corpuscular Hgb 27.8 pg (27.0-32.0); Mean Corpuscular Volume 102.6 fL (80-94); Mean Platelet Vol. 14.2 fl (6.2-12.0); Monocyte# 0.41 X10^3/uL; Monocyte% 5.3 % (0-10); NRBC Flagged by Analyzer 0.5 % (0-5); Neutrophil % 80.8 % (47-70); POSITIVE COUNT YES; Platelet Count 96 K/mm3 (150-450); RBC Distribution Width CV 15.7 % (11.6-14.6); Red Blood Count 3.81 M/mm3 (4.6-6.2); White Blood Count 7.8 K/mm3 (4.4-11.0)
[2020-10-05 04:28] LABS: ALB/GLOB Ratio 0.4 RATIO (0.9-2.4); AST(SGOT) 43 U/L (15-37); Alanine Aminotransfer ALT/SGPT 98 U/L (16-61); Albumin, Serum 2.2 g/dL (3.2-5.0); Alkaline Phosphatase 27 U/L (45-117); Anion Gap 2 (5-15); BUN 64 mg/dL (7-18); BUN/Creat Ratio 54.2 RATIO (10-20); Calcium,Total 8.4 mg/dL (8.5-10.1); Chloride 112 mmol/L (98-107); Creatinine, Serum 1.18 mg/dL (0.70-1.30); EST Glomerular Filtration Rate 73 mL/min (>60); Est Glom Filt Rate - Afr Amer 89 mL/min (>60); Estimated Creatinine Clearance 98.69 ml/min; Globulin 4.9 g/dL (2.2-4.2); Glucose 209 mg/dL (74-106); Potassium 5.2 mmol/L (3.5-5.1); Protein, Total 7.1 g/dL (6.4-8.2); Sodium Level 148 mmol/L (136-145)
[2020-10-05] MEDS: Vital High Protein 1,000 ML 80 ML GT ×2 (05:03→17:39)
[2020-10-05] MEDS: Insulin Lispro 100 UNIT/ML INSULN.PEN SC ×4 (05:05→23:02)
[2020-10-05 05:41] LABS: Allen Test Positive; Base Excess 8 mmol/L (-2 to +2); Bicarbonate 34.9 mmol/L (22-26); Blood Gas Specimen Type ART; FI02 100; Mode BiLevel; O2 Delivery Device Adult Vent; PO2 75 mmHG (75-100); RR 12; SITE L Radial; SO2 92 % (95-99); Total Carbon Dioxide 37 mmol/L; pCO2 73.1 mmHg (35-45); pH 7.29 (7.35-7.45)
--- NOTE | 2020-10-05 05:44 | CPS ---
critical abg values handed to dr back
[2020-10-05 06:20] LABS: Bedside Glucose 195 mg/dL (70-110)
--- NOTE | 2020-10-05 08:12 | PCM.PN.INT ---
Assessment & Plan Assessment/Plan (1) Acute respiratory failure with hypoxia: (2) COVID-19: PLAN: RECOMMENDATIONS: 1. Continue APRV mode of mechanical ventilation. Wean FiO2 as tolerated. Monitor ABG daily. 2. Continue Precedex and fentanyl for sedation. Monitor closely to avoid suppression of spontaneous respirations 3. Continue tube feeds as tolerated. Continue current Lantus therapy. Increase free water to 250 every 4 4. Aggressive pulmonary toileting. Possibly add IPPV or vest 5. Continue scheduled bronchodilator therapy. 6. Challenge with diuretics as renal function permits 7. Continue Eliquis for anticoagulation IMPRESSIONS: 1. Acute hypoxemic respiratory failure secondary to COVID-19 pneumonia In addition to COVID-19, the patient does have a history of mild intermittent asthma. The patient has completed a treatment course of remdesivir and remains on Decadron. In addition, he is being maintained on scheduled bronchodilator therapy. Unfortunately, despite intervention, the patient decompensated from a respiratory perspective. Ultimately, the patient did require intubation on the morning of September 25 after he failed to respond to maximum noninvasive positive pressure ventilatory support. Patient did have a self extubation episode on October 02 with a brief respiratory arrest. Patient appears to be tolerating APRV. Patient with slight increase in creatinine. Continue to wean FiO2 as tolerated. Decrease in P high yesterday led to significant loss in recruitment. Continue with aggressive pulmonary toileting. Unable to diurese despite Lasix. The patient is significantly positive. Will increase free water through the GI system and dose with Lasix today. 2. Acute kidney injury Slightly worse. Likely prerenal in etiology and related to a component of ischemic ATN in the setting of hypotension due to sedative medication use. Urine output is stable. No indication at the current time for renal replacement therapy. Patient has had elevated glucose and likely has an element of osmotic diuresis. Anticipate high insensible losses. Patient will receive a dose of Lasix as labs allow. 3. Acute liver injury Resolved. Potentially related to hemodynamic instability in the setting of #2. Lipase was within normal limits. Propofol has been discontinued secondary to increased triglycerides. No indication to continue to track triglycerides or CPK. Liver function is improving without intervention. Continue to monitor. 4. Untreated obstructive sleep apnea Resume nocturnal Pap therapy upon successful extubation. 5. Morbid obesity/diabetes mellitus Complicates care, management, recovery and prognosis. Continue current supportive measures as noted above. Will increase Lantus therapy. 6. Fever improving. Clinical suspicion this is secondary to Precedex therapy. The patient will complete a total of 10 days of Zosyn therapy. Patient has been on increased doses of Precedex recently secondary to agitation. Patient did have a stool described as mucousy, but has received multiple laxatives. Reasonable to send for C. difficile if patient starts to develop increased diarrhea. 7. A. fib with RVR/systolic congestive heart failure Resolved. Cardiology has been consulted. Patient appears to be in sinus rhythm at this time. Defer to cardiology, but potentially transition to p.o. amiodarone versus cessation. This could help on fluids. Patient noted to have an EF of 40% with possible mural thrombus. Continue Eliquis for full anticoagulation. TIME: 38 minutes of critical care time, independent of procedures, was spent addressing the patient's acute hypoxemic respiratory failure, COVID-19 pneumonia, acute kidney injury, acute liver injury, underlying asthma, untreated obstructive sleep apnea, review of all data and collaboration with care team. (7 AM to 8 AM) Subjective Subjective Patient with significant decompensation overnight requiring increased at 100% FiO2 and a P high of 28. Nursing and respiratory have noted significant increase in oral and endotracheal secretions, but fever curve is improving. Patient is denying any pain this morning. Family has been at the bedside to help with agitation. Objective Data Objective Data Vital Signs: Vital Signs Temp Pulse Resp BP Pulse Ox 37.5 C H 106 H 26 H 142/81 H 89 10/05/20 08:00 10/05/20 08:00 10/05/20 08:00 10/05/20 08:00 10/05/20 08:00 Oxygen Flow Rate (L/min) 60 Oxygen Delivery Method Mechanical Ventilator Weight: 140.1 kg Body Mass Index (BMI) 39.2 Intake & Output: Intake and Output for Last 24 Hours 10/03/20 10/04/20 10/05/20 23:59 23:59 23:59 Intake Total 4453.51 / 5241.11 5902.62 / 6678.22 1869.32 / 1869.32 Output Total 2420 / 2420 2350 / 2750 925 / 925 Balance 2033.51 / 2821.11 3552.62 / 3928.22 944.32 / 944.32 Medical Nutrition Assessment Dietitian: Malnutrition Criteria Met Start: 09/19/20 12:02 Freq: Status: Active Protocol: Document 10/03/20 10:25 SLA (Rec: 10/03/20 10:26 SLA [id number]) Nutrition Malnutrition Evidence of Malnutrition Exists Yes Malnutrition (severe): Acute Illness/Injury Evidenced By Suboptimal Energy Intake ( Severe),Weight Loss (Severe) Intake Problem Inadequate Enteral Nutrition Infusion Etiology . Signs/Symptoms . 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 Status Active Problem Recommendation Dietitian Recommendations/Changes Would continue Vital HP at 80mL/hour and and flush with 200mL H2O flush every 4 hours to provide 1920 calories, 167 g protein, and 1905mL total fluid/day. Once Na and Cl improved, then rec decrease flush to 50 ml every 4 hours. Lab / Micro Data Result Diagrams: 10/05/20 03:35 10/05/20 03:35 Labs: Laboratory Results - last 24 hr 10/04/20 09:47: POC Glucose 205 H 10/04/20 11:35: POC Glucose 185 H 10/04/20 16:56: POC Glucose 150 H 10/04/20 23:01: POC Glucose 178 H 10/05/20 03:35: WBC 7.8, RBC 3.81 L, Hgb 10.6 L, Hct 39.1 L, MCV 102.6 H, MCH 27.8, MCHC 27.1 L, RDW Std Deviation 59.0 H, RDW Coeff of Cinthya 15.7 H, Plt Count 96 L, MPV 14.2 H, Immature Gran % (Auto) 1.300 H, Neut % (Auto) 80.8 H, Lymph % (Auto) 10.7 L, [place] % (Auto) 5.3, Eos % (Auto) 1.5, Baso % (Auto) 0.4, Absolute Neuts (auto) 6.3, Absolute Lymphs (auto) 0.83, Nucleated RBC % 0.5 10/05/20 03:35: Sodium 148 H, Potassium 5.2 H, Chloride 112 H, Carbon Dioxide 34.0 H, Anion Gap 2 L, BUN 64 H, Creatinine 1.18, Estim Creat Clear Calc 98.69, Est GFR (MDRD) Af Amer 89, Est GFR (MDRD) Non-Af 73, BUN/Creatinine Ratio 54.2 H, Glucose 209 H, Calcium 8.4 L, Total Bilirubin 1.10 H, AST 43 H, ALT 98 H, Alkaline Phosphatase 27 L, Total Protein 7.1, Albumin 2.2 L, Globulin 4.9 H, Albumin/Globulin Ratio 0.4 L 10/05/20 05:02: POC Glucose 195 H Micro: Microbiology 09/30/20 13:20 Sputum, Induced/Lukens Gram Stain - Final 09/30/20 13:20 Sputum, Induced/Lukens Respiratory Culture - Final Coag Negative Staph 09/30/20 10:30 Blood Culture (Wb) - Right Hand Blood Culture - Preliminary No growth in 48 hours. 09/30/20 10:15 Blood Culture (Wb) - Left Wrist Blood Culture - Preliminary No growth in 48 hours. 09/25/20 09:05 Sputum, Induced/Lukens Gram Stain - Final 09/25/20 09:05 Sputum, Induced/Lukens Respiratory Culture - Final Streptococcus group C 09/18/20 23:02 Blood Culture (Wb) - Anticubital Left Blood Culture - Final No growth in 5 days. 09/18/20 23:12 Blood Culture (Wb) - Left Forearm Blood Culture - Final No growth in 5 days. ABG Data ABG results: ABG 10/04/20 10/04/20 10/05/20 14:31 18:20 05:34 Specimen Type ART ART ART Sample Site L Radial R Radial L Radial pH 7.30 L 7.31 L 7.29 L Bicarbonate Actual 34.4 H 35.2 H 34.9 H Total CO2 37 37 37 Base Excess 8 H 9 H 8 H O2 Saturation 83 L 88 L 92 L O2 % 80 100 100 ABG pCO2 69.8 H* 70.7 H* 73.1 H* ABG pO2 55 L 62 L 75 Colt Test Positive Positive Respiration Rate 12 12 O2 Delivery Device Adult Vent Adult Vent Adult Vent Vent Mode BiLevel BiLevel BiLevel Crit Call To/Read Back Yes Yes Yes Blood Gas Notified Whom HYUN back Clinical Comments phigh 26 thigh 4.5 phigh 28 thigh 4.5 aprv. Radiography Diagnostic Testing: Radiology Impression Chest X-Ray 10/04/20 18:05 IMPRESSION: Stable severe bilateral pneumonia. Expected support lines. Electronically Signed: Violet Green MD at 20:03 EDT Tel , Service support , Physical Exam Const alert and no apparent distress Constitutional Narrative: RASS -1 General Appearance: intubated and patient mechanically ventilated Neck Neck Narrative: IJ is clean, dry and intact Chest Chest: symmetrical chest wall rise Resp Effort and Inspection: mechanically ventilated Auscultation: rhonchi throughout (Improved with suctioning) and diminished lung sounds; Negative for rales or wheezes Cardio regular rate, regular rhythm, S1 normal heart sound, S2 normal heart sound, no murmurs, no rub and no gallops GI GI Narrative: Slightly distended, but soft and nontender Extremity normal to inspection and full ROM General Extremity: edema bilateral (1+ lower extremity); Negative for clubbing or cyanosis Neuro CN's II-XII intact bilaterally, moves all extremities and no focal motor deficits Psych Psych Narrative: intubated, sedated Charges/Coding Procedures Hospitalists Procedures: 50282 Critial Care 1st Hr
[2020-10-05] MEDS: Furosemide 40 MG/4 ML Vial IV ×2 (08:51→17:31)
[2020-10-05 10:00] LABS: Magnesium 2.6 mg/dL (1.6-2.6); Phosphorus 3.8 mg/dL (2.5-4.9)
[2020-10-05] MEDS: Senna/Docusate Sodium 1 Tablet 2 TABLET GT (10:25)
[2020-10-05] MEDS: Chlorhexidine 15 ML PO ×2 (10:25→22:41)
[2020-10-05] MEDS: CHLORHEXIDINE GLUC 2% CLOTH 1 EACH TOWELETTE TOPICAL (10:25)
[2020-10-05] MEDS: Amiodarone 200 MG Tablet GT ×2 (10:25→22:43)
[2020-10-05] MEDS: APIXABAN 5 MG TABLET GT ×2 (10:25→22:42)
[2020-10-05] MEDS: Polyethylene Glycol 3350 17 GM PACKET GT (10:26)
[2020-10-05] MEDS: QUEtiapine 100 MG Tablet 200 MG GT ×2 (10:26→22:42)
[2020-10-05] MEDS: Dexmedetomidine 1,000 mcg in 0.9% NS 240 mL 49.1 MCG CONT INF ×3 (12:30→23:06)
[2020-10-05] MEDS: Ipratropium/Albuterol Sulfate 3 ML AMPUL.NEB INHALATION ×2 (13:48→19:10)
[2020-10-05 14:40] LABS: Bedside Glucose 202 mg/dL (70-110)
[2020-10-05 14:40] LABS: Bedside Glucose 194 mg/dL (70-110)
--- NOTE | 2020-10-05 14:46 | PN.HOSP_ITS ---
Subjective Subjective Patient remains on significant ventilatory support without ability to wean. He remains on an FiO2 of 95%. We have started diuresis which she is tolerating well thus far. Family has been at the bedside. Objective Data Objective Data Vital Signs: Vital Signs Temp Pulse Resp BP Pulse Ox 99.5 F H 112 H 22 H 131/77 H 90 10/05/20 14:00 10/05/20 14:00 10/05/20 14:00 10/05/20 14:00 10/05/20 14:00 Oxygen Flow Rate (L/min) 60 Oxygen Delivery Method Mechanical Ventilator Weight: 140.1 kg Body Mass Index (BMI) 39.2 Intake & Output: Intake and Output for Last 24 Hours 10/03/20 10/04/20 10/05/20 23:59 23:59 23:59 Intake Total 4453.51 / 5241.11 5902.62 / 6678.22 3980.87 / 3980.87 Output Total 2420 / 2420 2350 / 2750 2200 / 2200 Balance 2033.51 / 2821.11 3552.62 / 3928.22 1780.87 / 1780.87 Medical Nutrition Assessment Dietitian: Malnutrition Criteria Met Start: 09/19/20 12:02 Freq: Status: Active Protocol: Document 10/05/20 11:10 BP (Rec: 10/05/20 11:12 BP [id number]) Nutrition Malnutrition Evidence of Malnutrition Exists Yes Malnutrition (severe): Acute Illness/Injury Evidenced By Suboptimal Energy Intake ( Severe),Weight Loss (Severe) Intake Problem Inadequate Enteral Nutrition Infusion Status Resolved Problem Inadequate Oral Intake Etiology related to respiratory failure Signs/Symptoms as evidenced by estimated PO intake <50% of estimated nutritional needs x >14 days Status Resolved Problem Clinical Problem Acute Disease or Injury Related Malnutrition Etiology severe, acute malnutrition related to decreased energy intake w/ acute illness (COVID ) Signs/Symptoms as evidenced by PO intake meeting <50% 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 Status Active Problem Recommendation Dietitian Recommendations/Changes Vital HP via OGT at 80mL/hour w/ 200mL H2O flush every 4 hours to provide 1920 calories , 167 g protein, and 2805mL total fluid/day. Once sodium & chloride improved rec decrease flush to 50 ml every 4 hours. Lab / Micro Data Result Diagrams: 10/05/20 03:35 10/05/20 03:35 Labs: Laboratory Results - last 24 hr 10/04/20 16:56: POC Glucose 150 H 10/04/20 23:01: POC Glucose 178 H 10/05/20 03:35: WBC 7.8, RBC 3.81 L, Hgb 10.6 L, Hct 39.1 L, MCV 102.6 H, MCH 27.8, MCHC 27.1 L, RDW Std Deviation 59.0 H, RDW Coeff of Cinthya 15.7 H, Plt Count 96 L, MPV 14.2 H, Immature Gran % (Auto) 1.300 H, Neut % (Auto) 80.8 H, Lymph % (Auto) 10.7 L, Jerome % (Auto) 5.3, Eos % (Auto) 1.5, Baso % (Auto) 0.4, Absolute Neuts (auto) 6.3, Absolute Lymphs (auto) 0.83, Nucleated RBC % 0.5 10/05/20 03:35: Sodium 148 H, Potassium 5.2 H, Chloride 112 H, Carbon Dioxide 34.0 H, Anion Gap 2 L, BUN 64 H, Creatinine 1.18, Estim Creat Clear Calc 98.69, Est GFR (MDRD) Af Amer 89, Est GFR (MDRD) Non-Af 73, BUN/Creatinine Ratio 54.2 H , Glucose 209 H, Calcium 8.4 L, Total Bilirubin 1.10 H, AST 43 H, ALT 98 H, Alkaline Phosphatase 27 L, Total Protein 7.1, Albumin 2.2 L, Globulin 4.9 H, Albumin/Globulin Ratio 0.4 L 10/05/20 03:35: Phosphorus 3.8, Magnesium 2.6 10/05/20 05:02: POC Glucose 195 H 10/05/20 10:22: POC Glucose 194 H 10/05/20 11:51: POC Glucose 202 H Micro: Microbiology 09/30/20 10:30 Blood Culture (Wb) - Right Hand Blood Culture - Final No growth in 5 days. 09/30/20 10:15 Blood Culture (Wb) - Left Wrist Blood Culture - Final No growth in 5 days. 09/30/20 13:20 Sputum, Induced/Lukens Gram Stain - Final 09/30/20 13:20 Sputum, Induced/Lukens Respiratory Culture - Final Coag Negative Staph 09/25/20 09:05 Sputum, Induced/Lukens Gram Stain - Final 09/25/20 09:05 Sputum, Induced/Lukens Respiratory Culture - Final Streptococcus group C 09/18/20 23:02 Blood Culture (Wb) - Anticubital Left Blood Culture - Final No growth in 5 days. 09/18/20 23:12 Blood Culture (Wb) - Left Forearm Blood Culture - Final No growth in 5 days. ABG Data ABG results: ABG 10/04/20 10/05/20 18:20 05:34 Specimen Type ART ART Sample Site R Radial L Radial pH 7.31 L 7.29 L Bicarbonate Actual 35.2 H 34.9 H Total CO2 37 37 Base Excess 9 H 8 H O2 Saturation 88 L 92 L O2 % 100 100 ABG pCO2 70.7 H* 73.1 H* ABG pO2 62 L 75 Colt Test Positive Positive Respiration Rate 12 12 O2 Delivery Device Adult Vent Adult Vent Vent Mode BiLevel BiLevel Crit Call To/Read Back Yes Yes Blood Gas Notified Whom wong Clinical Comments phigh 28 thigh 4.5 aprv. Radiography Diagnostic Testing: Radiology Impression Chest X-Ray 10/04/20 18:05 IMPRESSION: Stable severe bilateral pneumonia. Expected support lines. Electronically Signed: Violet Green MD at 20:03 EDT Tel , Service support , Physical Exam Const Constitutional Narrative: Middle-aged white male lying in bed currently intubated and sedated, attempts eye-opening to name HEENT head/scalp atraumatic and moist oral mucous membranes Head and Scalp: normocephalic Eyes PERRL Neck supple Neck Narrative: Trachea midline Resp normal respiratory effort, no retractions, no use of accessory muscles and clear to auscultation bilaterally Resp Narrative: Diffusely diminished Auscultation: Negative for crackles, rales, rhonchi or wheezes Cardio regular rate, regular rhythm, S1 normal heart sound, S2 normal heart sound, no murmurs, no rub, no gallops, no clicks and no JVD GI normal to inspection, nondistended, normoactive bowel sounds, soft to palpation, non-tender and non-distended Extremity Extremity Narrative: Trace bilateral upper and lower extremity distal edema, no cyanosis or clubbing General Extremity: edema Peripheral Pulses: Yes pulses 2+ throughout Skin no rashes or lesions noted, no wounds, skin turgor normal, no jaundice, no petechiae and no mottling Skin Narrative: Tattoos, right IJ CVC clean and dry Neuro Neuro Narrative: Unable to assess patient intubated and sedated, reflexes 2+ upper and lower extremity, opens eyes to name Assessment & Plan Assessment/Plan (1) Acute and chronic respiratory failure with hypoxia: (2) COVID-19: (3) Ventricular mural thrombus: (4) HFrEF (heart failure with reduced ejection fraction): (5) Thrombocytopenia: (6) Anemia: PLAN: Acute hypoxic and hypercapnic respiratory failure secondary to COVID-19 pneumonia/ARDS -Intubated 09/25/2020 -Self extubated 10/02/2020 but reintubated immediately -Patient remains on bilevel ventilation -High PEEP decreased today -With ARDS continuing permissive hypercapnia -Patient has completed Decadron and remdesivir -Continue supportive care -Patient remains fully anticoagulated -High suspicion that patient will need tracheostomy and PEG -Rare coag negative staph on sputum culture from 09/30/2020 -Continue to monitor off antibiotics at this point -Diuresis as able KEYONA -Resolved Left ventricular thrombus -Patient currently anticoagulated with Eliquis -Consider repeat echo prior to discharge once patient stabilizes HFrEF -? Related to Covid cardiomyopathy -Consider repeat echo prior to discharge -Cardiology is following Fevers -Patient has been on empiric antibiotic therapy throughout his course -Suspect related to Precedex -Continue to monitor closely -Monitor white count -T-max in the last 24 hours 100.2 Anemia/thrombocytopenia -Suspect related to chronic Covid -Continue to monitor counts closely -Counts are overall relatively stable with slight trend down DM-2 -continue Accu-Cheks -Continue SSI -Blood sugars better but still greater than 200 -Goal is 140-180 -Increase Lantus to 26 units twice daily A. fib with RVR -Patient remains in NSR -Continue amiodarone therapy 200 mg twice daily per cardiology documentation -Continue anticoagulation Untreated VIJAY -Patient is currently intubated -Would recommend polysomnography as outpatient Morbid obesity -Complicates overall treatment, prognosis, and outcomes -Recommend weight loss -BMI 39.6 DVT prophylaxis -Eliquis full dose CODE STATUS -Full code Charges/Coding Visit Charges Inpatient E&M: 23708 Subs Hosp L2
[2020-10-05] MEDS: Metoprolol Tartrate 5 MG/5 ML Vial 2.5 MG IV ×2 (19:49→23:04)
[2020-10-05 22:10] LABS: Bedside Glucose 199 mg/dL (70-110)
[2020-10-05] MEDS: 0.9% Saline Lock 10 ML Syringe IV (22:42)
[2020-10-05 23:26] LABS: Bedside Glucose 192 mg/dL (70-110)
[2020-10-06] VITALS (36 sets, daily range): BP systolic 86–132; BP diastolic 59–85; PULSE 85–127; RESP 12–33; TEMP 37.3–38.7; O2SAT 73–94
[2020-10-06] MEDS: CHLORHEXIDINE GLUC 2% CLOTH 1 EACH TOWELETTE TOPICAL (02:30)
[2020-10-06 03:28] LABS: Absolute Lymphocyte Count 1.12 X10^3/uL (0.83-4.51); Absolute Neutrophil Count 5.7 X10^3/uL (2.0-7.7); Basophil# 0.03 X10^3/uL; Basophil% 0.4 % (0-1); Eosinophil# 0.15 X10^3/uL; Hemoglobin 10.4 g/dL (13.0-16.5); Lymphocyte # 1.12 X10^3/ul (0.83-4.51); Lymphocyte % 15.2 % (19-41); Mean Corp Hgb Conc 27.4 g/dL (32-36); Mean Corpuscular Volume 102.4 fL (80-94); Monocyte# 0.34 X10^3/uL; Monocyte% 4.6 % (0-10); NRBC Flagged by Analyzer 0.3 % (0-5); Neutrophil # 5.68 X10^3/uL (2.7-7.7); POSITIVE COUNT YES; Platelet Count 87 K/mm3 (150-450); RBC Distribution Width CV 15.9 % (11.6-14.6); RBC Distribution Width SD 59.9 fl (35.1-43.9); Red Blood Count 3.71 M/mm3 (4.6-6.2); White Blood Count 7.4 K/mm3 (4.4-11.0)
[2020-10-06 03:42] LABS: ALB/GLOB Ratio 0.5 RATIO (0.9-2.4); AST(SGOT) 25 U/L (15-37); Alanine Aminotransfer ALT/SGPT 76 U/L (16-61); Albumin, Serum 2.2 g/dL (3.2-5.0); Alkaline Phosphatase 29 U/L (45-117); Anion Gap 3 (5-15); BUN 53 mg/dL (7-18); Calcium,Total 8.5 mg/dL (8.5-10.1); Chloride 110 mmol/L (98-107); Creatinine, Serum 0.98 mg/dL (0.70-1.30); EST Glomerular Filtration Rate 91 mL/min (>60); Est Glom Filt Rate - Afr Amer 110 mL/min (>60); Estimated Creatinine Clearance 118.83 ml/min; Globulin 4.8 g/dL (2.2-4.2); Glucose 181 mg/dL (74-106); Magnesium 2.2 mg/dL (1.6-2.6); Potassium 4.7 mmol/L (3.5-5.1); Sodium Level 148 mmol/L (136-145)
[2020-10-06 04:01] LABS: Phosphorus 4.3 mg/dL (2.5-4.9)
[2020-10-06] MEDS: Dexmedetomidine 1,000 mcg in 0.9% NS 240 mL 49.1 MCG CONT INF ×3 (04:04→19:55)
[2020-10-06 04:51] LABS: Allen Test Positive; Base Excess 10 mmol/L (-2 to +2); Bicarbonate 36.3 mmol/L (22-26); Blood Gas Specimen Type ART; FI02 95; Mode BiLevel; O2 Delivery Device Adult Vent; PO2 59 mmHG (75-100); SITE R Radial; SO2 85 % (95-99); Total Carbon Dioxide 39 mmol/L; pCO2 78.3 mmHg (35-45); pH 7.28 (7.35-7.45)
--- NOTE | 2020-10-06 05:57 | CPS ---
CRITICAL ABG VALUES SHOW TO RN-WILL BE HANDED TO DR IN ROUNDS
--- NOTE | 2020-10-06 06:16 | PCM.PN.INT ---
Assessment & Plan Assessment/Plan (1) Acute respiratory failure with hypoxia: (2) COVID-19: PLAN: RECOMMENDATIONS: 1. Continue APRV mode of mechanical ventilation. Wean FiO2 as tolerated. Monitor ABG daily. 2. Request sitter to bedside. 3. Decrease free water flushes. 4. Aggressive attempts at diuresis for volume optimization. 5. Continue Precedex and fentanyl for sedation. 6. Continue bronchodilator therapy. 7. Continue systemic anticoagulation with Eliquis. 8. Continue tube feeds as tolerated. IMPRESSIONS: 1. Acute hypoxemic respiratory failure secondary to COVID-19 pneumonia In addition to COVID-19, the patient does have a history of mild intermittent asthma. Unfortunately, despite intervention, the patient decompensated from a respiratory perspective. Ultimately, the patient did require intubation on the morning of September 25 after he failed to respond to maximum noninvasive positive pressure ventilatory support. The patient's hospital course has been complicated by superimposed bacterial pneumonia, which was treated with antimicrobial therapy along with hypervolemia and continued tenuous respiratory status. Plan to continue full supportive measures. The patient has already completed treatment courses of remdesivir and Decadron. He will remain on scheduled bronchodilator therapy. Systemic anticoagulation with Eliquis will be continued. Attempts to wean FiO2 will be undertaken as tolerated to maintain saturations at or above 90%. Continue tube feeds as tolerated as well. Attempts to volume optimize the patient with IV diuretic therapy will be undertaken as tolerated by hemodynamics and renal function. 2. Acute kidney injury Improved. Likely prerenal in etiology and related to a component of ischemic ATN in the setting of hypotension due to sedative medication use. Urine output is stable. No indication at the current time for renal replacement therapy. 3. Untreated obstructive sleep apnea Resume nocturnal Pap therapy upon successful extubation. 4. Morbid obesity/diabetes mellitus Complicates care, management, recovery and prognosis. Continue current supportive measures as noted above. Continue Lantus and sliding scale insulin coverage. TIME: 42 minutes of critical care time, independent of procedures, was spent addressing the patient's acute hypoxemic respiratory failure, COVID-19 pneumonia, acute kidney injury, acute liver injury, underlying asthma, untreated obstructive sleep apnea, review of all data and collaboration with care team. ([id number]) Subjective Subjective The patient was seen and examined at the bedside this morning. Events from the last 24 hours have been reviewed. The patient continues to have low-grade fevers, but remains otherwise hemodynamically stable. Respiratory status is quite tenuous and the patient is currently on APRV with a P high of 28 and an FiO2 of 100%. He continues to have sick secretion output from his endotracheal tube. He remains sedated on both fentanyl and Precedex. The patient is currently documented to be overall net +18.7 L for the hospital admission. Platelet count is low at 87,000. Chemistry profile was notable for a sodium of 148, chloride of 110 and bicarbonate of 35. Creatinine is stable. Objective Data Objective Data The patient's most recent lab work, culture data and imaging studies have all been personally reviewed. Surface echocardiogram revealed a possible left ventricular apical thrombus with an ejection fraction of 40%. The RV was noted to be moderately dilated with moderate global RV systolic dysfunction. Blood cultures have shown no growth to date. Sputum culture demonstrated 2+ growth of group C streptococcus. Vital Signs: Vital Signs Temp Pulse Resp BP Pulse Ox 99.2 F H 96 24 H 111/77 91 10/06/20 06:00 10/06/20 06:00 10/06/20 06:00 10/06/20 06:00 10/06/20 06:00 Oxygen Flow Rate (L/min) 60 Oxygen Delivery Method Mechanical Ventilator Weight: 140.1 kg Body Mass Index (BMI) 39.2 Intake & Output: Intake and Output for Last 24 Hours 10/04/20 10/05/20 10/06/20 23:59 23:59 23:59 Intake Total 5902.62 / 6678.22 6051.33 / 6923.02 2281.29 / 2281.29 Output Total 2350 / 2750 3675 / 4000 500 / 500 Balance 3552.62 / 3928.22 2376.33 / 2923.02 1781.29 / 1781.29 Medical Nutrition Assessment Dietitian: Malnutrition Criteria Met Start: 09/19/20 12:02 Freq: Status: Active Protocol: Document 10/05/20 11:10 BP (Rec: 10/05/20 11:12 BP [id number]) Nutrition Malnutrition Evidence of Malnutrition Exists Yes Malnutrition (severe): Acute Illness/Injury Evidenced By Suboptimal Energy Intake ( Severe),Weight Loss (Severe) Intake Problem Inadequate Enteral Nutrition Infusion Status Resolved Problem Inadequate Oral Intake Etiology related to respiratory failure Signs/Symptoms as evidenced by estimated PO intake <50% of estimated nutritional needs x >14 days Status Resolved Problem Clinical Problem Acute Disease or Injury Related Malnutrition Etiology severe, acute malnutrition related to decreased energy intake w/ acute illness (COVID ) Signs/Symptoms as evidenced by PO intake meeting <50% 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 Status Active Problem Recommendation Dietitian Recommendations/Changes Vital HP via OGT at 80mL/hour w/ 200mL H2O flush every 4 hours to provide 1920 calories , 167 g protein, and 2805mL total fluid/day. Once sodium & chloride improved rec decrease flush to 50 ml every 4 hours. Lab / Micro Data Attestation: I reviewed the patient's lab results. Result Diagrams: 10/07/20 04:15 10/07/20 04:15 Labs: Laboratory Results - last 24 hr 10/05/20 03:35: Phosphorus 3.8, Magnesium 2.6 10/05/20 05:02: POC Glucose 195 H 10/05/20 10:22: POC Glucose 194 H 10/05/20 11:51: POC Glucose 202 H 10/05/20 17:30: POC Glucose 199 H 10/05/20 23:00: POC Glucose 192 H 10/06/20 03:00: WBC 7.4, RBC 3.71 L, Hgb 10.4 L, Hct 38.0 L, MCV 102.4 H, MCH 28.0, MCHC 27.4 L, RDW Std Deviation 59.9 H, RDW Coeff of Cinthya 15.9 H, Plt Count 87 L, Immature Gran % (Auto) 0.800, Neut % (Auto) 77.0 H, Lymph % (Auto) 15.2 L, Rutherford % (Auto) 4.6, Eos % (Auto) 2.0, Baso % (Auto) 0.4, Absolute Neuts (auto) 5.7, Absolute Lymphs (auto) 1.12, Nucleated RBC % 0.3 10/06/20 03:00: Sodium 148 H, Potassium 4.7, Chloride 110 H, Carbon Dioxide 35.0 H, Anion Gap 3 L, BUN 53 H, Creatinine 0.98, Estim Creat Clear Calc 118.83, Est GFR (MDRD) Af Amer 110, Est GFR (MDRD) Non-Af 91, BUN/Creatinine Ratio 54.0 H, Glucose 181 H, Calcium 8.5, Magnesium 2.2, Total Bilirubin 1.00, AST 25, ALT 76 H, Alkaline Phosphatase 29 L, Total Protein 7.0, Albumin 2.2 L, Globulin 4.8 H, Albumin/Globulin Ratio 0.5 L 10/06/20 03:00: Phosphorus 4.3 Micro: Microbiology 09/30/20 10:30 Blood Culture (Wb) - Right Hand Blood Culture - Final No growth in 5 days. 09/30/20 10:15 Blood Culture (Wb) - Left Wrist Blood Culture - Final No growth in 5 days. 09/30/20 13:20 Sputum, Induced/Lukens Gram Stain - Final 09/30/20 13:20 Sputum, Induced/Lukens Respiratory Culture - Final Coag Negative Staph 09/25/20 09:05 Sputum, Induced/Lukens Gram Stain - Final 09/25/20 09:05 Sputum, Induced/Lukens Respiratory Culture - Final Streptococcus group C 09/18/20 23:02 Blood Culture (Wb) - Anticubital Left Blood Culture - Final No growth in 5 days. 09/18/20 23:12 Blood Culture (Wb) - Left Forearm Blood Culture - Final No growth in 5 days. ABG Data ABG results: ABG 10/06/20 04:43 Specimen Type ART Sample Site R Radial pH 7.28 L Bicarbonate Actual 36.3 H Total CO2 39 Base Excess 10 H O2 Saturation 85 L O2 % 95 ABG pCO2 78.3 H* ABG pO2 59 L Colt Test Positive O2 Delivery Device Adult Vent Vent Mode BiLevel Crit Call To/Read Back Yes Clinical Comments Physical Exam Const alert and no apparent distress General Appearance: intubated and patient mechanically ventilated HEENT normocephalic and head/scalp atraumatic Mouth: endotracheal tube in place and OG tube in place Eyes PERRL, EOMs intact bilaterally and conjunctivae normal Neck supple General: trachea midline and CVC in place Resp Effort and Inspection: tachypneic Auscultation: rhonchi and diminished lung sounds Cardio regular rate and regular rhythm GI normal to inspection, nondistended, normoactive bowel sounds Extremity General Extremity: edema bilateral lower extremity Skin no rashes or lesions noted Neuro moves all extremities and no focal motor deficits Psych Activity / Motor Behavior: restless Charges/Coding Procedures Hospitalists Procedures: [id number] Critial Care 1st Hr
[2020-10-06] MEDS: Insulin Lispro 100 UNIT/ML INSULN.PEN SC ×4 (06:31→21:02)
[2020-10-06] MEDS: Metoprolol Tartrate 5 MG/5 ML Vial 2.5 MG IV ×2 (06:33→11:48)
[2020-10-06] MEDS: Vital High Protein 1,000 ML 80 ML GT ×2 (06:35→22:50)
[2020-10-06 07:26] LABS: Bedside Glucose 169 mg/dL (70-110)
--- NOTE | 2020-10-06 07:37 | CPS ---
Found ET Tube at 25 at the lip. advanced it back to 27 and added air to cuff.
[2020-10-06] MEDS: Dexmedetomidine 1,000 mcg in 0.9% NS 240 mL 52.6 MCG CONT INF (09:18)
--- NOTE | 2020-10-06 09:45 | NURSING ---
Dr. Jones made aware that pt disconnected from ventilator 3 times within an hour. Order received to maximize sedation at this time. During ICU rounds, family insistent that pt have sitter at the bedside in order to prevent extubation. This RN observed ventilator disconnect with minimal movement from pt, suggesting disconnect due to poor integrity of ET tube. This RN used trach ties to hold the ET tube in place with the ventilator circuit at this time and also used rolled towel under ventilator circuit in order to lessen likelihood of pressure on the line disconnecting the vent circuit. This RN in room for approx 45 minutes without disconnection occurring. Reassured the pt's mother that we would be providing sitter until further notice as well.
[2020-10-06] MEDS: Chlorhexidine 15 ML PO ×2 (10:28→21:00)
[2020-10-06] MEDS: APIXABAN 5 MG TABLET GT ×2 (10:29→21:00)
[2020-10-06] MEDS: QUEtiapine 100 MG Tablet 200 MG GT ×2 (10:29→21:00)
[2020-10-06] MEDS: Polyethylene Glycol 3350 17 GM PACKET GT (10:30)
[2020-10-06] MEDS: Furosemide 40 MG/4 ML Vial IV (10:30)
[2020-10-06] MEDS: Amiodarone 200 MG Tablet GT ×2 (10:33→21:00)
[2020-10-06] MEDS: 0.9% Saline Lock 10 ML Syringe IV ×3 (10:36→22:51)
--- NOTE | 2020-10-06 10:45 | CASEMGMT ---
HENRIK CM completed palliative screening tool for Lace/Strata 3. Patient does not meet criteria at this time.
[2020-10-06 11:36] LABS: Bedside Glucose 206 mg/dL (70-110)
--- NOTE | 2020-10-06 13:09 | CHAPLAIN ---
Type of Pastoral Visit ___ Initial Visit ___ Follow-up Visit ___ On-call Visit ___ General Patient Visit ___ Spiritual Assessment ___ Family Conference ___ Bereavement ___ Rapid Response ___ Code Blue ___ Other (describe below) Pastoral Care Referral From ___ Patient ___ Family ___ Nurse ___ Physician ___ Needle Loom Tender ___ Measurement And Verification Engineer ___ Other (describe below) Sacrament/Intervention ___ Active listening ___ Anointing ___ Orthodox ___ Bereavement ___ Communion ___ Herlinda exploration ___ ___ Life review ___ Prayer ___ Reconciliation ___ Sacrament of Sick ___ Supportive presence ___ Wedding ___ Other (describe below) Pastoral Comments overheard mother of patient talking to staff about her concerns; offered support for mother and how to help the patient; mother gave summary of her concerns as CM also present; mother stated you can pray for him
--- NOTE | 2020-10-06 14:21 | PN.ID_ITS ---
Physical Exam Narrative On vent, no fever, 100% fiO2 Const Constitutional Narrative: sedated Resp clear to auscultation bilaterally Auscultation: diminished lung sounds Cardio Rate: tachycardic GI normal to inspection, nondistended, normoactive bowel sounds Skin no rashes or lesions noted ID ID: Route of nutrition/ use of supplements: [] Nutritional Intake: [] IV Site: [] Pugh Catheter: [] Assessment & Plan Assessment/Plan (1) COVID-19: PLAN: covid sx started around 09/10, tested (+) 09/12. Unvaccinated. Admitted, started on dex, [address] neg for PE. Dex extended. On vent, remains hypoxic, 100% fiO2. Completed course of zosyn for strep in sputum . Ok to d/c isolation at this point. Will follow, d/w Dr. Jones (2) Acute respiratory failure with hypoxia:
--- NOTE | 2020-10-06 15:02 | PN.HOSP_ITS ---
Subjective Subjective Patient remains on the ventilator on bilevel ventilation. Popped off the ventilator a couple times this morning and oxygen saturation deteriorated quickly. Sitter now at bedside to monitor ventilator and attachments. Low- grade temperature elevations overnight. Objective Data Objective Data Vital Signs: Vital Signs Temp Pulse Resp BP Pulse Ox 100.3 F H 108 H 15 108/70 88 10/06/20 14:00 10/06/20 14:00 10/06/20 14:00 10/06/20 14:00 10/06/20 14:00 Oxygen Flow Rate (L/min) 60 Oxygen Delivery Method Mechanical Ventilator Weight: 140.1 kg Body Mass Index (BMI) 39.2 Intake & Output: Intake and Output for Last 24 Hours 10/04/20 10/05/20 10/06/20 23:59 23:59 23:59 Intake Total 5902.62 / 6678.22 6051.33 / 6923.02 3523.86 / 3523.86 Output Total 2350 / 2750 3675 / 4000 1950 / 1950 Balance 3552.62 / 3928.22 2376.33 / 2923.02 1573.86 / 1573.86 Medical Nutrition Assessment Dietitian: Malnutrition Criteria Met Start: 09/19/20 12:02 Freq: Status: Active Protocol: Document 10/06/20 10:11 MONSERRAT (Rec: 10/06/20 10:11 [facility] [id number]) Nutrition Malnutrition Evidence of Malnutrition Exists Yes Malnutrition (severe): Acute Illness/Injury Evidenced By Suboptimal Energy Intake ( Severe),Weight Loss (Severe) Intake Problem Inadequate Oral Intake Etiology related to respiratory failure Signs/Symptoms as evidenced by estimated PO intake <50% of estimated nutritional needs x >14 days Status Active Problem Clinical Problem Acute Disease or Injury Related Malnutrition Etiology severe, acute malnutrition related to decreased energy intake w/ acute illness (COVID ) Signs/Symptoms as evidenced by PO intake meeting <50% estimated needs > 5 days [employer] WORK[employer] and 6.1% wt 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 Status Active Problem Recommendation Dietitian Recommendations/Changes Vital HP via OGT at 80mL/hour w/ 150 ml H2O flush every 4 hours to provide 1920 calories , 167 g protein, and 2505mL total fluid/day. Once sodium & chloride improved rec decrease flush to 50 ml every 4 hours. Lab / Micro Data Result Diagrams: 10/06/20 03:00 10/06/20 03:00 Labs: Laboratory Results - last 24 hr 10/05/20 17:30: POC Glucose 199 H 10/05/20 23:00: POC Glucose 192 H 10/06/20 03:00: WBC 7.4, RBC 3.71 L, Hgb 10.4 L, Hct 38.0 L, MCV 102.4 H, MCH 28.0, MCHC 27.4 L, RDW Std Deviation 59.9 H, RDW Coeff of Cinthya 15.9 H, Plt Count 87 L, Immature Gran % (Auto) 0.800, Neut % (Auto) 77.0 H, Lymph % (Auto) 15.2 L, [place] % (Auto) 4.6, Eos % (Auto) 2.0, Baso % (Auto) 0.4, Absolute Neuts (auto) 5.7, Absolute Lymphs (auto) 1.12, Nucleated RBC % 0.3 10/06/20 03:00: Sodium 148 H, Potassium 4.7, Chloride 110 H, Carbon Dioxide 35.0 H, Anion Gap 3 L, BUN 53 H, Creatinine 0.98, Estim Creat Clear Calc 118.83, Est GFR (MDRD) Af Amer 110, Est GFR (MDRD) Non-Af 91, BUN/Creatinine Ratio 54.0 H, Glucose 181 H, Calcium 8.5, Magnesium 2.2, Total Bilirubin 1.00, AST 25, ALT 76 H, Alkaline Phosphatase 29 L, Total Protein 7.0, Albumin 2.2 L, Globulin 4.8 H, Albumin/Globulin Ratio 0.5 L 10/06/20 03:00: Phosphorus 4.3 10/06/20 06:30: POC Glucose 169 H 10/06/20 10:31: POC Glucose 206 H Micro: Microbiology 09/30/20 10:30 Blood Culture (Wb) - Right Hand Blood Culture - Final No growth in 5 days. 09/30/20 10:15 Blood Culture (Wb) - Left Wrist Blood Culture - Final No growth in 5 days. 09/30/20 13:20 Sputum, Induced/Lukens Gram Stain - Final 09/30/20 13:20 Sputum, Induced/Lukens Respiratory Culture - Final Coag Negative Staph 09/25/20 09:05 Sputum, Induced/Lukens Gram Stain - Final 09/25/20 09:05 Sputum, Induced/Lukens Respiratory Culture - Final Streptococcus group C 09/18/20 23:02 Blood Culture (Wb) - Anticubital Left Blood Culture - Final No growth in 5 days. 09/18/20 23:12 Blood Culture (Wb) - Left Forearm Blood Culture - Final No growth in 5 days. ABG Data ABG results: ABG 10/06/20 04:43 Specimen Type ART Sample Site R Radial pH 7.28 L Bicarbonate Actual 36.3 H Total CO2 39 Base Excess 10 H O2 Saturation 85 L O2 % 95 ABG pCO2 78.3 H* ABG pO2 59 L Colt Test Positive O2 Delivery Device Adult Vent Vent Mode BiLevel Crit Call To/Read Back Yes Clinical Comments Physical Exam Narrative On Arava though. No respiratory distress. No conversational dyspnea. Const alert and no apparent distress Constitutional Narrative: Middle-aged white male lying in bed currently intubated and sedated, sitter at bedside, sats 92% Exam Limitations: altered mental status Nutritional Appearance: obese HEENT head/scalp atraumatic, moist oral mucous membranes and oropharynx normal Head and Scalp: normocephalic Eyes PERRL and conjunctivae normal Neck Neck Narrative: Trachea midline Resp no retractions, no use of accessory muscles and clear to auscultation bilaterally Resp Narrative: Diffusely diminished, tachypnea present Auscultation: rhonchi throughout (Scattered); Negative for crackles, rales or wheezes Cardio regular rate, regular rhythm, S1 normal heart sound, S2 normal heart sound, no murmurs, no rub, no gallops, no clicks and no JVD Cardio Narrative: tachycardic, afib GI normal to inspection, nondistended, normoactive bowel sounds, soft to palpation, non-tender and non-distended Extremity normal to inspection and no clubbing, cyanosis or edema Extremity Narrative: Improved edema Peripheral Pulses: Yes pulses 2+ throughout Skin no rashes or lesions noted, no wounds, skin turgor normal, no jaundice, no petechiae and no mottling Skin Narrative: Tattoos, right IJ CVC clean and dry Neuro Neuro Narrative: Unable to assess patient intubated and sedated, reflexes 2+ upper and lower extremity Psych Psych Narrative: intubated, sedated Assessment & Plan Assessment/Plan (1) Acute and chronic respiratory failure with hypoxia: (2) COVID-19: (3) Ventricular mural thrombus: (4) HFrEF (heart failure with reduced ejection fraction): (5) Thrombocytopenia: (6) Anemia: PLAN: Acute hypoxic and hypercapnic respiratory failure secondary to COVID-19 pneumonia/ARDS -Intubated 09/25/2020 -Self extubated 10/02/2020 but reintubated immediately -Patient remains on bilevel ventilation -Wean settings as able -O2 sats still labile and ranged from upper 80s to approximately 92% at best -With ARDS continuing permissive hypercapnia -Patient has completed Decadron and remdesivir -Continue supportive care -Patient remains fully anticoagulated -High suspicion that patient will need tracheostomy and PEG -Rare coag negative staph on sputum culture from 09/30/2020 -Continue to monitor off antibiotics at this point -Continue diuresis as able--> patient has favorable response since this was able to be initiated -Okay for out of isolation per infectious disease Left ventricular thrombus -Patient currently anticoagulated with Eliquis -Consider repeat echo prior to discharge once patient stabilizes HFrEF -? Related to Covid cardiomyopathy -Consider repeat echo prior to discharge -Cardiology is following Anemia/thrombocytopenia -Suspect related to chronic Covid -Continue to monitor counts closely -Counts are overall relatively stable with slight trend down DM-2 -continue Accu-Cheks -Continue SSI -Blood sugars better but still greater than 200 fasting -Goal is 140-180 -Increase Lantus to 30 units twice daily A. fib with RVR -Patient remains in NSR -Continue amiodarone therapy 200 mg twice daily per cardiology documentation -Continue anticoagulation Untreated VIJAY -Patient is currently intubated -Would recommend polysomnography as outpatient Morbid obesity -Complicates overall treatment, prognosis, and outcomes -Recommend weight loss -BMI 39.6 DVT prophylaxis -Eliquis full dose CODE STATUS -Full code Charges/Coding Visit Charges Inpatient E&M: 68645 Subs Hosp L2
--- NOTE | 2020-10-06 15:43 | RAD_ITS ---
STUDY: X-RAY CHEST REASON FOR EXAM: Male, 40 years old. Endotracheal tube placement. TECHNIQUE: Single AP portable view of the chest. COMPARISON: 10/04/2020. FINDINGS: There is an endotracheal tube with its tip 6.6 cm above the aric. There is NG tube extending below the left hemidiaphragm. Stable right jugular central venous catheter. There is diffuse interstitial changes throughout the lungs with bands of atelectasis versus consolidation at the right lung base. There is no interval change. There is no demonstrated pleural abnormality. Normal size heart. There is no change in the mediastinum, grayson, pulmonary arteries or aorta. No osseous changes. There is no demonstrated abnormality of the visualized soft tissue structures of the upper abdomen. RAD/Chest 1 View (Portable) IMPRESSION: Essentially no interval change when compared with study of 2 days earlier. Electronically Signed: Nathan Rodríguez DO at 16:19 EDT Tel [phone], Service support ,
--- NOTE | 2020-10-06 15:50 | CPS ---
Et tube was withdrawn to [address] Jones. The end of the ET tube was cut off, ET adapter cleaned with alcohol and replaced. Trach ties were applied to help support vent circuit. X-ray was taken afterwards to confirm tube placement.
[2020-10-06] MEDS: Furosemide 100 MG/10 ML Vial 80 MG IV (16:21)
[2020-10-06 17:41] LABS: Bedside Glucose 166 mg/dL (70-110)
[2020-10-06 21:04] LABS: Anion Gap -1 (5-15); BUN 62 mg/dL (7-18); BUN/Creat Ratio 51.7 RATIO (10-20); Calcium,Total 8.9 mg/dL (8.5-10.1); Chloride 110 mmol/L (98-107); EST Glomerular Filtration Rate 72 mL/min (>60); Est Glom Filt Rate - Afr Amer 87 mL/min (>60); Estimated Creatinine Clearance 97.04 ml/min; Glucose 161 mg/dL (74-106); Potassium 4.9 mmol/L (3.5-5.1); Sodium Level 148 mmol/L (136-145)
[2020-10-07] VITALS (11 sets, daily range): BP systolic 47–143; BP diastolic 15–92; PULSE 35–132; RESP 12–42; TEMP 38.4–39.7; O2SAT 49–96
[2020-10-07] MEDS: Dexmedetomidine 1,000 mcg in 0.9% NS 240 mL 52.6 MCG CONT INF (00:42)
[2020-10-07 01:12] LABS: Bedside Glucose 159 mg/dL (70-110)
[2020-10-07] MEDS: Acetaminophen 650 MG/20 ML UDC GT (02:27)
[2020-10-07 04:26] LABS: Absolute Lymphocyte Count 1.32 X10^3/uL (0.83-4.51); Absolute Neutrophil Count 7.5 X10^3/uL (2.0-7.7); Basophil# 0.06 X10^3/uL; Basophil% 0.6 % (0-1); Eosinophil# 0.16 X10^3/uL; Eosinophils% 1.7 % (0-5); Hematocrit 38.9 % (40-54); Hemoglobin 10.5 g/dL (13.0-16.5); Lymphocyte # 1.32 X10^3/ul (0.83-4.51); Lymphocyte % 13.8 % (19-41); Mean Corpuscular Hgb 28.2 pg (27.0-32.0); Mean Corpuscular Volume 104.3 fL (80-94); Mean Platelet Vol. 14.8 fl (6.2-12.0); Monocyte% 5.2 % (0-10); NRBC Flagged by Analyzer 0.6 % (0-5); Neutrophil # 7.46 X10^3/uL (2.7-7.7); Neutrophil % 77.8 % (47-70); Platelet Count 114 K/mm3 (150-450); RBC Distribution Width SD 60.9 fl (35.1-43.9); Red Blood Count 3.73 M/mm3 (4.6-6.2); White Blood Count 9.6 K/mm3 (4.4-11.0)
[2020-10-07 04:44] LABS: ALB/GLOB Ratio 0.4 RATIO (0.9-2.4); AST(SGOT) 988 U/L (15-37); Alanine Aminotransfer ALT/SGPT 941 U/L (16-61); Albumin, Serum 2.2 g/dL (3.2-5.0); Alkaline Phosphatase 38 U/L (45-117); Anion Gap 2 (5-15); BUN 72 mg/dL (7-18); BUN/Creat Ratio 36.7 RATIO (10-20); Calcium,Total 8.6 mg/dL (8.5-10.1); Chloride 108 mmol/L (98-107); Creatinine, Serum 1.96 mg/dL (0.70-1.30); EST Glomerular Filtration Rate 41 mL/min (>60); Est Glom Filt Rate - Afr Amer 49 mL/min (>60); Estimated Creatinine Clearance 59.41 ml/min; Globulin 5.1 g/dL (2.2-4.2); Glucose 191 mg/dL (74-106); Potassium 6.2 mmol/L (3.5-5.1); Protein, Total 7.3 g/dL (6.4-8.2); Sodium Level 146 mmol/L (136-145)
--- NOTE | 2020-10-07 05:29 | RAD_ITS ---
EXAM: XR CHEST, 1 VIEW : 1980 CLINICAL INDICATION: PNEUMONIA, ETT TECHNIQUE: Frontal view of the chest. This report was created using [employer] report generation technology. COMPARISON: 10/06/20 FINDINGS: LUNGS AND PLEURAL SPACES: Continued diffuse pulmonary infiltrates. No pneumothorax. No effusion. HEART: Unremarkable. Cardiac silhouette not enlarged. MEDIASTINUM: Central airways and mediastinal contour are unremarkable. BONES/JOINTS: Unremarkable. SOFT TISSUES: Unremarkable. TUBES, LINES AND DEVICES: Endotracheal tube with tip at the level of the clavicular heads, 6.7 cm above the aric. Stable enteric tube and right jugular central line. RAD/Chest 1 View (Portable) IMPRESSION: 1. Endotracheal tube with tip at the level of the clavicular heads, 6.7 cm above the aric. 2. Continued diffuse pulmonary infiltrates. Findings likely indicate pneumonia. at 0718 Reported and signed by: Jake Pineda MD Electronically Signed: Jake Pineda MD at 7:17 EDT Tel , Service support ,
--- NOTE | 2020-10-07 06:10 | PCM.CODE.SUM ---
Code Blue Report Code Blue Summary Code Blue Summary: On 10/07/2020 CODE BLUE was called. ACLS with chest compression was begun at 5:10 AM. Patient received multiple rounds of epinephrine; bicarbonate; magnesium sulfate; calcium gluconate. Levophed drip and epinephrine drip was also given. Rhythm was asystole and PEA. On 10/07/2020 at 5:58 AM patient was pronounced by application development specialist who was at the bedside. Family who was present intermittently walked in during cause of CPR and was at the bedside when patient was pronounced .
--- NOTE | 2020-10-07 06:14 | PCM.CODE.SUM ---
Code Blue Report Code Blue Summary Code Blue Summary: Arrived to the intensive care unit at approximately 5:15 AM. Patient reportedly had gone into third-degree heart block and arrested at approximately 5:10 AM. The patient received multiple rounds of medications. See nursing for exact details in times. Labs were reviewed and patient was noted to have a significant elevation in creatinine and liver enzymes. Patient also had an elevated potassium. Patient had received 2 A of bicarb, calcium chloride and epinephrine prior to my arrival. Patient had also been initiated on Levophed. Epinephrine drip was initiated after my arrival. Patient did have intermittent ROSC, but quickly decompensated. A chest x-ray was obtained during 1 of these ROSC events and showed the endotracheal tube at the clavicles. Given patient had had PEA with marginal oxygenation, the decision was made to attempt reintubation. A 7.5 endotracheal tube was placed using direct laryngoscopy. Patient did have a positive color change and condensation. Patient continued to have PEA and asystole. Patient was pronounced at 5:58 AM after conferring with Dr. Jones. A total of 43 minutes critical care time was spent. summary per hospitalist. Procedures Hospitalists Procedures: 25538 Critial Care 1st Hr
[2020-10-07] MEDS: Sodium Bicarbonate 8.4% 50 ML Syringe 100 MEQ IV (07:11)
--- NOTE | 2020-10-07 15:26 | EXP.PCM_ITS ---
Preliminary Cause of Preliminary Cause of Preliminary Cause of : Acute hypoxic respiratory failure and ARDS secondary to Covid 19 Date of Admission: 09/19/20 Principle Diagnosis Problem List: Active and Suspected Problems (Updated 10/04/20 @ 13:[address] Sri Parekh, DO) Ventricular mural thrombus (Acute) HFrEF (heart failure with reduced ejection fraction) (Acute) KEYONA (acute kidney injury) (Acute) Hypernatremia (Acute) Hyperkalemia (Acute) Anemia (Acute) Thrombocytopenia (Acute) Paroxysmal atrial flutter (Acute) Sleep apnea (Acute) Obesity due to excess calories (Acute) Acute respiratory failure with hypoxia (Acute) Hyponatremia (Acute) Hyperglycemia, drug-induced (Acute) Hyponatremia (Acute) COVID-19 (Acute) Hypoxia (Acute) Hospital Course Mr. Tolentino is a 40-year-old male who presented to the emergency department at [facility] on 09/19/2020 with 3 weeks of shortness of breath, cough, and fever. On admission he reported that 3 weeks prior to presentation he had a sore throat and a cough and was seen at his urgent care. A COVID-19 test was done at that time and was negative. A week after that he presented to an urgent care and was diagnosed with pneumonia and was started on azithromycin and prednisone. His symptoms improved for a short period of time but then returned the prior to admission and he was tested for Covid again at that time and he was positive. He was unvaccinated upon presentation. His pulse ox on admission was 82% on room air. Upon admission he had a temperature of 101 and a CTA of his chest showed no pulmonary embolism but patchy bilateral airspace disease consistent with Covid pneumonia. He was admitted to the intensive care unit. He initially was on 4 L nasal cannula but rapidly progressed to requiring air Vo at 75% FiO2 the day following admission. On admission he was also treated with remdesivir and Decadron. He again unfortunately progressed to requiring noninvasive ventilation on 09/21/2020. And was seen by infectious disease who recommended continuing Decadron and remdesivir on 09/22/2020. Tocilizumab was ordered on 09/24/2020 but not available at this facility with progressively worsening oxygenation and his Decadron course was extended given the severity of his hypoxia. His hypoxia despite maximal noninvasive support progressed and he required intubation on 09/25/2020. A right internal jugular venous catheter was placed on 09/25/2020 as well. He suffered from intermittent fevers and was on 1 spectrum antibiotics with negative cultures. During his course he developed some acute kidney injury which resolved. It was felt that this was likely related to Covid and ischemic ATN related to some hypotension. With his lack of improvement in his hypoxia an echocardiogram was obtained on 10/01/2020 and an EF of 40% was noted with the suggestion of a left ventricular apical thrombus and mild to moderate global hypokinesis of the LV. At that time he was started on full anticoagulation. Given his depressed EF and his unfortunate development of a paroxysmal atrial fibrillation he was started on amiodarone and evaluated by cardiology. His atrial fibrillation fortunately resolved without DC cardioversion. He self extubated on October 02, 2020 with a brief respiratory arrest but was able to be reintubated quickly and stabilized. His sputum did grow out coag negative strep but all other cultures were negative and antibiotics were discontinued after treatment was completed. He had blood cultures on 09 18 and 817 both of which were negative. His respiratory status remained tenuous throughout the course of his hospitalization and he suffered from a few episodes of mucous plugging which were able to be resolved with suctioning. He unfortunately remained on bilevel ventilation with markedly elevated pressure settings to maintain oxygenation and an FiO2 of 95%. Overnight on 10/06/2020 the patient developed fevers and was started on antibiotics and pressors but at 5:15 AM the patient developed third-degree heart block and arrested at approximately 5:10 AM. He received multiple amount rounds of medications and CPR. He did develop intermittent ROSC but quickly would decompensate with a rhythm of asystole and PEA. At 5:58 AM he was pronounced by the cd mixer helper. Family was at bedside during his arrest.
== END 2020-10-07 09:00 | DRG 207 ==
LOC: ED 09-19 01:18 → MS3 09-19 02:54 → ICU 09-21 08:44
PROVIDERS: Internal Medicine; Internal Medicine Critical Care Medicine; Student in an Organized Health Care Education/Training Program; Admitting Provider Internal Medicine; Emergency Provider Emergency Medicine; Visit Provider Internal Medicine
DX: U07.1 COVID-19 (principal); J12.82 Pneumonia due to coronavirus disease 2019; N17.0 Acute kidney failure with tubular necrosis; A41.89 Other specified sepsis; R65.21 Severe sepsis with septic shock; J80 Acute respiratory distress syndrome; E87.1 Hypo-osmolality and hyponatremia; I48.92 Unspecified atrial flutter; E87.0 Hyperosmolality and hypernatremia; I44.2 Atrioventricular block, complete; S36.119A Unspecified injury of liver, initial encounter; I50.20 Unspecified systolic (congestive) heart failure; R57.8 Other shock; R45.1 Restlessness and agitation; D69.6 Thrombocytopenia, unspecified; I48.91 Unspecified atrial fibrillation; I51.3 Intracardiac thrombosis, not elsewhere classified; E87.5 Hyperkalemia; I46.9 Cardiac arrest, cause unspecified; Z28.3 Underimmunization status; E66.01 Morbid (severe) obesity due to excess calories; G47.33 Obstructive sleep apnea (adult) (pediatric); F40.240 Claustrophobia; E11.65 Type 2 diabetes mellitus with hyperglycemia; T38.0X5A Adverse effect of glucocorticoids and synthetic analogues, initial encounter; I48.0 Paroxysmal atrial fibrillation; I11.0 Hypertensive heart disease with heart failure; J45.20 Mild intermittent asthma, uncomplicated; D64.9 Anemia, unspecified
CPT/HCPCS: 31500; 31720; 36415; 36600; 71045; 71275; 80048; 80053; 80076; 82550; 82803; 82962; 83036; 83605; 83690; 83735; 83880; 84075; 84100; 84145; 84478; 84484; 85025; 85027; 85379; 85652; 86141; 87040; 87070; 87077; 87205; 87641; 92950; 93005; 93306; 94002; 94003; 94640; 94660; 97110; 97163; 97166; 97530; 97535; 97802; 97803; 99251; 99285; J7030; J7040; J7050; Q9967; A4216; C1751; G0463; J0153; J0330; J1940; J3010; J3475; J3490